=== PATIENT | female | born 1950 | race Caucasian/White ===

== ENCOUNTER 2023-05-31 20:38 | Observation (INO) | payer MEDICARE, SELFPAY ==
[2023-05-31] VITALS (25 sets, daily range): BP systolic 102–136; BP diastolic 74–102; PULSE 119–170; RESP 22–40; TEMP 37.6–37.8; O2SAT 92–100
--- NOTE | ~2023-05-31 | XR_ITS ---
EXAMINATION: XR chest 1V portable Exam Date/Time: 05/31/2023 21:00 CDT HISTORY: SHORTNESS OF BREATH. Comparison: None. RESULT: Lines, tubes, and devices: None. Lungs and pleura: Emphysematous and senescent changes. Scattered calcified granulomas. No focal cons olidation or pneumothorax. Biapical pleural scarring. Cardiomediastinal silhouette: Normal heart size. Atherosclerotic arch calcification. Other: No acute osseous or upper abdominal finding. IMPRESSION: No acute cardiopulmonary process. Reviewed, dictated and finalized at location [facility].
--- NOTE | ~2023-05-31 | CT_ITS ---
EXAMINATION: CTA chest PE protocol DATE: 05/31/2023 22:43 INDICATION: Shortness of breath. Elevated d-dimer. TECHNIQUE: Computed tomography angiography (CTA) of the chest was performed with 100 mL Omnipaque-350 intravenous contrast timed to evaluate the pulmonary arteries. Coronal maximum intensity projection 3D-reconstructions were created by the technologist. Automated exposure control and iterative reconst ruction technique were employed. Exam dose: 147.02 mGy-cm total exam DLP. COMPARISON: 05/31/2023 portable AP chest FINDINGS: There is diagnostic contrast enhancement of the pulmonary arteries and no evidence of pulmo nary embolism. Heart size is within normal range. There is coronary artery calcification. No pericardial effusion. There is thoracic aortic calcification and ectasia. Particularly prominent atherosclerotic plaque is noted in the descending thoracic aorta. Moderately prominent emphysematous changes of lungs. Mild bilateral apical scarring. No pulmonary infiltrate or consolidation or pulmonary mass lesion is evident. Prominent degenerative disc disease in the lower cervical spine. Degenerative change of the thoracic spine including particularly prominent degenerative disc disease at T11-12 with mild retrolisthesis. Mild to moderate burst fracture deformity of L1. IMPRESSION: No evidence of pulmonary embolism Aortic ectasia, atherosclerosis Emphysema Moderate burst fracture deformity of L1 Degenerative changes of the cervical and thoracic spine Reviewed, dictated and finalized at [facility]. Reviewed, dictated and finalized at location A.
--- NOTE | 2023-05-31 20:40 | ECG_ITS ---
Measurements Intervals [place] Rate: 157 P: [place]: 0 QRS: 79 QRSD: 89 T: -49 QT: 271 QTc: 439 Interpretive Statements ATRIAL FIBRILLATION WITH RAPID VENTRICULAR RESPONSE VENTRICULAR PREMATURE COMPLEX CANNOT RULE OUT SEPTAL INFARCT, AGE INDETERMINATE BORDERLINE ST-T WAVE ABNORMALITY- INF/LAT LEADS BASELINE ARTIFACT- I, II, III, AVR, AVL, AVF, V1-V6 ABNORMAL ECG NO PREVIOUS ECG AVAILABLE FOR COMPARISON Electronically Signed On 06-01-2023 8:57:23 CDT by Darien Singleton D.O.
--- NOTE | 2023-05-31 20:57 | ED.SOB ---
HPI - SOB/Dyspnea General Chief Complaint: Shortness of Breath/Dyspnea Stated Complaint: SOB Time Seen by Provider: 05/31/23 20:40 Source: patient and family Mode of arrival: ambulatory Limitations: no limitations History of Present Illness HPI Narrative: patient is a 73-year-old female who was recently living in the longterm and now living back home with family. She started to have shortness of breath and some panic type symptoms today and came to the emergency room. She is generally healthy except for some COPD. She also had a blood clot in her right lower extremity and was on blood thinners however that was stopped at the nursing facility. MD elicited complaint: shortness of breath Pertinent past history: COPD Onset (ago): hour(s) (3) Context: smoke/fume exposure (tobacco use) and anxiety Timing: constant Severity: moderate Exacerbating factors: nothing Relieving factors: nothing Known history of: COPD Associated symptoms: denies other symptoms Treatment prior to arrival: bronchodilator Related Data Home oxygen amount: none Allergies Allergy/AdvReac Type Severity Reaction Status Date / Time ciprofloxacin Allergy Unknown Verified 05/31/23 21:21 mirabegron Allergy Unknown Verified 05/31/23 21:21 oxybutynin Allergy Unknown Verified 05/31/23 21:21 solifenacin Allergy Unknown Verified 05/31/23 21:21 Review of Systems Review of Systems: All systems reviewed & are unremarkable except as noted in HPI and below Constitutional: Constitutional: Reports no additional constitutional complaints Eyes: Eyes: Reports no additional eye complaints ENT: Reports system reviewed and no additional complaints, except as documented Cardiovascular: Cardiovascular: Reports no additional cardiovascular complaints Respiratory: Respiratory: Reports no additional respiratory complaints Gastrointestinal: Gastrointestinal: Reports no additional gastrointestinal complaints Genitourinary: Genitourinary: Reports no additional female genitourinary complaints Musculoskeletal: Musculoskeletal: Reports no additional musculoskeletal complaints Integumentary/Breasts: Skin/Breast: Reports system reviewed and no additional complaints, except as docu Neurologic: Reports system reviewed and no additional complaints, except as documented Psychiatric: Psychiatric: Reports no additional psychiatric complaints Endocrine: Endocrine: Reports no additional endocrine complaints Hematologic/Lymphatic: Hematologic/Lymphatic: Reports no additional hematologic/lymphatic complaints Allergic/Immunologic: Allergic/Immunologic: Reports no additional allergic/immunologic complaints Exam Const: General: ill appearing Nutritional Appearance: well nourished Orientation/consciousness: patient oriented x3 Limitations: no limitations HENMT: Head: normal to inspection Eyes: Conjunctivae: conjunctivae normal Pupils: Equal, round and reactive pupils present EOM: EOMs intact bilaterally Neck: Neck: normal visual inspection Chest: Chest palpation & inspection: normal inspection of the chest Resp: Effort & Inspection: labored, no retractions, tachypneic and uses accessory muscles Auscultation: not clear to auscultation bilaterally, crackles (RLL), no rales, no rhonchi and no wheezes Cardio: Rate: tachycardic Rhythm: abnormal rhythm Heart sounds: no murmurs GI: Inspection: non-distended GI Palp: Yes Soft to palpation, No Tenderness to palpation present (GI) and No Guarding due to palpation present (GI) Auscultation: normal bowel sounds : General: Yes bladder normal to palpation Skin: General skin exam: pallor Neuro: General: patient oriented x3, moves all extremities, no meningeal signs, no focal motor deficits and CN's II-XI intact bilaterally Extrem: General: normal to inspection and no clubbing, cyanosis or edema Psych: Mental Status: mental status grossly normal Course Vital Signs Vital signs: Vital Signs Pulse Rate 170 H 05/31/23
[2023-05-31] MEDS: IPRATROPIUM 0.5 MG/ALBUTEROL SULFATE 2.5 MG AMPUL.NEB 3 ML INHALATION (20:58)
[2023-05-31] MEDS: SODIUM CHLORIDE 0.9% IV 1,000 ML 999 ML IV CONT (21:00)
[2023-05-31] MEDS: methylPREDNISolone SOD SUCC 125 MG VIAL IV PUSH (21:02)
[2023-05-31 21:03] LABS: Eosinophils Absolute Auto 0.02 K/mm3 (0.02-0.50); Eosinophils Percent Auto 0.2 % (1.0-6.0); Hematocrit 32.3 % (35.0-42.0); Immature Granulocyte Absolute 0.07 K/mm3 (0.00-0.00); Immature Granulocyte Percent A 0.7 % (0.0-0.0); Immature Platelet Fraction Pct 1.8 % (1.0-7.0); Lymphocytes Absolute Auto 1.31 K/mm3 (1.10-4.50); Lymphocytes Percent Auto 12.5 % (18.0-42.0); Mean Corpuscular Hemoglobin 23.8 pg (27.0-31.0); Mean Corpuscular Volume 76.9 fL (78.0-102.0); Mean Platelet Volume 9.4 fl (9.2-11.8); Monocytes Absolute Auto 1.42 K/mm3 (0.10-0.90); Monocytes Percent Auto 13.5 % (2.0-11.0); Neutrophils Absolute Auto 7.6 K/mm3 (1.7-7.2); Neutrophils Percent Auto 72.1 % (50.0-70.0); Platelet Count Result 528 K/mm3 (150-420); Red Cell Distribution Width 17.5 % (11.6-14.4); White Blood Count 10.5 K/mm3 (4.8-10.8)
[2023-05-31] MEDS: dilTIAZem HCl INJ 25 MG/5 ML VIAL 5 MG IV PUSH (21:18)
[2023-05-31 21:19] LABS: Lactic Acid Reflex 2.6 mmol/L (0.4-2.0)
[2023-05-31 21:27] LABS: Alanine Aminotransferase 85 U/L (14-59); Albumin Level 2.8 g/dL (3.4-5.0); Alkaline Phosphatase 147 U/L (46-116); Anion Gap 13 mmol/L (8-16); Aspartate Amino Transferase 73 U/L (15-37); Bilirubin,Total 0.2 mg/dL (0.00-1.00); Blood Urea Nitrogen 22 mg/dL (7-18); Carbon Dioxide 24 mmol/L (21-32); Chloride 101 mmol/L (98-108); Estimated Glomerular Filt Rate 46; Glucose 144 mg/dL (70-99); Osmolality Calculated 292 mOsm/kg (285-295); Potassium 2.9 mmol/L (3.5-5.1); Sodium 138 mmol/L (136-145); Total Protein 7.3 g/dL (6.4-8.2); Troponin I 25.9 ng/L (0.00-60.4)
--- NOTE | 2023-05-31 21:29 | ECG_ITS ---
Measurements Intervals [place] Rate: 146 P: [place]: 0 QRS: 81 QRSD: 85 T: 0 QT: 248 QTc: 387 Interpretive Statements ATRIAL FIBRILLATION WITH RAPID VENTRICULAR RESPONSE VENTRICULAR PREMATURE COMPLEXES CANNOT RULE OUT SEPTAL INFARCT, AGE INDETERMINATE BORDERLINE ST-T WAVE ABNORMALITY- INF/LAT LEADS BASELINE ARTIFACT- II, III, AVR, AVL, AVF, V6 ABNORMAL ECG COMPARED TO ECG 05/31/2023 20:57:53 NO SIGNIFICANT CHANGES Electronically Signed On 06-01-2023 8:58:28 CDT by Darien Singleton D.O.
[2023-05-31] MEDS: AZITHROMYCIN 500 MG/NS 250 ML 500 MG/250 ML BAG 250 MG IVPB (21:49)
[2023-05-31 21:52] LABS: NT Pro B Type Natriuretic Pept 7500 pg/mL (0-125)
[2023-05-31 21:59] LABS: INR 0.9; Partial Thromboplastin Time 30.2 SEC (23.90-30.70); Prothrombin Time 10.3 Seconds (9.50-12.10)
[2023-05-31 22:03] LABS: D Dimer 2.28 mg/L (0.19-0.50)
[2023-05-31] MEDS: dilTIAZem HCl INJ 25 MG/5 ML VIAL 10 MG IV PUSH (22:41)
--- NOTE | 2023-05-31 22:45 | PC.NURSE ---
When pt falls asleep SpO2 decreased to upper 80s. ERP aware and EtCO2 applied with 1 L O2. Pt tolerates well. SpO2 remains 92-94% on 1 L per NC.
--- NOTE | 2023-05-31 22:46 | PC.NURSE ---
Pt resting L lateral recumbent position. Pt reports feeling much better. ERP returns to bedside to discuss plan. Diltiazem administered as ordered.
[2023-05-31] MEDS: dilTIAZem 100 MG/100 ML 100 MG/100 ML BAG IV CONT (23:01)
--- NOTE | 2023-05-31 23:41 | PC.NURSE ---
Remain awaiting CT report. Pt tolerating diltiazem infusion well. Pt resting L lateral recumbent position occasional dry hacking cough noted. SpO2 remains 94% on 1 L per NC. Call light in reach. Side rails up x 2.
--- NOTE | 2023-05-31 23:48 | PC.NURSE ---
Pt voided clear yellow urine by bedside commode, unmeasured estimated approx 200 mL. No increase in dyspnea with transfer to and from bedside commode with assist x 1 by BRYCE Henson tech.
[2023-05-31 23:58] LABS: Reflex Lactic Acid Yes or No Add Lactic
[2023-06-01] VITALS (25 sets, daily range): BP systolic 85–111; BP diastolic 52–90; PULSE 88–120; RESP 17–26; TEMP 36.3–36.6; O2SAT 91–98; BMI 18.8
[2023-06-01] MEDS: POTASSIUM CHLORIDE 20 MEQ ER TABLET 40 MEQ PO (01:33)
[2023-06-01 01:40] LABS: Magnesium 1.5 mg/dL (1.8-2.4)
[2023-06-01 01:58] LABS: Lactic Acid 0.9 mmol/L (0.4-2.0)
[2023-06-01] MEDS: MAGNESIUM OXIDE 400 MG TABLET PO (02:28)
[2023-06-01] MEDS: POTASSIUM CHLORIDE 20 MEQ ER TABLET PO (02:29)
--- NOTE | 2023-06-01 02:41 | ADMGEN ---
This patient, Mamie Kelley, was admitted to 2nd Floor Room 208-2. Patient/family oriented to hospital policies and general routines including ID bracelet, bed and alarms, visiting hours, pain management, procedures, bathroom and other care routines, personal items, smoking policy, room service/diet, and visiting hours. Patient has purse on bedside table Information on how to activate the Rapid Response Team has been discussed. Patient/Family are encouraged to report perceived risks to care and to ask questions if they do not understand what they are told or what they should do.
--- NOTE | 2023-06-01 04:28 | PC.NURSE ---
Patient used call light and assisted up to void, heart rate 120's with activity noted
--- NOTE | 2023-06-01 04:58 | PC.NURSE ---
new bag of cardizem gregorio, rate remains 108-120
[2023-06-01] MEDS: ACETAMINOPHEN 325 MG TABLET 650 MG PO (04:59)
[2023-06-01 05:49] LABS: Appearance Urine Clear (Clear); Bilirubin Urine Negative (Negative); Blood Urine Negative (Negative); Color Urine Light Yellow (Yellow); Glucose Urine UA Trace (Negative); Ketones Urine Negative (Negative); Leukocyte Esterase Ur Negative LEU/UL (Negative); Nitrate Urine Negative (Negative); Protein Urine 1+ (Negative); Urobilinogen Urine 0.2 mg/dL (0.2-1.0)
[2023-06-01 05:56] LABS: Add Urine Microscopic? YES; Squamous Epithelial Cell Urine Moderate /hpf (Few)
--- NOTE | 2023-06-01 06:10 | PC.NURSE ---
headache improved, ankles are hurting worse this am
[2023-06-01] MEDS: HYDROcodone/acetaminophen (*CRX) 5-325 MG TABLET 1 TAB PO (06:12)
[2023-06-01] MEDS: IPRATROPIUM 0.5 MG/ALBUTEROL SULFATE 2.5 MG AMPUL.NEB 3 ML INHALATION ×2 (06:13→12:08)
[2023-06-01 07:25] LABS: Hematocrit 28.2 % (35.0-42.0); Hemoglobin 8.7 g/dL (11.7-13.8); Mean Corpuscular HGB Conc 30.9 g/dL (32.0-36.0); Mean Corpuscular Volume 77.7 fL (78.0-102.0); Mean Platelet Volume 9.8 fl (9.2-11.8); Platelet Count Result 439 K/mm3 (150-420); Red Blood Count 3.63 M/mm3 (4.20-5.40); Red Cell Distribution Width 17.5 % (11.6-14.4)
[2023-06-01 07:30] LABS: Anion Gap 11 mmol/L (8-16); Blood Urea Nitrogen 20 mg/dL (7-18); Calcium 8.6 mg/dL (8.5-10.1); Carbon Dioxide 24 mmol/L (21-32); Chloride 105 mmol/L (98-108); Estimated CRCL calculation 22 ml/min; Estimated Glomerular Filt Rate 38; Glucose 239 mg/dL (70-99); Osmolality Calculated 300 mOsm/kg (285-295); Potassium 3.9 mmol/L (3.5-5.1); Sodium 140 mmol/L (136-145)
--- NOTE | 2023-06-01 07:40 | PC.NURSE ---
Pt hypotensive, reported to Yanelis Moss NP. Cardizem decreased to 10 ml/hr. Will continue to monitor hr and bp.
[2023-06-01] MEDS: dilTIAZem 100 MG/100 ML 100 MG/100 ML BAG 10 MG IV CONT ×2 (09:20→11:36)
--- NOTE | 2023-06-01 09:20 | PC.NURSE ---
New order for cardizem drip with titration. Cardizem continued at current rate of 10ml/hr. bp 104/88 hr94.
[2023-06-01 09:33] LABS: Magnesium 1.5 mg/dL (1.8-2.4)
[2023-06-01 10:39] LABS: Thyroid Stimulating Hormone Reflex 0.57 u/IU/mL (0.36-3.74)
[2023-06-01] MEDS: MAGNESIUM SULF 2 GM/WATER 50ML 2 GM/50 ML BAG IVPB (10:41)
[2023-06-01] MEDS: ENOXAPARIN 60 MG/0.6 ML SYRINGE 45 MG SUB-Q (10:42)
--- NOTE | 2023-06-01 11:52 | PM.IMHP ---
H&P: HPI History of Present Illness Date/Time: 06/01/23914 Chief Complaint: Shortness of breath Narrative: Ms. Kelley is a 73-year-old female who presented to the emergency room with increasing shortness of breath. Patient states that she has had shortness breath for the last few months secondary to her COPD, but yesterday her shortness of breath increased significantly and she felt like she could not catch her breath. Patient states that at that time she was very worried and came to the emergency room. Patient states that she has also been having midsternal chest discomfort with radiation to her left shoulder when she has been up moving around in her house. Patient states that she was having palpitations throughout the day yesterday, but did not think anything of them. Patient states that she has not seen a physician in years and the only medication she has at home at this time are rescue albuterol inhalers. Patient states she does not take daily medication for her COPD. Patient states she does have a history of a DVT many years ago and was on Plavix for this. Patient denies any lightheadedness, dizziness, syncopal, or near syncopal episodes. Patient denies any dysuria, hematuria, frequency, or urgency. Upon evaluation emergency room patient was noted to be in atrial fibrillation with rapid ventricular response on was placed on a Cardizem drip. Patient was given a dose of azithromycin and ceftriaxone in the emergency room for a chest x-ray that showed possible right lower lobe infiltrate per the emergency room read. Radiology stated that chest x-ray showed no cardiopulmonary process. Patient was noted to have potassium of 2.9 and was given 60 mEq of oral potassium, and she was noted to have a magnesium of 1.5 and was given 400 of oral magnesium. Review of Systems Review of Systems: A 12 point review of systems was completed with patient all pertinent positive and negative per HPI the remainder are unremarkable. [facility] Past Medical History Medical History (Updated 06/01/23 @ 12:29 by Yanelis Sharma APRN) COPD (chronic obstructive pulmonary disease) DVT (deep venous thrombosis) Herniated cervical disc Surgical History Surgical History (Updated 06/01/23 @ 12:05 by Yanelis Sharma APRN) History of total hysterectomy Social History Social History Smoking status: Current every day smoker Tobacco type: cigarettes Second hand tobacco smoke exposure: Yes Alcohol intake: never Substance use: never Substance use type: does not use Lack of Transportation: No Lack of Food: Never True Current Housing: I Have Housing Concerned About Future Housing: No Difficulty Paying Gas/Electric Bills: No Difficulty Paying for Meds: No Currently Unemployed: No Education: High School Diploma/GED Difficulty w/ Childcare or Family Care: No Spiritual care concerns: No Meds Home Medications and Allergies Home Medications Medication Instructions Recorded Confirmed Type clonidine HCl 0.1 mg tablet 0.1 mg PO Q6H PRN Blood Pressure 06/01/23 06/01/23 History gabapentin 400 mg BYMOUTH TID 06/01/23 06/01/23 History trazodone 100 mg tablet 50 mg PO Q6H PRN Anxiety 06/01/23 06/01/23 History trazodone 100 mg tablet 100 mg PO HS 06/01/23 06/01/23 History Allergies Allergy/AdvReac Type Severity Reaction Status Date / Time ciprofloxacin Allergy Unknown Verified 05/31/23 21:21 mirabegron Allergy Unknown Verified 05/31/23 21:21 oxybutynin Allergy Unknown Verified 05/31/23 21:21 solifenacin Allergy Unknown Verified 05/31/23 21:21 Vital Signs Vital Signs - 24 hr 05/31/23 20:41 05/31/23 21:05 05/31/23 20:50 Temperature 37.6 C Pulse Rate 162 H Respiratory Rate 36 H Blood Pressure 136/91 H Pulse Oximetry 96 95 Oxygen Delivery Room Air Oxygen Flow Rate 05/31/23 20:55 05/31/23 21:29 05/31/23 20:40 Temperature Pul
--- NOTE | 2023-06-01 12:34 | PM.TDS ---
Transfer Discharge Sum: Prov Provider Date of admission: 06/01/23 01:38 Primary care physician: UNKNOWN,DOCTOR Admitting clinician: Endy Martinez MD Receiving physician/facility: Dr. Samuel DS: Admitting Diagnosis Discharge Date 06/01/2023 Admitting Diagnosis Atrial fibrillation with rapid ventricular response DS: Discharge Diagnosis Discharge Diagnosis Plan A/P 1. Atrial fibrillation with rapid ventricular response-patient was placed on a Cardizem drip in the emergency room which has been titrated.? Initially patient's potassium was 2.9 and she received supplementation.? Patient's magnesium remains at 1.5 and 2 g of magnesium IV has been ordered.? Will keep potassium close to 4 and magnesium close to 2.? TSH is 0.57.? Due to the fact the patient was complaining of chest pain and patient's heart rate has been difficult to control with the Cardizem drip patient is going to be transferred to a higher level that has Cardiology available for recommendations. 2. Chest pain-patient is not actively having chest discomfort but states that she has had the chest discomfort with radiation to her left shoulder off and on while at home.? Patient is being transferred to a higher level of care for Cardiology consultation. 3. COPD-patient is on routine DuoNeb treatments every 6 hours.? Patient will eventually need to follow up with pulmonology for recommendations regarding chronic medications. VTE:? Patient will be placed on full-dose Lovenox daily secondary to renal adjustment and creatinine clearance being less than 30. Dispo:? Patient will be transferred to outside facility for Cardiology consultation.? Dr. Samuel is accepting physician at [facility]. Code Status:? Full code. Transfer Discharge Sum: Med Medications Active and Home Medications: Home Medications clonidine HCl 0.1 mg tablet 0.1 mg PO Q6H PRN Blood Pressure 06/01/23 [History Confirmed 06/01/23] gabapentin 400 mg BYMOUTH TID 06/01/23 [History Confirmed 06/01/23] trazodone 100 mg tablet 50 mg PO Q6H PRN Anxiety 06/01/23 [History Confirmed 06/01/23] trazodone 100 mg tablet 100 mg PO HS 06/01/23 [History Confirmed 06/01/23] Active Medications Acetaminophen (Acetaminophen 325 Mg Tablet) 650 mg PO Q4H PRN PRN Reason: Mild Pain (1-3) or Fever Last Admin: 06/01/23 04:59 Dose: 650 mg Hydrocodone Bitart/Acetaminophen (Hydrocodone/Acetaminophen (*Crx) 5-325 Mg Tablet) 1 tab PO Q4H PRN PRN Reason: Moderate Pain (4-6) Last Admin: 06/01/23 06:12 Dose: 1 tab Albuterol (Albuterol Sulfate Neb 2.5 Mg/3 Ml Inh) 2.5 mg INHALATION Q4HRT PRN PRN Reason: Shortness Of Breath Albuterol/Ipratropium (Ipratropium 0.5 Mg/Albuterol Sulfate 2.5 Mg Ampul.Neb 3 Ml) 3 ml INHALATION Q6HRT BRETT Last Admin: 06/01/23 12:08 Dose: 3 ml Bisacodyl (Bisacodyl 5 Mg Tablet Ec) 5 mg PO DAILY PRN PRN Reason: Constipation Enoxaparin Sodium (Enoxaparin 60 Mg/0.6 Ml Syringe) 45 mg SUB-Q DAILY [facility] Last Admin: 06/01/23 10:42 Dose: 45 mg Diltiazem HCl (Cardizem 100 Mg/100 Ml) 100 mg in 100 mls @ 5 mls/hr IV CONT .Q20H BRETT; Protocol Last Admin: 06/01/23 11:36 Dose: 10 mg/hr, 10 mls/hr Morphine Sulfate (Morphine Sulfate (*Crx) 2 Mg/Ml Inj) 2 mg IV PUSH Q4H PRN PRN Reason: Pain Rated 7-10 Naloxone HCl (Naloxone Hcl 0.4 Mg/Ml Vial) 0.1 mg IV PUSH Q2M PRN PRN Reason: Opiate Reversal Ondansetron HCl (Ondansetron Inj 4 Mg/2 Ml Vial) 4 mg IV PUSH Q6H PRN PRN Reason: Nausea And Vomiting Perflutren Lipid Microsphere (Perflutren Lipid Microspheres 1.5 Ml Vial Diluted To 10 Ml Total Volume) 0 ml IV PUSH ONCE PRN; Protocol PRN Reason: adequate visualization Stop: 06/03/23 01:36 Transfer Discharge Sum: Hosp Hospital Course Hospital course: Mamie Kelley is a 73 year old female who presented to the emergency room with increasing shortness of breath.? Patient states that she has had shortness breath for the last few months secondary to her COPD, but yesterday her short
--- NOTE | 2023-06-01 18:07 | PC.NURSE ---
Called [facility] and gave report to Danuta.
== END 2023-06-01 18:50 | disposition short-term general hospital (02) ==
LOC: CHSED 23:19 → CHS2ND 06-02 10:17
PROVIDERS: Nurse Practitioner; Nurse Practitioner Adult Health; Admitting Provider Internal Medicine; Emergency Provider Emergency Medicine; Visit Provider Internal Medicine
DX: I48.91 Unspecified atrial fibrillation (principal); J44.1 Chronic obstructive pulmonary disease with (acute) exacerbation; Z86.718 Personal history of other venous thrombosis and embolism; F17.210 Nicotine dependence, cigarettes, uncomplicated; R07.9 Chest pain, unspecified
CPT/HCPCS: 36415; 71045; 71275; 80048; 80053; 81001; 83605; 83735; 83880; 84443; 84484; 85025; 85027; 85055; 85380; 85610; 85730; 87040; 93005; 94640; 96361; 96365; 96366; 96368; 96372; 96375; 96376; 99285; A9270; G0378; J0456; J0696; J1650; J2930; J3475; J7030; Q9967

== ENCOUNTER 2023-07-23 00:11 | Emergency (ER) | payer MEDICARE, SELFPAY ==
[2023-07-23] VITALS (8 sets, daily range): BP systolic 121–139; BP diastolic 63–88; PULSE 85–97; RESP 22–36; TEMP 36.9–37.6; O2SAT 88–96
--- NOTE | ~2023-07-23 | XR_ITS ---
Portable chest x-ray Comparison: 05/31/2023 Clinical History: Dyspnea Findings: Lungs are clear, without focal consolidation or pleural effusion. Possible COPD. Cardiome diastinal silhouette is stable. Bones and soft tissues are unremarkable. Impression: Possible COPD. Clear lungs. Reviewed, dictated and finalized at location . Impression: Possible COPD. Clear lungs.
--- NOTE | 2023-07-23 00:21 | ED.SOB ---
HPI - SOB/Dyspnea General Chief Complaint: Shortness of Breath/Dyspnea Stated Complaint: sob Time Seen by Provider: 07/23/23 00:20 Source: patient and RN notes reviewed Mode of arrival: ambulatory Limitations: no limitations History of Present Illness MD elicited complaint: shortness of breath Pertinent past history: COPD Onset (ago): hour(s) (1) Timing: constant Severity: moderate Exacerbating factors: exertion and movement Relieving factors: nothing Known history of: COPD Associated symptoms: denies other symptoms Treatment prior to arrival: none Related Data Home oxygen amount: none Home Medications Medication Instructions Recorded Confirmed clonidine HCl 0.1 mg tablet 0.1 mg PO Q6H PRN Blood Pressure 06/01/23 06/01/23 gabapentin 400 mg BYMOUTH TID 06/01/23 06/01/23 trazodone 100 mg tablet 50 mg PO Q6H PRN Anxiety 06/01/23 06/01/23 trazodone 100 mg tablet 100 mg PO HS 06/01/23 06/01/23 Allergies Allergy/AdvReac Type Severity Reaction Status Date / Time ciprofloxacin Allergy Unknown Verified 07/23/23 00:14 mirabegron Allergy Unknown Verified 07/23/23 00:14 oxybutynin Allergy Unknown Verified 07/23/23 00:14 solifenacin Allergy Unknown Verified 07/23/23 00:14 Review of Systems Review of Systems: All systems reviewed & are unremarkable except as noted in HPI and below Constitutional: Constitutional: Denies chills and Denies fever(s) Respiratory: Respiratory: Reports as per HPI and Denies cough PMFSH Past Medical History Medical History (Updated 07/23/23 @ 01:56 by Ovidio Mc MD) Atrial fibrillation COPD (chronic obstructive pulmonary disease) DVT (deep venous thrombosis) Herniated cervical disc Surgical History Surgical History History of total hysterectomy Social History Social History Smoking status: Current every day smoker Tobacco type: cigarettes Second hand tobacco smoke exposure: Yes Alcohol intake: never Substance use: never Substance use type: does not use Lack of Transportation: No Lack of Food: Never True Current Housing: I Have Housing Concerned About Future Housing: No Difficulty Paying Gas/Electric Bills: No Difficulty Paying for Meds: No Currently Unemployed: No Education: High School Diploma/GED Difficulty w/ Childcare or Family Care: No Spiritual care concerns: No Exam Const: General: no acute distress, alert and ill appearing chronically Nutritional Appearance: well nourished and thin Orientation/consciousness: patient oriented x3 Limitations: no limitations HENMT: Head: normal to inspection Ears: external ears normal Face/Nose/Sinus: Normal external nose present Face and sinus: normal facial exam Mouth: Yes moist mucous membranes Eyes: Conjunctivae: conjunctivae normal Pupils: Equal, round and reactive pupils present EOM: EOMs intact bilaterally Neck: Neck: normal visual inspection Resp: Effort & Inspection: normal respiratory effort Auscultation: crackles bilateral at the base Cardio: Rate: regular rate Rhythm: regular rhythm GI: GI Palp: Yes Soft to palpation and No Tenderness to palpation present (GI) Auscultation: normal bowel sounds Back/Spine/Pelvis: Cervical Spine: cervical ROM normal Thoracic/Lumbar Spine: thoraco-lumbar ROM normal Skin: General skin exam: normal color Rashes: no rashes Neuro: General: patient oriented x3, moves all extremities, no focal motor deficits and CN's II-XI intact bilaterally Speech: normal speech Gait exam (Neuro): Normal gait present Extrem: General: normal to inspection and no clubbing, cyanosis or edema Psych: Mental Status: mental status grossly normal Affect: normal affect Attitude: cooperative Course Course Emergency Course: I discussed with the patient family admission in the hospital overnight for COPD exacerbation and she declined. Patient will lease picker her
[2023-07-23] MEDS: methylPREDNISolone SOD SUCC 125 MG VIAL IV PUSH (00:48)
[2023-07-23 00:50] LABS: Base Excess ABG -1.9 mmol/L (0-2); HCO3 ABG 20.8 mmol/L (23-29); Oxygen Content ABG 13.7 %vol (16.0-22.0); Oxygen Saturation ABG 93.7 % (95-97); Oxyhemoglobin 89.9 % (94-100); PCO2 ABG 28.9 mmHg (35-45); PO2 ABG 67.6 mmHg (75-85); Total Hemoglobin 10.8 g/dL (12.0-18.0); pH ABG 7.48 (7.35-7.45)
[2023-07-23 00:53] LABS: Device NASAL CANNULA; Modified Allen's Test Pass; Site Drawn RIGHT RADIAL
[2023-07-23 01:01] LABS: Basophils Absolute Auto 0.07 K/mm3 (0.00-0.10); Basophils Percent Auto 0.7 % (0.0-1.0); Eosinophils Absolute Auto 0.14 K/mm3 (0.02-0.50); Eosinophils Percent Auto 1.4 % (1.0-6.0); Hematocrit 34.4 % (35.0-42.0); Hemoglobin 9.9 g/dL (11.7-13.8); Immature Granulocyte Absolute 0.12 K/mm3 (0.00-0.00); Immature Granulocyte Percent A 1.2 % (0.0-0.0); Lymphocytes Absolute Auto 0.51 K/mm3 (1.10-4.50); Lymphocytes Percent Auto 5.3 % (18.0-42.0); Mean Corpuscular HGB Conc 28.8 g/dL (32.0-36.0); Mean Corpuscular Hemoglobin 24.6 pg (27.0-31.0); Mean Corpuscular Volume 85.6 fL (78.0-102.0); Mean Platelet Volume 9.6 fl (9.2-11.8); Monocytes Absolute Auto 0.56 K/mm3 (0.10-0.90); Monocytes Percent Auto 5.8 % (2.0-11.0); Neutrophils Absolute Auto 8.3 K/mm3 (1.7-7.2); Neutrophils Percent Auto 85.6 % (50.0-70.0); Platelet Count Result 470 K/mm3 (150-420); Red Blood Count 4.02 M/mm3 (4.20-5.40); Red Cell Distribution Width 21.2 % (11.6-14.4); White Blood Count 9.7 K/mm3 (4.8-10.8)
[2023-07-23 01:17] LABS: Alanine Aminotransferase 14 U/L (14-59); Albumin Level 2.9 g/dL (3.4-5.0); Alkaline Phosphatase 92 U/L (46-116); Anion Gap 13 mmol/L (8-16); Aspartate Amino Transferase 20 U/L (15-37); Bilirubin,Total 0.2 mg/dL (0.00-1.00); Blood Urea Nitrogen 19 mg/dL (7-18); Calcium 9.4 mg/dL (8.5-10.1); Carbon Dioxide 24 mmol/L (21-32); Chloride 106 mmol/L (98-108); Estimated CRCL calculation 23 ml/min; Estimated Glomerular Filt Rate 38; Glucose 182 mg/dL (70-99); Magnesium 1.8 mg/dL (1.8-2.4); NT Pro B Type Natriuretic Pept 606 pg/mL (0-125); Osmolality Calculated 303 mOsm/kg (285-295); Potassium 3.3 mmol/L (3.5-5.1); Sodium 143 mmol/L (136-145)
[2023-07-23 01:39] LABS: Influenza A QL RT-PCR Negative (Negative); Influenza B QL RT-PCR Negative (Negative); RSV RNA, RT-PCR Negative (Negative); SARS-CoV-2 RNA PCR Negative (Negative)
[2023-07-23] MEDS: IPRATROPIUM 0.5 MG/ALBUTEROL SULFATE 2.5 MG AMPUL.NEB 3 ML INHALATION (02:01)
== END 2023-07-23 02:14 | disposition home or self-care (01) ==
PROVIDERS: Emergency Provider Emergency Medicine; PCP Physician Assistant
DX: J44.1 Chronic obstructive pulmonary disease with (acute) exacerbation (principal); I48.91 Unspecified atrial fibrillation; F17.210 Nicotine dependence, cigarettes, uncomplicated; Z86.718 Personal history of other venous thrombosis and embolism; Z20.822 Contact with and (suspected) exposure to COVID-19
CPT/HCPCS: 36415; 36600; 71045; 80053; 82805; 83735; 83880; 85025; 87637; 96374; 99284; J2930

== ENCOUNTER 2023-08-14 14:42 | Outpatient (CLI) | payer MEDICARE, SELFPAY ==
[2023-08-14 15:01] LABS: Hematocrit 32.7 % (35.0-42.0); Hemoglobin 9.9 g/dL (11.7-13.8); Mean Corpuscular HGB Conc 30.3 g/dL (32.0-36.0); Mean Corpuscular Hemoglobin 24.5 pg (27.0-31.0); Mean Corpuscular Volume 80.9 fL (78.0-102.0); Mean Platelet Volume 8.6 fl (9.2-11.8); Platelet Count Result 401 K/mm3 (150-420); Red Blood Count 4.04 M/mm3 (4.20-5.40); Red Cell Distribution Width 19.7 % (11.6-14.4); White Blood Count 7.3 K/mm3 (4.8-10.8)
[2023-08-14 15:11] LABS: Hemoglobin A1C 5.8 % (<5.7)
[2023-08-14 15:36] LABS: Band Neutrophils Percent 0 % (0-6); Basophils Percent Manual 0 % (0-1); Eosinophils Percent Manual 0 % (1-6); Lymphocytes Absolute Manual 1.46 K/mm3 (1.1-4.5); Lymphocytes Percent Manual 20 % (18-44); Monocytes Percent Manual 11 % (3-9); Neutrophils Absolute Manual 5.03 K/mm3 (1.7-7.2); Neutrophils Percent Manual 69 % (46-73); Platelet Estimate Adequate (Adequate); Total Cells Counted 100
[2023-08-14 15:43] LABS: Alanine Aminotransferase 41 U/L (14-59); Albumin Level 2.9 g/dL (3.4-5.0); Alkaline Phosphatase 85 U/L (46-116); Anion Gap 7 mmol/L (8-16); Aspartate Amino Transferase 27 U/L (15-37); Bilirubin,Total 0.3 mg/dL (0.00-1.00); Blood Urea Nitrogen 19 mg/dL (7-18); Calcium 9.5 mg/dL (8.5-10.1); Carbon Dioxide 29 mmol/L (21-32); Chloride 102 mmol/L (98-108); Cholesterol 216 mg/dL (0-200); Estimated Glomerular Filt Rate 52; Free T4 Free Thyroxine 1.22 ng/dL (0.76-1.46); Glucose 92 mg/dL (70-99); HDL Direct 118 mg/dL (40-60); LDL Cholesterol Calculated 87 mg/dL (<130); Osmolality Calculated 288 mOsm/kg (285-295); Potassium 4.4 mmol/L (3.5-5.1); Sodium 138 mmol/L (136-145); Thyroid Stimulating Hormone 4.37 uIU/mL (0.36-3.74); Total Protein 6.8 g/dL (6.4-8.2); Triglycerides 53 mg/dL (0-150)
[2023-08-21 12:35] LABS: Vitamin D 25 Hydroxy 26 ng/mL (30-100)
== END 2023-08-14 14:43 | disposition home or self-care (01) ==
LOC: CHSLAB 14:46
PROVIDERS: PCP Physician Assistant; Visit Provider Physician Assistant
DX: E78.5 Hyperlipidemia, unspecified (principal); M81.0 Age-related osteoporosis without current pathological fracture; Z79.899 Other long term (current) drug therapy
CPT/HCPCS: 36415; 80053; 80061; 82306; 83036; 84439; 84443; 85025

== ENCOUNTER 2023-08-27 07:04 | Emergency (ER) | payer MEDICARE, SELFPAY ==
[2023-08-27] VITALS (68 sets, daily range): BP systolic 52–193; BP diastolic 33–89; PULSE 63–87; RESP 13–33; TEMP 35.7–36.4; O2SAT 93–100
--- NOTE | ~2023-08-27 | CT_ITS ---
EXAMINATION: CT brain wo con DATE: 08/27/2023 11:21 INDICATION: Lethargy. Septic shock. Unresponsive. TECHNIQUE: Computed tomography (CT) of the head was performed without intravenous contrast. The mA wa s adjusted according to patient size. Iterative reconstruction technique was employed. Exam dose: 60 5.33 mGy-cm total exam DLP. COMPARISON: None FINDINGS: Examination is limited by motion artifact. Bilateral vertebral artery calcifications and prominent bilateral carotid siphon internal carotid art chad calcifications. There is nonspecific diminished attenuation cerebral white matter, likely due to chronic small vessel ischemic changes. Chronic right basal ganglia lacunar infarct. No intracranial mass lesion or hemorrhage, midline shift or mass effect. No subdural or epidural orly [place] is detected. No skull fracture or bone destruction is detected. The paranasal sinuses and mastoid air cells are normally developed and aerated. IMPRESSION: Cerebral atherosclerosis and chronic small vessel ischemic changes of cerebral white mat ter, chronic right basal ganglia lacunar infarct No acute intracranial finding Reviewed, dictated and finalized at Location A. Reviewed, dictated and finalized at location A. IMPRESSION: Cerebral atherosclerosis and chronic small vessel ischemic changes of cerebral white matter, chronic right basal ganglia lacunar infarct No acute intracranial finding
--- NOTE | ~2023-08-27 | XR_ITS ---
XR chest port-a-cath/central 08/27/2023 13:16 Indication: Status post line placement Procedure: AP portable chest Comparison: 08/27/2023 Findings: Right IJ central line tip in the SVC. Heart size normal. No focal air space disease, pulmon eva edema, pleural effusion or suspected pneumothorax. No acute osseous abnormality. Impression: 1: No acute cardiopulmonary disease. Reviewed, dictated and finalized at location B. Impression: 1: No acute cardiopulmonary disease.
--- NOTE | ~2023-08-27 | XR_ITS ---
EXAMINATION: XR chest 1V portable 08/27/2023 08:50 INDICATION: Cough, weakness and shortness of breath PROCEDURE: AP portable chest COMPARISON: 07/23/2023 FINDINGS: The lungs are clear. The cardiomediastinal silhouette is within normal limits. There are no pleural effusions. There is no pneumothorax suspected. There are multiple calcified granulomas o f the lungs. The lungs are hyperinflated which is consistent with, but not diagnostic of chronic obst ructive pulmonary disease. IMPRESSION: 1: NO ACUTE CARDIOPULMONARY DISEASE. Reviewed, dictated and finalized at location B.
--- NOTE | ~2023-08-27 | CT_ITS ---
Clinical Indication: Septic shock CT Scan of the Chest, Abdomen, and Pelvis without Contrast: Technique: Contiguous sections were acquired throughout the chest, abdomen, and pelvis without IV con trast administration. Dose reduction technique was used on this scan by utilizing automated exposure control and iterative reconstruction technique. The dose-length product (DLP) was 389.87 mGy-cm. COMPARISON: 05/31/2023 Findings: There is no evidence of any significant mediastinal, hilar or axillary lymphadenopathy. There are ath erosclerotic calcifications of the aorta and coronary arteries. There is no evidence of pleural or pericardial effusion. There is mild to moderate emphysema. There are calcified granulomas. The liver, spleen, pancreas, gallbladder, adrenals and kidneys are within normal limits. There are at herosclerotic calcifications of the aorta. No lymphadenopathy. Questionable mild wall thickening of the transverse and descending colon. No bowel obstruction clearl y evident. No abscess or free air identified. Urinary bladder is unremarkable. No adnexal mass seen. No ascites. L1 compression fracture present. Impression: Questionable mild wall thickening of large bowel, as above. Correlate for infectious/inflammatory col itis. Ischemic bowel less likely, but not definitively excluded. Mild to moderate emphysema. L1 compression fracture, age-indeterminate. Reviewed, dictated and finalized at location . Impression: Questionable mild wall thickening of large bowel, as above. Correlate for infec tious/inflammatory colitis. Ischemic bowel less likely, but not definitively ex cluded. Mild to moderate emphysema. L1 compression fracture, age-indeterminate.
--- NOTE | 2023-08-27 07:05 | ED.NAVMDI ---
HPI - Nausea/Vomiting/Diarrhea General Chief complaint: Nausea/Vomiting/Diarrhea Stated complaint: diarrhea, weakness Time Seen by Provider: 08/27/23 07:05 Source: patient Mode of arrival: wheelchair Limitations: no limitations History of Present Illness HPI Narrative: 73-year-old female, smoker with history of COPD on home oxygen, atrial fibrillation, DVT presents to the ER with an 8 hour history of -- weakness -- multiple episodes of diarrhea, nausea, vomiting -- no fever or chills. No abdominal pain. -- Chronic cough Patient has not been on any recent antibiotics. MD elicited complaint: nausea, vomiting and diarrhea Onset (ago): hour(s) ( red 8 hours ago) Description of vomiting: watery Associated nausea: Yes Associated abdominal pain: No Exacerbating factors: none Relieving factors: none Associated symptoms: weakness Related Data Home Medications Medication Instructions Recorded Confirmed clonidine HCl 0.1 mg tablet 0.1 mg PO Q6H PRN Blood Pressure 06/01/23 06/01/23 gabapentin 400 mg BYMOUTH TID 06/01/23 06/01/23 trazodone 100 mg tablet 50 mg PO Q6H PRN Anxiety 06/01/23 06/01/23 trazodone 100 mg tablet 100 mg PO HS 06/01/23 06/01/23 Allergies Allergy/AdvReac Type Severity Reaction Status Date / Time ciprofloxacin Allergy Unknown Verified 08/27/23 07:28 mirabegron Allergy Unknown Verified 08/27/23 07:28 oxybutynin Allergy Unknown Verified 08/27/23 07:28 solifenacin Allergy Unknown Verified 08/27/23 07:28 Review of Systems Review of Systems: All systems reviewed & are unremarkable except as noted in HPI and below Constitutional: Constitutional: Reports as per HPI and Reports no additional constitutional complaints Eyes: Eyes: Reports as per HPI and Reports no additional eye complaints ENT: Reports system reviewed and no additional complaints, except as documented and Reports as per HPI Cardiovascular: Cardiovascular: Reports as per HPI and Reports no additional cardiovascular complaints Respiratory: Respiratory: Reports as per HPI and Reports no additional respiratory complaints Gastrointestinal: Gastrointestinal: Reports as per HPI, Reports diarrhea, Reports nausea and Reports vomiting Genitourinary: Genitourinary: Reports no additional female genitourinary complaints Musculoskeletal: Musculoskeletal: Reports no additional musculoskeletal complaints and Reports as per HPI Integumentary/Breasts: Skin/Breast: Reports system reviewed and no additional complaints, except as docu and Reports as per HPI Neurologic: Reports system reviewed and no additional complaints, except as documented, Reports as per HPI and Reports dizziness Psychiatric: Psychiatric: Reports no additional psychiatric complaints and Reports as per HPI Endocrine: Endocrine: Reports no additional endocrine complaints and Reports as per HPI Hematologic/Lymphatic: Hematologic/Lymphatic: Reports no additional hematologic/lymphatic complaints and Reports as per HPI Allergic/Immunologic: Allergic/Immunologic: Reports no additional allergic/immunologic complaints and Reports as per HPI PMFSH Past Medical History Medical History Atrial fibrillation COPD (chronic obstructive pulmonary disease) DVT (deep venous thrombosis) Herniated cervical disc Surgical History Surgical History History of total hysterectomy Social History Social History Smoking status: Current every day smoker Tobacco type: cigarettes Second hand tobacco smoke exposure: Yes Alcohol intake: never Substance use: never Substance use type: does not use Lack of Transportation: No Lack of Food: Never True Current Housing: I Have Housing Concerned About Future Housing: No Difficulty Paying Gas/Electric Bills: No Difficulty Paying for Meds: No Currently Unemployed: No Education:
[2023-08-27] MEDS: LACTATED RINGERS 1,000 ML 999 ML IV CONT ×2 (07:22→07:49)
[2023-08-27] MEDS: PROCHLORPERAZINE EDISYLATE 10 MG/2 ML VIAL IV PUSH (07:23)
--- NOTE | 2023-08-27 07:24 | ECG_ITS ---
Measurements Intervals [place] Rate: 65 P: 70 MN: 175 QRS: 60 QRSD: 103 T: 94 QT: 443 QTc: 464 Interpretive Statements SINUS RHYTHM MODERATE T-WAVE ABNORMALITY, CONSIDER ANTEROLATERAL ISCHEMIA [-0.1+ mV T-WAVE IN V3- V6] COMPARED TO ECG 05/31/2023 21:46:17 THE SINUS RHYTHM HAS BEEN RESTORED WITH THE ANTEROLATERAL T-WAVE INVERSION IS NEW. Electronically Signed On 08-27-2023 11:24:25 CDT by Sophia Triana M.D.
[2023-08-27 07:40] LABS: Basophils Absolute Auto 0.11 K/mm3 (0.00-0.10); Basophils Percent Auto 1.3 % (0.0-1.0); Eosinophils Absolute Auto 0.18 K/mm3 (0.02-0.50); Hematocrit 36.2 % (35.0-42.0); Hemoglobin 10.5 g/dL (11.7-13.8); Immature Granulocyte Absolute 0.16 K/mm3 (0.00-0.00); Immature Granulocyte Percent A 1.8 % (0.0-0.0); Immature Platelet Fraction Pct 1.6 % (1.0-7.0); Lymphocytes Absolute Auto 2.51 K/mm3 (1.10-4.50); Lymphocytes Percent Auto 28.5 % (18.0-42.0); Mean Corpuscular Hemoglobin 23.7 pg (27.0-31.0); Mean Corpuscular Volume 81.7 fL (78.0-102.0); Mean Platelet Volume 9.3 fl (9.2-11.8); Monocytes Percent Auto 3.4 % (2.0-11.0); Neutrophils Absolute Auto 5.5 K/mm3 (1.7-7.2); Nucleated Red Blood Cells Absolute Auto 0.02 K/mm3 (0.00-0.00); Nucleated Red Blood Cells Perc 0.2 % (0-0.0); Platelet Count Result 614 K/mm3 (150-420); Red Blood Count 4.43 M/mm3 (4.20-5.40); White Blood Count 8.8 K/mm3 (4.8-10.8)
[2023-08-27 07:51] LABS: Appearance Urine Clear (Clear); Bilirubin Urine Negative (Negative); Blood Urine Negative (Negative); Color Urine Light Yellow (Yellow); Glucose Urine UA Negative (Negative); Ketones Urine Negative (Negative); Leukocyte Esterase Ur 1+ LEU/UL (Negative); Nitrate Urine Positive (Negative); Protein Urine Negative (Negative); Urobilinogen Urine 0.2 mg/dL (0.2-1.0); pH Urine 5.5 (5.0-8.0)
[2023-08-27] MEDS: LACTATED RINGERS 1,000 ML 150 ML IV CONT ×2 (07:57→09:19)
[2023-08-27 08:00] LABS: Add Urine Microscopic? YES
[2023-08-27 08:00] LABS: Alanine Aminotransferase 31 U/L (14-59); Albumin Level 2.8 g/dL (3.4-5.0); Alkaline Phosphatase 317 U/L (46-116); Anion Gap 19 mmol/L (8-16); Aspartate Amino Transferase 40 U/L (15-37); Bilirubin,Total 0.7 mg/dL (0.00-1.00); Blood Urea Nitrogen 25 mg/dL (7-18); Calcium 9.6 mg/dL (8.5-10.1); Carbon Dioxide 17 mmol/L (21-32); Chloride 100 mmol/L (98-108); Estimated Glomerular Filt Rate 27; Glucose 187 mg/dL (70-99); Osmolality Calculated 291 mOsm/kg (285-295); Potassium 3.9 mmol/L (3.5-5.1); Sodium 136 mmol/L (136-145); Troponin I 26.4 ng/L (0.00-60.4)
[2023-08-27 08:01] LABS: Bacteria Urine 1+ /hpf; RBC Urine 0-2 /hpf (0-2); Squamous Epithelial Cell Urine Few /hpf (Few)
[2023-08-27 08:02] LABS: Lactic Acid Reflex 6.7 mmol/L (0.4-2.0)
[2023-08-27 08:16] LABS: Influenza A QL RT-PCR Negative (Negative); Influenza B QL RT-PCR Negative (Negative); SARS-CoV-2 RNA PCR Negative (Negative)
[2023-08-27 08:17] LABS: RSV RNA, RT-PCR Negative (Negative)
[2023-08-27] MEDS: IPRATROPIUM 0.5 MG/ALBUTEROL SULFATE 2.5 MG AMPUL.NEB 3 ML INHALATION (10:35)
[2023-08-27 11:03] LABS: Reflex Lactic Acid Yes or No Add Lactic
[2023-08-27 11:21] LABS: Troponin I 23.3 ng/L (0.00-60.4)
[2023-08-27 11:24] LABS: Lactic Acid Reflex 2.5 mmol/L (0.4-2.0)
[2023-08-27] MEDS: SODIUM CHLORIDE 0.9% IV 1,000 ML 999 ML IV CONT (11:30)
[2023-08-27] MEDS: metroNIDAZOLE 500 MG/ISO 100ML 500 MG/100 ML BAG 100 MG IVPB (13:31)
--- NOTE | 2023-08-29 14:56 | PC.NURSE ---
urine culture results faxed to [facility] attn: dr randolph, spoke with
--- NOTE | 2023-09-02 12:37 | PC.NURSE ---
FINAL BLOOD CULTURE RESULTS X2: NO GROWTH AFTER 5 DAYS. NO ACTION NEEDED.
== END 2023-08-27 14:00 | disposition short-term general hospital (02) ==
PROVIDERS: Emergency Provider Internal Medicine Critical Care Medicine; PCP Physician Assistant
DX: K52.9 Noninfective gastroenteritis and colitis, unspecified (principal); R57.1 Hypovolemic shock; J96.01 Acute respiratory failure with hypoxia; N17.9 Acute kidney failure, unspecified; J44.9 Chronic obstructive pulmonary disease, unspecified; I48.91 Unspecified atrial fibrillation; F17.210 Nicotine dependence, cigarettes, uncomplicated; Z99.81 Dependence on supplemental oxygen; Z86.718 Personal history of other venous thrombosis and embolism; Z20.822 Contact with and (suspected) exposure to COVID-19
CPT/HCPCS: 36415; 36556; 70450; 71045; 71250; 74176; 80053; 81001; 83605; 84484; 85025; 85055; 87040; 87077; 87086; 87088; 87186; 87637; 93005; 94640; 96361; 96365; 96366; 96367; 96375; 99291; C1751; J0696; J0780; J1836; J2371; J7030; J7060; J7120

== ENCOUNTER 2023-08-27 14:58 | Inpatient (IN) | payer MEDICARE, SELFPAY ==
[2023-08-27] VITALS (16 sets, daily range): BP systolic 64–159; BP diastolic 37–93; PULSE 73–92; RESP 22–25; TEMP 37.5–38.8; O2SAT 98–100
--- NOTE | ~2023-08-27 | XR_ITS ---
XR chest 1V portable DATE: 09/02/2023 08:14 INDICATION: Hypoxia. Pulmonary edema. TECHNIQUE: Portable AP chest views on 09/02/2023 at 0748 0749 hours COMPARISON: 09/01/2023 portable AP chest at 0815 hours FINDINGS: There is persistent pulmonary vascular congestion and pulmonary interstitial and subpleural edema, mild pleural effusions, consistent with congestive heart failure. There are developing patchy infiltrates in the mid and lower lung zones likely due to pulmonary edema. Aortic calcification. NG tube in stomach. Right internal jugular central venous catheter tip situated near superior cavoatrial junction. No william dence of pneumothorax. IMPRESSION: Congestive heart failure; increased pulmonary edema since 09/01/2023 Reviewed, dictated and finalized at location L. IMPRESSION: Congestive heart failure; increased pulmonary edema since 3
--- NOTE | ~2023-08-27 | CT_ITS ---
CT head without contrast Indication: Unequal pupils COMPARISON: 09/08/2023 Technique: Serial scans were obtained through the brain without the administration of contrast. Dose reduction technique was used on this scan by utilizing automated exposure control and iterative recon struction technique. The dose-length product (DLP) was 605.33 mGy-cm. Findings: There is no evidence of intracranial hemorrhage, mass lesion, or acute infarct. The ventri cles and subarachnoid spaces are dilated, consistent with mild atrophy. Small chronic lacunar infarct noted in the right basal ganglia. Low attenuation regions are seen within the periventricular white matter bilaterally, likely representing changes from chronic microvascular ischemic disease. There is no evidence of edema, mass effect or midline shift. The visualized paranasal sinuses and mastoid a ir cells are clear. Impression: No intracranial hemorrhage, mass, or acute infarct. Chronic right basal ganglia lacunar infarct. Atrophy and chronic white matter changes, as above. Reviewed, dictated and finalized at location . ER AIDE Impression: No intracranial hemorrhage, mass, or acute infarct. Chronic right basal ganglia lacunar infarct. Atrophy and chronic white matter changes, as above.
--- NOTE | ~2023-08-27 | US_ITS ---
EXAMINATION: US arterial ankle brachial ind DATE: 09/10/2023 10:19 INDICATION: Nonpalpable right pedal pulses with cold right lower limb TECHNIQUE: Segmental pressures and plethysmographic and Doppler waveforms of the brachial and lower e xtremity arteries were obtained. COMPARISON: None. FINDINGS: Right and left brachial artery pressures of 89 mm Hg and 105 mm Hg, respectively, are concordant (nor mal difference <= 30 mmHg). The right ankle-brachial index (JIMMIE) is 0.41 (normal >= 0.9-1.0 based solely upon pressures in the ri ght posterior tibial artery with no dopplerable pulse in the right dorsalis pedis artery.). The right great toe-brachial index (TBI) is unable be obtained due to no evident dopplerable pulse (normal >= 0.65). Arterial Doppler waveforms demonstrate brisk systolic upstrokes at the right posterior tibial artery. The left JIMMIE is 0.85. The left TBI is 0.46. Arterial Doppler waveforms are biphasic with brisk systol ic upstrokes at both left posterior tibial and dorsalis pedis arteries. IMPRESSION: 1. Arterial occlusive disease to bilateral lower limbs with severely decreased right JIMMIE with no dopp lerable pulse in the right dorsalis pedis artery or at the right great toe. 2. Mild decreased left JIMMIE and TBI. Reviewed, dictated and finalized at location A. [employer] IMPRESSION: 1. Arterial occlusive disease to bilateral lower limbs with severely decreased right JIMMIE with no dopplerable pulse in the right dorsalis pedis artery or at th e right great toe. 2. Mild decreased left JIMMIE and TBI.
--- NOTE | ~2023-08-27 | CT_ITS ---
EXAMINATION: CT brain wo con DATE: 09/02/2023 09:38 INDICATION: Unequal pupils TECHNIQUE: Computed tomography (CT) of the head was performed without intravenous contrast. Sagittal and coronal reconstructions were performed. The mA was adjusted according to patient size. Iterative reconstruction technique was employed. The dose-length product was 1210.67 mGy-cm. COMPARISON: head CT dated 08/27/2023 FINDINGS: Again seen is a small amount of motion and streak artifact which mildly limits evaluation primarily a t the skull base. 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 The re is additional mild scattered white matter hypoattenuation consistent with chronic small vessel isc hemic disease. No acute intracranial hemorrhage, acute infarction or abnormal extra axial fluid colle ction. Symmetric prominence of the sulci consistent with mild age-appropriate diffuse cerebral volume loss. Ventricles are normal and symmetric. No mass/mass effect. Changes of bilateral intraocular rina s replacement. The orbits, paranasal sinuses and mastoid air cells are normal. Intracranial calcified cerebral atherosclerosis is noted. IMPRESSION: 1. 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 No acute intracran ial process. 2. Age-related changes including mild diffuse volume loss and mild scattered white matter hypoattenua tion consistent with chronic small vessel ischemic disease. Reviewed, dictated and finalized at location A. IMPRESSION: 1. Small old lacunar infarcts at the bilateral caudate and right lentiform nucl ei. No acute intracranial process. 2. Age-related changes including mild diffuse volume loss and mild scattered wh ite matter hypoattenuation consistent with chronic small vessel ischemic diseas e.
--- NOTE | ~2023-08-27 | XR_ITS ---
XR abdomen gastric tube insert DATE: 08/30/2023 09:03 INDICATION: Nasogastric tube insertion TECHNIQUE: Portable supine AP view on 08/30/2023 at 0853 hours COMPARISON: None FINDINGS: There is a nasogastric tube, the distal tip overlying the body of the stomach. IMPRESSION: NG tube in stomach Reviewed, dictated and finalized at Location A. Reviewed, dictated and finalized at location A. IMPRESSION: NG tube in stomach
--- NOTE | ~2023-08-27 | XR_ITS ---
XR abdomen gastric tube insert DATE: 08/31/2023 09:06 INDICATION: NG tube insertion TECHNIQUE: Portable AP view on 08/31/2023 at 0854 hours COMPARISON: 08/30/2023 portable supine KUB FINDINGS: Tip of the NG tube overlies the expected position of the lower body of the stomach, the pro ximal side-port approximately 5 cm distal to the diaphragmatic hiatus. Pulmonary vascular congestion, prominence of the minor fissure suggesting subpleural edema, left lowe r lobe infiltrate or atelectasis and small pleural effusions. IMPRESSION: NG tube tip in lower body of stomach in satisfactory position Reviewed, dictated and finalized at Location A. Reviewed, dictated and finalized at location A.
--- NOTE | ~2023-08-27 | CT_ITS ---
EXAMINATION: CT abdomen pelvis w con DATE: 08/27/2023 18:29 INDICATION: abdominal pain, evaluate ischemic bowel TECHNIQUE: Computed tomography (CT) of the abdomen and pelvis was performed with 100 mL Omnipaque-350 intravenous contrast. Automated exposure control and iterative reconstruction technique were employe d. The dose-length product was 307.76 mGy-cm. COMPARISON: Noncontrast CT CAP, same date. FINDINGS: Lower thorax: Senescent lung changes. Dependent atelectasis. Coronary artery calcification. Small hia javier hernia. Liver: Normal. Biliary/Gallbladder: Mild gallbladder distention. Common bile duct measures 11 mm at the barbara hepati s Pancreas: Calcifications of chronic pancreatitis. Pancreatic atrophy. Mild dilation of the pancreatic duct. Spleen: Normal. Adrenals:No mass. Kidneys: Simple midpole cyst on the left. Patchy enhancement in the right kidney. Mild right pelviect asis. GI tract: Moderate distal esophageal and gastric wall edema. No small or large bowel dilation. Coloni c wall edema from the distal transverse colon to the sigmoid, with slightly decreased somewhat hetero geneous mucosal enhancement and mild inflammatory change. Appendix not visualized Mesentery/Peritoneum: No mass or free air. Small volume ascites. Retroperitoneum: No mass. Atherosclerotic abdominal aortic and/or arterial calcifications. Pelvis: The urinary bladder is decompressed by a Bond catheter. Absent uterus. Soft Tissues: Soft tissues and body wall unremarkable. Bones: L1 burst fracture. Uncomplicated fixation pins in the left hip. IMPRESSION: Moderate esophagitis/gastritis. Gallbladder hydrops. Extrahepatic bile duct dilation and pancreatic duct dilation. No obstructing sto ne or mass detected. Correlate with biliary labs. Patchy enhancement in the right kidney as can be seen with pyelonephritis. Infectious, inflammatory, or ischemic colitis involving the distal transverse colon through the sigmo id. Slightly decreased, somewhat heterogeneous associated mucosal enhancement may increase the likeli randle of an ischemic process. L1 burst fracture of uncertain age. Reviewed, dictated and finalized at location K. IMPRESSION: Moderate esophagitis/gastritis. Gallbladder hydrops. Extrahepatic bile duct dilation and pancreatic duct dilati on. No obstructing stone or mass detected. Correlate with biliary labs. Patchy enhancement in the right kidney as can be seen with pyelonephritis. Infectious, inflammatory, or ischemic colitis involving the distal transverse c olon through the sigmoid. Slightly decreased, somewhat heterogeneous associated mucosal enhancement may increase the likelihood of an ischemic process. L1 burst fracture of uncertain age.
--- NOTE | ~2023-08-27 | XR_ITS ---
EXAMINATION: XR chest 1V portable DATE: 09/04/2023 05:20 INDICATION: Pulmonary edema. TECHNIQUE: A single frontal view of the chest was obtained. COMPARISON: Chest single view 09/03/2023 FINDINGS: There is a diffuse interstitial pattern in the lungs. There are lucencies in the upper lung s, consistent with emphysema. There are airspace opacities in the mid and lower lung zones. There are small pleural effusions. No pneumothorax. Cardiomegaly is noted. The nasogastric tube tip is beyond the inferior margin of the radiograph, but at least to the stomach. A right internal jugular central venous catheter is seen with tip at the superior cavoatrial junction. There are old healed left rib f ractures. IMPRESSION: 1. Stable diffuse lung disease, likely moderate pulmonary edema superimposed on emphysema. 2. Stable small pleural effusions. 3. Cardiomegaly. Reviewed, dictated and finalized at location E.
--- NOTE | ~2023-08-27 | CT_ITS ---
EXAMINATION: CT chest abdomen pelvis wo con DATE: 09/08/2023 16:20 INDICATION: Confusion and abdominal distention TECHNIQUE: Computed tomography (CT) of the chest, abdomen, and pelvis was performed without intraveno us contrast. Automated exposure control and iterative reconstruction technique were employed. The dos e-length product was 569.17 mGy-cm. COMPARISON: 09/02/2023 FINDINGS: CHEST CT: Mild emphysema. There are small bilateral posterior layering pleural effusions with adjacent compress kary atelectasis in the dependent bilateral lower lobes. Small bilateral calcified pulmonary nodules a long with calcified mediastinal and hilar lymph nodes consistent with old granulomatous disease. Bord kwadwo heart size with biatrial enlargement. Atherosclerotic coronary artery calcifications. No peric ardial effusion. Thoracic aorta is normal in caliber. ABDOMEN/PELVIS CT: Nasogastric tube with distal tip within the distal gastric body. A few tiny hepatic calcifications co nsistent with old granulomatous disease. Decompressed gallbladder, pancreas, bilateral adrenal glands and right kidney are normal. 1.7 cm low-attenuation left renal cyst. Bond catheter and some gas wit hin the otherwise normal bladder. Large amount of stool in the proximal colon with small to moderate amount of stool scattered throughout the mid to distal colon. There are few sigmoid diverticula witho ut adjacent inflammatory stranding to suggest diverticulitis. No bowel obstruction. The appendix is n ot visualized. No pericecal inflammatory change to suggest acute appendicitis. Very small amount of a scites scattered in the abdomen and pelvis. No free intraperitoneal gas. No pathologically enlarged a bdominal or pelvic lymphadenopathy. Stenting along the right external iliac artery. Severe spondylosi s in the lower cervical, lower thoracic and mid to lower lumbar spine. Unchanged subacute to chronic L1 burst fracture. 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 IMPRESSION: 1. Small bilateral pleural effusions with dependent compressive atelectasis in the bilateral lower lo bes. 2. Mild emphysema. 3. Borderline heart size with biatrial enlargement. 4. Small amount of ascites in the abdomen and pelvis. Reviewed, dictated and finalized at location A. DEVELOPER IMPRESSION: 1. Small bilateral pleural effusions with dependent compressive atelectasis in the bilateral lower lobes. 2. Mild emphysema. 3. Borderline heart size with biatrial enlargement. 4. Small amount of ascites in the abdomen and pelvis.
--- NOTE | ~2023-08-27 | XR_ITS ---
EXAMINATION: XR chest 1V portable DATE: 09/01/2023 08:20 INDICATION: Respiratory distress. TECHNIQUE: A single frontal view of the chest was obtained. COMPARISON: Chest single view 08/31/2023, chest CT 08/27/2023 FINDINGS: There are small pleural effusions. A calcified left lung nodule is consistent with old gran ulomatous disease. There is a diffuse interstitial pattern in the lungs, consistent with mild pulmona ry edema. No pneumothorax. The heart size is normal. The nasogastric tube tip is beyond the inferior margin of the radiograph, but at least to the stomach. A right internal jugular central venous cathet er is seen with tip at the superior cavoatrial junction. IMPRESSION: 1. Mild pulmonary edema. 2. Small pleural effusions. Reviewed, dictated and finalized at location E.
--- NOTE | ~2023-08-27 | XR_ITS ---
XR chest 1V portable 08/27/2023 16:14 Indication: Hypovolemic shock Procedure: AP portable chest Comparison: Comparison to multiple prior studies sequentially, with oldest reviewed study dated 05/31. Findings: Heart size normal. Right IJ central line tip in the SVC. There is mild interstitial edema. No pleural effusion or pneumothorax. No acute osseous abnormality. Impression: 1: Mild interstitial edema. Reviewed, dictated and finalized at location B. Impression: 1: Mild interstitial edema.
--- NOTE | ~2023-08-27 | XR_ITS ---
EXAMINATION: XR chest 1V portable DATE: 09/03/2023 05:39 INDICATION: Pulmonary edema. TECHNIQUE: A single frontal view of the chest was obtained. COMPARISON: Chest single view 09/02/2023, chest CT 09/02/2023 FINDINGS: There is a diffuse interstitial pattern in the lungs. There are airspace opacities in right mid and lower lung zones and all left lung zones. There are small pleural effusions. No pneumothorax . Cardiomegaly is noted. The nasogastric tube tip is in the stomach. A right internal jugular central venous catheter is seen with tip at the superior cavoatrial junction. IMPRESSION: 1. Stable diffuse lung disease, consistent with pulmonary edema superimposed on emphysema. 2. Stable small pleural effusions. 3. Cardiomegaly. Reviewed, dictated and finalized at location E.
--- NOTE | ~2023-08-27 | XR_ITS ---
Portable chest x-ray Comparison: 09/10/2023 Clinical History: Respiratory failure Findings: Endotracheal tube, NG tube, and right IJ line are in place. There are small bilateral pleu ral effusions with probable mild bibasilar pulmonary edema/atelectasis. Cardiomediastinal silhouette is stable. Bones and soft tissues are unremarkable. Impression: Small bilateral pleural effusions with mild bibasilar pulmonary edema/atelectasis. Support tubes, as above. Reviewed, dictated and finalized at location M. N COMMODITY MANAGER Impression: Small bilateral pleural effusions with mild bibasilar pulmonary edema/atelectas is. Support tubes, as above.
--- NOTE | ~2023-08-27 | XR_ITS ---
EXAMINATION: XR chest ET placement INDICATION: Endotracheal tube and central venous catheter placement TECHNIQUE: Portable AP chest at 1307 hours COMPARISON: 09/07/2023; CT from yesterday FINDINGS: The endotracheal tube ends approximately 3.9 cm above the brittney. The nasogastric tube is f ollowed as far as the stomach. Its tip is beyond the inferior margin of the radiograph. A right inter nal jugular central venous catheter is been inserted which ends with its tip in the distal superior v yanet cava. Cardiomegaly is noted. There are small pleural effusions. There is mild atelectasis of the lung bases. No pneumothorax is identified. IMPRESSION: 1. Endotracheal tube and right internal jugular central venous catheter insertion in adequate positio n. Otherwise, no significant change. Reviewed, dictated and finalized at location L. ICULTURIST IMPRESSION: 1. Endotracheal tube and right internal jugular central venous catheter inserti on in adequate position. Otherwise, no significant change.
--- NOTE | ~2023-08-27 | XR_ITS ---
Portable chest x-ray Comparison: 09/11/2023 Clinical History: Respiratory failure Findings: Endotracheal tube, NG tube, and right IJ line are in satisfactory positions. There are sma ll pleural effusions with probable mild interstitial edema. Cardiomediastinal silhouette is stable. Bones and soft tissues are unremarkable. Impression: Small pleural effusions with probable mild interstitial edema. Support tubes, as above. Reviewed, dictated and finalized at location . ER OPERATOR Impression: Small pleural effusions with probable mild interstitial edema. Support tubes, as above.
--- NOTE | ~2023-08-27 | XR_ITS ---
EXAMINATION: XR chest 1V portable DATE: 09/05/2023 05:47 INDICATION: Pulmonary edema. TECHNIQUE: A single frontal view of the chest was obtained. COMPARISON: Chest single view 09/04/2023 FINDINGS: There are lucencies in the lungs, consistent with emphysema. There is a diffuse interstitia l pattern in the lungs. There are airspace opacities in the mid and lower lung zones with a basilar p redominance. There are small pleural effusions. No pneumothorax. Cardiomegaly is noted. The nasogastr ic tube tip is beyond the inferior margin of the radiograph, but at least to the stomach. A right int ernal jugular central venous catheter is seen with tip in the superior vena cava. IMPRESSION: 1. Stable diffuse lung disease, likely moderate pulmonary edema superimposed on emphysema. 2. Stable small pleural effusions. 3. Cardiomegaly. Reviewed, dictated and finalized at location E.
--- NOTE | ~2023-08-27 | CT_ITS ---
EXAMINATION: CT brain wo con DATE: 09/08/2023 16:19 INDICATION: Confusion . TECHNIQUE: Computed tomography (CT) of the head was performed without intravenous contrast. The mA wa s adjusted according to patient size. Iterative reconstruction technique was employed. The dose-lengt h product was 605.33 mGy-cm. COMPARISON: 09/02/2023. FINDINGS: No acute intracranial hemorrhage or extra-axial fluid collection. No hydrocephalus, mass, or herniation. No acute ischemic infarct. Unremarkable dural venous sinus attenuation. No acute osseous abnormality. Partially visualized nasogastric tube with adjacent aerated secretions, the remaining aerated spaces are clear. Moderate atrophy and chronic white matter change. Atherosclerotic intracranial calcification. Bilater al lens replacements. Bilateral basal ganglia lacunar infarcts. The IMPRESSION: No acute intracranial process. Reviewed, dictated and finalized at location K. ARY PAGE
--- NOTE | ~2023-08-27 | XR_ITS ---
Portable chest x-ray Comparison: 09/09/2023 Clinical History: Respiratory failure Findings: Endotracheal tube, NG tube, and right-sided central venous line are in satisfactory positi ons. There are small bilateral pleural effusions with probable minimal pulmonary edema. Cardiomedias tinal silhouette is stable. Bones and soft tissues are unremarkable. Impression: Support tubes, as above. Small bilateral pleural effusions with minimal pulmonary edema. Reviewed, dictated and finalized at location . 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 Small bilateral pleural effusions with minimal pulmonary edema.
--- NOTE | ~2023-08-27 | XR_ITS ---
EXAMINATION: XR chest 1V portable INDICATION: Pulmonary edema TECHNIQUE: Portable AP chest at 0541 hours COMPARISON: 09/05/2023 FINDINGS: A right internal jugular catheter ends with its tip in the distal superior vena cava. The n asogastric tube is followed as far as the stomach. Its tip is beyond the inferior margin of the radio graph. There are stable diffuse interstitial opacities of the lungs. No pleural effusion or pneumotho rax. The cardiomediastinal silhouette is stable. Cardiomegaly is noted. IMPRESSION: 1. Stable diffuse lung disease, consistent with pulmonary edema. Reviewed, dictated and finalized at location F.
--- NOTE | ~2023-08-27 | XR_ITS ---
EXAMINATION: XR chest 1V portable INDICATION: Pulmonary edema TECHNIQUE: Portable AP chest at 0525 hours COMPARISON: 09/06/2023 FINDINGS: The nasogastric tube is followed as far as the stomach. Its tip is beyond the inferior mahad in of the radiograph. The right internal jugular central venous catheter has been removed. A mild dif fuse interstitial pattern persists but is decreased. The cardiomediastinal silhouette is able. Cardio megaly is noted. No pleural effusion or pneumothorax. There are minimal airspace opacities of the kalen g bases. IMPRESSION: 1. Cardiomegaly with improving pulmonary edema. 2. Bibasilar airspace opacities, consistent with atelectasis versus pneumonia. Reviewed, dictated and finalized at location F. R CANE PLANTER MACHINE OPERATOR
--- NOTE | ~2023-08-27 | XR_ITS ---
XR chest 1V portable DATE: 08/31/2023 09:05 INDICATION: Hypoxia TECHNIQUE: Portable AP chest on 08/31/2023 at 0854 hours COMPARISON: 08/27/2023 portable AP chest at 1610 hours FINDINGS: NG tube in stomach. Right internal jugular central venous catheter tip overlies the superio r vena cava. There is pulmonary vascular congestion. There is pulmonary interstitial prominence including bilatera l Epifanio B-lines suggesting pulmonary interstitial edema. There is mild prominence of the minor fissu re suggesting subpleural edema. Small pleural effusions. Mild infiltrates and/or atelectasis, primarily in the lower lung zones. Heart size appears within normal range. Aortic arch calcification. Diffuse osteopenia. IMPRESSION: Congestive changes and bilateral lower lung infiltrate and/or atelectasis, small pleural effusions Reviewed, dictated and finalized at location A. IMPRESSION: Congestive changes and bilateral lower lung infiltrate and/or atele ctasis, small pleural effusions
--- NOTE | ~2023-08-27 | CT_ITS ---
EXAMINATION: CT chest abdomen pelvis wo con DATE: 09/02/2023 09:38 INDICATION: Shortness of breath. TECHNIQUE: Computed tomography (CT) of the chest, abdomen, and pelvis was performed without intraveno us contrast. Automated exposure control and iterative reconstruction technique were employed. The dos e-length product was 653.59 mGy-cm. COMPARISON: CT abdomen and pelvis 08/27/2023 FINDINGS: CHEST CT: There is mild emphysema. There are moderate-sized pleural effusions. Calcified pulmonary nodules and calcified hilar and mediastinal lymph nodes are consistent with old granulomatous disease. There are dependent airspace and interstitial opacities in the upper lobes and lower lobes. There is biatrial e nlargement the heart. There are coronary artery calcifications. No pericardial effusion. A right inte rnal jugular central venous catheter is seen with tip at the superior cavoatrial junction. The nasoga stric tube tip is in the stomach. There is severe lower thoracic spondylosis. ABDOMEN/PELVIS CT: Calcifications in the liver and spleen are consistent with old granulomatous disease. There is peripo rtal edema in the liver. There is contrast in the gallbladder, which is normal in size. Gallbladder w all thickening is noted, likely secondary to interstitial edema. The pancreas, adrenal glands, and ki dneys are normal. There is calcified atherosclerosis of the aorta and many of the other arteries. The re is a stent in right common femoral artery. There is diverticulosis of the colon without evidence o f diverticulitis. There are no dilated loops of bowel. The appendix is not visualized. There is a sma ll volume of ascites. Body wall edema is noted. There is a Bond catheter in expected position. There is screw fixation of left femoral head and neck. There is osteonecrosis of left femoral head. There is severe lumbar spondylosis. There is a stable subacute versus chronic burst fracture of L1. IMPRESSION: 1. Moderate-sized pleural effusions. 2. Dependent airspace and interstitial opacities in the upper and lower lobes, likely a combination o f atelectasis and pulmonary edema. 3. Small volume of ascites. Reviewed, dictated and finalized at location E. IMPRESSION: 1. Moderate-sized pleural effusions. 2. Dependent airspace and interstitial opacities in the upper and lower lobes, likely a combination of atelectasis and pulmonary edema. 3. Small volume of ascites.
[2023-08-27] MEDS: NOREPINEPHRINE 8 MG/D5W 250 ML 8 MG/250 ML BAG 18.75 MG IV CONT (15:45)
--- NOTE | 2023-08-27 15:54 | PM.IMHP ---
H&P: HPI History of Present Illness Date/Time: 08/27/23 15:54 Chief Complaint: Abdominal Pain Narrative: 73-year-old female presents here with multiple episodes of diarrhea, nausea, vomiting and weakness with past medical history of COPD with home O2, AFib, and DVT. Patient presented to [facility] emergency department shortly after midnight when she began having weakness, nausea, vomiting, and profuse diarrhea. Patient reports that shortly after dinner she developed symptoms as well as lower abdominal pain. Sister reports that she recently also experienced GI symptoms for 2-3 days. No other sick contacts identified. No recent antibiotics. Per ED provider, patient was somnolent without focal deficits. Arrived with abdomen soft without focal tenderness. Pressure initially soft, 73/51. Given 5L of IVF without improvement - 4L of LR and 1L of NS. Remained hypotensive from 7:00 a.m. until 11:30. Central line to right IJ was placed and phenylephrine started around 10 at 40 mcg/min without initial improvement. Titrated to 180 mcg/min with stabilization of BP, weaned as tolerated. Started on ceftriaxone and Flagyl. Emergency room workup revealed a normal white count, elevated platelet count, ADRIEL (1.8, previously 1-1.3), lactic acid of 6.7, hypoalbuminemia, and UA indicative of UTI (+nitrates, +1 leuks, 4-6 WBC, 1+ bacteria). Viral PCR negative for COVID, flu, and RSV. patient was then transferred to [facility] for general surgery consultation. CT findings indicated possible colitis versus ischemic bowel process. At arrival patient remains somnolent but awakens to voice, lower abdomen remains tender, and patient is hypotensive. Patient having difficulty answering questions due to somnolence and appears confused. History was obtained through chart review, ED provider, and patient's sister. Review of Systems Review of Systems: Limited due to patient condition All systems reviewed & are unremarkable except as noted in HPI and below PMFSH Past Medical History Medical History Atrial fibrillation COPD (chronic obstructive pulmonary disease) DVT (deep venous thrombosis) Herniated cervical disc Surgical History Surgical History History of total hysterectomy Social History Social History Smoking status: Unknown if ever smoked Tobacco type: cigarettes Second hand tobacco smoke exposure: Yes Alcohol intake: unknown Substance use: never Substance use type: does not use Lack of Transportation: No Lack of Food: Never True Current Housing: I Have Housing Concerned About Future Housing: No Difficulty Paying Gas/Electric Bills: No Difficulty Paying for Meds: No Currently Unemployed: No Education: High School Diploma/GED Difficulty w/ Childcare or Family Care: No Spiritual care concerns: No Meds Home Medications and Allergies Home Medications Medication Instructions Recorded Confirmed Type gabapentin 400 mg BYMOUTH TID 06/01/23 08/27/23 History Allergies Allergy/AdvReac Type Severity Reaction Status Date / Time ciprofloxacin Allergy Unknown Verified 08/27/23 07:28 mirabegron Allergy Unknown Verified 08/27/23 07:28 oxybutynin Allergy Unknown Verified 08/27/23 07:28 solifenacin Allergy Unknown Verified 08/27/23 07:28 Exam Narrative: Resting in ICU, no visitors at bedside Const: Other: Somnolent, non-restless. Ill-appearing. HENMT: Mouth: Yes moist mucous membranes Eyes: General: appearance normal, both eyes and all related structures Sclera: sclerae normal Pupils: Equal, round and reactive pupils present Neck: Other: R IJ central line in place. Resp: Effort & Inspection: normal respiratory effort Auscultation: clear to auscultation bilaterally Cardio: Rate: regular rate Rhyt
[2023-08-27 16:28] LABS: Hematocrit 27.8 % (37.0-47.0); Hemoglobin 8.1 g/dL (12.0-15.0); Mean Corpuscular HGB Conc 29.1 g/dl (32-36); Mean Corpuscular Hemoglobin 23.4 pg (26-34); Mean Corpuscular Volume 80.3 fl (80-100); Mean Platelet Volume 9.4 fl (7.4-10.4); Platelet Count Result 445 k/mm3 (150-375); Red Blood Count 3.46 M/mm3 (4.2-5.4); Red Cell Distribution Width 18.9 % (11.5-14.5); White Blood Count 11.2 K/mm3 (4.5-10.0)
--- NOTE | 2023-08-27 16:35 | PC.NURSE ---
This patient, Mamie Kelley, was admitted to Intensive Care Unit-3. Patient/family oriented to hospital policies and general routines including ID bracelet, bed and alarms, visiting hours, pain management, procedures, bathroom and other care routines, personal items, smoking policy, room service/diet, and visiting hours. Information on how to activate the Rapid Response Team has been discussed. Patient/Family are encouraged to report perceived risks to care and to ask questions if they do not understand what they are told or what they should do.
[2023-08-27 16:38] LABS: Creatine Kinase 128 U/L (30-135)
[2023-08-27 16:41] LABS: Lactic Acid Reflex 1.9 mmol/L (0.7-2.0)
--- NOTE | 2023-08-27 16:46 | PM.CNGS ---
Assessment and Plan Assessment and plan (1) Colitis: Code(s): K52.9 - Noninfective gastroenteritis and colitis, unspecified Status: Acute Assessment and Plan: CT scan of the abdomen and pelvis done without contrast shows questionable infectious versus ischemic colitis. The patient is having diarrhea and abdominal pain. Her abdomen is distended and tender throughout with some guarding, but exam is limited. We would recommend to continue broad-spectrum IV antibiotics and ICU medical management for now. C.Diff pending. May consider proceeding with a CT scan of the abdomen pelvis with IV contrast to further evaluate for ischemia. Discussed the case with Dr. Paiz and further plan depending on labs and possible repeat CT. (2) Hypovolemic shock: Code(s): R57.1 - Hypovolemic shock Status: Acute Assessment and Plan: Continue medical ICU management, vasopressors, IV fluid resuscitation, and broad-spectrum IV antibiotics. Lactic acid normalized. Blood cultures pending. (3) UTI (urinary tract infection): Code(s): N39.0 - Urinary tract infection, site not specified Status: Acute Assessment and Plan: Continue IV antibiotics per primary service. (4) Acute renal failure: Qualifiers: Acute renal failure type: unspecified Qualified Code(s): N17.9 - Acute kidney failure, unspecified Code(s): N17.9 - Acute kidney failure, unspecified Status: Acute (5) COPD (chronic obstructive pulmonary disease): Code(s): J44.9 - Chronic obstructive pulmonary disease, unspecified Status: Acute (6) Chronic respiratory failure with hypoxia, on home oxygen therapy: Code(s): J96.11 - Chronic respiratory failure with hypoxia; Z99.81 - Dependence on supplemental oxygen Status: Acute (7) Atrial fibrillation: Qualifiers: Atrial fibrillation type: unspecified Qualified Code(s): I48.91 - Unspecified atrial fibrillation Code(s): I48.91 - Unspecified atrial fibrillation Status: Acute Assessment and Plan: Hx of atrial fibrillation. Currently regular rate and rhythm in the 70's. Possibly on anticoagulation per patient? but not on her home med list. Will add coags. Plan I have discussed the patient's case and plan of care with Dr. Paiz. Thank you for allowing us to see the patient in consultation and we will continue to follow along with you. History of Present Illness Consult details Consult date: 08/27/23 Reason for consult: other (Colitis, shock) Requesting physician: Bhumi Hernandez APRN Narrative: This is a 72-year-old woman who presented to [place] ER with complaints of nausea, vomiting, diarrhea, and weakness. She developed diarrhea and lower abdominal pain at home yesterday evening after eating Brazilian food. Later in the night, she developed nausea and vomiting. Labs in the ER showed a normal white blood cell count of 8800, BUN 25, creatinine 1.8, lactic acid 6.7, and alk-phos 317. Urinalysis showed positive nitrates, 1+ leukocyte, 4-6 wbc's, 1+ bacteria. Influenza a/B, RSV, and COVID negative. C Diff ordered. CT scan of the chest, abdomen and pelvis without contrast showed questionable mild wall thickening of large bowel, correlate for infectious/inflammatory colitis, ischemic bowel less likely but not definitively excluded. Mild to moderate emphysema. CT head showed no acute intracranial findings. Chest x-ray showed mild interstitial edema. She was found to be hypotensive in the ER, and continued to have hypotension despite IV fluid resuscitation. She was subsequently started on vasopressors. The patient was transferred to [facility] for further care. She has been admitted to the ICU. She continues to be hypotensive with increasing needs for vasopressor support. She is now on a Levophed and vasopressin infusion. Lactic acid trending down with the most recent lactic acid here is 1.9. She is lethargic in the ICU, but is ar
[2023-08-27 16:48] LABS: NT Pro B Type Natriuretic Pept 582 pg/mL (19.9-100)
[2023-08-27 16:54] LABS: Appearance Urine Clear (Clear); Bacteria Urine None Seen /hpf; Bilirubin Urine Negative (Negative); Blood Urine Negative (Negative); Color Urine Dark Yellow (Yellow); Glucose Urine UA Trace mg/dL (Negative); Ketones Urine Negative (Negative); Leukocyte Esterase Ur Trace LEU/UL (Negative); Need Manual Microscopic Reviewed; Nitrate Urine Negative (Negative); Protein Urine 1+ mg/dL (Negative); RBC Urine 0-2 /hpf (0-2); Specific Grav Ur 1.011 (1.001-1.035); Squamous Epithelial Cell Urine None seen /hpf (Few); Urobilinogen Urine 0.2 mg/dL (<2.0); WBC Urine 0-5 /hpf; pH Urine 5.5 (5.0-9.0)
[2023-08-27 16:55] LABS: Add Urine Microscopic? YES
[2023-08-27] MEDS: VASOPRESSIN INJ 100 UNITS in DEXTROSE 5% 95 ML IV CONT (17:06)
[2023-08-27 17:18] LABS: Procalcitonin 35.5 ng/mL
[2023-08-27 17:23] LABS: INR 1.1; Prothrombin Time 14.4 Seconds (11.1-14.7)
[2023-08-27 17:24] LABS: Partial Thromboplastin Time 31.2 SECONDS (22.3-36.8)
[2023-08-27 17:43] LABS: Alanine Aminotransferase 33 U/L (6-35); Albumin Level 2.8 g/dL (3.5-5.1); Alkaline Phosphatase 306 U/L (38-126); Anion Gap 6 mmol/L (8-16); Aspartate Amino Transferase 66 U/L (14-36); Bilirubin,Total 0.6 mg/dL (0.2-1.3); Blood Urea Nitrogen 28 mg/dL (7-17); Calcium 8.2 mg/dL (8.4-10.2); Carbon Dioxide 19 mmol/L (22-30); Chloride 107 mmol/L (98-107); Estimated Glomerular Filt Rate 32; Glucose 111 mg/dL (65-110); Potassium 3.6 mmol/L (3.4-5.0); Sodium 132 mmol/L (137-145)
[2023-08-27] MEDS: SODIUM BICARBONATE 8.4% 50 MEQ/50 ML SYRINGE 100 MEQ IV PUSH (17:44)
[2023-08-27] MEDS: ALBUMIN HUMAN 5% 25 GM/500 ML BTL IV CONT (18:40)
[2023-08-27] MEDS: NOREPINEPHRINE 8 MG/D5W 250 ML 8 MG/250 ML BAG 56.25 MG IV CONT (20:30)
[2023-08-27 20:47] LABS: Toxigenic C. Diff NEGATIVE (NEGATIVE)
[2023-08-27] MEDS: LACTATED RINGERS 1,000 ML 75 ML IV CONT (21:49)
[2023-08-27] MEDS: HYDROCORTISONE SODIUM SUCCINATE 100 MG/2 ML VIAL IV PUSH (21:52)
[2023-08-27] MEDS: CEFEPIME 1 GM/NS 50 ML 1 GM/50 ML BAG IVPB (21:52)
[2023-08-27] MEDS: ALBUTEROL SULFATE NEB 2.5 MG/3 ML INH INHALATION (22:03)
[2023-08-27] MEDS: IPRATROPIUM BR 0.02% INH SOLN 0.5 MG/2.5 ML VIAL INHALATION (22:03)
[2023-08-27] MEDS: ACETAMINOPHEN 650 MG SUPPOSITORY RECTAL (23:00)
[2023-08-27] MEDS: metroNIDAZOLE 500 MG/ISO 100ML 500 MG/100 ML BAG 100 MG IVPB (23:19)
[2023-08-27 23:28] LABS: Glucose Point of Care 141 mg/dl (65-105)
[2023-08-28] VITALS (32 sets, daily range): BP systolic 89–135; BP diastolic 42–88; PULSE 58–99; RESP 14–30; TEMP 36.6–38.6; O2SAT 87–100
--- NOTE | 2023-08-28 | ECHO_ITS ---
Patient Info Name: Mmaie Kelley Age: 73 years : 1950 Gender: Female Ht: 60 in Wt: 104 lbs BSA: 1.41 m2 HR: 81 bpm BP: 119 / 70 mmHg Heart Rhythm: Sinus Rhythm Technical Quality: Fair Exam Date: 08/28/2023 8:36 AM Exam Location: [facility] Patient Status: Inpatient Admit Date: 08/27/2023 Staff Ordering Physician: Ramon Salazar MD Pelletising Extruder Operator: Shandra Olivia RDCS Attending Provider: Denise Solitario MD Exam Type: CA echo dop color flow w con Study Info Indications - chf, afib Complete two-dimensional, color flow and Doppler transthoracic echocardiogram is performed with contrast to opacify the left ventricle and to improve the deliniation of the left ventricle endocardial borders. Contrast/Agitated Saline Contrast/Ag. Saline: Definity Amount: 2.00 ml Administered By: Shandra Olivia RDCS Existing IV Access: Yes IV Access Condition: patent with no signs of infiltration Summary 1. Mild Left Ventricular Enlargement with normal thickness in good contractility of all segments. No segmental wall motion abnormalities. Ejection fraction 64%. Diastolic dysfunction grade 2 is present. 2. Left atrial chamber dimension is moderately enlarged. 3. There is mild mitral valve regurgitation. 4. There is mild tricuspid valve regurgitation. 5. Moderate pulmonary hypertension, estimated pulmonary arterial systolic pressure is 50 mmHg. 6. Dilated inferior vena cava with <50% collapse upon inspiration consistent with significantly elevated right atrial pressure, 20 mmHg. 7. Normal sinus rhythm. 8. Technically difficult study, definity echo contrast used. Left Ventricle Left ventricular chamber dimension is mildly enlarged. Left ventricular systolic function is normal, estimated at 60-65%. There is no increased left ventricular wall thickness. Left ventricular septal wall motion is normal. The left ventricular diastolic function is grade II diastolic dysfunction. Right Ventricle Right ventricular chamber dimension is normal. Right ventricular systolic function is normal. Left Atria Left atrial chamber dimension is moderately enlarged. Right Atria Right atrial chamber dimension is normal. Aortic Valve The aortic valve is trileaflet. There is no aortic valve sclerosis. There is no aortic valve stenosis. There is no aortic valve regurgitation. Pulmonic Valve The pulmonic valve is normal. There is no pulmonic valve stenosis. There is no pulmonic regurgitation. Mitral Valve The mitral valve has normal leaflets. There is no mitral valve stenosis. There is mild mitral valve regurgitation. The mitral valve annulus is mildly calcified. Tricuspid Valve The tricuspid valve leaflets are normal. There is no significant tricuspid valve stenosis. There is mild tricuspid valve regurgitation. Moderate pulmonary hypertension, estimated pulmonary arterial systolic pressure is 50 mmHg. Pericardium/Pleural The pericardium appears normal. There is no pericardial effusion. Inferior Vena Cava Dilated inferior vena cava with <50% collapse upon inspiration consistent with significantly elevated right atrial pressure, 20 mmHg. Aorta The aortic root size at the sinus of Valsalva is normal. The prox ascending aorta size is normal. Left Ventricular Outflow Tract Name Value Normal LVOT 2D
[2023-08-28] MEDS: IPRATROPIUM BR 0.02% INH SOLN 0.5 MG/2.5 ML VIAL INHALATION ×3 (02:46→20:59)
[2023-08-28] MEDS: ALBUTEROL SULFATE NEB 2.5 MG/3 ML INH INHALATION ×3 (02:47→20:59)
[2023-08-28] MEDS: HYDROCORTISONE SODIUM SUCCINATE 100 MG/2 ML VIAL IV PUSH ×3 (05:34→21:45)
[2023-08-28 05:42] LABS: Glucose Point of Care 133 mg/dl (65-105)
[2023-08-28 06:13] LABS: Hematocrit 25.7 % (37.0-47.0); Hemoglobin 7.6 g/dL (12.0-15.0); Mean Corpuscular HGB Conc 29.6 g/dl (32-36); Mean Corpuscular Hemoglobin 23.7 pg (26-34); Mean Corpuscular Volume 80.1 fl (80-100); Mean Platelet Volume 9.2 fl (7.4-10.4); Platelet Count Result 416 k/mm3 (150-375); Red Blood Count 3.21 M/mm3 (4.2-5.4); Red Cell Distribution Width 18.9 % (11.5-14.5); White Blood Count 16.7 K/mm3 (4.5-10.0)
[2023-08-28 06:30] LABS: Alanine Aminotransferase 47 U/L (6-35); Albumin Level 3.2 g/dL (3.5-5.1); Alkaline Phosphatase 193 U/L (38-126); Anion Gap 5 mmol/L (8-16); Aspartate Amino Transferase 95 U/L (14-36); Bilirubin,Total 0.5 mg/dL (0.2-1.3); Blood Urea Nitrogen 27 mg/dL (7-17); Calcium 8.1 mg/dL (8.4-10.2); Carbon Dioxide 25 mmol/L (22-30); Chloride 105 mmol/L (98-107); Estimated Glomerular Filt Rate 37; Glucose 131 mg/dL (65-110); Magnesium 1.7 mg/dL (1.6-2.3); Phosphorus 4.5 mg/dL (2.5-4.5); Potassium 3.9 mmol/L (3.4-5.0); Sodium 135 mmol/L (137-145)
[2023-08-28] MEDS: ACETAMINOPHEN 325 MG TABLET 650 MG PO (07:37)
[2023-08-28] MEDS: metroNIDAZOLE 500 MG/ISO 100ML 500 MG/100 ML BAG 100 MG IVPB ×2 (08:14→16:53)
[2023-08-28] MEDS: CEFEPIME 1 GM/NS 50 ML 1 GM/50 ML BAG IVPB ×2 (08:15→20:38)
--- NOTE | 2023-08-28 08:38 | WPDCNINT ---
Assessment and Plan Assessment and plan (1) Septic shock: Code(s): A41.9 - Sepsis, unspecified organism; R65.21 - Severe sepsis with septic shock Status: Acute Assessment and Plan: Secondary to colitis and UTI Patient received more than 3 L of fluid bolus in the ER and was found to be not responsive to further IV fluid bolus on NICOM assessment She was started on Levophed and vasopressin. Levophed has been weaned off although she continues to be on vasopressin Continue to titrate vasopressors Continue hydrocortisone stress dose Urine and blood cultures have been sent and are pending Stool C diff was negative Continue cefepime and Flagyl Continue maintenance IV fluids as patient is NPO and to cover for lot losses from diarrhea Check echocardiogram (2) Colitis: Code(s): K52.9 - Noninfective gastroenteritis and colitis, unspecified Status: Acute Assessment and Plan: 08/27 CT scan yesterday in the ER showed Questionable mild wall thickening of large bowel, as above. Correlate for infectious/inflammatory colitis. Ischemic bowel less likely, but not definitively excluded Patient was admitted with diagnosis of colitis likely is infectious versus ischemic 08/[address] scan with contrast showed Infectious, inflammatory, or ischemic colitis involving the distal transverse colon through the sigmoid. Slightly decreased, somewhat heterogeneous associated mucosal enhancement may increase the likelihood of an ischemic process. General surgery was consulted and due to concern of ischemia patient is going for exploratory laparotomy Stool C diff was negative Stools WBC and culture are pending P.o. vancomycin has been discontinued Continue cefepime and Flagyl (3) Atrial fibrillation: Qualifiers: Atrial fibrillation type: unspecified Qualified Code(s): I48.91 - Unspecified atrial fibrillation Code(s): I48.91 - Unspecified atrial fibrillation Status: Acute Assessment and Plan: Currently in sinus rhythm. Patient claims to be compliant with Eliquis Currently NPO is going for laparotomy Will hold p.o. amiodarone and Eliquis at this time Will start IV amiodarone if patient goes into RVR (4) COPD (chronic obstructive pulmonary disease): Code(s): J44.9 - Chronic obstructive pulmonary disease, unspecified Status: Acute Assessment and Plan: Patient has chronic COPD but not in exacerbation On 2 L nasal cannula ABG reviewed Continue bronchodilators (5) UTI (urinary tract infection): Qualifiers: Urinary tract infection type: acute cystitis Hematuria presence: without hematuria Qualified Code(s): N30.00 - Acute cystitis without hematuria Code(s): N39.0 - Urinary tract infection, site not specified Status: Acute Assessment and Plan: See above (6) ADRIEL (acute kidney injury): Code(s): N17.9 - Acute kidney failure, unspecified Status: Acute Assessment and Plan: Likely secondary to sepsis and shock CK level normal No obstruction hydronephrosis or dilation on the CT scan Monitor urine output electrolytes and creatinine Management of shock as above (7) Esophagitis: Code(s): K20.90 - Esophagitis, unspecified without bleeding Status: Acute Assessment and Plan: Added pPI (8) Coronary disease: Code(s): I25.10 - Atherosclerotic heart disease of [place] coronary artery without angina pectoris Status: Acute Assessment and Plan: Abnormal EKG but patient denies any chest pain. She was on anticoagulation which obviously is on hold for exploratory laparotomy. Statin aspirin also on hold as patient is NPO and going for surgery. Echo is ordered Obtain records from [facility] Plan DVT prophylaxis -SCDs Stress ulcer prophylaxis -PPI Nutrition - NPO Code Status - Full Code I spoke to and updated patient and her daughter at bedside answered all their questions. They are aware the truman
[2023-08-28 09:09] LABS: Reflex Lactic Acid Yes or No Add Lactic
[2023-08-28] MEDS: PERFLUTREN LIPID MICROSPHERES 1.5 ML VIAL DILUTED TO 10 ML TOTAL VOLUME IV PUSH (09:15)
[2023-08-28] MEDS: PANTOPRAZOLE SODIUM IV 40 MG VIAL IV PUSH ×2 (09:59→20:38)
--- NOTE | 2023-08-28 11:00 | PM.PNGS ---
Progress Note: A&P Assessment and Plan (1) Colitis: Code(s): K52.9 - Noninfective gastroenteritis and colitis, unspecified Status: Acute Assessment and Plan: Patient appears to have colitis of the watershed area of the splenic flexure of the colon and descending colon. No perforation or abscess is seen at the present time. However her white blood cell count is rising and her lactic acid level is also rising as well. Blood pressure is stabilized on pressor requirements are decreasing. I am concerned that she may have a secondary ischemic process of the colon due to her recent history of hypotension shock. I have recommended to the patient and her daughter who is her power of tax attorney that exploratory laparotomy is indicated and she is more stable for possible surgery. If ischemic bowel is found and is deemed to be nonviable then resection and colostomy placement is the most likely outcome. If the bowel appears to be normal viable then exploration is all that will be needed closure of midline incision. Continue IV antibiotics and supportive management. We will plan on going to the operating room later this afternoon. I did explain in detail to the patient and her daughter that postoperative care intensive care unit possible continued intubation and ventilator support may be needed. Additional risks such as cardiac complications or acute renal failure also possibilities. They understand and wish to proceed with surgery. (2) Septic shock: Code(s): A41.9 - Sepsis, unspecified organism; R65.21 - Severe sepsis with septic shock Status: Acute Subjective Subjective Date/Time Seen: 08/28/23 11:00 Interval history: Patient remains in intensive care unit. Her vital signs have actually some stabilized overnight and her pressor requirements have steadily decreased. Her blood pressure is been maintained over 110 systolic. She is not tachycardic. However her white blood cell count has increased to 16,700 and a lactic acid level which was normal has increased to 3.0. Overall she is in better shape to possibly have a surgery today. Exam Const: Other: She is much more alert and awake today. She is able to answer my questions lucidly. She can not respond appropriately enough to give me a good abdominal exam. Eyes: General: appearance normal, both eyes and all related structures Sclera: sclerae normal Pupils: Equal, round and reactive pupils present Neck: Neck: supple Resp: Effort & Inspection: normal respiratory effort Auscultation: clear to auscultation bilaterally Cardio: Rate: regular rate Rhythm: abnormal rhythm GI: Other: Abdomen is soft and moderately distended. Has moderate tenderness diffusely across the upper abdomen. No definite peritoneal signs are noted but she is still moderately to severely tender. Objective Data Vital Signs Vital Signs: Vital Signs - 24 hr 08/27/23 15:45 08/27/23 17:06 08/27/23 16:00 Temperature Pulse Rate 77 78 76 Respiratory Rate Blood Pressure 64/37 L 65/39 L 82/49 L Pulse Oximetry Oxygen Delivery Oxygen Flow Rate 08/27/23 16:30 08/27/23 17:00 08/27/23 18:00 Temperature Pulse Rate 75 76 82 Respiratory Rate Blood Pressure 74/52 L 87/67 L 88/49 L Pulse Oximetry Oxygen Delivery Oxygen Flow Rate 08/27/23 16:00 08/27/23 16:00 08/27/23 16:00 Temperature 37.5 C Pulse Rate 76 76 Respiratory Rate 24 H Blood Pressure 82/49 L Pulse Oximetry 100 100 Oxygen Delivery Nasal Cannula Oxygen Flow Rate 3 08/27/23 18:00 08/27/23 18:00 08/27/23 20:00 Temperature 38.7 C H Pulse Rate 81 81 84 Respiratory Rate 22 H 23 H Blood Pressure 91/58 L 72/58 L Pulse Oximetry 100 98 Oxygen Delivery Oxygen Flow Rate 08/27/23 20:30 08/27/23 22:16 08/27/23 22:17 Temperature Pulse Rate 90 78 Respiratory Rate 23 H Blood Pressure 88/70 L Pulse Oximetry 100 Oxygen Delivery Dom
[2023-08-28 11:51] LABS: Glucose Point of Care 157 mg/dl (65-105)
[2023-08-28 12:07] LABS: Lactic Acid 3.7 mmol/L (0.7-2.0)
--- NOTE | 2023-08-28 12:18 | WPDHPUPDATE1 ---
History and Physical Update Update Date/Time: 08/28/23 12:18 History and Physical has been reviewed, including an updated exam of the patient. There are NO changes in the patient's condition. Risks, benefits, and alternatives have been discussed and questions answered. Patient agrees to proceed with procedure.
--- NOTE | 2023-08-28 12:50 | IVDEFINITY ---
Prior to administration of IV Definity the patient was educated on the risks and benefits of the imaging enhancing agent including potential adverse side effects. The patient verbalized understanding. Allergies were verified. No exclusion criteria were identified and at least one of the following inclusion criteria were met: 1) physician request, 2) patient technically difficult to image (per the [place] [employer]chocardi[employer] guidelines of two or more segments not discernable within the apical view), or 3) questionable left ventricular function. ?
--- NOTE | 2023-08-28 13:40 | PC.NURSE ---
at 1315, pt transported via bed to Operating room with 2 OR techs and nurse, family was at bedside when pt left, report given to the Operating room staff
--- NOTE | 2023-08-28 14:08 | WPDANESEPPF ---
Anes - Initial Pre Proc Eval Procedure: Operation Date: 08/28/23 13:00 Proposed Procedures p Exploratory Laparotomy, Possible Bowel Resection, Possible Ostomy - Femi Paiz MD Date/Time: 08/28/23 14:08 Surgeon: Denise Solitario MD Pre Op Diagnosis: hypovolemic shock Patient Data Age: 73 Gender: F Height: Weight: 47.5 kg Last Vital Signs Temp 99.3 F 08/28/23 12:00 Pulse 69 08/28/23 12:00 Resp 21 H 08/28/23 12:00 BP 102/64 08/28/23 12:00 Pulse Ox 96 08/28/23 12:00 O2 Del Method Nasal Cannula 08/28/23 12:00 O2 Flow Rate 2 08/28/23 12:00 Allergies Allergy/AdvReac Type Severity Reaction Status Date / Time ciprofloxacin Allergy Unknown Verified 08/27/23 07:28 mirabegron Allergy Unknown Verified 08/27/23 07:28 oxybutynin Allergy Unknown Verified 08/27/23 07:28 solifenacin Allergy Unknown Verified 08/27/23 07:28 Home Medications Medication Instructions Recorded Confirmed Type gabapentin 400 mg BYMOUTH TID 06/01/23 08/27/23 History albuterol sulfate 90 mcg/actuation 2 puff inhalation Q6H PRN sob 08/28/23 08/28/23 History aerosol inhaler amiodarone 200 mg tablet 200 mg PO BID 08/28/23 08/28/23 History apixaban 2.5 mg tablet (Eliquis) 2.5 mg PO BID 08/28/23 08/28/23 History dapagliflozin propanediol 10 mg 10 mg PO DAILY 08/28/23 08/28/23 History tablet (Farxiga) duloxetine 30 mg capsule,delayed 30 mg PO HS 08/28/23 08/28/23 History release furosemide 40 mg tablet 40 mg PO DAILY 08/28/23 08/28/23 History hydroxyzine HCl 50 mg tablet 50 mg PO TID PRN Anxiety 08/28/23 08/28/23 History lisinopril 20 mg tablet 20 mg PO DAILY 08/28/23 08/28/23 History pantoprazole 20 mg tablet,delayed 20 mg PO DAILY 08/28/23 08/28/23 History release pravastatin 40 mg tablet 40 mg PO HS 08/28/23 08/28/23 History Laboratory Tests 08/27/23 08/27/23 08/27/23 16:09 16:13 16:15 WBC 11.2 H K/mm3 (4.5-10.0) RBC 3.46 L M/mm3 (4.2-5.4) Hgb 8.1 L g/dL (12.0-15.0) Hct 27.8 L % (37.0-47.0) MCV 80.3 fl (80-100) MCH 23.4 L pg (26-34) MCHC 29.1 L g/dl (32-36) RDW 18.9 H % (11.5-14.5) Plt Count 445 H k/mm3 (150-375) MPV 9.4 fl (7.4-10.4) PT 14.4 Seconds (11.1-14.7) INR 1.1 APTT 31.2 SECONDS (22.3-36.8) Sodium 132 L mmol/L (137-145) Potassium 3.6 mmol/L (3.4-5.0) Chloride 107 mmol/L (98-107) Carbon Dioxide 19 L mmol/L (22-30) Anion Gap 6 L mmol/L (8-16) BUN 28 H mg/dL (7-17) Creatinine 1.60 H mg/dL (0.7-1.0) Estim Creat Clear Calc Not Reportable Estimated GFR 32 L (59 - ) Glucose 111 H mg/dL (65-110) POC Capillary Glucose Lactic Acid 1.9 mmol/L (0.7-2.0) Calcium 8.2 L mg/dL (8.4-10.2) Phosphorus Magnesium Total Bilirubin 0.6 mg/dL (0.2-1.3) AST 66 H U/L (14-36) ALT 33 U/L (6-35) Alkaline Phosphatase 306 H U/L (38-126) Total Creatine Kinase 128 U/L (30-135) NT-Pro-B Natriuret Pep 582 H pg/mL (19.9-100) Total Protein 6.0 L g/dL (6.3-8.2) Albumin 2.8 L g/dL (3.5-5.1) Procalcitonin 35.5 ng/mL Urine Color Urine Appearance Urine pH Ur Specific [place] Urine Protein Urine Glucose (UA) Urine Ketones Ur Blood (Man) Urine Nitrate Urine Bilirubin Urine Urobilinogen Add Ur Microanalysis Leukocyte Esterase Rfl Urine RBC Urine WBC Ur Squamous Epith Cells Urine Bacteria Urine Casts C. difficile (PCR) Blood Type Antibody Screen
--- NOTE | 2023-08-28 14:19 | P.PCNANE_ITS ---
Arterial Cath Proc Note Consent: I have discussed with the patient/family/POA, the non-emergent placement of an arterial catheter, including its clinical necessity/indication and associated potential risks and complications. The patient/family/POA and/or understand(s) and acknowledge(s) the need to proceed with the arterial catheter insertion as an important element of the patient's clinical management. Given emergent patient conditions, temporal constraints may have precluded informed consent. Time-Out: A pre-procedural Time-Out was completed immediately before starting the procedure and confirmed: Patient Identification, Site, Procedure, Patient Position and the Availability of Requisite Equipment. Procedure Note Patient position: supine Insertion site: right radial Method of insertion: ultrasound-guided Wide Area Network Systems Administrator prep: sterile gloves, mask and hat Site prep: chlorahexadine Skin anesthesia: general anesthesia Gauge: 20 gauge Length (cm): 4.4 cm Closure/Dressing: antimicrobial disc and tegaderm Complications: Failed attempt on left side by MARKETING OPERATIONS SPECIALIST student, ultrasound guided successful attempt on right side by Dr. Wan
[2023-08-28] MEDS: LIDO 1%/EPINEPHRINE 1:100,000 50 ML VIAL 25 ML INFILTRATE (14:36)
--- NOTE | 2023-08-28 14:48 | P.OPB_ITS ---
Procedure Note - Brief Procedure Note - Brief Date of procedure: 08/28/23 hypovolemic shock, ischemic colitis Post-op diagnosis: Same Procedure performed: Exploratory laparotomy Surgeon: Femi Paiz MD Baggage Handling Supervisor: CATRACHITA Shankar Implants: Done Estimated blood loss (mL): 25 Drains: No Packing: No Pathology: None sent Complications: No immediate complications Condition: Stable Disposition: PACU
--- NOTE | 2023-08-28 15:15 | W.PM.PROC2 ---
Procedure Note - Detailed Date of Procedure 08/28/23 Pre-op Diagnosis hypovolemic shock, ischemic colitis Post-op Diagnosis Same Procedure Performed Exploratory laparotomy. Surgeon Femi Paiz MD Cytotechnologist/Histotechnologist CATRACHITA Shankar Anesthesia General Indications Patient is a 73-year-old female who was transferred from outside facility to the ER intensive care unit [facility]. She was in septic shock. Sources of sepsis included colitis possible urosepsis. At the outside facility CT scan abdomen pelvis was performed showing thickening of the distal transverse colon and splenic flexure of the colon the proximal portion of the descending colon. No perforation or abscess was seen but ischemic colitis was noted on CT scan. She had elevated lactate level and transfer of about 7. After fluid resuscitation at decreased to about 1.9. White blood cell count was normal at transfer but this morning had elevated 16,000. lactic acid level started to rise up to 3.0 again however her pressor requirements did decrease overnight. She was more stable now and given that repeat CT scan with IV contrast continued to show changes of possible ischemic colon of the watershed area in the distal transverse, splenic, and descending colon I recommended that the patient be taken for exploratory laparotomy possible bowel resection. Findings Laparotomy incision was made and there was some mildly cloudy fluid upon entering the abdomen but none of it was feculent or bilious in nature. There was no foul smell. The fluid was in both pericolic gutters and some in the pelvis. I then proceeded to eviscerate the whole small bowel all the small bowel appeared to be normal without any adhesions and without any ischemic changes. It was all decompressed. The colon was all decompressed as well and I closely examined the cecum which was normal. The hepatic flexure and transverse colon was normal. The distal transverse colon, splenic flexure, and proximal descending colon was thickened and edematous and mildly hyperemic but totally viable without evidence of any necrosis or severe ischemia. The sigmoid colon appeared to be normal. Palpation and visualization of both lobes of liver revealed no masses. The stomach appeared to be normal as well. The gallbladder was distended but thin walled and no evidence of cholecystitis. No gallstones were palpated in the gallbladder. At this point I felt that the patient did probably have colitis of a mild nature either from transient hypoperfusion when she was in in septic shock or from infectious colitis. Indicates there is no need for bowel resection. Description of Procedure After informed consent was obtained patient brought to the operating room she was placed supine position and general endotracheal anesthesia was administered. An arterial line was placed. The abdomen was then prepped and draped in the usual sterile fashion. A time-out was then performed correctly identifying the patient as well as procedure to be performed. I then proceeded to make a midline incision centered on the umbilicus. Dissection carried down through subcutaneous tissue electrocautery and the midline fascia was then opened entered at the umbilicus. There were no adhesions of the omentum or bowel to the anterior abdominal wall. There is no foul smell 1 open the abdomen. There was small amount of mildly cloudy fluid but without any feculence or any bile staining. This fluid was suctioned from the both pericolic gutters and the pelvis. I then proceeded to eviscerate all the small bowel in all the small bowel appeared to be normal without any evidence ischemia and no adhesions. The small bowel was run from ligament Treitz all the way to the ileocecal valve. The cecum appeared to be normal as was the ascending and most of the transverse colon. These distal transverse colon and splenic flexure and proximal descending colon did appear mildly hyperemic with edema and
[2023-08-28] MEDS: fentaNYL CITRATE INJ (*CRX) 100 MCG/2 ML VIAL 25 MCG IV PUSH ×4 (15:20→15:32)
[2023-08-28] MEDS: LACTATED RINGERS 1,000 ML 30 ML IV CONT (16:03)
[2023-08-28] MEDS: LACTATED RINGERS 1,000 ML 75 ML IV CONT (16:52)
[2023-08-28] MEDS: NOREPINEPHRINE 8 MG/D5W 250 ML 8 MG/250 ML BAG 9.38 MG IV CONT ×2 (16:52→19:00)
[2023-08-28] MEDS: IBUPROFEN IV 400 MG in SODIUM CHLORIDE 0.9% IV 100 ML 200 MG IVPB ×2 (17:41→23:32)
[2023-08-28] MEDS: LACTATED RINGERS 500 ML IV CONT (17:43)
[2023-08-28 17:49] LABS: Glucose Point of Care 189 mg/dl (65-105)
[2023-08-28] MEDS: MORPHINE SULFATE (*CRX) 4 MG/ML INJ IV PUSH (19:02)
[2023-08-28] MEDS: FAMOTIDINE 20 MG/2 ML VIAL IV PUSH (20:38)
[2023-08-28] MEDS: HYDROcodone/acetaminophen (*CRX) 5-325 MG TABLET 1 TAB PO (21:30)
--- NOTE | 2023-08-28 21:45 | PC.NURSE ---
Patient's daughter at bedside raising concern for patient being woken up for breathing treatment by RT. States that now she is going to be up all night. It took me and 4 nurses at [facility] [place] to hold her down and keep her in bed. I'm just telling you now she will be up all night. Explained to daughter that while we would like for this patient to rest, it will be necessary to wake her up periodically throughout the night so that we may give her proper care while in the ICU. Patient has repeatedly pulled oxygen from her nose, has arterial line & central line in place as well as other monitoring devices. Patient placed in mitts for her safety at this time.
[2023-08-28] MEDS: MORPHINE SULFATE (*CRX) 2 MG/ML INJ IV PUSH (23:33)
[2023-08-28 23:40] LABS: Glucose Point of Care 137 mg/dl (65-105)
[2023-08-29] VITALS (33 sets, daily range): BP systolic 85–155; BP diastolic 50–95; PULSE 55–134; RESP 13–32; TEMP 36.6–37.4; O2SAT 83–98
[2023-08-29] MEDS: metroNIDAZOLE 500 MG/ISO 100ML 500 MG/100 ML BAG 100 MG IVPB ×2 (00:30→07:51)
[2023-08-29] MEDS: HYDROcodone/acetaminophen (*CRX) 5-325 MG TABLET 1 TAB PO (01:23)
[2023-08-29] MEDS: IPRATROPIUM BR 0.02% INH SOLN 0.5 MG/2.5 ML VIAL INHALATION ×4 (01:33→14:19)
[2023-08-29] MEDS: ALBUTEROL SULFATE NEB 2.5 MG/3 ML INH INHALATION ×4 (01:33→14:19)
[2023-08-29] MEDS: MORPHINE SULFATE (*CRX) 2 MG/ML INJ IV PUSH ×5 (02:11→18:44)
[2023-08-29] MEDS: IBUPROFEN IV 400 MG in SODIUM CHLORIDE 0.9% IV 100 ML 200 MG IVPB ×4 (05:15→22:47)
[2023-08-29] MEDS: dexmedeTOMIDine 400 MCG/100 ML 400 MCG/100 ML BAG IV CONT (06:23)
[2023-08-29] MEDS: HYDROCORTISONE SODIUM SUCCINATE 100 MG/2 ML VIAL IV PUSH (06:46)
[2023-08-29 06:48] LABS: Basophils Percent Auto 0.1 % (0.2-1.2); Hematocrit 24.4 % (37.0-47.0); Hemoglobin 7.3 g/dL (12.0-15.0); Immature Granulocyte Absolute 0.05 K/mm3 (0.00-0.031); Immature Granulocyte Percent A 0.4 % (0-0.5); Lymphocytes Absolute Auto 0.51 K/mm3 (0.9-3.2); Lymphocytes Percent Auto 3.7 % (18.3-44.2); Mean Corpuscular HGB Conc 29.9 g/dl (32-36); Mean Corpuscular Hemoglobin 23.5 pg (26-34); Mean Corpuscular Volume 78.5 fl (80-100); Mean Platelet Volume 9.6 fl (7.4-10.4); Monocytes Percent Auto 7.1 % (2.6-8.5); Neutrophils Absolute Auto 12.2 K/mm3 (1.3-6.7); Neutrophils Percent Auto 88.7 % (45.5-73.1); Platelet Count Result 413 k/mm3 (150-375); Red Blood Count 3.11 M/mm3 (4.2-5.4); Red Cell Distribution Width 18.9 % (11.5-14.5); White Blood Count 13.8 K/mm3 (4.5-10.0)
[2023-08-29 06:59] LABS: Alanine Aminotransferase 68 U/L (6-35); Albumin Level 3.2 g/dL (3.5-5.1); Alkaline Phosphatase 158 U/L (38-126); Anion Gap 6 mmol/L (8-16); Aspartate Amino Transferase 119 U/L (14-36); Bilirubin,Total 0.5 mg/dL (0.2-1.3); Blood Urea Nitrogen 33 mg/dL (7-17); Calcium 8.6 mg/dL (8.4-10.2); Carbon Dioxide 24 mmol/L (22-30); Chloride 107 mmol/L (98-107); Estimated Glomerular Filt Rate 37; Glucose 120 mg/dL (65-110); Potassium 4.2 mmol/L (3.4-5.0); Sodium 137 mmol/L (137-145)
[2023-08-29 07:03] LABS: Lactic Acid Reflex 1.5 mmol/L (0.7-2.0)
[2023-08-29] MEDS: NOREPINEPHRINE 8 MG/D5W 250 ML 8 MG/250 ML BAG 5.63 MG IV CONT (08:04)
[2023-08-29 08:25] LABS: Anisocytosis 1+ (NORMAL); Hypochromasia 1+ (NORMAL); Microcytosis 1+ (NORMAL); Platelet Estimate Increased (Adequate); Schistocytes None Seen (NORMAL)
[2023-08-29 08:26] LABS: Poikilocytosis 1+ (NORMAL)
[2023-08-29] MEDS: CEFEPIME 1 GM/NS 50 ML 1 GM/50 ML BAG IVPB ×2 (08:53→21:12)
[2023-08-29] MEDS: ENOXAPARIN 30 MG/0.3 ML SYRINGE SUB-Q (08:54)
[2023-08-29] MEDS: PANTOPRAZOLE SODIUM IV 40 MG VIAL IV PUSH ×2 (08:54→21:13)
[2023-08-29] MEDS: LACTATED RINGERS 1,000 ML 75 ML IV CONT ×2 (09:51→21:13)
--- NOTE | 2023-08-29 10:52 | WPDINTPN ---
Progress Note: A&P Assessment and Plan (1) Septic shock: Code(s): A41.9 - Sepsis, unspecified organism; R65.21 - Severe sepsis with septic shock Status: Acute Assessment and Plan: Secondary to colitis and UTI Patient received more than 3 L of fluid bolus in the ER and was found to be not responsive to further IV fluid bolus on NICOM assessment She was started on Levophed and vasopressin. She is on low-dose Levophed day at 2 mcg. Continue to titrate vasopressors Will discontinue hydrocortisone Urine cultures growing E coli Blood cultures negative till now Stool C diff was negative Continue cefepime and Flagyl Continue maintenance IV fluids until p.o. intake improves no diarrhea significantly improved Echocardiogram Summary ? 1. Mild Left Ventricular Enlargement with normal thickness in good contractility of all segments.? No segmental wall motion abnormalities. Ejection fraction 64%.? Diastolic dysfunction grade 2 is present. ? 2. Left atrial chamber dimension is moderately enlarged. ? 3. There is mild mitral valve regurgitation. ? 4. There is mild tricuspid valve regurgitation. ? 5. Moderate pulmonary hypertension, estimated pulmonary arterial systolic pressure is 50 mmHg. ? 6. Dilated inferior vena cava with <50% collapse upon inspiration consistent with significantly elevated right atrial pressure, 20 mmHg. ? 7. Normal sinus rhythm. ? 8. Technically difficult study, definity echo contrast used. (2) Colitis: Code(s): K52.9 - Noninfective gastroenteritis and colitis, unspecified Status: Acute Assessment and Plan: 08/27 CT scan yesterday in the ER showed Questionable mild wall thickening of large bowel, as above. Correlate for infectious/inflammatory colitis. Ischemic bowel less likely, but not definitively excluded Patient was admitted with diagnosis of colitis likely is infectious versus ischemic 08/[address] scan with contrast showed Infectious, inflammatory, or ischemic colitis involving the distal transverse colon through the sigmoid. Slightly decreased, somewhat heterogeneous associated mucosal enhancement may increase the likelihood of an ischemic process. General surgery was consulted and due to concern of ischemia patient underwent exploratory laparotomy which did not show any signs of ischemia or necrosis Stool C diff was negative Stools WBC and culture are pending P.o. vancomycin has been discontinued Continue cefepime and Flagyl (3) Atrial fibrillation: Qualifiers: Atrial fibrillation type: unspecified Qualified Code(s): I48.91 - Unspecified atrial fibrillation Code(s): I48.91 - Unspecified atrial fibrillation Status: Acute Assessment and Plan: Currently in sinus rhythm. Patient claims to be compliant with Eliquis Start clear liquid diet and advance as tolerated Resume p.o. amiodarone. Will resume Eliquis when okay with surgery Will start IV amiodarone if patient goes into RVR (4) COPD (chronic obstructive pulmonary disease): Code(s): J44.9 - Chronic obstructive pulmonary disease, unspecified Status: Acute Assessment and Plan: Patient has chronic COPD but not in exacerbation. She does exhibit lip pursing on exam but does not appear in any respiratory distress or use of accessory muscles. Exam patient has diffuse decreased air entry throughout but no wheezing On 2 L nasal cannula ABG reviewed Continue bronchodilators (5) UTI (urinary tract infection): Qualifiers: Urinary tract infection type: acute cystitis Hematuria presence: without hematuria Qualified Code(s): N30.00 - Acute cystitis without hematuria Code(s): N39.0 - Urinary tract infection, site not specified Status: Acute Assessment and Plan: See above (6) ADRIEL (acute kidney injury): Code(s): N17.9 - Acute kidney failure, unspecified Status: Acute Assessment and Plan: Likely secondary to sepsis and shock CK level normal N
--- NOTE | 2023-08-29 11:39 | PM.PNGS ---
Progress Note: A&P Assessment and Plan (1) Septic shock: Code(s): A41.9 - Sepsis, unspecified organism; R65.21 - Severe sepsis with septic shock Status: Acute Assessment and Plan: Septic shock likely due to urosepsis. E coli is growing out of her urine. She is being treated with IV antibiotics. Sepsis has improved and she is only on very minimal doses of pressors now. (2) Colitis: Code(s): K52.9 - Noninfective gastroenteritis and colitis, unspecified Status: Acute Assessment and Plan: Mild colitis likely due to an ischemic episode with hypotension from sepsis. Evaluation of the colon at the time of exploratory laparotomy showed viable colon without significant ischemia but there was some evidence of very mild inflammation. No bowel resection was performed. Continue IV antibiotics and supportive management. May be transferred out of the intensive care unit at the discretion of the ICU service from a surgery standpoint. Patient have clear liquids as tolerated for now. Subjective Subjective Date/Time Seen: 08/29/23 11:39 Interval history: Patient is postoperative day 1 after exploratory laparotomy to evaluate for ischemic colon. Findings at time of surgery revealed some inflammation of distal transverse, splenic flexure, and proximal descending colon but no evidence of significant ischemia. All the remaining bowel was also viable. She remains intensive care unit. She has been sedated for agitation. She is only on 1 vanessa of Levophed. Today she is resting comfortably after being sedated. Exam GI: Other: Abdomen is soft and minimally distended. Midline incision is dressed and dry. Objective Data Vital Signs Vital Signs: Vital Signs - 24 hr 08/28/23 12:00 08/28/23 12:00 08/28/23 12:00 Temperature 37.4 C Pulse Rate 69 69 69 Respiratory Rate 21 H 21 H Blood Pressure 102/64 Pulse Oximetry 96 96 Oxygen Delivery Nasal Cannula Oxygen Flow Rate 2 08/28/23 11:50 08/28/23 15:03 08/28/23 15:15 Temperature 36.6 C Pulse Rate 69 99 58 L Respiratory Rate 25 H 18 Blood Pressure 102/64 118/49 L 108/58 L Pulse Oximetry 97 92 Oxygen Delivery Simple Face Mask Simple Face Mask Oxygen Flow Rate 6 6 08/28/23 15:30 08/28/23 15:45 08/28/23 16:00 Temperature Pulse Rate 99 77 75 Respiratory Rate 18 15 15 Blood Pressure 135/69 96/52 L 90/50 L Pulse Oximetry 99 99 99 Oxygen Delivery Nasal Cannula Nasal Cannula Oxygen Flow Rate 3 3 3 08/28/23 16:48 08/28/23 16:52 08/28/23 18:00 Temperature Pulse Rate 67 67 78 Respiratory Rate Blood Pressure 90/50 L Pulse Oximetry Oxygen Delivery Oxygen Flow Rate 08/28/23 19:14 08/28/23 20:00 08/28/23 21:00 Temperature Pulse Rate 73 76 Respiratory Rate 20 Blood Pressure 89/42 L Pulse Oximetry 87 L Oxygen Delivery Nasal Cannula Oxygen Flow Rate 2 08/28/23 21:07 08/28/23 21:13 08/28/23 20:00 Temperature 37.2 C Pulse Rate 84 76 84 Respiratory Rate 20 20 Blood Pressure 99/57 L Pulse Oximetry 100 87 L Oxygen Delivery Nasal Cannula Oxygen Flow Rate 2 08/28/23 20:31 08/28/23 22:01 08/28/23 20:00 Temperature 37.1 C 37.2 C Pulse Rate 84 71 72 Respiratory Rate 14 14 Blood Pressure 124/71 99/52 L Pulse Oximetry 96 91 Oxygen Delivery Oxygen Flow Rate 08/28/23 22:00 08/28/23 23:59 08/29/23 00:00 Temperature 37.4 C Pulse Rate 70 70 Respiratory Rate 13 Blood Pressure 120/67 Pulse Oximetry 96 96 Oxygen Delivery Nasal Cannula Oxygen Flow Rate 3 08/28/23 23:30 08/29/23 00:00 08/29/23 00:00 Temperature Pulse Rate 86 70 69 Respiratory Rate Blood Pressure 129/88 127/74 Pulse Oximetry Oxygen Delivery Oxygen Flow Rate 08/29/23 01:17 08/29/23 01:33 08/29/23 01:44 Temperature Pulse Rate 76 113 H 116 H Respiratory Rate 26 H 26 H Blood Pressure 140/95 H Pulse Oximetry Oxygen Delivery Oxygen Flow Rate
[2023-08-29 11:58] LABS: Glucose Point of Care 117 mg/dl (65-105)
--- NOTE | 2023-08-29 13:04 | PC.NURSE ---
Patient awake sitting up in bed. Precedex at 0.[address] Salazar order. Patient pursed lip breathing 35 times per minute. Stating I can't breathe, please help me. 2L/NC already on patient with 02 sat 95%. Explained to patient that her breathing was fine, O2 sat was sufficient and she was just sleeping without any breathing difficulties. She continues to state that she can't breathe. After several minutes of trying to get patient to relax and slow breathing down I requested Dr. Salazar to come to bedside. Dr. Salazar tried to explain why she needed to relax and slow breathing without any success. Patient given Morphine 2 mg as ordered and increased precedex gtt. Will continue to monitor.
--- NOTE | 2023-08-29 13:11 | PC.NURSE ---
Patient resting quietly. No apparent distress noted. HR 62, Respirations 14, O2 sat on 2L/NC 98%. Will continue to monitor.
[2023-08-29] MEDS: CENTRAL LINE FLUSH 10 ML IV PUSH ×3 (14:51→21:13)
[2023-08-29] MEDS: LORazepam INJ (*CRX) 2 MG/ML VIAL 1 MG IV PUSH ×2 (14:58→22:47)
--- NOTE | 2023-08-29 15:05 | PC.NURSE ---
Patient awake and continues to sit up in bed yelling Help me Kaycee . HR 120s, Unable to get 02 sat due to her taking her pulse ox off. Gave Ativan 1 mg IVP as ordered by Dr. Salazar. Will continue to monitor.
--- NOTE | 2023-08-29 15:49 | PM.IMPN ---
Progress Note: A&P Assessment and Plan (1) Esophagitis: Code(s): K20.90 - Esophagitis, unspecified without bleeding Status: Acute (2) Diarrhea: Qualifiers: Diarrhea type: unspecified type Qualified Code(s): R19.7 - Diarrhea, unspecified Code(s): R19.7 - Diarrhea, unspecified Status: Acute (3) Septic shock: Code(s): A41.9 - Sepsis, unspecified organism; R65.21 - Severe sepsis with septic shock Status: Acute (4) ADRIEL (acute kidney injury): Code(s): N17.9 - Acute kidney failure, unspecified Status: Acute (5) Coronary disease: Code(s): I25.10 - Atherosclerotic heart disease of [place] coronary artery without angina pectoris Status: Acute Plan her lab parameters, blood pressure, all improving. agree with plan by intensivists. at this point it would be marr to give her time to come out of stun from anesthesia. cont abx as well. Subjective Date/time seen: 08/29/23 15:49 Interval history: pt is POD #1, daughter is in room and reports her confusion and pursed lip breathing is the exact same way she behaved after the last time she received anesthesia. and it took about 2-3 days to resolved. Review of Systems Review of Systems: All systems reviewed & are unremarkable except as noted in HPI and below Exam Narrative: unable to obtain, staff and family asking pt to not be woken up Objective Data Vital Signs Vital Signs: Vital Signs - 24 hr 08/28/23 16:00 08/28/23 16:48 08/28/23 16:52 Temperature Pulse Rate 75 67 67 Respiratory Rate 15 Blood Pressure 90/50 L 90/50 L Pulse Oximetry 99 Oxygen Delivery Oxygen Flow Rate 3 08/28/23 18:00 08/28/23 19:14 08/28/23 20:00 Temperature Pulse Rate 78 73 Respiratory Rate Blood Pressure 89/42 L Pulse Oximetry 87 L Oxygen Delivery Nasal Cannula Oxygen Flow Rate 2 08/28/23 21:00 08/28/23 21:07 08/28/23 21:13 Temperature Pulse Rate 76 84 76 Respiratory Rate 20 20 Blood Pressure Pulse Oximetry 100 Oxygen Delivery Nasal Cannula Oxygen Flow Rate 2 08/28/23 20:00 08/28/23 20:31 08/28/23 22:01 Temperature 98.9 F 98.8 F 99.0 F Pulse Rate 84 84 71 Respiratory Rate 20 14 14 Blood Pressure 99/57 L 124/71 99/52 L Pulse Oximetry 87 L 96 91 Oxygen Delivery Oxygen Flow Rate 08/28/23 20:00 08/28/23 22:00 08/28/23 23:59 Temperature Pulse Rate 72 70 Respiratory Rate Blood Pressure Pulse Oximetry 96 Oxygen Delivery Nasal Cannula Oxygen Flow Rate 3 08/29/23 00:00 08/28/23 23:30 08/29/23 00:00 Temperature 99.3 F Pulse Rate 70 86 70 Respiratory Rate 13 Blood Pressure 120/67 129/88 127/74 Pulse Oximetry 96 Oxygen Delivery Oxygen Flow Rate 08/29/23 00:00 08/29/23 01:17 08/29/23 01:33 Temperature Pulse Rate 69 76 113 H Respiratory Rate 26 H Blood Pressure 140/95 H Pulse Oximetry Oxygen Delivery Oxygen Flow Rate 08/29/23 01:44 08/29/23 02:00 08/29/23 02:00 Temperature 99.0 F Pulse Rate 116 H 91 90 Respiratory Rate 26 H 20 Blood Pressure 155/87 H Pulse Oximetry 94 Oxygen Delivery Oxygen Flow Rate 08/29/23 03:21 08/29/23 04:00 08/29/23 06:23 Temperature 98.3 F Pulse Rate 59 L 81 Respiratory Rate 13 23 H Blood Pressure 101/50 L Pulse Oximetry 96 97 Oxygen Delivery Nasal Cannula Oxygen Flow Rate 3 08/29/23 04:00 08/29/23 06:00 08/29/23 06:00 Temperature Pulse Rate 60 90 90 Respiratory Rate 21 H Blood Pressure 151/84 H Pulse Oximetry 96 Oxygen Delivery Oxygen Flow Rate 08/29/23 07:32 08/29/23 07:32 08/29/23 07:42 Temperature Pulse Rate 66 116 H Respiratory Rate 20 24 H Blood Pressure Pulse Oximetry 97 Oxygen Delivery Nasal Cannula Oxygen Flow Rate 3 08/29/23 07:33 08/29/23 08:04 08/29/23 08:04 Temperature 98.4 F Pulse Rate 66 83 83 Respiratory Rate 24 H Blood Pressure 103/55 L 133/73 133/7
[2023-08-29] MEDS: metroNIDAZOLE 500 MG/ISO 100ML 500 MG/100 ML BAG 1000 MG IVPB (16:00)
[2023-08-29] MEDS: dexmedeTOMIDine 400 MCG/100 ML 400 MCG/100 ML BAG 7.13 MCG IV CONT (17:04)
[2023-08-30] VITALS (31 sets, daily range): BP systolic 60–138; BP diastolic 48–111; PULSE 73–160; RESP 15–31; TEMP 35.9–37.1; O2SAT 92–100
[2023-08-30] MEDS: metroNIDAZOLE 500 MG/ISO 100ML 500 MG/100 ML BAG 100 MG IVPB ×3 (00:29→15:21)
[2023-08-30] MEDS: MORPHINE SULFATE (*CRX) 2 MG/ML INJ IV PUSH ×7 (00:55→18:05)
[2023-08-30 01:26] LABS: Glucose Point of Care 115 mg/dl (65-105)
--- NOTE | 2023-08-30 01:56 | PC.NURSE ---
Patient's daughter Kaycee at bedside. Stating that her son was coming up to stay with her so that she can sleep for a few hours. Notified daughter of policy of one overnight visitor per patient. Kaycee states that she will tell her son not to come. Also, states that she is going to leave then as she works 40 hour weekends starting at 2 pm. She began gathering her belongings and seemed upset stating good luck when she wakes up and sees that I am not here. Verified Kaycee's phone number and secondary account contact associate. Kaycee then stated that she doesn't get cell service at work and will not be able to be reached once she is at work. Requested work phone number in case of an emergency to which Kaycee replied [facility]. This RN offered to contact supervisor bottle machines for permission for more than one overnight visitor to which she declined. Offered main ICU phone number to Kaycee to which she replied no that's ok. She'll be fine before exiting ICU.
[2023-08-30] MEDS: LORazepam INJ (*CRX) 2 MG/ML VIAL 1 MG IV PUSH ×2 (02:24→06:05)
[2023-08-30] MEDS: dexmedeTOMIDine 400 MCG/100 ML 400 MCG/100 ML BAG 17.81 MCG IV CONT ×3 (02:26→19:00)
[2023-08-30] MEDS: IBUPROFEN IV 400 MG in SODIUM CHLORIDE 0.9% IV 100 ML 200 MG IVPB (05:48)
[2023-08-30] MEDS: CENTRAL LINE FLUSH 10 ML IV PUSH ×4 (05:49→21:22)
[2023-08-30 06:32] LABS: Hematocrit 25.7 % (37.0-47.0); Hemoglobin 7.5 g/dL (12.0-15.0); Mean Corpuscular HGB Conc 29.2 g/dl (32-36); Mean Corpuscular Hemoglobin 23.4 pg (26-34); Mean Corpuscular Volume 80.3 fl (80-100); Mean Platelet Volume 9.6 fl (7.4-10.4); Platelet Count Result 350 k/mm3 (150-375); Red Cell Distribution Width 18.9 % (11.5-14.5); White Blood Count 13.1 K/mm3 (4.5-10.0)
[2023-08-30 06:52] LABS: Alanine Aminotransferase 60 U/L (6-35); Albumin Level 2.9 g/dL (3.5-5.1); Alkaline Phosphatase 120 U/L (38-126); Anion Gap 8 mmol/L (8-16); Aspartate Amino Transferase 99 U/L (14-36); Bilirubin,Total 0.5 mg/dL (0.2-1.3); Blood Urea Nitrogen 45 mg/dL (7-17); Carbon Dioxide 18 mmol/L (22-30); Chloride 109 mmol/L (98-107); Estimated Glomerular Filt Rate 26; Glucose 111 mg/dL (65-110); Magnesium 2.3 mg/dL (1.6-2.3); Potassium 3.5 mmol/L (3.4-5.0); Sodium 135 mmol/L (137-145)
[2023-08-30] MEDS: ENOXAPARIN 30 MG/0.3 ML SYRINGE SUB-Q (08:02)
[2023-08-30] MEDS: FAMOTIDINE 20 MG/2 ML VIAL IV PUSH ×2 (08:07→21:17)
[2023-08-30] MEDS: CEFEPIME 1 GM/NS 50 ML 1 GM/50 ML BAG IVPB ×2 (08:10→21:18)
[2023-08-30] MEDS: PANTOPRAZOLE SODIUM IV 40 MG VIAL IV PUSH (08:11)
--- NOTE | 2023-08-30 08:54 | WPDINTPN ---
Progress Note: A&P Assessment and Plan (1) Septic shock: Code(s): A41.9 - Sepsis, unspecified organism; R65.21 - Severe sepsis with septic shock Status: Acute Assessment and Plan: Secondary to colitis and UTI Patient received more than 3 L of fluid bolus in the ER and was found to be not responsive to further IV fluid bolus on NICOM assessment She was started on Levophed and vasopressin. She has been off and on low-dose levophed. Continue to titrate vasopressors Off hydrocortisone Urine cultures growing E coli Blood cultures negative till now Stool C diff was negative Continue cefepime and Flagyl Continue maintenance IV fluids until p.o. intake improves no diarrhea significantly improved Echocardiogram Summary ? 1. Mild Left Ventricular Enlargement with normal thickness in good contractility of all segments.? No segmental wall motion abnormalities. Ejection fraction 64%.? Diastolic dysfunction grade 2 is present. ? 2. Left atrial chamber dimension is moderately enlarged. ? 3. There is mild mitral valve regurgitation. ? 4. There is mild tricuspid valve regurgitation. ? 5. Moderate pulmonary hypertension, estimated pulmonary arterial systolic pressure is 50 mmHg. ? 6. Dilated inferior vena cava with <50% collapse upon inspiration consistent with significantly elevated right atrial pressure, 20 mmHg. ? 7. Normal sinus rhythm. ? 8. Technically difficult study, definity echo contrast used. (2) Colitis: Code(s): K52.9 - Noninfective gastroenteritis and colitis, unspecified Status: Acute Assessment and Plan: 08/27 CT scan yesterday in the ER showed Questionable mild wall thickening of large bowel, as above. Correlate for infectious/inflammatory colitis. Ischemic bowel less likely, but not definitively excluded Patient was admitted with diagnosis of colitis likely is infectious versus ischemic 08/[address] scan with contrast showed Infectious, inflammatory, or ischemic colitis involving the distal transverse colon through the sigmoid. Slightly decreased, somewhat heterogeneous associated mucosal enhancement may increase the likelihood of an ischemic process. General surgery was consulted and due to concern of ischemia patient underwent exploratory laparotomy which did not show any signs of ischemia or necrosis Stool C diff was negative Stools WBC and culture are pending P.o. vancomycin has been discontinued Continue cefepime and Flagyl (3) Atrial fibrillation: Qualifiers: Atrial fibrillation type: unspecified Qualified Code(s): I48.91 - Unspecified atrial fibrillation Code(s): I48.91 - Unspecified atrial fibrillation Status: Acute Assessment and Plan: Patient went back into AFib overnight. Ventricular rate is controlled at this time Patient claims to be compliant with Eliquis Continue Eliquis Continue p.o. amiodarone. May need IV amiodarone if patient goes into RVR (4) COPD (chronic obstructive pulmonary disease): Code(s): J44.9 - Chronic obstructive pulmonary disease, unspecified Status: Acute Assessment and Plan: Patient has chronic COPD but not in exacerbation. She does exhibit lip pursing on exam but does not appear in any respiratory distress or use of accessory muscles. Exam patient has diffuse decreased air entry throughout but no wheezing On 1-2 L nasal cannula ABG reviewed Continue bronchodilators (5) UTI (urinary tract infection): Qualifiers: Hematuria presence: without hematuria Urinary tract infection type: acute cystitis Qualified Code(s): N30.00 - Acute cystitis without hematuria Code(s): N39.0 - Urinary tract infection, site not specified Status: Acute Assessment and Plan: See above (6) ADRIEL (acute kidney injury): Code(s): N17.9 - Acute kidney failure, unspecified Status: Acute Assessment and Plan: Likely secondary to sepsis and shock CK level normal No obstruction hydronephrosis
[2023-08-30] MEDS: APIXABAN 2.5 MG TABLET PO ×2 (08:58→21:18)
[2023-08-30] MEDS: AMIODARONE HCL 200 MG TABLET PO (08:58)
[2023-08-30] MEDS: POTASSIUM CHLORIDE INJ 40 MEQ in SODIUM CHLORIDE 0.9% IV 500 ML 130 MEQ IVPB (09:21)
[2023-08-30] MEDS: DEXTROSE 50% 25 GM/50 ML SYRINGE IV PUSH (11:52)
[2023-08-30] MEDS: ALBUMIN HUMAN 25% 25 GM/100 ML 100 ML IVPB ×2 (11:55→17:31)
[2023-08-30 11:57] LABS: Glucose Point of Care 74 mg/dl (65-105)
[2023-08-30] MEDS: dexmedeTOMIDine 400 MCG/100 ML 400 MCG/100 ML BAG 16.63 MCG IV CONT (13:16)
--- NOTE | 2023-08-30 13:19 | PC.NURSE ---
Updated daughter, Kaycee, via telephone on patient condition and plan of care.
[2023-08-30] MEDS: DEXTROSE 5%/0.45% SOD CHL 1,000 ML 50 ML IV CONT (14:13)
--- NOTE | 2023-08-30 15:16 | PC.NURSE ---
Dr. Salazar updated on patient agitation and vital signs, new orders received.
[2023-08-30] MEDS: AMIODARONE 150 MG/D5W 100 ML 150 MG/100 ML BAG 600 MG IV CONT (15:20)
[2023-08-30] MEDS: AMIODARONE 360 MG/D5W 200 ML 360 MG/200 ML BAG 33.33 MG IV CONT (15:30)
--- NOTE | 2023-08-30 15:41 | PM.PNGS ---
Progress Note: A&P Assessment and Plan (1) Septic shock: Code(s): A41.9 - Sepsis, unspecified organism; R65.21 - Severe sepsis with septic shock Status: Acute Assessment and Plan: Mild colitis suspected due to hypotension associated with septic shock. Improving (2) Colitis: Code(s): K52.9 - Noninfective gastroenteritis and colitis, unspecified Status: Acute Assessment and Plan: Mild colitis as above. Source of sepsis likely UTI (3) UTI (urinary tract infection): Qualifiers: Urinary tract infection type: acute cystitis Hematuria presence: without hematuria Qualified Code(s): N30.00 - Acute cystitis without hematuria Code(s): N39.0 - Urinary tract infection, site not specified Status: Acute Assessment and Plan: Continue IV antibiotics. Subjective Subjective Date/Time Seen: 08/30/23 15:41 Post Op day: 2 Interval history: Patient currently sedated and obtunded. Apparently she thrashes about significantly when sedation decreased. Seems to be in significant pain then. Right now patient is sedated and nonverbal, nonresponsive. Review of Systems Review of Systems: ROS unobtainable: Yes unobtainable due to mental status Exam Const: General: patient obtunded GI: Inspection: incision (Looks good. Dry and intact.) GI Palp: Yes Soft to palpation Auscultation: Hypoactive bowel sounds present Objective Data Vital Signs Vital Signs: Vital Signs - 24 hr 08/29/23 16:00 08/29/23 16:00 08/29/23 16:00 Temperature 37.1 C Pulse Rate 65 65 65 Respiratory Rate 21 H 21 H Blood Pressure 85/56 L Pulse Oximetry 93 93 Oxygen Delivery Nasal Cannula Oxygen Flow Rate 2 08/29/23 17:04 08/29/23 17:04 08/29/23 18:00 Temperature 37.0 C Pulse Rate 63 63 63 Respiratory Rate 21 H 21 H 22 H Blood Pressure 103/64 Pulse Oximetry 94 Oxygen Delivery Oxygen Flow Rate 08/29/23 18:00 08/29/23 18:17 08/29/23 18:45 Temperature Pulse Rate 62 61 87 Respiratory Rate 21 H 22 H Blood Pressure Pulse Oximetry Oxygen Delivery Oxygen Flow Rate 08/29/23 20:00 08/29/23 20:01 08/29/23 22:01 Temperature 37.1 C 36.7 C Pulse Rate 62 59 L Respiratory Rate 16 18 Blood Pressure 109/64 99/68 L Pulse Oximetry 95 94 94 Oxygen Delivery Nasal Cannula Oxygen Flow Rate 2 08/30/23 01:05 08/29/23 20:00 08/29/23 22:00 Temperature Pulse Rate 151 H 62 77 Respiratory Rate 22 H Blood Pressure Pulse Oximetry Oxygen Delivery Oxygen Flow Rate 08/30/23 00:00 08/30/23 02:00 08/30/23 00:00 Temperature Pulse Rate 100 93 Respiratory Rate Blood Pressure Pulse Oximetry 98 Oxygen Delivery Nasal Cannula Oxygen Flow Rate 2 08/30/23 00:00 08/30/23 00:31 08/30/23 01:33 Temperature 36.9 C 36.9 C 37.1 C Pulse Rate 99 102 H 96 Respiratory Rate 19 18 22 H Blood Pressure 92/58 L 82/55 L 118/83 Pulse Oximetry 97 92 94 Oxygen Delivery Oxygen Flow Rate 08/30/23 02:00 08/30/23 02:31 08/30/23 03:00 Temperature 37.1 C 37.0 C 37.1 C Pulse Rate 98 132 H 93 Respiratory Rate 22 H 31 H 22 H Blood Pressure 113/81 89/58 L 115/80 Pulse Oximetry 94 96 97 Oxygen Delivery Oxygen Flow Rate 08/30/23 03:30 08/30/23 04:00 08/30/23 04:00 Temperature 37.1 C Pulse Rate 103 H 107 H Respiratory Rate 24 H Blood Pressure 111/81 Pulse Oximetry 98 99 Oxygen Delivery Nasal Cannula Oxygen Flow Rate 1 08/30/23 06:00 08/30/23 04:00 08/30/23 05:00 Temperature 36.9 C 37.0 C Pulse Rate 88 108 H 98 Respiratory Rate 23 H 22 H Blood Pressure 121/83 122/92 H Pulse Oximetry 99 98 Oxygen Delivery Oxygen Flow Rate 08/30/23 06:00 08/30/23 08:00 08/30/23 08:58 Temperature 37.1 C 36.9 C Pulse Rate 96 89 150 H Respiratory Rate 23 H 25 H Blood Pressure 111/93 H 87/62 L Pulse Oximetry 95 94 Oxygen Delivery Oxygen Flow Rate 08/30/23 07:30 08/30/23 08:00
[2023-08-30] MEDS: QUEtiapine FUMARATE 25 MG TABLET PO ×2 (15:48→21:18)
--- NOTE | 2023-08-30 15:50 | PM.IMPN ---
Progress Note: A&P Assessment and Plan (1) Esophagitis: Code(s): K20.90 - Esophagitis, unspecified without bleeding Status: Acute (2) Septic shock: Code(s): A41.9 - Sepsis, unspecified organism; R65.21 - Severe sepsis with septic shock Status: Acute (3) ADRIEL (acute kidney injury): Code(s): N17.9 - Acute kidney failure, unspecified Status: Acute (4) Delirium: Code(s): R41.0 - Disorientation, unspecified Status: Acute (5) UTI (urinary tract infection): Qualifiers: Urinary tract infection type: acute cystitis Hematuria presence: without hematuria Qualified Code(s): N30.00 - Acute cystitis without hematuria Code(s): N39.0 - Urinary tract infection, site not specified Status: Acute Plan 73F w/ PMH COPD, chronic hypoxic respiratory failure, a fib on eliquis, hx of DVT presented with diarrhea, nausea and vomiting and weakness. Admitted on 08/27. She was in septic shock, underwent ex-lap on 08/28, found to have mild colitis and otherwise no other explanation for diarrhea and shock. Also w/ a UTI. Post-op, patient remains delirious, daughter notes this exact kind of thing happened for 2-3 days after her last surgery. NG tube placed for nutrition on 08/30 1) delirium - familiy reports same thing happened after the last time she received anesthesia. rotary lithographic press operator managing. However, on 08/30 during her panic she appears have labored breathing, with diffuse wheezing and decreased air intake. given her COPD history, will obtain ABG/VBG to asses CO2 - cont precedex 2) chronic hypoxic respiratory failure w/ chronic COPD - cont o2. check BNP tomorrow AM, rotary lithographic press operator reports non collapsing IVC. she is largely fluid positive since admission - continue bronchodilators 3) ADRIEL - improved after large volume fluid resuscitation on admission. - on 08/30, sCR 1.40 --> 1.9. now on gentle IV fluids and given albumin which is 2.9 on 08/30. Agree with this as she is likely third spaced - ctm, check BNP as well. 4) septic shock unresponsive to fluids - 2/2 colitis/UTI/esophagitis. continue cefepime and flagyl and follow cultures - levophed off on 08/30. MAP sits at 65, receiving albumin q6hr now. 5) a fib - cont tele. cont amiodarone and eliquis FEN: D5NS, tube feeds started 08/30 GI prophylaxis: protonix DVT prophylaxis: eliquis Lines: TLC and pIV Code Status: Full Code Dispo: guarded, critical More than 35 minutes spent on chart review, patient interaction and assessment and plan. Subjective Date/time seen: 08/30/23 15:50 Interval history: pt remains confused, when precedex is weaned down she thrashes and does not respond to commands. she seems to have labored breathing and asks for help but won't respond specifically why. Review of Systems Review of Systems: ROS unobtainable: Yes unobtainable due to mental status Exam Const: General: in distress Eyes: Pupils: Equal, round and reactive pupils present Resp: Auscultation: wheezes and diminished lung sounds Other: labored breathing Cardio: Rate: regular rate Rhythm: regular rhythm GI: GI Palp: Yes Soft to palpation Auscultation: normal bowel sounds Urinary Catheter: Urinary Catheter: patent and draining and urine clear Extrem: General: no edema Objective Data Vital Signs Vital Signs: Vital Signs - 24 hr 08/29/23 16:00 08/29/23 16:00 08/29/23 16:00 Temperature 98.8 F Pulse Rate 65 65 65 Respiratory Rate 21 H 21 H Blood Pressure 85/56 L Pulse Oximetry 93 93 Oxygen Delivery Nasal Cannula Oxygen Flow Rate 2 08/29/23 17:04 08/29/23 17:04 08/29/23 18:00 Temperature 98.6 F Pulse Rate 63 63 63 Respiratory Rate 21 H 21 H 22 H Blood Pressure 103/64 Pulse Oximetry 94 Oxygen Delivery Oxygen Flow Rate 08/29/23 18:00 08/29/23 18:17 08/29/23 18:45 Temperature Pulse Rate 62 61 87 Respiratory Rate 21 H 22 H Blood Pressure Pulse Oximetry Oxygen Deliver
[2023-08-30 16:10] LABS: Alveolar/Arterial O2 Gradient 83.1 mmHg; Base Excess ABG -9.7 mEq/l (+/-2.0); Fractional Inspired Oxygen 28 %; HCO3 ABG 14.7 mEq/l (22.0-26.0); Oxygen Content ABG 10.4 %vol (16.0-22.0); Oxygen Saturation ABG 96.2 % (95.0-100.0); Oxyhemoglobin 93.6 % THb (90.0-100.0); PCO2 ABG 26.9 mmHg (35.0-45.0); PO2 ABG 84.8 mmHg (80.0-100.0); PO2 FiO2 Ratio Arterial Blood 3.03 %; pH ABG 7.356 (7.350-7.450)
[2023-08-30 16:13] LABS: Device NASAL CANNULA; Site Drawn RIGHT BRACHIAL; Total Hemoglobin 7.8 g/dL (12.0-18.0)
[2023-08-30 17:35] LABS: Glucose Point of Care 135 mg/dl (65-105)
--- NOTE | 2023-08-30 18:20 | PC.NURSE ---
Updated daughter, Kaycee, on patient's condition and plan of care and reason patient need to remain on Precedex. Daughter stated the sedative is causing her to be that way and I want it off. Updated daughter that due to patient and staff safety Dr. Salazar would not discontinue the Precedex. Daughter requesting patient be transferred. Dr. Solitario, Dr. Salazar and Brandy, ICU/IMU district claims manager notified of daughter's request for a transfer.
[2023-08-30] MEDS: HYDROcodone/acetaminophen (*CRX) 5-325 MG TABLET 1 TAB PO (19:31)
[2023-08-30] MEDS: AMIODARONE 360 MG/D5W 200 ML 360 MG/200 ML BAG 16.67 MG IV CONT (21:21)
--- NOTE | 2023-08-30 22:00 | PC.NURSE ---
Message to call daughter Kaycee to give update. I contacted Kaycee at her work number [phone]. Kaycee's only question was is the sedation off? She states she wants the sedation turned off because that is what is causing her mother to be anxious, and restless. I explained that the only sedation is Precedex and it does not compromise the patients respiratory statues. The patient has been restless and trying to pull at tubes and lines since I came on shift. Currently, the patient is now resting, HR has come down to the 80s from 120s, RR 16 rather than 32. I explained to Kaycee that I will do what I can to decrease the Precedex as tolerated, but I can not guarantee it will be turned off for the patient's safety. Kaycee states, that is what the restraints are for. I explained that despite restraints, the patient can potentially harm herself when she is agitated. Kaycee states she wants her mother transferred to another hospital if we don't turn off the sedation. She also states that the doctors at [facility] do not know what they are doing.
[2023-08-31] VITALS (27 sets, daily range): BP systolic 78–143; BP diastolic 56–110; PULSE 67–137; RESP 14–33; TEMP 36–36.7; O2SAT 86–96
[2023-08-31] MEDS: ALBUMIN HUMAN 25% 25 GM/100 ML 100 ML IVPB ×2 (00:12→06:20)
[2023-08-31] MEDS: metroNIDAZOLE 500 MG/ISO 100ML 500 MG/100 ML BAG 100 MG IVPB ×4 (00:13→23:19)
[2023-08-31] MEDS: MORPHINE SULFATE (*CRX) 2 MG/ML INJ IV PUSH ×5 (00:45→17:01)
[2023-08-31] MEDS: dexmedeTOMIDine 400 MCG/100 ML 400 MCG/100 ML BAG 17.81 MCG IV CONT ×4 (01:06→19:03)
[2023-08-31 01:37] LABS: Glucose Point of Care 131 mg/dl (65-105)
[2023-08-31] MEDS: LORazepam INJ (*CRX) 2 MG/ML VIAL 1 MG IV PUSH ×4 (02:02→23:20)
[2023-08-31 05:19] LABS: Basophils Percent Auto 0.3 % (0.2-1.2); Eosinophils Percent Auto 0.1 % (0-4.4); Hematocrit 24.2 % (37.0-47.0); Hemoglobin 7.1 g/dL (12.0-15.0); Immature Granulocyte Absolute 0.15 K/mm3 (0.00-0.031); Immature Granulocyte Percent A 1.5 % (0-0.5); Lymphocytes Absolute Auto 1.31 K/mm3 (0.9-3.2); Mean Corpuscular HGB Conc 29.3 g/dl (32-36); Mean Corpuscular Hemoglobin 23.1 pg (26-34); Mean Corpuscular Volume 78.6 fl (80-100); Mean Platelet Volume 9.2 fl (7.4-10.4); Monocytes Absolute Auto 1.2 K/mm3 (0.1-0.6); Monocytes Percent Auto 11.7 % (2.6-8.5); Neutrophils Absolute Auto 7.4 K/mm3 (1.3-6.7); Neutrophils Percent Auto 73.4 % (45.5-73.1); Nucleated Red Blood Cells Absolute Auto 0.2 K/mm3 (0.0-0.012); Nucleated Red Blood Cells Perc 1.8 % (0.0-0.2); Platelet Count Result 357 k/mm3 (150-375); Red Blood Count 3.08 M/mm3 (4.2-5.4); Red Cell Distribution Width 18.8 % (11.5-14.5); White Blood Count 10.1 K/mm3 (4.5-10.0)
[2023-08-31 05:36] LABS: Alanine Aminotransferase 50 U/L (6-35); Albumin Level 3.7 g/dL (3.5-5.1); Alkaline Phosphatase 87 U/L (38-126); Anion Gap 12 mmol/L (8-16); Aspartate Amino Transferase 75 U/L (14-36); Bilirubin,Total 0.4 mg/dL (0.2-1.3); Blood Urea Nitrogen 50 mg/dL (7-17); Calcium 8.8 mg/dL (8.4-10.2); Carbon Dioxide 16 mmol/L (22-30); Chloride 109 mmol/L (98-107); Estimated Glomerular Filt Rate 24; Glucose 149 mg/dL (65-110); Magnesium 2.1 mg/dL (1.6-2.3); Phosphorus 3.8 mg/dL (2.5-4.5); Potassium 3.7 mmol/L (3.4-5.0); Sodium 137 mmol/L (137-145)
[2023-08-31 05:49] LABS: Hypochromasia 1+ (NORMAL); Platelet Estimate Adequate (Adequate); Procalcitonin 11.3 ng/mL; Schistocytes Rare (NORMAL)
[2023-08-31 05:50] LABS: Anisocytosis 1+ (NORMAL)
[2023-08-31] MEDS: CENTRAL LINE FLUSH 10 ML IV PUSH ×4 (06:28→20:28)
[2023-08-31 08:40] LABS: NT Pro B Type Natriuretic Pept 24300 pg/mL (19.9-100)
[2023-08-31] MEDS: AMIODARONE 360 MG/D5W 200 ML 360 MG/200 ML BAG 16.67 MG IV CONT (08:54)
[2023-08-31] MEDS: HYDROcodone/acetaminophen (*CRX) 5-325 MG TABLET 1 TAB PO ×3 (09:55→20:25)
[2023-08-31] MEDS: QUEtiapine FUMARATE 25 MG TABLET PO ×2 (09:55→20:26)
[2023-08-31] MEDS: FUROSEMIDE INJ 40 MG/4 ML VIAL IV PUSH (10:32)
[2023-08-31] MEDS: APIXABAN 2.5 MG TABLET PO ×2 (10:34→20:25)
[2023-08-31] MEDS: SODIUM BICARBONATE TAB 650 MG TABLET FEED TUBE ×2 (10:34→16:44)
[2023-08-31] MEDS: PANTOPRAZOLE SODIUM IV 40 MG VIAL IV PUSH ×2 (10:35→20:26)
[2023-08-31] MEDS: methylPREDNISolone SOD SUCC 125 MG VIAL 60 MG IV PUSH (10:35)
[2023-08-31] MEDS: CEFEPIME 1 GM/NS 50 ML 1 GM/50 ML BAG IVPB ×2 (10:37→20:25)
--- NOTE | 2023-08-31 10:40 | PM.CNNEP ---
Assessment and Plan Assessment and plan (1) ADRIEL (acute kidney injury): Code(s): N17.9 - Acute kidney failure, unspecified Status: Acute Assessment and Plan: as noted by trend of creatinine since admission likely secondary to sepsis and shock/hemodynamic instability however, contrast exposure with CT scan on 08/27 could be playing a role as well evaluation to date: no obstruction/anatomical issues with kidneys by CT imaging CPK okay urine studies pending unfortunately, urine output declining and with evidence of volume overload (from aggressive IVF resuscitation) assess response with IV diuretics follow repeat labs and UOP (2) Chronic kidney disease, stage 3: Code(s): N18.30 - Chronic kidney disease, stage 3 unspecified Status: Chronic Assessment and Plan: baseline creatinine seems to run 1,0 - 1.4mg/dl this causes her to fluctuate between CKD stage 3A and stage 3B presumably secondary to hypertension, vascular disease, and age-related change (3) Septic shock: Code(s): A41.9 - Sepsis, unspecified organism; R65.21 - Severe sepsis with septic shock Status: Acute Assessment and Plan: thought to be secondary to colitis and UTI s/p aggressive IVF resuscitation (and now with issues related to volume overload) culture data noted on antibiotic therapy vasopressor therapy to maintain MAP (4) Colitis: Code(s): K52.9 - Noninfective gastroenteritis and colitis, unspecified Status: Acute Assessment and Plan: CT scan on 08/27 with Infectious, inflammatory, or ischemic colitis involving the distal transverse colon through the sigmoid. Slightly decreased, somewhat heterogeneous associated mucosal enhancement may increase the likelihood of an ischemic process Surgery following s/p exploratory laparotomy -- no evidence of ischemic or necrosis diarrhea appears to have resolved continue supportive therapy (5) UTI (urinary tract infection): Qualifiers: Hematuria presence: without hematuria Urinary tract infection type: acute cystitis Qualified Code(s): N30.00 - Acute cystitis without hematuria Code(s): N39.0 - Urinary tract infection, site not specified Status: Acute Assessment and Plan: as suggested by admission UA urine culture with E.coli on antibiotics (6) COPD (chronic obstructive pulmonary disease): Code(s): J44.9 - Chronic obstructive pulmonary disease, unspecified Status: Acute Assessment and Plan: known history wheezing noted today -- stgarted on steroids and continue bronchodilators IV diuretics for CHF changes (and perhaps help with wheezing) follow respiratory status (7) Delirium: Code(s): R41.0 - Disorientation, unspecified Status: Acute Assessment and Plan: quite severe/significan since surgery management has been difficult for review of records [email or web address] added today per family, she has a history of this with surgery/general anesthesia I will continue to follow the patient with you while she remains hospitalized make further recommendations as needed. Thank you for allowing me participate in care this patient. History of Present Illness Reason for Consult Consult date: 08/31/23 Reason for consult: acute renal failure (on chronic kidney disease) Chief Complaint Chief complaint: hypovolemic shock History of Present Illness Narrative: Most of the information that I have obtained is from review of the electronic medical record as well as discussion with the physician / nurses involved in the patient's care as is difficult to get a full and complete history from the patient due to her fluctuating mentation. The patient is a 73-year-old female with a past medical history as outlined below who initially presented to [facility] ER with complaints of nausea and vomiting In association with abdominal pain. Subsequent w
--- NOTE | 2023-08-31 10:40 | P.CONNP_ITS ---
Assessment and Plan Assessment and plan (1) ADRIEL (acute kidney injury): Code(s): N17.9 - Acute kidney failure, unspecified Status: Acute Assessment and Plan: * as noted by trend of creatinine since admission * likely secondary to sepsis and shock/hemodynamic instability * however, contrast exposure with CT scan on 08/27 could be playing a role as well * evaluation to date: * no obstruction/anatomical issues with kidneys by CT imaging * CPK okay * urine studies pending * unfortunately, urine output declining and with evidence of volume overload (from aggressive IVF resuscitation) * assess response with IV diuretics * follow repeat labs and UOP (2) Chronic kidney disease, stage 3: Code(s): N18.30 - Chronic kidney disease, stage 3 unspecified Status: Chronic Assessment and Plan: * baseline creatinine seems to run 1,0 - 1.4mg/dl * this causes her to fluctuate between CKD stage 3A and stage 3B * presumably secondary to hypertension, vascular disease, and age-related change (3) Septic shock: Code(s): A41.9 - Sepsis, unspecified organism; R65.21 - Severe sepsis with septic shock Status: Acute Assessment and Plan: * thought to be secondary to colitis and UTI * s/p aggressive IVF resuscitation (and now with issues related to volume overload) * culture data noted * on antibiotic therapy * vasopressor therapy to maintain MAP (4) Colitis: Code(s): K52.9 - Noninfective gastroenteritis and colitis, unspecified Status: Acute Assessment and Plan: * CT scan on 08/27 with Infectious, inflammatory, or ischemic colitis involving the distal transverse colon through the sigmoid. Slightly decreased, somewhat heterogeneous associated mucosal enhancement may increase the likelihood of an ischemic process * Surgery following * s/p exploratory laparotomy -- no evidence of ischemic or necrosis * diarrhea appears to have resolved * continue supportive therapy (5) UTI (urinary tract infection): Qualifiers: Hematuria presence: without hematuria Urinary tract infection type: acute cystitis Qualified Code(s): N30.00 - Acute cystitis without hematuria Code(s): N39.0 - Urinary tract infection, site not specified Status: Acute Assessment and Plan: * as suggested by admission UA * urine culture with E.coli * on antibiotics (6) COPD (chronic obstructive pulmonary disease): Code(s): J44.9 - Chronic obstructive pulmonary disease, unspecified Status: Acute Assessment and Plan: * known history * wheezing noted today -- stgarted on steroids and continue bronchodilators * IV diuretics for CHF changes (and perhaps help with wheezing) * follow respiratory status (7) Delirium: Code(s): R41.0 - Disorientation, unspecified Status: Acute Assessment and Plan: * quite severe/significan since surgery * management has been difficult for review of records * macie added today * per family, she has a history of this with surgery/general anesthesia I will continue to follow the patient with you while she remains hospitalized make further recommendations as needed. Thank you for allowing me participate in care this patient. History of Present Illness Reason for Consult Consult date: 08/31/23 Reason for consult: acute renal failure (on chronic kidney disease) Chief Complaint Chief complaint: hypovolemic shock History of Present Illness Narrative: Most of the information that I have obtained is fr
--- NOTE | 2023-08-31 11:18 | WPDINTPN ---
Progress Note: A&P Assessment and Plan (1) Septic shock: Code(s): A41.9 - Sepsis, unspecified organism; R65.21 - Severe sepsis with septic shock Status: Acute Assessment and Plan: Secondary to colitis and UTI Patient has now received significant IV fluids and appears to be now developing volume overload. Will hold further IV fluids She was started on Levophed and vasopressin. She has been off and on low-dose levophed. Continue to titrate vasopressors Off hydrocortisone Urine cultures growing E coli Blood cultures negative till now Stool C diff was negative Continue cefepime and Flagyl Diarrhea has resolved echocardiogram Summary ? 1. Mild Left Ventricular Enlargement with normal thickness in good contractility of all segments.? No segmental wall motion abnormalities. Ejection fraction 64%.? Diastolic dysfunction grade 2 is present. ? 2. Left atrial chamber dimension is moderately enlarged. ? 3. There is mild mitral valve regurgitation. ? 4. There is mild tricuspid valve regurgitation. ? 5. Moderate pulmonary hypertension, estimated pulmonary arterial systolic pressure is 50 mmHg. ? 6. Dilated inferior vena cava with <50% collapse upon inspiration consistent with significantly elevated right atrial pressure, 20 mmHg. ? 7. Normal sinus rhythm. ? 8. Technically difficult study, definity echo contrast used. (2) Colitis: Code(s): K52.9 - Noninfective gastroenteritis and colitis, unspecified Status: Acute Assessment and Plan: 08/27 CT scan yesterday in the ER showed Questionable mild wall thickening of large bowel, as above. Correlate for infectious/inflammatory colitis. Ischemic bowel less likely, but not definitively excluded Patient was admitted with diagnosis of colitis likely is infectious versus ischemic 08/[address] scan with contrast showed Infectious, inflammatory, or ischemic colitis involving the distal transverse colon through the sigmoid. Slightly decreased, somewhat heterogeneous associated mucosal enhancement may increase the likelihood of an ischemic process. General surgery was consulted and due to concern of ischemia patient underwent exploratory laparotomy which did not show any signs of ischemia or necrosis Stool C diff was negative P.o. vancomycin has been discontinued Continue cefepime and Flagyl (3) Atrial fibrillation: Qualifiers: Atrial fibrillation type: unspecified Qualified Code(s): I48.91 - Unspecified atrial fibrillation Code(s): I48.91 - Unspecified atrial fibrillation Status: Acute Assessment and Plan: Patient went into AFib with RVR. Started on IV amiodarone infusion we continue Continue Eliquis (4) COPD (chronic obstructive pulmonary disease): Code(s): J44.9 - Chronic obstructive pulmonary disease, unspecified Status: Acute Assessment and Plan: Patient has chronic COPD but not in exacerbation. She has wheezing on today's exam which could be secondary to pulmonary edema Chest x-ray confirmed congestive changes continue bronchodilators Will start solu-Medrol DC IV fluids and give IV Lasix On 1-2 L nasal cannula (5) UTI (urinary tract infection): Qualifiers: Hematuria presence: without hematuria Urinary tract infection type: acute cystitis Qualified Code(s): N30.00 - Acute cystitis without hematuria Code(s): N39.0 - Urinary tract infection, site not specified Status: Acute Assessment and Plan: See above (6) ADRIEL (acute kidney injury): Code(s): N17.9 - Acute kidney failure, unspecified Status: Acute Assessment and Plan: Patient presented with elevated creatinine likely secondary to sepsis and shock which improved with IV fluids CK level normal No obstruction hydronephrosis or dilation on the CT scan Monitor urine output electrolytes and creatinine Management of shock as above Creatinine has now further increased which could be secondary to contrast induced neph
[2023-08-31 12:17] LABS: Glucose Point of Care 102 mg/dl (65-105)
--- NOTE | 2023-08-31 15:32 | PM.PNGS ---
Progress Note: A&P Assessment and Plan (1) History of exploratory laparotomy: Code(s): Z98.890 - Other specified postprocedural states Status: Acute Assessment and Plan: Postop day 3. Status post exploratory laparotomy for possible bowel as the source of her septic shock and hypotension. Some colitis in the area of the splenic flexure was noted but it was mild and did not require resection. Wound is healing well. Continue to follow. (2) Septic shock: Code(s): A41.9 - Sepsis, unspecified organism; R65.21 - Severe sepsis with septic shock Status: Acute (3) UTI (urinary tract infection): Qualifiers: Urinary tract infection type: acute cystitis Hematuria presence: without hematuria Qualified Code(s): N30.00 - Acute cystitis without hematuria Code(s): N39.0 - Urinary tract infection, site not specified Status: Acute (4) Colitis: Code(s): K52.9 - Noninfective gastroenteritis and colitis, unspecified Status: Acute Assessment and Plan: On antibiotics, mild (5) Atrial fibrillation: Qualifiers: Atrial fibrillation type: unspecified Qualified Code(s): I48.91 - Unspecified atrial fibrillation Code(s): I48.91 - Unspecified atrial fibrillation Status: Acute (6) Delirium: Code(s): R41.0 - Disorientation, unspecified Status: Acute Assessment and Plan: Requiring sedation. Subjective Subjective Date/Time Seen: 08/31/23 15:32 Post Op day: 3 Patient reports: no bowel movement, afebrile and other (Patient is sedated and nonverbal again today.) Review of Systems Review of Systems: ROS unobtainable: Yes unobtainable due to medical condition Exam Const: General: lethargic and patient obtunded Nutritional Appearance: underweight Orientation/consciousness: patient obtunded and lethargic GI: Inspection: incision (Dry and healing well) GI Palp: Yes Soft to palpation and Yes Tenderness to palpation present (GI) Auscultation: Hypoactive bowel sounds present Objective Data Vital Signs Vital Signs: Vital Signs - 24 hr 08/30/23 16:00 08/30/23 16:09 08/30/23 16:15 Temperature 36.7 C Pulse Rate 82 97 128 H Respiratory Rate 15 Blood Pressure 60/48 L 60/48 L 114/74 Pulse Oximetry 94 Oxygen Delivery Oxygen Flow Rate 08/30/23 16:16 08/30/23 16:00 08/30/23 18:00 Temperature Pulse Rate 111 H 88 97 Respiratory Rate 28 H 20 Blood Pressure Pulse Oximetry Oxygen Delivery Oxygen Flow Rate 08/30/23 19:00 08/30/23 19:00 08/30/23 18:00 Temperature Pulse Rate 99 99 97 Respiratory Rate 20 20 Blood Pressure Pulse Oximetry Oxygen Delivery Oxygen Flow Rate 08/30/23 18:00 08/30/23 16:00 08/30/23 21:21 Temperature 36.8 C Pulse Rate 97 99 88 Respiratory Rate 20 20 Blood Pressure 75/62 L 91/79 L Pulse Oximetry 93 93 Oxygen Delivery Nasal Cannula Oxygen Flow Rate 2 08/30/23 20:00 08/30/23 20:00 08/30/23 20:00 Temperature 35.9 C L Pulse Rate 115 H 106 H Respiratory Rate 26 H Blood Pressure 91/77 L Pulse Oximetry 92 Oxygen Delivery Nasal Cannula Oxygen Flow Rate 2 08/30/23 22:00 08/30/23 22:00 08/31/23 01:06 Temperature 35.9 C L Pulse Rate 91 91 95 Respiratory Rate 20 16 Blood Pressure 91/79 L Pulse Oximetry 92 Oxygen Delivery Oxygen Flow Rate 08/30/23 20:15 08/31/23 00:00 08/31/23 02:00 Temperature Pulse Rate Respiratory Rate Blood Pressure 74/54 L 101/76 117/58 L Pulse Oximetry Oxygen Delivery Oxygen Flow Rate 08/31/23 03:00 08/31/23 00:00 08/31/23 00:00 Temperature 36.2 C L Pulse Rate 75 137 H 111 H Respiratory Rate 18 22 H Blood Pressure 101/76 Pulse Oximetry 92 Oxygen Delivery Oxygen Flow Rate 08/31/23 00:00 08/31/23 02:00 08/31/23 02:00 Temperature Pulse Rate 106 H 106 H Respiratory Rate 24 H Blood Pressure 117/58 L Pulse Oximetry 92
--- NOTE | 2023-08-31 15:57 | PM.IMPN ---
Progress Note: A&P Assessment and Plan (1) History of exploratory laparotomy: Code(s): Z98.890 - Other specified postprocedural states Status: Acute (2) Chronic kidney disease, stage 3: Code(s): N18.30 - Chronic kidney disease, stage 3 unspecified Status: Chronic (3) Esophagitis: Code(s): K20.90 - Esophagitis, unspecified without bleeding Status: Acute (4) Septic shock: Code(s): A41.9 - Sepsis, unspecified organism; R65.21 - Severe sepsis with septic shock Status: Acute (5) ADRIEL (acute kidney injury): Code(s): N17.9 - Acute kidney failure, unspecified Status: Acute (6) Delirium: Code(s): R41.0 - Disorientation, unspecified Status: Acute (7) UTI (urinary tract infection): Qualifiers: Urinary tract infection type: acute cystitis Hematuria presence: without hematuria Qualified Code(s): N30.00 - Acute cystitis without hematuria Code(s): N39.0 - Urinary tract infection, site not specified Status: Acute Plan 73F w/ PMH COPD, chronic hypoxic respiratory failure, a fib on eliquis, hx of DVT presented with diarrhea, nausea and vomiting and weakness. Admitted on 08/27. She was in septic shock, underwent ex-lap on 08/28, found to have mild colitis and otherwise no other explanation for diarrhea and shock. Also w/ a UTI. Post-op, patient remains delirious, daughter notes this exact kind of deterioriation happened for 2-3 days after her last surgery. NG tube placed for nutrition on 08/30 1) delirium - familiy reports same thing happened after the last time she received anesthesia. 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 no hypercapnia - cont precedex 2) chronic hypoxic respiratory failure w/ chronic COPD - cont o2. - continue bronchodilators and prednisone (started 08/31) for wheezing 3) ADRIEL on CKD stage III - improved after large volume fluid resuscitation on admission. did receive CT w/ contrast on admission. infection. sCR worsened on 08/30, fluids stopped. 08/31 one time lasix given, the BNP was highly elevated. re-assess with BMP and fluids status in AM - appreciate nephrology recs 4) septic shock unresponsive to fluids - 2/2 colitis/UTI/esophagitis. continue cefepime and flagyl and follow cultures - levophed off on 08/30. back on 08/31. 5) a fib w/ RVR - cont tele. cont amiodarone and eliquis - amiodarone IV started 08/31 FEN: tube feeds started 08/30 GI prophylaxis: protonix DVT prophylaxis: eliquis Lines: TLC and pIV Code Status: Full Code Dispo: guarded, critical Subjective Date/time seen: 08/31/23 15:57 Interval history: pt continues to be confused, slight wheeze heard. she does not follow commands. Review of Systems Review of Systems: ROS unobtainable: Yes unobtainable due to endotracheal tube, unobtainable due to medical condition and unobtainable due to mental status Exam Const: General: uncomfortable Resp: Auscultation: wheezes Cardio: Rate: regular rate Rhythm: regular rhythm Heart sounds: no murmurs GI: Inspection: non-distended Auscultation: normal bowel sounds Extrem: General: no edema Objective Data Vital Signs Vital Signs: Vital Signs - 24 hr 08/30/23 16:00 08/30/23 16:09 08/30/23 16:15 Temperature 98.1 F Pulse Rate 82 97 128 H Respiratory Rate 15 Blood Pressure 60/48 L 60/48 L 114/74 Pulse Oximetry 94 Oxygen Delivery Oxygen Flow Rate 08/30/23 16:16 08/30/23 16:00 08/30/23 18:00 Temperature Pulse Rate 111 H 88 97 Respiratory Rate 28 H 20 Blood Pressure Pulse Oximetry Oxygen Delivery Oxygen Flow Rate 08/30/23 19:00 08/30/23 19:00 08/30/23 18:00 Temperature Pulse Rate 99 99 97 Respiratory Rate 20 20 Blood Pressure Pulse Oximetry Oxygen Delivery Oxygen Flow Rate 08/30/23 18:00 08/30/23 16:00 08/30/23 21:21 Temperature 98.3 F Pulse Rate 97 99 88 Respiratory Rate 20 20 Blood Pressure 75/62 L 91/79 L Pulse Oximetry 93 9
[2023-08-31 16:54] LABS: Glucose Point of Care 101 mg/dl (65-105)
[2023-08-31 17:36] LABS: Total Protein Urine Random 22 mg/dL; Ur Ttl Prot Creatinine Ratio 2.75 mg/mg (0-0.20); Urea Random Urine 141 MG/DL
[2023-08-31 17:37] LABS: Sodium Urine Random 125 meq/L
[2023-08-31 18:02] LABS: Eosinophil Urine None Seen % (None Seen); Urine Eos QC 2nd Tech Confirmed
[2023-08-31] MEDS: FAMOTIDINE 20 MG/2 ML VIAL IV PUSH (20:27)
[2023-08-31 23:40] LABS: Glucose Point of Care 35 mg/dl (65-105)
[2023-08-31 23:40] LABS: Glucose Point of Care 100 mg/dl (65-105)
[2023-09-01] VITALS (35 sets, daily range): BP systolic 71–156; BP diastolic 53–118; PULSE 67–147; RESP 14–30; TEMP 36.8–37.4; O2SAT 90–100; BMI 22.5
[2023-09-01] MEDS: dexmedeTOMIDine 400 MCG/100 ML 400 MCG/100 ML BAG 17.81 MCG IV CONT ×5 (00:41→22:54)
[2023-09-01] MEDS: CENTRAL LINE FLUSH 10 ML IV PUSH ×4 (04:59→21:05)
[2023-09-01] MEDS: MORPHINE SULFATE (*CRX) 2 MG/ML INJ IV PUSH ×5 (05:10→20:00)
[2023-09-01 05:55] LABS: Creatine Kinase 330 U/L (30-135)
[2023-09-01 06:13] LABS: Hepatitis B Surface Antigen Negative (Negative)
[2023-09-01] MEDS: LORazepam INJ (*CRX) 2 MG/ML VIAL 1 MG IV PUSH ×2 (06:21→20:55)
[2023-09-01 06:30] LABS: Hepatitis B Surface Anti Res Negative
[2023-09-01 08:17] LABS: Basophils Percent Auto 0.2 % (0.2-1.2); Hematocrit 23.9 % (37.0-47.0); Hemoglobin 7.3 g/dL (12.0-15.0); Immature Granulocyte Absolute 0.37 K/mm3 (0.00-0.031); Immature Granulocyte Percent A 2.1 % (0-0.5); Lymphocytes Absolute Auto 0.57 K/mm3 (0.9-3.2); Lymphocytes Percent Auto 3.2 % (18.3-44.2); Mean Corpuscular HGB Conc 30.5 g/dl (32-36); Mean Corpuscular Hemoglobin 23.2 pg (26-34); Mean Corpuscular Volume 76.1 fl (80-100); Mean Platelet Volume 10.1 fl (7.4-10.4); Monocytes Percent Auto 11.2 % (2.6-8.5); Neutrophils Percent Auto 83.3 % (45.5-73.1); Nucleated Red Blood Cells Absolute Auto 0.3 K/mm3 (0.0-0.012); Nucleated Red Blood Cells Perc 1.9 % (0.0-0.2); Platelet Count Result 385 k/mm3 (150-375); Red Blood Count 3.14 M/mm3 (4.2-5.4); Red Cell Distribution Width 18.8 % (11.5-14.5)
--- NOTE | 2023-09-01 08:19 | PC.NURSE ---
Family at bedside.
[2023-09-01] MEDS: LEVALBUTEROL NEB 1.25 MG/3 ML INHALATION ×2 (08:23→18:26)
[2023-09-01] MEDS: IPRATROPIUM BR 0.02% INH SOLN 0.5 MG/2.5 ML VIAL INHALATION ×2 (08:23→18:26)
[2023-09-01 08:31] LABS: Anisocytosis 1+ (NORMAL); Hypochromasia 1+ (NORMAL); Platelet Estimate Adequate (Adequate)
[2023-09-01 08:32] LABS: Alanine Aminotransferase 47 U/L (6-35); Albumin Level 3.6 g/dL (3.5-5.1); Alkaline Phosphatase 78 U/L (38-126); Anion Gap 11 mmol/L (8-16); Aspartate Amino Transferase 55 U/L (14-36); Bilirubin,Total 0.5 mg/dL (0.2-1.3); Blood Urea Nitrogen 52 mg/dL (7-17); Calcium 9.3 mg/dL (8.4-10.2); Carbon Dioxide 20 mmol/L (22-30); Chloride 107 mmol/L (98-107); Estimated Glomerular Filt Rate 26; Glucose 137 mg/dL (65-110); Magnesium 1.9 mg/dL (1.6-2.3); Phosphorus 3.8 mg/dL (2.5-4.5); Potassium 3.8 mmol/L (3.4-5.0); Schistocytes None Seen (NORMAL); Sodium 138 mmol/L (137-145)
[2023-09-01 08:34] LABS: Microcytosis 1+ (NORMAL)
[2023-09-01] MEDS: metroNIDAZOLE 500 MG/ISO 100ML 500 MG/100 ML BAG 100 MG IVPB ×2 (08:55→16:09)
[2023-09-01] MEDS: methylPREDNISolone SOD SUCC 125 MG VIAL 60 MG IV PUSH (09:03)
[2023-09-01] MEDS: FAMOTIDINE 20 MG/2 ML VIAL IV PUSH ×2 (09:04→20:06)
[2023-09-01] MEDS: PANTOPRAZOLE SODIUM IV 40 MG VIAL IV PUSH ×2 (09:04→20:06)
[2023-09-01] MEDS: QUEtiapine FUMARATE 25 MG TABLET PO ×2 (09:05→20:05)
[2023-09-01] MEDS: SODIUM BICARBONATE TAB 650 MG TABLET FEED TUBE ×2 (09:05→16:09)
[2023-09-01] MEDS: AMIODARONE 360 MG/D5W 200 ML 360 MG/200 ML BAG 16.67 MG IV CONT ×2 (09:14→21:04)
[2023-09-01] MEDS: FUROSEMIDE INJ 40 MG/4 ML VIAL IV PUSH (09:16)
[2023-09-01] MEDS: CEFEPIME 1 GM/NS 50 ML 1 GM/50 ML BAG IVPB ×2 (09:16→20:06)
[2023-09-01] MEDS: APIXABAN 2.5 MG TABLET PO ×2 (09:25→20:05)
--- NOTE | 2023-09-01 09:27 | P.PNNP_ITS ---
Progress Note: A&P Assessment and Plan (1) ADRIEL (acute kidney injury): Code(s): N17.9 - Acute kidney failure, unspecified Status: Acute Assessment and Plan: * as noted by trend of creatinine since admission * relatively stable at this time * likely secondary to sepsis and shock/hemodynamic instability * however, contrast exposure with CT scan on 08/27 could be playing a role as well * evaluation to date: * no obstruction/anatomical issues with kidneys by CT imaging * CPK okay * urine electrolytes non-prerenal * urine eosinophils negative * proteinuria noted * reasonable response with IV diuretics - continue PRN * follow repeat labs and UOP (2) Chronic kidney disease, stage 3: Code(s): N18.30 - Chronic kidney disease, stage 3 unspecified Status: Chronic Assessment and Plan: * baseline creatinine seems to run 1.0 - 1.4mg/dl * this causes her to fluctuate between CKD stage 3A and stage 3B * presumably secondary to hypertension, vascular disease, and age-related change (3) Septic shock: Code(s): A41.9 - Sepsis, unspecified organism; R65.21 - Severe sepsis with septic shock Status: Acute Assessment and Plan: * thought to be secondary to colitis and UTI * s/p aggressive IVF resuscitation (and now with issues related to volume overload) * culture data noted * on antibiotic therapy * vasopressor therapy to maintain MAP (off currently) (4) Colitis: Code(s): K52.9 - Noninfective gastroenteritis and colitis, unspecified Status: Acute Assessment and Plan: * CT scan on 08/27 with Infectious, inflammatory, or ischemic colitis involving the distal transverse colon through the sigmoid. Slightly decreased, somewhat heterogeneous associated mucosal enhancement may increase the likelihood of an ischemic process * Surgery following * s/p exploratory laparotomy -- no evidence of ischemic or necrosis * diarrhea appears to have resolved * continue supportive therapy (5) UTI (urinary tract infection): Qualifiers: Urinary tract infection type: acute cystitis Hematuria presence: without hematuria Qualified Code(s): N30.00 - Acute cystitis without hematuria Code(s): N39.0 - Urinary tract infection, site not specified Status: Acute Assessment and Plan: * as suggested by admission UA * urine culture with E.coli * on antibiotics (6) COPD (chronic obstructive pulmonary disease): Code(s): J44.9 - Chronic obstructive pulmonary disease, unspecified Status: Acute Assessment and Plan: * known history * wheezing apparent -- on steroids and continue bronchodilators * IV diuretics for CHF changes (and perhaps to help with wheezing) * follow respiratory status (7) Delirium: Code(s): R41.0 - Disorientation, unspecified Status: Acute Assessment and Plan: * quite severe/significan since surgery * management has been difficult for review of records * macie added today * per family, she has a history of this with surgery/general anesthesia Will continue to follow. Subjective Date/time seen: 09/01/23 09:27 Interval history: Follow-up for acute kidney injury/acute renal failure on chronic kidney disease. Ongoing issues with agitation, confusion, and delirium overnight and this morning; remains in restraints due to behavior issues; good urine output noted in response to IV lasix yesterday; remains on 2L of oxygen with some improvement in respiratory status. Exam
--- NOTE | 2023-09-01 09:27 | PM.PNNEP ---
Progress Note: A&P Assessment and Plan (1) ADRIEL (acute kidney injury): Code(s): N17.9 - Acute kidney failure, unspecified Status: Acute Assessment and Plan: as noted by trend of creatinine since admission relatively stable at this time likely secondary to sepsis and shock/hemodynamic instability however, contrast exposure with CT scan on 08/27 could be playing a role as well evaluation to date: no obstruction/anatomical issues with kidneys by CT imaging CPK okay urine electrolytes non-prerenal urine eosinophils negative proteinuria noted reasonable response with IV diuretics - continue PRN follow repeat labs and UOP (2) Chronic kidney disease, stage 3: Code(s): N18.30 - Chronic kidney disease, stage 3 unspecified Status: Chronic Assessment and Plan: baseline creatinine seems to run 1.0 - 1.4mg/dl this causes her to fluctuate between CKD stage 3A and stage 3B presumably secondary to hypertension, vascular disease, and age-related change (3) Septic shock: Code(s): A41.9 - Sepsis, unspecified organism; R65.21 - Severe sepsis with septic shock Status: Acute Assessment and Plan: thought to be secondary to colitis and UTI s/p aggressive IVF resuscitation (and now with issues related to volume overload) culture data noted on antibiotic therapy vasopressor therapy to maintain MAP (off currently) (4) Colitis: Code(s): K52.9 - Noninfective gastroenteritis and colitis, unspecified Status: Acute Assessment and Plan: CT scan on 08/27 with Infectious, inflammatory, or ischemic colitis involving the distal transverse colon through the sigmoid. Slightly decreased, somewhat heterogeneous associated mucosal enhancement may increase the likelihood of an ischemic process Surgery following s/p exploratory laparotomy -- no evidence of ischemic or necrosis diarrhea appears to have resolved continue supportive therapy (5) UTI (urinary tract infection): Qualifiers: Urinary tract infection type: acute cystitis Hematuria presence: without hematuria Qualified Code(s): N30.00 - Acute cystitis without hematuria Code(s): N39.0 - Urinary tract infection, site not specified Status: Acute Assessment and Plan: as suggested by admission UA urine culture with E.coli on antibiotics (6) COPD (chronic obstructive pulmonary disease): Code(s): J44.9 - Chronic obstructive pulmonary disease, unspecified Status: Acute Assessment and Plan: known history wheezing apparent -- on steroids and continue bronchodilators IV diuretics for CHF changes (and perhaps to help with wheezing) follow respiratory status (7) Delirium: Code(s): R41.0 - Disorientation, unspecified Status: Acute Assessment and Plan: quite severe/significan since surgery management has been difficult for review of records sugeyoshaun added today per family, she has a history of this with surgery/general anesthesia Will continue to follow. Subjective Date/time seen: 09/01/23 09:27 Interval history: Follow-up for acute kidney injury/acute renal failure on chronic kidney disease. Ongoing issues with agitation, confusion, and delirium overnight and this morning; remains in restraints due to behavior issues; good urine output noted in response to IV lasix yesterday; remains on 2L of oxygen with some improvement in respiratory status. Exam Narrative: General: somewhat ill appearing elderly/frail female - confused Heart: normal S1 and S2; no rub Lungs: coarse with a few wheezes noted Abdomen: soft, nontender, nondistended, positive bowel sounds Extremities: no cyanosis or clubbing; trace edema Skin: warm and dry Objective Data Vital Signs Vital Signs: Vital Signs Temp Pulse Resp BP Pulse Ox O2 Del Method O2 Flow Rate 09/01/23 09:14 94 105/74 09/01/23 08:55
--- NOTE | 2023-09-01 10:48 | WPDINTPN ---
Progress Note: A&P Assessment and Plan (1) Septic shock: Code(s): A41.9 - Sepsis, unspecified organism; R65.21 - Severe sepsis with septic shock Status: Acute Assessment and Plan: Secondary to colitis and UTI Patient has now received significant IV fluids and appears to be now developing volume overload. Will hold further IV fluids She was started on Levophed and vasopressin. She has been off and on low-dose levophed. Currently off of all vasopressors and Off hydrocortisone Urine cultures growing E coli Blood cultures negative till now Stool C diff was negative Continue cefepime and Flagyl Diarrhea has resolved echocardiogram Summary ? 1. Mild Left Ventricular Enlargement with normal thickness in good contractility of all segments.? No segmental wall motion abnormalities. Ejection fraction 64%.? Diastolic dysfunction grade 2 is present. ? 2. Left atrial chamber dimension is moderately enlarged. ? 3. There is mild mitral valve regurgitation. ? 4. There is mild tricuspid valve regurgitation. ? 5. Moderate pulmonary hypertension, estimated pulmonary arterial systolic pressure is 50 mmHg. ? 6. Dilated inferior vena cava with <50% collapse upon inspiration consistent with significantly elevated right atrial pressure, 20 mmHg. ? 7. Normal sinus rhythm. ? 8. Technically difficult study, definity echo contrast used. (2) Colitis: Code(s): K52.9 - Noninfective gastroenteritis and colitis, unspecified Status: Acute Assessment and Plan: 08/27 CT scan yesterday in the ER showed Questionable mild wall thickening of large bowel, as above. Correlate for infectious/inflammatory colitis. Ischemic bowel less likely, but not definitively excluded Patient was admitted with diagnosis of colitis likely is infectious versus ischemic 08/[address] scan with contrast showed Infectious, inflammatory, or ischemic colitis involving the distal transverse colon through the sigmoid. Slightly decreased, somewhat heterogeneous associated mucosal enhancement may increase the likelihood of an ischemic process. General surgery was consulted and due to concern of ischemia patient underwent exploratory laparotomy which did not show any signs of ischemia or necrosis Stool C diff was negative P.o. vancomycin has been discontinued Continue cefepime and Flagyl (3) Delirium: Code(s): R41.0 - Disorientation, unspecified Status: Acute Assessment and Plan: Since surgery patient has had significant delirium agitation encephalopathy which has been very difficult to manage. She is on Precedex infusion. She is also on morphine for abdominal pain. She has been requiring frequent dosing of Ativan for her own safety. She has a bedside sitter and is physically restrained despite that patient managed to pull her NG tube and Bond out 08/30 night. NG and Bond placed . Seroquel was started Continue Precedex Seroquel and morphine for pain control. Will try to minimize benzodiazepines. I had long discussion with patient's daughter and explained her the situation reasoning behind using physical restraints and medications like Precedex morphine and Ativan in the situation. She did admitted that patient had similar delirium for many days when she was admitted at [facility] and receive sedatives for cardioversion. (4) Atrial fibrillation: Qualifiers: Atrial fibrillation type: unspecified Qualified Code(s): I48.91 - Unspecified atrial fibrillation Code(s): I48.91 - Unspecified atrial fibrillation Status: Acute Assessment and Plan: Patient went into AFib with RVR. Started on IV amiodarone infusion we continue Continue Eliquis (5) COPD (chronic obstructive pulmonary disease): Code(s): J44.9 - Chronic obstructive pulmonary disease, unspecified Status: Acute Assessment and Plan: Patient has chronic COPD but not in exacerbation on admission. She was noticed to have wheezing on10
[2023-09-01] MEDS: NOREPINEPHRINE 8 MG/D5W 250 ML 8 MG/250 ML BAG 9.38 MG IV CONT (11:04)
[2023-09-01 12:04] LABS: Glucose Point of Care 141 mg/dl (65-105)
--- NOTE | 2023-09-01 15:18 | PM.PNGS ---
Progress Note: A&P Assessment and Plan (1) History of exploratory laparotomy: Code(s): Z98.890 - Other specified postprocedural states Status: Acute Assessment and Plan: Postop day 4 status post exploratory laparotomy for possible ischemic bowel as the source of her septic shock and hypotension. Found to have colitis of the splenic flexure, but this was mild and did not require resection. Wound continues to heal well. Okay to start tube feedings as tolerated. Will continue to follow. (2) Septic shock: Code(s): A41.9 - Sepsis, unspecified organism; R65.21 - Severe sepsis with septic shock Status: Acute Assessment and Plan: [place] to be secondary to colitis vs urinary source vs combination. Blood cx NGTD. Continue IV antibiotics and ICU management. Still on low rate of norepinephrine infusion, weaning as tolerated. (3) Colitis: Code(s): K52.9 - Noninfective gastroenteritis and colitis, unspecified Status: Acute Assessment and Plan: Continue antibiotics (4) UTI (urinary tract infection): Qualifiers: Urinary tract infection type: acute cystitis Hematuria presence: without hematuria Qualified Code(s): N30.00 - Acute cystitis without hematuria Code(s): N39.0 - Urinary tract infection, site not specified Status: Acute (5) Atrial fibrillation: Qualifiers: Atrial fibrillation type: unspecified Qualified Code(s): I48.91 - Unspecified atrial fibrillation Code(s): I48.91 - Unspecified atrial fibrillation Status: Acute (6) Delirium: Code(s): R41.0 - Disorientation, unspecified Status: Acute Assessment and Plan: Currently on a Precedex infusion in the ICU Plan I have discussed the patient's case and plan of care with Dr. Paiz. Subjective Subjective Date/Time Seen: 09/01/23 15:18 Post Op day: 4 (Exploratory laparotomy) Interval history: Chart reviewed since last seen. She is now seen in the ICU with her daughter at the bedside. She is on a Precedex, amiodarone, and norepinephrine infusions. She is encephalopathic and is unable to answer any questions for me today. She is agitated and restless in bed. She still has an NG tube in place. Review of Systems Review of Systems: ROS unobtainable: Yes unobtainable due to mental status Exam Const: General: ill appearing and thin Orientation/consciousness: Other orientation findings (restless and unable to answer questions. AMS) GI: Inspection: non-distended GI Palp: Yes Soft to palpation, No Guarding due to palpation present (GI) and Yes Other GI palpation findings present (exam limited due to AMS) Auscultation: normal bowel sounds Other: Midline incision dry and glue intact, no erythema, no drainage, some ecchymosis localized around the incision Objective Data Vital Signs Vital Signs: Vital Signs - 24 hr 08/31/23 15:30 08/31/23 16:00 08/31/23 16:00 Temperature 97.1 F L Pulse Rate 73 117 H 78 Respiratory Rate 22 H 14 Blood Pressure 131/85 112/75 Pulse Oximetry 86 L Oxygen Delivery Oxygen Flow Rate 08/31/23 16:46 08/31/23 16:00 08/31/23 16:00 Temperature Pulse Rate 97 110 H Respiratory Rate Blood Pressure 120/77 Pulse Oximetry 94 Oxygen Delivery Nasal Cannula Oxygen Flow Rate 2 08/31/23 18:00 08/31/23 18:00 08/31/23 18:00 Temperature 96.9 F L Pulse Rate 117 H 112 H 117 H Respiratory Rate 22 H 22 H Blood Pressure 123/110 H Pulse Oximetry 93 Oxygen Delivery Oxygen Flow Rate 08/31/23 19:03 08/31/23 20:27 08/31/23 20:00 Temperature Pulse Rate 88 82 101 H Respiratory Rate 14 Blood Pressure 101/70 Pulse Oximetry Oxygen Delivery Oxygen Flow Rate 08/31/23 20:00 08/31/23 20:00 08/31/23 22:00 Temperature 97 F L Pulse Rate 101 H 101 H 76 Respiratory Rate 14 16 Blood Pressure 143/76 H Pulse Oximetry Oxygen Delivery Nasal Cannula Oxygen Flow Rate 2 1
[2023-09-01 16:33] LABS: Glucose Point of Care 204 mg/dl (65-105)
[2023-09-01] MEDS: INSULIN ASPART (*BKC) 100 UNITS/ML SUB-Q (17:17)
[2023-09-02] VITALS (57 sets, daily range): BP systolic 70–156; BP diastolic 42–114; PULSE 87–200; RESP 15–32; TEMP 36.7–37.2; O2SAT 92–100
[2023-09-02] MEDS: metroNIDAZOLE 500 MG/ISO 100ML 500 MG/100 ML BAG 100 MG IVPB ×4 (00:11→23:21)
[2023-09-02] MEDS: IPRATROPIUM BR 0.02% INH SOLN 0.5 MG/2.5 ML VIAL INHALATION ×7 (00:22→23:01)
[2023-09-02] MEDS: LEVALBUTEROL NEB 1.25 MG/3 ML INHALATION ×7 (00:23→23:01)
[2023-09-02 00:24] LABS: Glucose Point of Care 179 mg/dl (65-105)
[2023-09-02] MEDS: MORPHINE SULFATE (*CRX) 2 MG/ML INJ IV PUSH ×6 (00:26→20:38)
[2023-09-02 04:52] LABS: Hematocrit 22.8 % (37.0-47.0); Mean Corpuscular HGB Conc 30.7 g/dl (32-36); Mean Corpuscular Hemoglobin 23.4 pg (26-34); Mean Corpuscular Volume 76.3 fl (80-100); Platelet Count Result 326 k/mm3 (150-375); Red Blood Count 2.99 M/mm3 (4.2-5.4); Red Cell Distribution Width 18.7 % (11.5-14.5); White Blood Count 20.7 K/mm3 (4.5-10.0)
[2023-09-02 05:02] LABS: Alanine Aminotransferase 46 U/L (6-35); Albumin Level 3.3 g/dL (3.5-5.1); Alkaline Phosphatase 70 U/L (38-126); Anion Gap 8 mmol/L (8-16); Aspartate Amino Transferase 46 U/L (14-36); Bilirubin,Total 0.5 mg/dL (0.2-1.3); Blood Urea Nitrogen 50 mg/dL (7-17); Calcium 9.4 mg/dL (8.4-10.2); Carbon Dioxide 24 mmol/L (22-30); Chloride 107 mmol/L (98-107); Estimated CRCL calculation 19 ml/min; Estimated Glomerular Filt Rate 29; Glucose 144 mg/dL (65-110); Magnesium 1.9 mg/dL (1.6-2.3); Potassium 3.1 mmol/L (3.4-5.0); Sodium 139 mmol/L (137-145)
[2023-09-02] MEDS: dexmedeTOMIDine 400 MCG/100 ML 400 MCG/100 ML BAG 17.81 MCG IV CONT ×2 (05:16→23:20)
[2023-09-02] MEDS: CENTRAL LINE FLUSH 10 ML IV PUSH ×4 (05:17→21:15)
[2023-09-02] MEDS: QUEtiapine FUMARATE 25 MG TABLET 50 MG PO ×2 (08:00→20:14)
[2023-09-02] MEDS: SODIUM BICARBONATE TAB 650 MG TABLET FEED TUBE ×2 (08:00→17:56)
[2023-09-02] MEDS: CEFEPIME 1 GM/NS 50 ML 1 GM/50 ML BAG IVPB ×2 (08:00→20:15)
[2023-09-02] MEDS: APIXABAN 2.5 MG TABLET PO ×2 (08:00→20:14)
[2023-09-02] MEDS: PANTOPRAZOLE SODIUM IV 40 MG VIAL IV PUSH ×2 (08:01→20:14)
[2023-09-02] MEDS: methylPREDNISolone SOD SUCC 125 MG VIAL 60 MG IV PUSH (08:01)
[2023-09-02] MEDS: FAMOTIDINE 20 MG/2 ML VIAL IV PUSH ×2 (08:01→20:14)
[2023-09-02] MEDS: AMIODARONE 360 MG/D5W 200 ML 360 MG/200 ML BAG 16.67 MG IV CONT (08:04)
[2023-09-02] MEDS: KCL 40 MEQ/WATER 100 ML 100 ML 25 ML IVPB (08:10)
[2023-09-02] MEDS: METOPROLOL TARTRATE INJ 5 MG/5 ML VIAL IV PUSH (08:35)
[2023-09-02] MEDS: LORazepam INJ (*CRX) 2 MG/ML VIAL IV PUSH (08:47)
--- NOTE | 2023-09-02 08:47 | PCRCNOTE ---
PRN neb gave due to WOB and wheezing, Dr. Sanchez at bedside nebulizer treatments have been switched to scheduled every 4 hours.
--- NOTE | 2023-09-02 08:52 | PM.PNNEP ---
Progress Note: A&P Assessment and Plan (1) ADRIEL (acute kidney injury): Code(s): N17.9 - Acute kidney failure, unspecified Status: Acute Assessment and Plan: as noted by trend of creatinine since admission relatively stable if not better at this time likely secondary to sepsis and shock/hemodynamic instability however, contrast exposure with CT scan on 08/27 could be playing a role as well evaluation to date: no obstruction/anatomical issues with kidneys by CT imaging CPK okay urine electrolytes non-prerenal urine eosinophils negative proteinuria noted reasonable response with IV diuretics - continue PRN follow repeat labs and UOP (2) Chronic kidney disease, stage 3: Code(s): N18.30 - Chronic kidney disease, stage 3 unspecified Status: Chronic Assessment and Plan: baseline creatinine seems to run 1.0 - 1.4mg/dl this causes her to fluctuate between CKD stage 3A and stage 3B presumably secondary to hypertension, vascular disease, and age-related change (3) Septic shock: Code(s): A41.9 - Sepsis, unspecified organism; R65.21 - Severe sepsis with septic shock Status: Acute Assessment and Plan: thought to be secondary to colitis and UTI s/p aggressive IVF resuscitation (and now with issues related to volume overload) culture data noted on antibiotic therapy vasopressor therapy to maintain MAP (has been on and off intermittently) (4) Colitis: Code(s): K52.9 - Noninfective gastroenteritis and colitis, unspecified Status: Acute Assessment and Plan: CT scan on 08/27 with Infectious, inflammatory, or ischemic colitis involving the distal transverse colon through the sigmoid. Slightly decreased, somewhat heterogeneous associated mucosal enhancement may increase the likelihood of an ischemic process Surgery following s/p exploratory laparotomy -- no evidence of ischemic or necrosis diarrhea appears to have resolved continue supportive therapy (5) UTI (urinary tract infection): Qualifiers: Hematuria presence: without hematuria Urinary tract infection type: acute cystitis Qualified Code(s): N30.00 - Acute cystitis without hematuria Code(s): N39.0 - Urinary tract infection, site not specified Status: Acute Assessment and Plan: as suggested by admission UA urine culture with E.coli on antibiotics (6) COPD (chronic obstructive pulmonary disease): Code(s): J44.9 - Chronic obstructive pulmonary disease, unspecified Status: Acute Assessment and Plan: known history on steroids and continue bronchodilators IV diuretics for CHF changes (and perhaps to help with wheezing) follow respiratory status (7) Delirium: Code(s): R41.0 - Disorientation, unspecified Status: Acute Assessment and Plan: quite severe/significan since surgery management has been difficult for review of records sugeyoshaun added today per family, she has a history of this with surgery/general anesthesia Will continue to follow. Subjective Date/time seen: 09/02/23 08:52 Interval history: Follow-up for acute kidney injury/acute renal failure on chronic kidney disease. Remains quite confused, delirious, and agitated this AM; continues to make good urine output with use of IV diuretics with relative stability if not improvement in her renal function, leaving for stat head CT due to findings of unequal pupils. Exam Narrative: General: somewhat ill appearing elderly/frail female - confused/delirious Heart: normal S1 and S2; no rub Lungs: coarse with a few wheezes noted Abdomen: soft, nontender, nondistended, positive bowel sounds Extremities: no cyanosis or clubbing; trace edema Skin: warm and intact Objective Data Vital Signs Vital Signs: Vital Signs Temp Pulse Resp BP Pulse Ox O2 Del Method O2 Flow Rate 09/02/23 08:35 156 H 09/02/23
--- NOTE | 2023-09-02 08:52 | P.PNNP_ITS ---
Progress Note: A&P Assessment and Plan (1) ADRIEL (acute kidney injury): Code(s): N17.9 - Acute kidney failure, unspecified Status: Acute Assessment and Plan: * as noted by trend of creatinine since admission * relatively stable if not better at this time * likely secondary to sepsis and shock/hemodynamic instability * however, contrast exposure with CT scan on 08/27 could be playing a role as well * evaluation to date: * no obstruction/anatomical issues with kidneys by CT imaging * CPK okay * urine electrolytes non-prerenal * urine eosinophils negative * proteinuria noted * reasonable response with IV diuretics - continue PRN * follow repeat labs and UOP (2) Chronic kidney disease, stage 3: Code(s): N18.30 - Chronic kidney disease, stage 3 unspecified Status: Chronic Assessment and Plan: * baseline creatinine seems to run 1.0 - 1.4mg/dl * this causes her to fluctuate between CKD stage 3A and stage 3B * presumably secondary to hypertension, vascular disease, and age-related change (3) Septic shock: Code(s): A41.9 - Sepsis, unspecified organism; R65.21 - Severe sepsis with septic shock Status: Acute Assessment and Plan: * thought to be secondary to colitis and UTI * s/p aggressive IVF resuscitation (and now with issues related to volume overload) * culture data noted * on antibiotic therapy * vasopressor therapy to maintain MAP (has been on and off intermittently) (4) Colitis: Code(s): K52.9 - Noninfective gastroenteritis and colitis, unspecified Status: Acute Assessment and Plan: * CT scan on 08/27 with Infectious, inflammatory, or ischemic colitis involving the distal transverse colon through the sigmoid. Slightly decreased, somewhat heterogeneous associated mucosal enhancement may increase the likelihood of an ischemic process * Surgery following * s/p exploratory laparotomy -- no evidence of ischemic or necrosis * diarrhea appears to have resolved * continue supportive therapy (5) UTI (urinary tract infection): Qualifiers: Hematuria presence: without hematuria Urinary tract infection type: acute cystitis Qualified Code(s): N30.00 - Acute cystitis without hematuria Code(s): N39.0 - Urinary tract infection, site not specified Status: Acute Assessment and Plan: * as suggested by admission UA * urine culture with E.coli * on antibiotics (6) COPD (chronic obstructive pulmonary disease): Code(s): J44.9 - Chronic obstructive pulmonary disease, unspecified Status: Acute Assessment and Plan: * known history * on steroids and continue bronchodilators * IV diuretics for CHF changes (and perhaps to help with wheezing) * follow respiratory status (7) Delirium: Code(s): R41.0 - Disorientation, unspecified Status: Acute Assessment and Plan: * quite severe/significan since surgery * management has been difficult for review of records * macie added today * per family, she has a history of this with surgery/general anesthesia Will continue to follow. Subjective Date/time seen: 09/02/23 08:52 Interval history: Follow-up for acute kidney injury/acute renal failure on chronic kidney disease. Remains quite confused, delirious, and agitated this AM; continues to make good urine output with use of IV diuretics with relative stability if not improvement in her renal function, leaving for stat head CT due to findings of unequal pupils. Exam
--- NOTE | 2023-09-02 09:34 | WPDINTPN ---
Progress Note: A&P Assessment and Plan (1) Septic shock: Code(s): A41.9 - Sepsis, unspecified organism; R65.21 - Severe sepsis with septic shock Status: Acute Assessment and Plan: Secondary to colitis and UTI -status post IV fluids and volume overload, currently IV fluids on hold -OFF vasopressin. She has been off and on low-dose levophed. -off stress dose steroids -09/02: Patient had to be restarted on low-dose Levophed after receiving metoprolol and Ativan. -08/27: Urine cultures growing E coli -08/27: Blood cultures negative till now -08/27; Stool C diff was negative -Continue cefepime and Flagyl -Diarrhea has resolved 09/02: WBC count has increased significantly, afebrile, will check blood and urine culture. This could be related to the Solu-Medrol. Will continue to monitor 08/28: Echocardiogram Summary ? 1. Mild Left Ventricular Enlargement with normal thickness in good contractility of all segments.? No segmental wall motion abnormalities. Ejection fraction 64%.? Diastolic dysfunction grade 2 is present. ? 2. Left atrial chamber dimension is moderately enlarged. ? 3. There is mild mitral valve regurgitation. ? 4. There is mild tricuspid valve regurgitation. ? 5. Moderate pulmonary hypertension, estimated pulmonary arterial systolic pressure is 50 mmHg. ? 6. Dilated inferior vena cava with <50% collapse upon inspiration consistent with significantly elevated right atrial pressure, 20 mmHg. ? 7. Normal sinus rhythm. ? 8. Technically difficult study, definity echo contrast used. (2) Colitis: Code(s): K52.9 - Noninfective gastroenteritis and colitis, unspecified Status: Acute Assessment and Plan: 08/27 CT scan in the ER showed Questionable mild wall thickening of large bowel, as above. Correlate for infectious/inflammatory colitis. Ischemic bowel less likely, but not definitively excluded -Patient was admitted with diagnosis of colitis likely is infectious versus ischemic -08/[address] scan with contrast showed Infectious, inflammatory, or ischemic colitis involving the distal transverse colon through the sigmoid. Slightly decreased, somewhat heterogeneous associated mucosal enhancement may increase the likelihood of an ischemic process. General surgery was consulted and due to concern of ischemia, 08/04: patient underwent exploratory laparotomy which did not show any signs of ischemia or necrosis -Stool C diff was negative -P.o. vancomycin has been discontinued -Continue cefepime and Flagyl -continue tube feeds, will discuss with surgery regarding increasing tube feed rate 09/02/2023 CT chest, abdomen, pelvis IMPRESSION: 1. Moderate-sized pleural effusions. 2. Dependent airspace and interstitial opacities in the upper and lower lobes, likely a combination of atelectasis and pulmonary edema. 3. Small volume of ascites. (3) Delirium: Code(s): R41.0 - Disorientation, unspecified Status: Acute Assessment and Plan: Since surgery patient has had significant delirium, agitation, encephalopathy which has been very difficult to manage. -on Precedex infusion. -continue morphine for abdominal pain. She has been requiring frequent dosing of Ativan for her own safety. -continue bedside sitter and is physically restrained with mittens despite that patient managed to pull her NG tube and Bond out 08/30 night. -replace NG and Bond placed . -09/02: increase Seroquel to 50 mg per tube q.12 hours -Will try to minimize benzodiazepines. -09/02: discussed with patient's daughter, she stated that patient has had delirium when she is admitted to the hospital for up to a week. -Dr. Salazar had long discussion with patient's daughter and explained her the situation reasoning behind using physical restraints and medications like Precedex morphine and Ativan in the situation. She did admitted that patient had similar delirium for many days when she was admitted at [facility] a
[2023-09-02] MEDS: dexmedeTOMIDine 400 MCG/100 ML 400 MCG/100 ML BAG 16.63 MCG IV CONT (10:01)
[2023-09-02 10:13] LABS: Iron 13 ug/dL (37-170)
[2023-09-02 10:24] LABS: Percent Iron Saturation 6 % (20-50)
[2023-09-02] MEDS: FUROSEMIDE INJ 40 MG/4 ML VIAL IV PUSH (10:32)
[2023-09-02] MEDS: POTASSIUM CHLORIDE 20 MEQ PACKET (FOR LIQUID) 40 MEQ FEED TUBE (10:32)
[2023-09-02 10:51] LABS: Folic Acid > 20.0 ng/mL (2.76->20)
--- NOTE | 2023-09-02 11:05 | PCNFU ---
Nutrition Follow-Up Complete: Inadequate energy intake from enteral nutrition related to altered GI function as evidenced by tube feeding orders not meeting estimated nutrition needs goal: Tolerate tube feeding at goal rate Meet estimated nutrition needs patient is progressing towards goal. We will continue current goal. Pt current nutrition is Clear liquids and tube feedings of Jevity 1.2 at 20 ml/hr. Nutrition recommendation: goal rate of tube feedings at 55 ml/hr. Last recorded weight is 52.8 kg, stable. Bowel Motility: last reported BM 08/28 Labs Reviewed:Glu 144, BUN 50, GFR 29, K 3.1, Alb 3.3,Hct 22.8, Hgb 7.0 Meds Noted:Levophed, Flagyl, Precedex, Lasix, Morphine. Skin: surgical incision. Additional Notes: Patient remains tube feedings of Jevity 1.2 at 20 ml/hr and tolerating per nursing. Patient has not been alert enough for po clear liquids. Recommendations for tube feedings to increase as tolerated of Jevity 1.2 at 55 ml/hr. Tube feedings at goal rate providing 1450 kcals/67 gms protein/976 ml water. Flush 30 ml q [address] today. Blood cultures negative. Agree with diet orders. Monitor tolerance, plan of care, weights, labs, PO intake Follow daily in ICU rounds, reassess Friday and Friday per policy
--- NOTE | 2023-09-02 11:10 | PC.NURSE ---
0834: Dr. Sanchez to bedside to assess pt. Pt grunting, moaning, and squirming around in the bed. Help me, help me. My guts. Hold my guts. I'm going to . Pt has received AM medications that included increase in Seroquel to 50mg PO q12hr. RN also administered 2 mg IVP Morphine at 0828. Heart rate in the 150's and BP 153/135. New order for 5mg IVP Lopressor x 1. Stat head, chest, abd, and pelvis CT. New order for 1mg IVP Ativan now and 1mg IVP Ativan in CT, if needed. RN over-rode Ativan from [facility] and administered 1mg IVP Ativan at 0847. 0850: Transporter at bedside to help with transportation to CT. RN unable to get an accurate pulse ox reading on pt. Pulse ox reading 80-86%. RT to bedside to assist with pulse ox reading and oxygen administration. While adjusting oxygen and pulse ox, BP retakes and is now 70/42. MD notified. RN received new order to restart Levophed at 2mcg/min. Placed pt on [employer]-mask for transportation. 09: Levophed restarted at 2mcg/min and pt transported to CT, with RN and RT at bedside.
[2023-09-02 12:04] LABS: Glucose Point of Care 80 mg/dl (65-105)
[2023-09-02] MEDS: methylPREDNISolone SOD SUCC 125 MG VIAL 40 MG IV PUSH ×3 (12:05→23:20)
--- NOTE | 2023-09-02 12:36 | PM.CNCAR ---
Assessment and Plan Assessment and plan (1) Atrial fibrillation: Qualifiers: Atrial fibrillation type: unspecified Qualified Code(s): I48.91 - Unspecified atrial fibrillation Code(s): I48.91 - Unspecified atrial fibrillation Status: Acute Assessment and Plan: RVR currently. Likely worse with Levophed. On Eliquis for anticoagulation. On Amiodarone drip to hopefully restore sinus rhythm. Start Digoxin 125 mcg IV q every 12 hours to improve HR control while on Levophed. (2) Septic shock: Code(s): A41.9 - Sepsis, unspecified organism; R65.21 - Severe sepsis with septic shock Status: Acute Assessment and Plan: On antibiotics and Levophed drip. Managed by grain processor. (3) Diastolic heart failure: Code(s): I50.30 - Unspecified diastolic (congestive) heart failure Status: Acute Assessment and Plan: Acute on chronic diastolic heart failure likely from IVF to treat septic shock. 08/28/23 Echo: EF 64%, mild LVE, grade II diastolic dysfunction, mod LAE, mild MR/TR, RVSP 50 mmHg. Diurese with Lasix as tolerated. History of Present Illness History of Present Illness Consult date/time: 09/02/23 12:36 Reason For Visit: hypovolemic shock Narrative: 73 yr old woman admitted on 08/27/23 for abdominal pain. She has a history of diastolic dysfunction, PAF diagnosed in May 2023 was transferred to [facility] and started on Amiodarone and was in sinus rhythm until 3 days ago, history of DVT, COPD. Reports she had UTI and colitis, on antibiotics. Concern for ischemic bowel and she had exploratory laparotomy on . Consult for rapid atrial fibrillation requiring Levophed for pressure support. Currently she is eyes closed but does open them on command, she is somewhat uncomfortable in bed. Has some sob with pulm edema. Denies chest pain. Review of Systems Review of Systems: ROS unobtainable: Yes unobtainable due to medical condition and unobtainable due to mental status PMFSH Past Medical History Medical History Atrial fibrillation COPD (chronic obstructive pulmonary disease) DVT (deep venous thrombosis) Herniated cervical disc Surgical History Surgical History History of total hysterectomy Social History Social History Smoking status: Unknown if ever smoked Tobacco type: cigarettes Second hand tobacco smoke exposure: Yes Alcohol intake: unknown Substance use: never Substance use type: does not use Lack of Transportation: No Lack of Food: Never True Current Housing: I Have Housing Concerned About Future Housing: No Difficulty Paying Gas/Electric Bills: No Difficulty Paying for Meds: No Currently Unemployed: No Education: High School Diploma/GED Difficulty w/ Childcare or Family Care: No Spiritual care concerns: No Meds Home Medications and Allergies Home Medications Medication Instructions Recorded Confirmed Type gabapentin 400 mg BYMOUTH TID 06/01/23 08/27/23 History albuterol sulfate 90 mcg/actuation 2 puff inhalation Q6H PRN sob 08/28/23 08/28/23 History aerosol inhaler amiodarone 200 mg tablet 200 mg PO BID 08/28/23 08/28/23 History apixaban 2.5 mg tablet (Eliquis) 2.5 mg PO BID 08/28/23 08/28/23 History dapagliflozin propanediol 10 mg 10 mg PO DAILY 08/28/23 08/28/23 History tablet (Farxiga) duloxetine 30 mg capsule,delayed 30 mg PO HS 08/28/23 08/28/23 History release furosemide 40 mg tablet 40 mg PO DAILY 08/28/23 08/28/23 History hydroxyzine HCl 50 mg tablet 50 mg PO TID PRN Anxiety 08/28/23 08/28/23 History lisinopril 20 mg tablet 20 mg PO DAILY 08/28/23 08/28/23 History pantoprazole 20 mg tablet,delayed 20 mg PO DAILY 08/28/23 08/28/23 History release pravastatin 40 mg tablet 40 mg PO HS 08/28/23 08/28/23 History Allergies
[2023-09-02] MEDS: DIGOXIN INJ 250 MCG/ML 2 ML AMP (*BKC) 125 MCG IV PUSH ×2 (13:05→20:15)
[2023-09-02] MEDS: HYDROcodone/acetaminophen (*CRX) 5-325 MG TABLET 1 TAB PO (14:02)
[2023-09-02] MEDS: AMIODARONE 360 MG/D5W 200 ML 360 MG/200 ML BAG 33.33 MG IV CONT ×2 (14:04→20:13)
--- NOTE | 2023-09-02 15:36 | PM.PNGS ---
Progress Note: A&P Assessment and Plan (1) History of exploratory laparotomy: Code(s): Z98.890 - Other specified postprocedural states Status: Acute Assessment and Plan: Postop day 5 status post exploratory laparotomy for possible ischemic bowel as the source of her septic shock and hypotension. Found to have colitis of the splenic flexure, but this was mild and did not require resection. Wound continues to heal well. WBC up to 20.7 today, CT chest, abdomen, and pelvis ordered and showed moderate-sized pleural effusions, a combination of atelectasis and pulmonary edema, and small volume ascites. She is being diuresed. Will start advancing her tube feedings as tolerated per the dietitian's recommendations. Will continue to follow. (2) Septic shock: Code(s): A41.9 - Sepsis, unspecified organism; R65.21 - Severe sepsis with septic shock Status: Acute Assessment and Plan: [place] to be secondary to colitis vs urinary source vs combination. Continue IV antibiotics and ICU management. Vasopressors weaned off. (3) Colitis: Code(s): K52.9 - Noninfective gastroenteritis and colitis, unspecified Status: Acute Assessment and Plan: Continue antibiotics (4) UTI (urinary tract infection): Qualifiers: Urinary tract infection type: acute cystitis Hematuria presence: without hematuria Qualified Code(s): N30.00 - Acute cystitis without hematuria Code(s): N39.0 - Urinary tract infection, site not specified Status: Acute (5) Atrial fibrillation: Qualifiers: Atrial fibrillation type: unspecified Qualified Code(s): I48.91 - Unspecified atrial fibrillation Code(s): I48.91 - Unspecified atrial fibrillation Status: Acute (6) Delirium: Code(s): R41.0 - Disorientation, unspecified Status: Acute Plan I have discussed the patient's case and plan of care with Dr. Paiz. Subjective Subjective Date/Time Seen: 09/02/23 15:36 Interval history: Patient in ICU with daughter at the bedside. Still restless and unable to follow commands or answer questions appropriately. Per nursing, patient tolerating tube feedings. Her WBC count up again today to 20k. She was tachycardic this morning and given a dose of Lopressor IV and Ativan. Following this, her blood pressure became low and she had to be restarted on a Levophed infusion, which has since been weaned back off. She was taken down for CT head/chest/abdomen/pelvis. CT head with no acute findings. CT C/A/P showed moderate pleural effusions, dependent airspace and interstitial opacities likely a combination of atelectasis and pulmonary edema, small volume of ascites. She is being diuresed. She is still on an amiodarone infusion and Cardiology was consulted. Review of Systems Review of Systems: ROS unobtainable: Yes unobtainable due to mental status Exam Const: General: ill appearing and lethargic Orientation/consciousness: Other orientation findings (restless and unable to answer questions. AMS) GI: Inspection: non-distended GI Palp: Yes Soft to palpation and Yes Other GI palpation findings present (exam limited given her encephalopathy, she grimaces with all palpation) Auscultation: Hypoactive bowel sounds present Other: Midline incision dry and glue intact, no erythema, no drainage, some ecchymosis localized around the incision Objective Data Vital Signs Vital Signs: Vital Signs - 24 hr 09/01/23 16:00 09/01/23 16:00 09/01/23 16:00 Temperature 98.3 F Pulse Rate 84 84 84 Respiratory Rate 27 H 27 H Blood Pressure 99/53 L Pulse Oximetry 93 93 Oxygen Delivery Nasal Cannula Oxygen Flow Rate 3 Fraction of Inspired Oxygen 09/01/23 17:19 09/01/23 18:26 09/01/23 18:45 Temperature Pulse Rate 97 109 H 110 H Respiratory Rate 21 H 22 H 24 H Blood Pressure Pulse Oximetry Oxygen Delivery Oxygen Flow Rate Fraction of Inspired Oxygen 09/01/23 18:00
[2023-09-02 16:39] LABS: Glucose Point of Care 160 mg/dl (65-105)
[2023-09-02] MEDS: dexmedeTOMIDine 400 MCG/100 ML 400 MCG/100 ML BAG 11.88 MCG IV CONT (17:40)
[2023-09-02] MEDS: ACETAMINOPHEN 500 MG TABLET 1000 MG PO (17:56)
[2023-09-02] MEDS: FUROSEMIDE INJ 40 MG/4 ML VIAL 20 MG IV PUSH (23:20)
[2023-09-02] MEDS: METOPROLOL TARTRATE 25 MG TABLET PO (23:20)
[2023-09-03] VITALS (42 sets, daily range): BP systolic 101–164; BP diastolic 69–112; PULSE 103–135; RESP 17–36; TEMP 37.1–37.8; O2SAT 87–99
[2023-09-03 00:22] LABS: Glucose Point of Care 196 mg/dl (65-105)
[2023-09-03] MEDS: AMIODARONE 360 MG/D5W 200 ML 360 MG/200 ML BAG 33.33 MG IV CONT ×2 (02:12→08:18)
[2023-09-03] MEDS: LEVALBUTEROL NEB 1.25 MG/3 ML INHALATION ×5 (03:35→20:10)
[2023-09-03] MEDS: IPRATROPIUM BR 0.02% INH SOLN 0.5 MG/2.5 ML VIAL INHALATION ×5 (03:35→20:10)
[2023-09-03] MEDS: dexmedeTOMIDine 400 MCG/100 ML 400 MCG/100 ML BAG 17.81 MCG IV CONT (04:57)
[2023-09-03] MEDS: methylPREDNISolone SOD SUCC 125 MG VIAL 40 MG IV PUSH ×3 (05:00→17:46)
[2023-09-03] MEDS: CENTRAL LINE FLUSH 10 ML IV PUSH ×4 (05:00→21:59)
[2023-09-03 06:06] LABS: Glucose Point of Care 184 mg/dl (65-105)
[2023-09-03 06:12] LABS: Hematocrit 23.6 % (37.0-47.0); Hemoglobin 7.4 g/dL (12.0-15.0); Mean Corpuscular HGB Conc 31.4 g/dl (32-36); Mean Corpuscular Hemoglobin 23.3 pg (26-34); Mean Corpuscular Volume 74.2 fl (80-100); Mean Platelet Volume 10.7 fl (7.4-10.4); Platelet Count Result 376 k/mm3 (150-375); Red Blood Count 3.18 M/mm3 (4.2-5.4); Red Cell Distribution Width 18.8 % (11.5-14.5); White Blood Count 25.9 K/mm3 (4.5-10.0)
[2023-09-03 06:24] LABS: Alanine Aminotransferase 47 U/L (6-35); Albumin Level 3.7 g/dL (3.5-5.1); Alkaline Phosphatase 80 U/L (38-126); Anion Gap 11 mmol/L (8-16); Aspartate Amino Transferase 51 U/L (14-36); Bilirubin,Total 0.5 mg/dL (0.2-1.3); Blood Urea Nitrogen 52 mg/dL (7-17); Calcium 9.6 mg/dL (8.4-10.2); Carbon Dioxide 25 mmol/L (22-30); Chloride 101 mmol/L (98-107); Estimated CRCL calculation 20 ml/min; Estimated Glomerular Filt Rate 32; Glucose 172 mg/dL (65-110); Magnesium 1.9 mg/dL (1.6-2.3); Phosphorus 3.7 mg/dL (2.5-4.5); Potassium 4.3 mmol/L (3.4-5.0); Sodium 137 mmol/L (137-145)
--- NOTE | 2023-09-03 07:39 | PM.PNCARD ---
Progress Note: A&P Assessment and Plan (1) Atrial fibrillation: Qualifiers: Atrial fibrillation type: unspecified Qualified Code(s): I48.91 - Unspecified atrial fibrillation Code(s): I48.91 - Unspecified atrial fibrillation Status: Acute Assessment and Plan: RVR currently. Likely worse with Levophed. On Eliquis for anticoagulation. On Amiodarone drip to hopefully restore sinus rhythm. Started Digoxin 125 mcg IV q every 12 hours to improve HR control. Add Metoprolol 25 mg PO BID. Off Levophed drip now. (2) Septic shock: Code(s): A41.9 - Sepsis, unspecified organism; R65.21 - Severe sepsis with septic shock Status: Acute Assessment and Plan: On antibiotics and Levophed drip. Managed by fire patrol. (3) Diastolic heart failure: Code(s): I50.30 - Unspecified diastolic (congestive) heart failure Status: Acute Assessment and Plan: Acute on chronic diastolic heart failure likely from IVF to treat septic shock. 08/28/23 Echo: EF 64%, mild LVE, grade II diastolic dysfunction, mod LAE, mild MR/TR, RVSP 50 mmHg. Diurese with Lasix as tolerated. Subjective Date/time seen: 09/03/23 07:39 Interval history: She is more alert and responding appropriately this morning. Denies chest pain. Exam Const: General: cooperative, healthy appearing and comfortable Resp: Auscultation: crackles, no rhonchi, no wheezes and diminished lung sounds Cardio: Rate: tachycardic Rhythm: abnormal rhythm Heart sounds: no murmurs Peripheral pulses: dorsalis pedis present Extrem: Right lower extremity: no edema Left lower extremity: no edema Objective Data Vital Signs Vital Signs: Vital Signs - 24 hr 09/02/23 08:04 09/02/23 08:00 09/02/23 08:39 Temperature 98.4 F Pulse Rate 116 H 128 H 142 H Respiratory Rate 29 H 31 H Blood Pressure 109/92 H 109/92 H Pulse Oximetry 96 Oxygen Delivery Oxygen Flow Rate Fraction of Inspired Oxygen 09/02/23 08:40 09/02/23 08:46 09/02/23 08:37 Temperature Pulse Rate 107 H 154 H Respiratory Rate 24 H Blood Pressure 156/114 H Pulse Oximetry 92 Oxygen Delivery Nasal Cannula Oxygen Flow Rate 4 Fraction of Inspired Oxygen 09/02/23 08:35 09/02/23 09:05 09/02/23 09:58 Temperature Pulse Rate 156 H Respiratory Rate Blood Pressure 70/42 L 80/65 L Pulse Oximetry Oxygen Delivery Oxygen Flow Rate Fraction of Inspired Oxygen 09/02/23 10:01 09/02/23 08:55 09/02/23 11:09 Temperature Pulse Rate 106 H Respiratory Rate 30 H Blood Pressure Pulse Oximetry 94 95 Oxygen Delivery Venturi Mask Simple Face Mask Oxygen Flow Rate 15 10 Fraction of Inspired Oxygen 50 50 09/02/23 12:08 09/02/23 12:09 09/02/23 11:09 Temperature Pulse Rate 116 H 200 H Respiratory Rate 19 17 Blood Pressure 121/67 Pulse Oximetry Oxygen Delivery Oxygen Flow Rate Fraction of Inspired Oxygen 09/02/23 08:00 09/02/23 12:00 09/02/23 12:29 Temperature Pulse Rate 130 H Respiratory Rate Blood Pressure 126/86 Pulse Oximetry 92 92 Oxygen Delivery Nasal Cannula Simple Face Mask Oxygen Flow Rate 4 10 Fraction of Inspired Oxygen 09/02/23 13:01 09/02/23 13:01 09/02/23 13:05 Temperature Pulse Rate 87 87 109 H Respiratory Rate 15 Blood Pressure 101/78 Pulse Oximetry Oxygen Delivery Oxygen Flow Rate Fraction of Inspired Oxygen 09/02/23 13:46 09/02/23 14:04 09/02/23 10:00 Temperature 98.2 F Pulse Rate 105 H 122 H 101 H Respiratory Rate 28 H 19 Blood Pressure 100/86 96/75 L Pulse Oximetry 99 Oxygen Delivery Oxygen Flow Rate Fraction of Inspired Oxygen 09/02/23 12:00 09/02/23 14:00 09/02/23 13:30 Temperature 98.1 F 98.1 F Pulse Rate 125 H 127 H Respiratory Rate 22 H 23 H Blood Pressure 121/67 115/86 100/86 Pulse Oximetry 96 100 Oxygen Delivery Oxygen Flow Rate Fraction of Inspired Oxygen
[2023-09-03] MEDS: PANTOPRAZOLE SODIUM IV 40 MG VIAL IV PUSH ×2 (08:14→20:01)
[2023-09-03] MEDS: SODIUM BICARBONATE TAB 650 MG TABLET FEED TUBE ×2 (08:14→16:29)
[2023-09-03] MEDS: METOPROLOL TARTRATE 25 MG TABLET FEED TUBE ×2 (08:14→20:01)
[2023-09-03] MEDS: FAMOTIDINE 20 MG/2 ML VIAL IV PUSH (08:14)
[2023-09-03] MEDS: metroNIDAZOLE 500 MG/ISO 100ML 500 MG/100 ML BAG 100 MG IVPB ×2 (08:14→16:29)
[2023-09-03] MEDS: QUEtiapine FUMARATE 25 MG TABLET 50 MG PO ×2 (08:14→20:01)
[2023-09-03] MEDS: APIXABAN 2.5 MG TABLET PO ×2 (08:14→20:01)
[2023-09-03] MEDS: AMIODARONE HCL 200 MG TABLET PO ×2 (08:14→16:29)
[2023-09-03] MEDS: FUROSEMIDE INJ 40 MG/4 ML VIAL 20 MG IV PUSH ×2 (08:15→08:48)
[2023-09-03] MEDS: CEFEPIME 1 GM/NS 50 ML 1 GM/50 ML BAG IVPB ×2 (08:15→20:01)
[2023-09-03] MEDS: DIGOXIN INJ 250 MCG/ML 2 ML AMP (*BKC) 125 MCG IV PUSH ×2 (08:15→20:00)
--- NOTE | 2023-09-03 08:52 | PC.NURSE ---
Spoke with Dr. Singleton for clarification on Amiodarone gtt and PO dosage. New order to stop Amiodarone gtt and to resume PO Amiodarone. New order to increase Amiodarone to 200mg PO BID.
--- NOTE | 2023-09-03 09:11 | WPDINTPN ---
Progress Note: A&P Assessment and Plan (1) Septic shock: Code(s): A41.9 - Sepsis, unspecified organism; R65.21 - Severe sepsis with septic shock Status: Acute Assessment and Plan: Secondary to colitis and UTI -status post IV fluids and volume overload, currently IV fluids on hold -OFF vasopressin. She has been off and on low-dose levophed. -off stress dose steroids -09/02: Patient had to be restarted on low-dose Levophed after receiving metoprolol and Ativan. -08/27: Urine cultures growing E coli -08/27: Blood cultures negative till now -08/27; Stool C diff was negative -Continue cefepime and Flagyl -Diarrhea has resolved 09/02: WBC count has increased significantly, afebrile, will check blood and urine culture. This could be related to the Solu-Medrol. Will continue to monitor 09/02: Blood culture pending 09/02: Urine culture pending 08/28: Echocardiogram Summary ? 1. Mild Left Ventricular Enlargement with normal thickness in good contractility of all segments.? No segmental wall motion abnormalities. Ejection fraction 64%.? Diastolic dysfunction grade 2 is present. ? 2. Left atrial chamber dimension is moderately enlarged. ? 3. There is mild mitral valve regurgitation. ? 4. There is mild tricuspid valve regurgitation. ? 5. Moderate pulmonary hypertension, estimated pulmonary arterial systolic pressure is 50 mmHg. ? 6. Dilated inferior vena cava with <50% collapse upon inspiration consistent with significantly elevated right atrial pressure, 20 mmHg. ? 7. Normal sinus rhythm. ? 8. Technically difficult study, definity echo contrast used. (2) Colitis: Code(s): K52.9 - Noninfective gastroenteritis and colitis, unspecified Status: Acute Assessment and Plan: 08/27 CT scan in the ER showed Questionable mild wall thickening of large bowel, as above. Correlate for infectious/inflammatory colitis. Ischemic bowel less likely, but not definitively excluded -Patient was admitted with diagnosis of colitis likely is infectious versus ischemic -08/[address] scan with contrast showed Infectious, inflammatory, or ischemic colitis involving the distal transverse colon through the sigmoid. Slightly decreased, somewhat heterogeneous associated mucosal enhancement may increase the likelihood of an ischemic process. General surgery was consulted and due to concern of ischemia, 08/04: patient underwent exploratory laparotomy which did not show any signs of ischemia or necrosis -Stool C diff was negative -P.o. vancomycin has been discontinued -Continue cefepime and Flagyl -tube feed rate has been increased to 55 mL/hour which is her goal 09/02/2023 CT chest, abdomen, pelvis IMPRESSION: 1. Moderate-sized pleural effusions. 2. Dependent airspace and interstitial opacities in the upper and lower lobes, likely a combination of atelectasis and pulmonary edema. 3. Small volume of ascites. (3) Delirium: Code(s): R41.0 - Disorientation, unspecified Status: Acute Assessment and Plan: Since surgery patient has had significant delirium, agitation, encephalopathy which has been very difficult to manage. -on Precedex infusion. -continue morphine for abdominal pain. She has been requiring frequent dosing of Ativan for her own safety. -continue bedside sitter and is physically restrained with mittens despite that patient managed to pull her NG tube and Bond out 08/30 night. -replace NG and Bond placed . -Continue Seroquel 50 mg per tube q.12 hours -Start weaning Precedex to off -Will try to minimize benzodiazepines. -09/02: discussed with patient's daughter, she stated that patient has had delirium when she is admitted to the hospital for up to a week. -Dr. Salazar had long discussion with patient's daughter and explained her the situation reasoning behind using physical restraints and medications like Precedex morphine and Ativan in the situation. She did admitted that patient had similar deli
--- NOTE | 2023-09-03 11:18 | PM.PNGS ---
Progress Note: A&P Assessment and Plan (1) History of exploratory laparotomy: Code(s): Z98.890 - Other specified postprocedural states Status: Acute Assessment and Plan: Laparotomy incision appears to be healing well. Patient is tolerating tube feeds at goal rate. Agitation and confusion postoperatively with also some degree of acute renal failure is being managed by the dental chair assembler and Nephrology. Increasing white blood cell count could certainly be due to IV Solu-Medrol administration. Continue supportive management. Subjective Subjective Date/Time Seen: 09/03/23 11:18 Interval history: Patient remains in intensive care unit. Still agitated and is on Precedex. She is getting tube feeds at goal rate of 55 cc per hour. Seems to be tolerating [place] tube [place]. [place] [id number] has been steadily rising over the past 3 to 4 days. However the patient has been on IV Solu-Medrol which may be contributing to this rising leukocytosis. Exam GI: Other: Abdomen is soft and mildly distended. Midline incision is healing well without any redness or drainage. Abdomen is appropriately tender around the incision. Objective Data Vital Signs Vital Signs: Vital Signs - 24 hr 09/02/23 12:08 09/02/23 12:09 09/02/23 12:00 Temperature Pulse Rate 116 H Respiratory Rate 19 Blood Pressure 121/67 Pulse Oximetry 92 Oxygen Delivery Simple Face Mask Oxygen Flow Rate 10 Fraction of Inspired Oxygen 09/02/23 12:29 09/02/23 13:01 09/02/23 13:01 Temperature Pulse Rate 130 H 87 87 Respiratory Rate 15 Blood Pressure 126/86 101/78 Pulse Oximetry Oxygen Delivery Oxygen Flow Rate Fraction of Inspired Oxygen 09/02/23 13:05 09/02/23 13:46 09/02/23 14:04 Temperature Pulse Rate 109 H 105 H 122 H Respiratory Rate 28 H Blood Pressure 100/86 Pulse Oximetry Oxygen Delivery Oxygen Flow Rate Fraction of Inspired Oxygen 09/02/23 12:00 09/02/23 14:00 09/02/23 13:30 Temperature 36.7 C 36.7 C Pulse Rate 125 H 127 H Respiratory Rate 22 H 23 H Blood Pressure 121/67 115/86 100/86 Pulse Oximetry 96 100 Oxygen Delivery Oxygen Flow Rate Fraction of Inspired Oxygen 09/02/23 14:09 09/02/23 14:05 09/02/23 14:05 Temperature Pulse Rate 129 H 118 H 118 H Respiratory Rate 23 H 23 H 23 H Blood Pressure Pulse Oximetry 95 Oxygen Delivery Simple Face Mask Oxygen Flow Rate 10 Fraction of Inspired Oxygen 50 09/02/23 12:00 09/02/23 14:00 09/02/23 15:00 Temperature Pulse Rate 121 H 121 H 127 H Respiratory Rate 23 H Blood Pressure Pulse Oximetry Oxygen Delivery Oxygen Flow Rate Fraction of Inspired Oxygen 09/02/23 15:44 09/02/23 16:00 09/02/23 16:00 Temperature 37.0 C Pulse Rate 150 H 124 H Respiratory Rate 29 H 24 H Blood Pressure 103/75 Pulse Oximetry 95 95 Oxygen Delivery Simple Face Mask Oxygen Flow Rate 10 Fraction of Inspired Oxygen 09/02/23 16:00 09/02/23 17:06 09/02/23 18:00 Temperature Pulse Rate 106 H 98 138 H Respiratory Rate 15 Blood Pressure Pulse Oximetry Oxygen Delivery Oxygen Flow Rate Fraction of Inspired Oxygen 09/02/23 18:00 09/02/23 19:41 09/02/23 19:00 Temperature 37.1 C Pulse Rate 138 H 128 H 149 H Respiratory Rate 28 H 24 H 28 H Blood Pressure 156/84 H Pulse Oximetry 94 Oxygen Delivery Oxygen Flow Rate Fraction of Inspired Oxygen 09/02/23 19:43 09/02/23 19:44 09/02/23 19:55 Temperature Pulse Rate 136 H 129 H 124 H Respiratory Rate 32 H 24 H 25 H Blood Pressure Pulse Oximetry 94 Oxygen Delivery Simple Face Mask Oxygen Flow Rate 10 Fraction of Inspired Oxygen 09/02/23 20:00 09/02/23 20:13 09/02/23 20:15 Temperature 37.2 C Pulse Rate 145 H 140 H 132 H Respiratory Rate 32 H Blood Pressure 112/77 112/77 Pulse Oximetry 94 Oxygen Delivery Oxygen Flow Rate
--- NOTE | 2023-09-03 11:40 | PCFNICU ---
ICU Rounding Note: Pt current nutrition is Jevity 1.2 at 55 ml/hr. Last recorded weight is 52.3 kg, stable. Bowel Motility:No Bm reported. Labs Reviewed:Glu 172, BUN 52, Cr 1.6,GFR 32, Hct 23.6,Hgb 7.4 Meds Noted:Flagyl, Lasix, Cefepime, Seroquel. Skin: Surgical Incision Additional Notes: Patient remains on tube feedings of Jevity 1.2 at 55 ml/hr and tolerating. Tube feedings are at goal rate, providing 1450 kcals/67 gms protein/976 ml water. Flush 30 ml q 4 hours. Agree with diet orders. Following daily in ICU rounds. Monitor tolerance, plan of care, weights, labs, skin, tube feeding tolerance every Friday and Friday.
--- NOTE | 2023-09-03 12:20 | PM.PNNEP ---
Progress Note: A&P Assessment and Plan (1) ADRIEL (acute kidney injury): Code(s): N17.9 - Acute kidney failure, unspecified Status: Acute Assessment and Plan: as noted by trend of creatinine since admission relatively stable if not better at this time likely secondary to sepsis and shock/hemodynamic instability however, contrast exposure with CT scan on 08/27 could be playing a role as well evaluation to date: no obstruction/anatomical issues with kidneys by CT imaging CPK okay urine electrolytes non-prerenal urine eosinophils negative proteinuria noted reasonable response with IV diuretics - continue PRN follow repeat labs and UOP (2) Chronic kidney disease, stage 3: Code(s): N18.30 - Chronic kidney disease, stage 3 unspecified Status: Chronic Assessment and Plan: baseline creatinine seems to run 1.0 - 1.4mg/dl this causes her to fluctuate between CKD stage 3A and stage 3B presumably secondary to hypertension, vascular disease, and age-related change (3) Septic shock: Code(s): A41.9 - Sepsis, unspecified organism; R65.21 - Severe sepsis with septic shock Status: Acute Assessment and Plan: thought to be secondary to colitis and UTI s/p aggressive IVF resuscitation (and now with issues related to volume overload) culture data noted on antibiotic therapy vasopressor therapy to maintain MAP (has been on and off intermittently) (4) Colitis: Code(s): K52.9 - Noninfective gastroenteritis and colitis, unspecified Status: Acute Assessment and Plan: CT scan on 08/27 with Infectious, inflammatory, or ischemic colitis involving the distal transverse colon through the sigmoid. Slightly decreased, somewhat heterogeneous associated mucosal enhancement may increase the likelihood of an ischemic process Surgery following s/p exploratory laparotomy -- no evidence of ischemic or necrosis diarrhea appears to have resolved continue supportive therapy (5) UTI (urinary tract infection): Qualifiers: Urinary tract infection type: acute cystitis Hematuria presence: without hematuria Qualified Code(s): N30.00 - Acute cystitis without hematuria Code(s): N39.0 - Urinary tract infection, site not specified Status: Acute Assessment and Plan: as suggested by admission UA urine culture with E.coli on antibiotics (6) COPD (chronic obstructive pulmonary disease): Code(s): J44.9 - Chronic obstructive pulmonary disease, unspecified Status: Acute Assessment and Plan: known history on steroids and continue bronchodilators IV diuretics for CHF changes (and perhaps to help with wheezing) follow respiratory status (7) Delirium: Code(s): R41.0 - Disorientation, unspecified Status: Acute Assessment and Plan: quite severe/significan since surgery management has been difficult for review of records macie added today per family, she has a history of this with surgery/general anesthesia Will continue to follow. Subjective Date/time seen: 09/03/23 12:20 Interval history: Follow-up for acute kidney injury/acute renal failure on chronic kidney disease. Mentatio seems a bit better today in comparison to yesterday -- less agitated and confused; somewhat conversive (able to answer some questions); stable hemodynamics noted; good urine output with IV diuretics; no acute complaints noted. Exam Narrative: General: somewhat ill appearing elderly/frail female in NAD Heart: normal S1 and S2; no rub Lungs: coarse with some wheezes noted Abdomen: soft, nontender, nondistended, positive bowel sounds Extremities: no cyanosis or clubbing; trace edema Skin: warm and intact Objective Data Vital Signs Vital Signs: Vital Signs Temp Pulse Resp BP Pulse Ox O2 Del Method O2 Flow Rate 09/03/23 12:00 99.7 F H 125 H 30 H 145/102 H 91 11/0
--- NOTE | 2023-09-03 12:20 | P.PNNP_ITS ---
Progress Note: A&P Assessment and Plan (1) ADRIEL (acute kidney injury): Code(s): N17.9 - Acute kidney failure, unspecified Status: Acute Assessment and Plan: * as noted by trend of creatinine since admission * relatively stable if not better at this time * likely secondary to sepsis and shock/hemodynamic instability * however, contrast exposure with CT scan on 08/27 could be playing a role as well * evaluation to date: * no obstruction/anatomical issues with kidneys by CT imaging * CPK okay * urine electrolytes non-prerenal * urine eosinophils negative * proteinuria noted * reasonable response with IV diuretics - continue PRN * follow repeat labs and UOP (2) Chronic kidney disease, stage 3: Code(s): N18.30 - Chronic kidney disease, stage 3 unspecified Status: Chronic Assessment and Plan: * baseline creatinine seems to run 1.0 - 1.4mg/dl * this causes her to fluctuate between CKD stage 3A and stage 3B * presumably secondary to hypertension, vascular disease, and age-related change (3) Septic shock: Code(s): A41.9 - Sepsis, unspecified organism; R65.21 - Severe sepsis with septic shock Status: Acute Assessment and Plan: * thought to be secondary to colitis and UTI * s/p aggressive IVF resuscitation (and now with issues related to volume overload) * culture data noted * on antibiotic therapy * vasopressor therapy to maintain MAP (has been on and off intermittently) (4) Colitis: Code(s): K52.9 - Noninfective gastroenteritis and colitis, unspecified Status: Acute Assessment and Plan: * CT scan on 08/27 with Infectious, inflammatory, or ischemic colitis involving the distal transverse colon through the sigmoid. Slightly decreased, somewhat heterogeneous associated mucosal enhancement may increase the likelihood of an ischemic process * Surgery following * s/p exploratory laparotomy -- no evidence of ischemic or necrosis * diarrhea appears to have resolved * continue supportive therapy (5) UTI (urinary tract infection): Qualifiers: Urinary tract infection type: acute cystitis Hematuria presence: without hematuria Qualified Code(s): N30.00 - Acute cystitis without hematuria Code(s): N39.0 - Urinary tract infection, site not specified Status: Acute Assessment and Plan: * as suggested by admission UA * urine culture with E.coli * on antibiotics (6) COPD (chronic obstructive pulmonary disease): Code(s): J44.9 - Chronic obstructive pulmonary disease, unspecified Status: Acute Assessment and Plan: * known history * on steroids and continue bronchodilators * IV diuretics for CHF changes (and perhaps to help with wheezing) * follow respiratory status (7) Delirium: Code(s): R41.0 - Disorientation, unspecified Status: Acute Assessment and Plan: * quite severe/significan since surgery * management has been difficult for review of records * macie added today * per family, she has a history of this with surgery/general anesthesia Will continue to follow. Subjective Date/time seen: 09/03/23 12:20 Interval history: Follow-up for acute kidney injury/acute renal failure on chronic kidney disease. Mentatio seems a bit better today in comparison to yesterday -- less agitated and confused; somewhat conversive (able to answer some questions); stable hemodynamics noted; good urine output with IV diuretics; no acute complaints noted. Exam
[2023-09-03 12:26] LABS: Glucose Point of Care 140 mg/dl (65-105)
[2023-09-03] MEDS: HYDROcodone/acetaminophen (*CRX) 5-325 MG TABLET 1 TAB PO (12:53)
[2023-09-03] MEDS: ALPRAZolam (*CRX) 0.25 MG TABLET PO ×2 (14:04→16:29)
[2023-09-03] MEDS: DULoxetine HCL 30 MG CAPSULE.DR PO (14:04)
[2023-09-03] MEDS: FUROSEMIDE INJ 40 MG/4 ML VIAL IV PUSH (16:29)
[2023-09-03 17:52] LABS: Glucose Point of Care 152 mg/dl (65-105)
--- NOTE | 2023-09-03 18:51 | PC.NURSE ---
Spoke with Dr. Sanchez regarding pt's elevated BP. DBP has been >100 last several hours. Pt has received all medications and is resting calmly in bed. New order for 10mg IVP Hydralazine q4h PRN for DBP >100
[2023-09-03] MEDS: hydrALAZINE HCL 20 MG/ML VIAL 10 MG IV PUSH (19:00)
[2023-09-03] MEDS: ALPRAZolam (*CRX) 0.5 MG TABLET PO (21:59)
[2023-09-04] VITALS (38 sets, daily range): BP systolic 106–153; BP diastolic 72–106; PULSE 93–191; RESP 16–84; TEMP 36.2–37.6; O2SAT 87–97
[2023-09-04] MEDS: metroNIDAZOLE 500 MG/ISO 100ML 500 MG/100 ML BAG 100 MG IVPB ×3 (00:12→17:04)
[2023-09-04] MEDS: methylPREDNISolone SOD SUCC 125 MG VIAL 40 MG IV PUSH ×4 (00:12→17:04)
[2023-09-04] MEDS: IPRATROPIUM BR 0.02% INH SOLN 0.5 MG/2.5 ML VIAL INHALATION ×6 (00:21→21:32)
[2023-09-04] MEDS: LEVALBUTEROL NEB 1.25 MG/3 ML INHALATION ×6 (00:21→21:31)
[2023-09-04 00:24] LABS: Glucose Point of Care 165 mg/dl (65-105)
[2023-09-04 05:03] LABS: Hepatitis B Core Ab Total Nonreactive (Nonreactive)
[2023-09-04] MEDS: CENTRAL LINE FLUSH 10 ML IV PUSH ×3 (05:07→21:35)
[2023-09-04] MEDS: ALPRAZolam (*CRX) 0.5 MG TABLET PO ×3 (05:07→21:35)
[2023-09-04 05:20] LABS: Hematocrit 22.1 % (37.0-47.0); Mean Corpuscular HGB Conc 30.8 g/dl (32-36); Mean Corpuscular Hemoglobin 23.2 pg (26-34); Mean Corpuscular Volume 75.4 fl (80-100); Mean Platelet Volume 10.9 fl (7.4-10.4); Platelet Count Result 343 k/mm3 (150-375); Red Blood Count 2.93 M/mm3 (4.2-5.4); White Blood Count 20.5 K/mm3 (4.5-10.0)
[2023-09-04 05:25] LABS: Hemoglobin 6.8 g/dL (12.0-15.0)
[2023-09-04 05:33] LABS: Alanine Aminotransferase 48 U/L (6-35); Albumin Level 3.7 g/dL (3.5-5.1); Alkaline Phosphatase 89 U/L (38-126); Anion Gap 10 mmol/L (8-16); Aspartate Amino Transferase 50 U/L (14-36); Bilirubin,Total 0.7 mg/dL (0.2-1.3); Blood Urea Nitrogen 65 mg/dL (7-17); Calcium 9.4 mg/dL (8.4-10.2); Carbon Dioxide 29 mmol/L (22-30); Chloride 99 mmol/L (98-107); Estimated CRCL calculation 19 ml/min; Estimated Glomerular Filt Rate 29; Glucose 203 mg/dL (65-110); Magnesium 1.9 mg/dL (1.6-2.3); Phosphorus 4.4 mg/dL (2.5-4.5); Potassium 3.9 mmol/L (3.4-5.0); Sodium 138 mmol/L (137-145)
[2023-09-04 06:43] LABS: Glucose Point of Care 152 mg/dl (65-105)
--- NOTE | 2023-09-04 08:02 | PM.PNCARD ---
Progress Note: A&P Assessment and Plan (1) Atrial fibrillation: Qualifiers: Atrial fibrillation type: unspecified Qualified Code(s): I48.91 - Unspecified atrial fibrillation Code(s): I48.91 - Unspecified atrial fibrillation Status: Acute Assessment and Plan: RVR currently. Likely worse with Levophed. On Eliquis for anticoagulation. Off Levophed drip now. On Amiodarone 200 mg PO BID and Metoprolol Tartate 25 mg PO BID. Started 09/02/23 Digoxin 125 mcg IV q every 12 hours to improve HR control. Stop Digoxin as her BP is improved and can rate control with Metoprolol. Increase Metoprolol Tartate 25 mg PO Q6HR with parameters. (2) Septic shock: Code(s): A41.9 - Sepsis, unspecified organism; R65.21 - Severe sepsis with septic shock Status: Acute Assessment and Plan: Resolved. On antibiotics. Very anemic, may need blood transfusions with Hb 6.8 today. Managed by contact lens cutter. (3) Diastolic heart failure: Code(s): I50.30 - Unspecified diastolic (congestive) heart failure Status: Acute Assessment and Plan: Acute on chronic diastolic heart failure likely from IVF to treat septic shock. 08/28/23 Echo: EF 64%, mild LVE, grade II diastolic dysfunction, mod LAE, mild MR/TR, RVSP 50 mmHg. Diurese with Lasix as tolerated. Subjective Date/time seen: 09/04/23 08:02 Interval history: She is more lethargic this morning, not answering appropriately and sob with oxygen mask on. Denies chest pain. Exam Const: General: lethargic Resp: Auscultation: crackles, no rhonchi, no wheezes and diminished lung sounds Cardio: Rate: tachycardic Rhythm: abnormal rhythm Heart sounds: no murmurs Peripheral pulses: dorsalis pedis present Extrem: Right lower extremity: no edema Left lower extremity: no edema Objective Data Vital Signs Vital Signs: Vital Signs - 24 hr 09/03/23 08:14 09/03/23 08:14 09/03/23 08:15 Temperature Pulse Rate 109 H 109 H 109 H Respiratory Rate Blood Pressure Pulse Oximetry Oxygen Delivery Oxygen Flow Rate 09/03/23 08:13 09/03/23 08:18 09/03/23 08:46 Temperature Pulse Rate 127 H 127 H 121 H Respiratory Rate 28 H Blood Pressure 145/97 H 145/97 H Pulse Oximetry Oxygen Delivery Oxygen Flow Rate 09/03/23 08:30 09/03/23 08:30 09/03/23 09:00 Temperature Pulse Rate 126 H 106 H Respiratory Rate 28 H 30 H Blood Pressure Pulse Oximetry 96 Oxygen Delivery Simple Face Mask Oxygen Flow Rate 10 09/03/23 09:49 09/03/23 10:00 09/03/23 10:28 Temperature 99.3 F Pulse Rate 115 H 109 H 119 H Respiratory Rate 34 H 31 H 25 H Blood Pressure 117/84 Pulse Oximetry 92 Oxygen Delivery Oxygen Flow Rate 09/03/23 10:00 09/03/23 11:16 09/03/23 11:19 Temperature Pulse Rate 105 H 106 H 106 H Respiratory Rate 25 H 23 H Blood Pressure Pulse Oximetry 92 Oxygen Delivery Simple Face Mask Oxygen Flow Rate 10 09/03/23 11:26 09/03/23 11:29 09/03/23 12:00 Temperature 99.7 F H Pulse Rate 103 H 118 H 125 H Respiratory Rate 17 28 H 30 H Blood Pressure 145/102 H Pulse Oximetry 91 Oxygen Delivery Oxygen Flow Rate 09/03/23 12:00 09/03/23 12:00 09/03/23 14:00 Temperature 100.1 F H Pulse Rate 134 H 122 H Respiratory Rate 19 Blood Pressure 120/79 Pulse Oximetry 91 90 Oxygen Delivery Simple Face Mask Oxygen Flow Rate 10 09/03/23 14:00 09/03/23 16:29 09/03/23 16:00 Temperature 99.8 F H Pulse Rate 122 H 125 H 127 H Respiratory Rate 27 H Blood Pressure 153/112 H Pulse Oximetry 92 Oxygen Delivery Oxygen Flow Rate 09/03/23 16:00 09/03/23 16:00 09/03/23 16:57 Temperature Pulse Rate 135 H 129 H Respiratory Rate 25 H Blood Pressure Pulse Oximetry 92 Oxygen Delivery Simple Face Mask Oxygen Flow Rate 10 09/03/23 17:10 09/03/23 18:00 09/03/23 18:00 Temperature 99.4 F Pulse Rate 133 H 118 H 118 H Respira
[2023-09-04] MEDS: FUROSEMIDE INJ 40 MG/4 ML VIAL IV PUSH ×2 (08:58→17:05)
[2023-09-04] MEDS: SODIUM BICARBONATE TAB 650 MG TABLET FEED TUBE ×2 (08:58→17:05)
[2023-09-04] MEDS: PANTOPRAZOLE SODIUM IV 40 MG VIAL IV PUSH ×2 (08:58→21:35)
[2023-09-04] MEDS: QUEtiapine FUMARATE 25 MG TABLET 50 MG PO ×2 (08:58→21:35)
[2023-09-04] MEDS: DULoxetine HCL 30 MG CAPSULE.DR PO (08:58)
[2023-09-04] MEDS: CEFEPIME 1 GM/NS 50 ML 1 GM/50 ML BAG IVPB ×2 (08:58→21:34)
[2023-09-04] MEDS: AMIODARONE HCL 200 MG TABLET PO ×2 (08:59→17:05)
--- NOTE | 2023-09-04 10:40 | P.PNNP_ITS ---
Progress Note: A&P Assessment and Plan (1) ADRIEL (acute kidney injury): Code(s): N17.9 - Acute kidney failure, unspecified Status: Acute Assessment and Plan: * as noted by trend of creatinine since admission * relatively stable if not better at this time * likely secondary to sepsis and shock/hemodynamic instability * however, contrast exposure with CT scan on 08/27 could have playing a role as well * evaluation to date: * no obstruction/anatomical issues with kidneys by CT imaging * CPK okay * urine electrolytes non-prerenal * urine eosinophils negative * proteinuria noted * reasonable response with IV diuretics - continue PRN * follow repeat labs and UOP (2) Chronic kidney disease, stage 3: Code(s): N18.30 - Chronic kidney disease, stage 3 unspecified Status: Chronic Assessment and Plan: * baseline creatinine seems to run 1.0 - 1.4mg/dl * this causes her to fluctuate between CKD stage 3A and stage 3B * presumably secondary to hypertension, vascular disease, and age-related change (3) Septic shock: Code(s): A41.9 - Sepsis, unspecified organism; R65.21 - Severe sepsis with septic shock Status: Acute Assessment and Plan: * thought to be secondary to colitis and UTI * s/p aggressive IVF resuscitation (and now with issues related to volume overload) * culture data noted * on antibiotic therapy * vasopressor therapy to maintain MAP (has been on and off intermittently) (4) Colitis: Code(s): K52.9 - Noninfective gastroenteritis and colitis, unspecified Status: Acute Assessment and Plan: * CT scan on 08/27 with Infectious, inflammatory, or ischemic colitis involving the distal transverse colon through the sigmoid. Slightly decreased, somewhat heterogeneous associated mucosal enhancement may increase the likelihood of an ischemic process * Surgery following * s/p exploratory laparotomy -- no evidence of ischemic or necrosis * diarrhea appears to have resolved * continue supportive therapy (5) UTI (urinary tract infection): Qualifiers: Urinary tract infection type: acute cystitis Hematuria presence: without hematuria Qualified Code(s): N30.00 - Acute cystitis without hematuria Code(s): N39.0 - Urinary tract infection, site not specified Status: Acute Assessment and Plan: * as suggested by admission UA * urine culture with E.coli * on antibiotics (6) COPD (chronic obstructive pulmonary disease): Code(s): J44.9 - Chronic obstructive pulmonary disease, unspecified Status: Acute Assessment and Plan: * known history * on steroids and continue bronchodilators * IV diuretics for CHF changes * follow respiratory status (7) Delirium: Code(s): R41.0 - Disorientation, unspecified Status: Acute Assessment and Plan: * quite severe/significant since surgery * management has been difficult for review of records * some improvement noted with interventions to date * per family, she has a history of this with surgery/general anesthesia Will continue to follow. Subjective Date/time seen: 09/04/23 10:40 Interval history: Follow-up for acute kidney injury/acute renal failure on chronic kidney disease. Renal function relatively stable and continues to make good urine output in response to IV diuretic therapy; still in atrial fibrillation but rate seems better controlled; mentation seems a bit better at the time of my visit as well; otherwise, remains hemodynamically
--- NOTE | 2023-09-04 10:40 | PM.PNNEP ---
Progress Note: A&P Assessment and Plan (1) ADRIEL (acute kidney injury): Code(s): N17.9 - Acute kidney failure, unspecified Status: Acute Assessment and Plan: as noted by trend of creatinine since admission relatively stable if not better at this time likely secondary to sepsis and shock/hemodynamic instability however, contrast exposure with CT scan on 08/27 could have playing a role as well evaluation to date: no obstruction/anatomical issues with kidneys by CT imaging CPK okay urine electrolytes non-prerenal urine eosinophils negative proteinuria noted reasonable response with IV diuretics - continue PRN follow repeat labs and UOP (2) Chronic kidney disease, stage 3: Code(s): N18.30 - Chronic kidney disease, stage 3 unspecified Status: Chronic Assessment and Plan: baseline creatinine seems to run 1.0 - 1.4mg/dl this causes her to fluctuate between CKD stage 3A and stage 3B presumably secondary to hypertension, vascular disease, and age-related change (3) Septic shock: Code(s): A41.9 - Sepsis, unspecified organism; R65.21 - Severe sepsis with septic shock Status: Acute Assessment and Plan: thought to be secondary to colitis and UTI s/p aggressive IVF resuscitation (and now with issues related to volume overload) culture data noted on antibiotic therapy vasopressor therapy to maintain MAP (has been on and off intermittently) (4) Colitis: Code(s): K52.9 - Noninfective gastroenteritis and colitis, unspecified Status: Acute Assessment and Plan: CT scan on 08/27 with Infectious, inflammatory, or ischemic colitis involving the distal transverse colon through the sigmoid. Slightly decreased, somewhat heterogeneous associated mucosal enhancement may increase the likelihood of an ischemic process Surgery following s/p exploratory laparotomy -- no evidence of ischemic or necrosis diarrhea appears to have resolved continue supportive therapy (5) UTI (urinary tract infection): Qualifiers: Urinary tract infection type: acute cystitis Hematuria presence: without hematuria Qualified Code(s): N30.00 - Acute cystitis without hematuria Code(s): N39.0 - Urinary tract infection, site not specified Status: Acute Assessment and Plan: as suggested by admission UA urine culture with E.coli on antibiotics (6) COPD (chronic obstructive pulmonary disease): Code(s): J44.9 - Chronic obstructive pulmonary disease, unspecified Status: Acute Assessment and Plan: known history on steroids and continue bronchodilators IV diuretics for CHF changes follow respiratory status (7) Delirium: Code(s): R41.0 - Disorientation, unspecified Status: Acute Assessment and Plan: quite severe/significant since surgery management has been difficult for review of records some improvement noted with interventions to date per family, she has a history of this with surgery/general anesthesia Will continue to follow. Subjective Date/time seen: 09/04/23 10:40 Interval history: Follow-up for acute kidney injury/acute renal failure on chronic kidney disease. Renal function relatively stable and continues to make good urine output in response to IV diuretic therapy; still in atrial fibrillation but rate seems better controlled; mentation seems a bit better at the time of my visit as well; otherwise, remains hemodynamically stable. Exam Narrative: General: somewhat ill appearing elderly/frail female in NAD Heart: normal S1 and S2; no rub Lungs: coarse breath sounds; no wheezing noted Abdomen: soft, nontender, nondistended, positive bowel sounds Extremities: no cyanosis or clubbing; trace edema Skin: no rash Objective Data Vital Signs Vital Signs: Vital Signs Temp Pulse Resp BP Pulse Ox O2 Del Method O2 Flow Rate 09/04/23 10:38 99.2
[2023-09-04] MEDS: BUDESONIDE RESPULE NEB 0.5 MG/2 ML AMP INHALATION ×2 (10:43→21:31)
[2023-09-04] MEDS: APIXABAN 2.5 MG TABLET PO ×2 (11:31→21:35)
--- NOTE | 2023-09-04 11:51 | WPDINTPN ---
Progress Note: A&P Assessment and Plan (1) Septic shock: Code(s): A41.9 - Sepsis, unspecified organism; R65.21 - Severe sepsis with septic shock Status: Acute Assessment and Plan: Secondary to colitis and UTI -status post IV fluids and volume overload, currently IV fluids on hold -OFF vasopressin. She has been off and on low-dose levophed. -off stress dose steroids -09/02: Patient had to be restarted on low-dose Levophed after receiving metoprolol and Ativan. -08/27: Urine cultures growing E coli -08/27: Blood cultures negative till now -08/27; Stool C diff was negative -Continue cefepime and Flagyl for a total of 10 days -Diarrhea has resolved 09/02: WBC count has increased significantly, afebrile, will check blood and urine culture. This could be related to the Solu-Medrol. Will continue to monitor 09/02: Blood culture negative x2 09/02: Urine culture negative (2) Colitis: Code(s): K52.9 - Noninfective gastroenteritis and colitis, unspecified Status: Acute Assessment and Plan: 08/27 CT scan in the ER showed Questionable mild wall thickening of large bowel, as above. Correlate for infectious/inflammatory colitis. Ischemic bowel less likely, but not definitively excluded -Patient was admitted with diagnosis of colitis likely is infectious versus ischemic -08/[address] scan with contrast showed Infectious, inflammatory, or ischemic colitis involving the distal transverse colon through the sigmoid. Slightly decreased, somewhat heterogeneous associated mucosal enhancement may increase the likelihood of an ischemic process. General surgery was consulted and due to concern of ischemia, 08/04: patient underwent exploratory laparotomy which did not show any signs of ischemia or necrosis -Stool C diff was negative -P.o. vancomycin has been discontinued -Continue cefepime and Flagyl - tolerating tube feeds at goal 09/02/2023 CT chest, abdomen, pelvis IMPRESSION: 1. Moderate-sized pleural effusions. 2. Dependent airspace and interstitial opacities in the upper and lower lobes, likely a combination of atelectasis and pulmonary edema. 3. Small volume of ascites. (3) Delirium: Code(s): R41.0 - Disorientation, unspecified Status: Acute Assessment and Plan: Since surgery patient has had significant delirium, agitation, encephalopathy which has been very difficult to manage. -on Precedex infusion. -continue morphine for abdominal pain. She has been requiring frequent dosing of Ativan for her own safety. -continue bedside sitter and is physically restrained with mittens despite that patient managed to pull her NG tube and Bond out 08/30 night. -replace NG and Bond placed . -Continue Seroquel 50 mg per tube q.12 hours -off Precedex infusion -started patient on scheduled Xanax -09/02: discussed with patient's daughter, she stated that patient has had delirium when she is admitted to the hospital for up to a week. -Dr. Salazar had long discussion with patient's daughter and explained her the situation reasoning behind using physical restraints and medications like Precedex morphine and Ativan in the situation. She did admitted that patient had similar delirium for many days when she was admitted at [facility] and receive sedatives for cardioversion. 09/02: CT scan of the brain: For unequal pupils IMPRESSION: 1. 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 No acute intracranial process. 2. Age-related changes including mild diffuse volume loss and mild scattered white matter hypoattenuation consistent with chronic small vessel ischemic disease (4) Atrial fibrillation: Qualifiers: Atrial fibrillation type: unspecified Qualified Code(s): I48.91 - Unspecified atrial fibrillation Code(s): I48.91 - Unspecified atrial fibrillation Status: Acute Assessment and Plan: Patient went into AFib with RVR.
--- NOTE | 2023-09-04 11:54 | PM.PNGS ---
Progress Note: A&P Assessment and Plan (1) History of exploratory laparotomy: Code(s): Z98.890 - Other specified postprocedural states Status: Acute Assessment and Plan: Incision is healing well. GI function is working and she is tolerating tube feeds. Hopefully her delirium resolved and she can be moved out of the ICU. Subjective Subjective Date/Time Seen: 09/04/23 11:54 Interval history: Patient now off of Precedex. Still having some agitation. Tolerating tube feeds at goal rate. Exam GI: Other: Abdomen is soft and nondistended. Incision is healing well without any redness or drainage. No sherman in place. Objective Data Vital Signs Vital Signs: Vital Signs - 24 hr 09/03/23 12:00 09/03/23 12:00 09/03/23 12:00 Temperature 37.6 C H Pulse Rate 125 H 134 H Respiratory Rate 30 H Blood Pressure 145/102 H Pulse Oximetry 91 91 Oxygen Delivery Simple Face Mask Oxygen Flow Rate 10 Fraction of Inspired Oxygen 09/03/23 14:00 09/03/23 14:00 09/03/23 16:29 Temperature 37.8 C H Pulse Rate 122 H 122 H 125 H Respiratory Rate 19 Blood Pressure 120/79 Pulse Oximetry 90 Oxygen Delivery Oxygen Flow Rate Fraction of Inspired Oxygen 09/03/23 16:00 09/03/23 16:00 09/03/23 16:00 Temperature 37.7 C H Pulse Rate 127 H 135 H Respiratory Rate 27 H Blood Pressure 153/112 H Pulse Oximetry 92 92 Oxygen Delivery Simple Face Mask Oxygen Flow Rate 10 Fraction of Inspired Oxygen 09/03/23 16:57 09/03/23 17:10 09/03/23 18:00 Temperature Pulse Rate 129 H 133 H 118 H Respiratory Rate 25 H 26 H Blood Pressure Pulse Oximetry Oxygen Delivery Oxygen Flow Rate Fraction of Inspired Oxygen 09/03/23 18:00 09/03/23 19:00 09/03/23 20:00 Temperature 37.4 C Pulse Rate 118 H 128 H Respiratory Rate 24 H Blood Pressure 133/104 H 164/106 H Pulse Oximetry 93 Oxygen Delivery Oxygen Flow Rate Fraction of Inspired Oxygen 09/03/23 20:01 09/03/23 19:35 09/03/23 20:11 Temperature Pulse Rate 132 H 119 H Respiratory Rate 31 H Blood Pressure 135/84 Pulse Oximetry Oxygen Delivery Oxygen Flow Rate Fraction of Inspired Oxygen 09/03/23 20:12 09/03/23 20:21 09/04/23 00:22 Temperature Pulse Rate 128 H 130 H 105 H Respiratory Rate 30 H 33 H 31 H Blood Pressure Pulse Oximetry 90 Oxygen Delivery Simple Face Mask Oxygen Flow Rate 12 Fraction of Inspired Oxygen 09/04/23 00:34 09/03/23 20:00 09/04/23 00:00 Temperature Pulse Rate 117 H Respiratory Rate 30 H Blood Pressure Pulse Oximetry 87 L 91 Oxygen Delivery Simple Face Mask Simple Face Mask Oxygen Flow Rate 10 12 Fraction of Inspired Oxygen 09/03/23 20:00 09/03/23 20:00 09/03/23 22:00 Temperature 37.4 C Pulse Rate 124 H 124 H 109 H Respiratory Rate 36 H Blood Pressure 130/69 Pulse Oximetry 87 L Oxygen Delivery Oxygen Flow Rate Fraction of Inspired Oxygen 09/03/23 22:00 09/04/23 00:00 09/04/23 00:00 Temperature 37.3 C 37.3 C Pulse Rate 109 H 107 H 107 H Respiratory Rate 30 H 16 Blood Pressure 103/87 109/77 Pulse Oximetry 91 91 Oxygen Delivery Oxygen Flow Rate Fraction of Inspired Oxygen 09/04/23 02:00 09/04/23 02:00 09/04/23 04:16 Temperature 37.3 C Pulse Rate 110 H 110 H 112 H Respiratory Rate 24 H 27 H Blood Pressure 106/72 Pulse Oximetry 92 Oxygen Delivery Oxygen Flow Rate Fraction of Inspired Oxygen 09/04/23 04:31 09/04/23 04:00 09/04/23 04:00 Temperature 37.3 C Pulse Rate 112 H 113 H Respiratory Rate 26 H 84 H Blood Pressure 130/90 Pulse Oximetry 92 87 L Oxygen Delivery Simple Face Mask Oxygen Flow Rate 12 Fraction of Inspired Oxygen 09/04/23 04:00 09/04/23 06:00 09/04/23 06:00 Temperature 37.3 C Pulse Rate 113 H 108 H 108 H Respiratory Rate 24 H Blood Pressure 137/81 Pulse Oximetry
--- NOTE | 2023-09-04 11:55 | PCFNICU ---
ICU Rounding Note: Pt current nutrition is Jevity 1.2 at 55 ml/hr. Bowel Motility:No BM reported-nursing to speak with surgeon. Labs Reviewed:Glu 203, Cr 1.7, BUN 65, GFR 29, Hct 22.1,Hgb 6.8 Meds Noted: Lasix, Precedex, Morphine, Flagyl, Eliquis, Cymbalta Skin:surgical incision Additional Notes: Patient remains on tube feedings of Jevity 1.2 at 55 ml/hr and tolerating. Flush 30 ml q 4 hours. Blood given today, Hgb 6.8. Plans to downgrade from ICU status today. Following daily in ICU rounds. Monitor tolerance, plan of care, weights, labs, tube feedings every Friday and Friday.
[2023-09-04] MEDS: METOPROLOL TARTRATE 25 MG TABLET FEED TUBE ×2 (12:24→17:05)
[2023-09-04 12:41] LABS: Hematocrit 27.1 % (37.0-47.0); Hemoglobin 8.6 g/dL (12.0-15.0)
[2023-09-04] MEDS: IRON SUCROSE COMPLEX 200 MG in SODIUM CHLORIDE 0.9% IV 50 ML 120 MG IVPB (13:36)
[2023-09-04 13:43] LABS: Glucose Point of Care 183 mg/dl (65-105)
--- NOTE | 2023-09-04 17:38 | PM.IMPN ---
Progress Note: A&P Assessment and Plan (1) History of exploratory laparotomy: Code(s): Z98.890 - Other specified postprocedural states Status: Acute (2) Chronic kidney disease, stage 3: Code(s): N18.30 - Chronic kidney disease, stage 3 unspecified Status: Chronic (3) Esophagitis: Code(s): K20.90 - Esophagitis, unspecified without bleeding Status: Acute (4) Septic shock: Code(s): A41.9 - Sepsis, unspecified organism; R65.21 - Severe sepsis with septic shock Status: Acute (5) ADRIEL (acute kidney injury): Code(s): N17.9 - Acute kidney failure, unspecified Status: Acute (6) Delirium: Code(s): R41.0 - Disorientation, unspecified Status: Acute (7) UTI (urinary tract infection): Qualifiers: Urinary tract infection type: acute cystitis Hematuria presence: without hematuria Qualified Code(s): N30.00 - Acute cystitis without hematuria Code(s): N39.0 - Urinary tract infection, site not specified Status: Acute Plan 73F w/ PMH COPD, chronic hypoxic respiratory failure, a fib on eliquis, hx of DVT presented with diarrhea, nausea and vomiting and weakness. Admitted on 08/27. She was in septic shock, underwent ex-lap on 08/28, found to have mild colitis and otherwise no other explanation for diarrhea and shock. Also w/ a UTI. Post-op, patient remains delirious, daughter notes this exact kind of deterioriation happened for 2-3 days after her last surgery. NG tube placed for nutrition on 08/30 1) delirium - familiy reports same thing happened after the last time she received anesthesia. 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 no hypercapnia - off precedex - seroquel at night - xanax scheduled or agitation 2) chronic hypoxic respiratory failure w/ chronic COPD - cont o2. - continue bronchodilators and prednisone (started 08/31) for wheezing 3) ADRIEL on CKD stage III - improved after large volume fluid resuscitation on admission. did receive CT w/ contrast on admission. infection. - appreciate nephrology recs 4) septic shock unresponsive to fluids - 2/2 colitis/UTI/esophagitis. continue cefepime and flagyl and follow cultures - levophed off on 10/28. back on 08/31. 5) a fib w/ RVR - cont tele. cont eliquis and metoprolol via tube - amiodarone IV started 08/31 completed now 6) ascites Pt to have IV lasix watch bmp Subjective Date/time seen: 09/04/23 17:38 Interval history: pt continues to be confused, and restless in bed admitted with septic shock, ecoli uti and colitis Review of Systems Review of Systems: Limited due to patient condition All systems reviewed & are unremarkable except as noted in HPI and below ROS unobtainable: Yes unobtainable due to endotracheal tube, unobtainable due to medical condition and unobtainable due to mental status Exam Narrative: unable to obtain Cardio: Rate: regular rate Rhythm: regular rhythm Heart sounds: no murmurs Other: S1-S2 present without murmur, rub, ectopy GI: Inspection: non-distended Auscultation: normal bowel sounds Other: hypoactive BS in all 4 quadrants. Profuse tenderness to lower abdomen, bilateral and suprapubic. Urinary Catheter: Urinary Catheter: patent and draining and urine clear Skin: General skin exam: normal color and no rashes or lesions noted Wounds: no wounds Neuro: Cranial nerves: Yes Equal, round and reactive pupils present Other: A/Ox self, minimally interactive, somnolent. PERRLA. General weakness, nonfocal. Extrem: General: normal to inspection and no edema Psych: Other: Poor insight and judgment due to condition. Objective Data Vital Signs Vital Signs: Vital Signs - 24 hr 09/03/23 18:00 09/03/23 18:00 09/03/23 19:00 Temperature 37.4 C Pulse Rate 118 H 118 H Respiratory Rate 24 H Blood Pressure 133/104 H 164/106 H Pulse Oximetry 93 Oxygen Delivery Oxygen Flow Rate Fraction of Inspired Oxy
[2023-09-04] MEDS: INSULIN ASPART (*BKC) 100 UNITS/ML SUB-Q (17:44)
[2023-09-04 17:51] LABS: Glucose Point of Care 213 mg/dl (65-105)
[2023-09-05] VITALS (35 sets, daily range): BP systolic 137–160; BP diastolic 10–99; PULSE 85–109; RESP 16–24; TEMP 36.3–36.8; O2SAT 92–99
[2023-09-05 00:30] LABS: Glucose Point of Care 174 mg/dl (65-105)
[2023-09-05] MEDS: LEVALBUTEROL NEB 1.25 MG/3 ML INHALATION ×5 (01:02→23:35)
[2023-09-05] MEDS: IPRATROPIUM BR 0.02% INH SOLN 0.5 MG/2.5 ML VIAL INHALATION ×5 (01:02→23:35)
[2023-09-05] MEDS: METOPROLOL TARTRATE 25 MG TABLET FEED TUBE ×4 (01:57→18:22)
[2023-09-05] MEDS: methylPREDNISolone SOD SUCC 125 MG VIAL 40 MG IV PUSH ×3 (01:58→12:22)
[2023-09-05] MEDS: metroNIDAZOLE 500 MG/ISO 100ML 500 MG/100 ML BAG 100 MG IVPB ×3 (01:59→15:21)
[2023-09-05] MEDS: CENTRAL LINE FLUSH 10 ML IV PUSH ×4 (06:14→21:33)
[2023-09-05] MEDS: ALPRAZolam (*CRX) 0.5 MG TABLET PO ×3 (06:14→21:33)
[2023-09-05 06:33] LABS: Hematocrit 27.7 % (37.0-47.0); Hemoglobin 8.5 g/dL (12.0-15.0); Mean Corpuscular HGB Conc 30.7 g/dl (32-36); Mean Corpuscular Hemoglobin 23.7 pg (26-34); Mean Corpuscular Volume 77.4 fl (80-100); Mean Platelet Volume 11.4 fl (7.4-10.4); Platelet Count Result 347 k/mm3 (150-375); Red Blood Count 3.58 M/mm3 (4.2-5.4); White Blood Count 17.9 K/mm3 (4.5-10.0)
[2023-09-05 06:38] LABS: Alanine Aminotransferase 56 U/L (6-35); Albumin Level 3.7 g/dL (3.5-5.1); Alkaline Phosphatase 132 U/L (38-126); Anion Gap 7 mmol/L (8-16); Aspartate Amino Transferase 56 U/L (14-36); Bilirubin,Total 0.7 mg/dL (0.2-1.3); Blood Urea Nitrogen 74 mg/dL (7-17); Calcium 9.1 mg/dL (8.4-10.2); Carbon Dioxide 35 mmol/L (22-30); Chloride 98 mmol/L (98-107); Estimated CRCL calculation 20 ml/min; Estimated Glomerular Filt Rate 32; Glucose 237 mg/dL (65-110); Magnesium 2.1 mg/dL (1.6-2.3); Phosphorus 4.1 mg/dL (2.5-4.5); Potassium 3.7 mmol/L (3.4-5.0); Sodium 140 mmol/L (137-145)
--- NOTE | 2023-09-05 06:41 | ECG_ITS ---
Measurements Intervals [place] Rate: 95 P: ME: 0 QRS: 93 QRSD: 106 T: -60 QT: 342 QTc: 432 Interpretive Statements ATRIAL FIBRILLATION RIGHT AXIS DEVIATION LOW QRS VOLTAGE IN LIMB LEADS CANNOT RULE OUT SEPTAL INFARCT, AGE INDETERMINATE BORDERLINE ST-T WAVE ABNORMALITY- DIFFUSE LEADS BASELINE ARTIFACT- V2, V4-V6 ABNORMAL ECG COMPARED TO ECG 08/27/2023 07:38:41 ATRIAL FIBRILLATION NOW PRESENT Electronically Signed On 09-05-2023 9:46:22 CDT by Darien Singleton D.O.
[2023-09-05] MEDS: INSULIN ASPART (*BKC) 100 UNITS/ML SUB-Q ×3 (06:47→18:28)
--- NOTE | 2023-09-05 06:52 | PCRCNOTE ---
Procedure explained to patient, verbalized understanding. X-Ray procedure completed, patient tolerated well. Returned to room per [ ]
[2023-09-05 07:28] LABS: Band Neutrophils Percent 11 % (0-6); Lymphocytes Absolute Manual 0.35 K/mm3 (1.1-4.5); Monocytes Absolute Manual 0.53 K/mm3 (0.1-0.90); Monocytes Percent Manual 3 % (3-9); Neutrophils Percent Manual 84 % (46-73); Nucleated Red Blood Cells 7 %; Platelet Estimate Adequate (Adequate); Total Cells Counted 100
[2023-09-05 07:29] LABS: Anisocytosis 1+ (NORMAL); Hypochromasia 2+ (NORMAL); Ovalocytes 1+ (NORMAL); Schistocytes None Seen (NORMAL); Target Cells 1+ (NORMAL)
--- NOTE | 2023-09-05 07:45 | PM.PNCARD ---
Progress Note: A&P Assessment and Plan (1) Atrial fibrillation: Qualifiers: Atrial fibrillation type: unspecified Qualified Code(s): I48.91 - Unspecified atrial fibrillation Code(s): I48.91 - Unspecified atrial fibrillation Status: Acute Assessment and Plan: HR fairly well controlled. Likely worse when on Levophed. On Eliquis for anticoagulation. Off Levophed drip now. On Amiodarone 200 mg PO BID and Metoprolol Tartate 25 mg PO every 6 hours with parameters for HR control. (2) Septic shock: Code(s): A41.9 - Sepsis, unspecified organism; R65.21 - Severe sepsis with septic shock Status: Acute Assessment and Plan: Resolved. On antibiotics. (3) Diastolic heart failure: Qualifiers: Heart failure chronicity: acute on chronic Qualified Code(s): I50.33 - Acute on chronic diastolic (congestive) heart failure Code(s): I50.30 - Unspecified diastolic (congestive) heart failure Status: Acute Assessment and Plan: Acute on chronic diastolic heart failure likely from IVF to treat septic shock. 08/28/23 Echo: EF 64%, mild LVE, grade II diastolic dysfunction, mod LAE, mild MR/TR, RVSP 50 mmHg. Diurese with Lasix 40 mg IV BID. Subjective Date/time seen: 09/05/23 07:45 Interval history: She is more lethargic this morning, not answering appropriately and sob with oxygen mask on. Denies chest pain. Exam Const: General: lethargic Orientation/consciousness: lethargic Resp: Auscultation: crackles, no rhonchi, wheezes and diminished lung sounds Cardio: Rate: tachycardic Rhythm: abnormal rhythm Heart sounds: no murmurs Peripheral pulses: dorsalis pedis present Extrem: Right lower extremity: no edema Left lower extremity: no edema Objective Data Vital Signs Vital Signs: Vital Signs - 24 hr 09/04/23 08:22 09/04/23 08:38 09/04/23 08:59 Temperature 99.5 F 99.6 F Pulse Rate 121 H 110 H 121 H Respiratory Rate 27 H 27 H Blood Pressure 150/95 H 150/95 H Pulse Oximetry 96 95 Oxygen Delivery Oxygen Flow Rate Fraction of Inspired Oxygen 09/04/23 08:00 09/04/23 08:00 09/04/23 09:18 Temperature 99.5 F Pulse Rate 110 H Respiratory Rate 23 H 23 H 28 H Blood Pressure 129/94 H Pulse Oximetry 97 97 93 Oxygen Delivery Simple Face Mask High Flow Therapy with Na Oxygen Flow Rate 11 45 Fraction of Inspired Oxygen 50 09/04/23 08:55 09/04/23 09:12 09/04/23 09:12 Temperature Pulse Rate 107 H 117 H 115 H Respiratory Rate 18 20 22 H Blood Pressure Pulse Oximetry 92 Oxygen Delivery High Flow Therapy with Na Oxygen Flow Rate 45 Fraction of Inspired Oxygen 50 09/04/23 09:38 09/04/23 10:38 09/04/23 10:00 Temperature 99.4 F 99.2 F 99.3 F Pulse Rate 117 H 114 H 110 H Respiratory Rate 25 H 28 H 22 H Blood Pressure 139/102 H 142/105 H 119/92 H Pulse Oximetry 93 91 92 Oxygen Delivery Oxygen Flow Rate Fraction of Inspired Oxygen 09/04/23 08:00 09/04/23 10:00 09/04/23 10:43 Temperature Pulse Rate 122 H 110 H 117 H Respiratory Rate 27 H Blood Pressure Pulse Oximetry Oxygen Delivery Oxygen Flow Rate Fraction of Inspired Oxygen 09/04/23 10:45 09/04/23 10:50 09/04/23 11:06 Temperature 99.3 F Pulse Rate 117 H 110 H 112 H Respiratory Rate 27 H 26 H 23 H Blood Pressure 139/94 H Pulse Oximetry 92 90 Oxygen Delivery High Flow Therapy with Na Oxygen Flow Rate 45 Fraction of Inspired Oxygen 50 09/04/23 12:24 09/04/23 12:00 09/04/23 12:36 Temperature 99.6 F Pulse Rate 115 H 104 H 191 H Respiratory Rate 22 H 24 H Blood Pressure 142/81 H Pulse Oximetry 92 92 Oxygen Delivery High Flow Therapy with Na Oxygen Flow Rate 45 Fraction of Inspired Oxygen 50 09/04/23 12:37 09/04/23 12:57 09/04/23 14:00 Temperature 99.2 F Pulse Rate 115 H 116 H 107 H Respiratory Rate 27 H 26 H 25 H Blood Pressure 153/94 H Pulse Oximetry 91 Oxygen Delivery
[2023-09-05] MEDS: CEFEPIME 1 GM/NS 50 ML 1 GM/50 ML BAG IVPB ×2 (08:36→21:33)
[2023-09-05] MEDS: AMIODARONE HCL 200 MG TABLET PO ×2 (08:37→18:22)
[2023-09-05] MEDS: APIXABAN 2.5 MG TABLET PO ×2 (08:37→21:33)
[2023-09-05] MEDS: QUEtiapine FUMARATE 25 MG TABLET 50 MG PO ×2 (08:37→21:33)
[2023-09-05] MEDS: FUROSEMIDE INJ 40 MG/4 ML VIAL IV PUSH (08:37)
[2023-09-05] MEDS: PANTOPRAZOLE SODIUM IV 40 MG VIAL IV PUSH ×2 (08:37→21:34)
[2023-09-05] MEDS: DULoxetine HCL 30 MG CAPSULE.DR PO (08:38)
[2023-09-05] MEDS: SODIUM BICARBONATE TAB 650 MG TABLET FEED TUBE ×2 (08:38→18:22)
--- NOTE | 2023-09-05 09:16 | PCNFU ---
Nutrition Follow-Up Complete: Inadequate energy intake from enteral nutrition related to altered GI function as evidenced by tube feeding orders not meeting estimated nutrition needs Goal: Tolerate tube feeding at goal rate - Goal being met, continue with same goal Meet estimated nutrition needs - Goal being met with tube feedings Pt current nutrition is Jevity 1,2 @ 55 ml/h providing 1450 kcal, 67 g protein, 976 ml free water. Flushes 30 ml q 4 hours. Total water 1156 ml/day . Nutrition recommendation: Continue with same tube feeding regimen. Agree with orders Last recorded weight is 47.1 kg. Weight loss: -11 lbs since 09/01/23: 10%/<1 week Bowel Motility: No bowel movement since 08/28/23, pre laprotomy. Discussed with RN. RD previously discussed with ICU team before transfer to IMU. Labs Reviewed: Hgb 8.5, Hct 27.7, GFR 32, BUN 74, Cre 1.6, Glu 174 Meds Noted: Solumedrol, Eliquis, Ativan, Flagyl, morphine, lasix, cefepime Skin: Incision Additional Notes: Communication with RN re: no bowel movement. This was previously discussed with ICU team too. Continue with same TF orders, no changes Monitor tolerance, plan of care, weights, labs, PO intake Follow daily in ICU rounds, reassess Friday and Friday per policy
--- NOTE | 2023-09-05 09:25 | P.PNNP_ITS ---
Progress Note: A&P Assessment and Plan (1) ADRIEL (acute kidney injury): Code(s): N17.9 - Acute kidney failure, unspecified Status: Acute Assessment and Plan: * as noted by trend of creatinine since admission * relatively stable if not better at this time * likely secondary to sepsis and shock/hemodynamic instability * however, contrast exposure with CT scan on 08/27 could have playing a role as well * evaluation to date: * no obstruction/anatomical issues with kidneys by CT imaging * CPK okay * urine electrolytes non-prerenal * urine eosinophils negative * proteinuria noted * reasonable response with IV diuretics - continue as needed * follow repeat labs and UOP (2) Chronic kidney disease, stage 3: Code(s): N18.30 - Chronic kidney disease, stage 3 unspecified Status: Chronic Assessment and Plan: * baseline creatinine seems to run 1.0 - 1.4mg/dl * this causes her to fluctuate between CKD stage 3A and stage 3B * presumably secondary to hypertension, vascular disease, and age-related change (3) Septic shock: Code(s): A41.9 - Sepsis, unspecified organism; R65.21 - Severe sepsis with septic shock Status: Acute Assessment and Plan: * slow improvement * thought to be secondary to colitis and UTI * s/p aggressive IVF resuscitation (and now with issues related to volume overload) * culture data noted * on antibiotic therapy * off vasopressor therapy (4) Colitis: Code(s): K52.9 - Noninfective gastroenteritis and colitis, unspecified Status: Acute Assessment and Plan: * CT scan on 08/27 with Infectious, inflammatory, or ischemic colitis involving the distal transverse colon through the sigmoid. Slightly decreased, somewhat heterogeneous associated mucosal enhancement may increase the likelihood of an ischemic process * Surgery following * s/p exploratory laparotomy -- no evidence of ischemic or necrosis * diarrhea appears to have resolved * continue supportive therapy (5) UTI (urinary tract infection): Qualifiers: Urinary tract infection type: acute cystitis Hematuria presence: without hematuria Qualified Code(s): N30.00 - Acute cystitis without hematuria Code(s): N39.0 - Urinary tract infection, site not specified Status: Acute Assessment and Plan: * as suggested by admission UA * urine culture with E.coli * on antibiotics (6) Diastolic heart failure: Qualifiers: Heart failure chronicity: acute on chronic Qualified Code(s): I50.33 - Acute on chronic diastolic (congestive) heart failure Code(s): I50.30 - Unspecified diastolic (congestive) heart failure Status: Chronic Assessment and Plan: * imaging with pulmonary edema * Echo results noted * on IV diuretics -- titrate dosage (?) * follow respiratory status, I/Os, and daily weights * check CXR in AM (7) COPD (chronic obstructive pulmonary disease): Code(s): J44.9 - Chronic obstructive pulmonary disease, unspecified Status: Acute Assessment and Plan: * known history * on steroids and continue bronchodilators * IV diuretics for CHF changes (see #6) * follow respiratory status (8) Delirium: Code(s): R41.0 - Disorientation, unspecified Status: Acute Assessment and Plan: * clinically better * was quite severe/significant since surgery * management has been difficult for review of records * some improvement noted with interventions to date * per family, she has a hist
--- NOTE | 2023-09-05 09:25 | PM.PNNEP ---
Progress Note: A&P Assessment and Plan (1) ADRIEL (acute kidney injury): Code(s): N17.9 - Acute kidney failure, unspecified Status: Acute Assessment and Plan: as noted by trend of creatinine since admission relatively stable if not better at this time likely secondary to sepsis and shock/hemodynamic instability however, contrast exposure with CT scan on 08/27 could have playing a role as well evaluation to date: no obstruction/anatomical issues with kidneys by CT imaging CPK okay urine electrolytes non-prerenal urine eosinophils negative proteinuria noted reasonable response with IV diuretics - continue as needed follow repeat labs and UOP (2) Chronic kidney disease, stage 3: Code(s): N18.30 - Chronic kidney disease, stage 3 unspecified Status: Chronic Assessment and Plan: baseline creatinine seems to run 1.0 - 1.4mg/dl this causes her to fluctuate between CKD stage 3A and stage 3B presumably secondary to hypertension, vascular disease, and age-related change (3) Septic shock: Code(s): A41.9 - Sepsis, unspecified organism; R65.21 - Severe sepsis with septic shock Status: Acute Assessment and Plan: slow improvement thought to be secondary to colitis and UTI s/p aggressive IVF resuscitation (and now with issues related to volume overload) culture data noted on antibiotic therapy off vasopressor therapy (4) Colitis: Code(s): K52.9 - Noninfective gastroenteritis and colitis, unspecified Status: Acute Assessment and Plan: CT scan on 08/27 with Infectious, inflammatory, or ischemic colitis involving the distal transverse colon through the sigmoid. Slightly decreased, somewhat heterogeneous associated mucosal enhancement may increase the likelihood of an ischemic process Surgery following s/p exploratory laparotomy -- no evidence of ischemic or necrosis diarrhea appears to have resolved continue supportive therapy (5) UTI (urinary tract infection): Qualifiers: Urinary tract infection type: acute cystitis Hematuria presence: without hematuria Qualified Code(s): N30.00 - Acute cystitis without hematuria Code(s): N39.0 - Urinary tract infection, site not specified Status: Acute Assessment and Plan: as suggested by admission UA urine culture with E.coli on antibiotics (6) Diastolic heart failure: Qualifiers: Heart failure chronicity: acute on chronic Qualified Code(s): I50.33 - Acute on chronic diastolic (congestive) heart failure Code(s): I50.30 - Unspecified diastolic (congestive) heart failure Status: Chronic Assessment and Plan: imaging with pulmonary edema Echo results noted on IV diuretics -- titrate dosage (?) follow respiratory status, I/Os, and daily weights check CXR in AM (7) COPD (chronic obstructive pulmonary disease): Code(s): J44.9 - Chronic obstructive pulmonary disease, unspecified Status: Acute Assessment and Plan: known history on steroids and continue bronchodilators IV diuretics for CHF changes (see #6) follow respiratory status (8) Delirium: Code(s): R41.0 - Disorientation, unspecified Status: Acute Assessment and Plan: clinically better was quite severe/significant since surgery management has been difficult for review of records some improvement noted with interventions to date per family, she has a history of this with surgery/general anesthesia Will continue to follow. Subjective Date/time seen: 09/05/23 09:25 Interval history: Follow-up for acute kidney injury/acute renal failure on chronic kidney disease. Transferred out of ICU yesterday; renal function relatively stable despite IV diuretics but with good urine output as noted; mentation seems better with less confusion and agitation; no issues/events overnight or earlier this morning. Exam Na
[2023-09-05 12:15] LABS: Glucose Point of Care 296 mg/dl (65-105)
--- NOTE | 2023-09-05 12:17 | PM.IMPN ---
Progress Note: A&P Assessment and Plan (1) History of exploratory laparotomy: Code(s): Z98.890 - Other specified postprocedural states Status: Acute (2) Chronic kidney disease, stage 3: Code(s): N18.30 - Chronic kidney disease, stage 3 unspecified Status: Chronic (3) Esophagitis: Code(s): K20.90 - Esophagitis, unspecified without bleeding Status: Acute (4) Septic shock: Code(s): A41.9 - Sepsis, unspecified organism; R65.21 - Severe sepsis with septic shock Status: Acute (5) ADRIEL (acute kidney injury): Code(s): N17.9 - Acute kidney failure, unspecified Status: Acute (6) Delirium: Code(s): R41.0 - Disorientation, unspecified Status: Acute (7) UTI (urinary tract infection): Qualifiers: Urinary tract infection type: acute cystitis Hematuria presence: without hematuria Qualified Code(s): N30.00 - Acute cystitis without hematuria Code(s): N39.0 - Urinary tract infection, site not specified Status: Acute Plan 73F w/ PMH COPD, chronic hypoxic respiratory failure, a fib on eliquis, hx of DVT presented with diarrhea, nausea and vomiting and weakness. Admitted on 08/27. She was in septic shock, underwent ex-lap on 08/28, found to have mild colitis and otherwise no other explanation for diarrhea and shock. Also w/ a UTI. Post-op, patient remains delirious, daughter notes this exact kind of deterioriation happened for 2-3 days after her last surgery. NG tube placed for nutrition on 08/30 1) delirium - familiy reports same thing happened after the last time she received anesthesia. 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 no hypercapnia - off precedex - seroquel at night - xanax scheduled or agitation - pt is on oral quetiapine 2) chronic hypoxic respiratory failure w/ chronic COPD - cont o2. - continue bronchodilators and IV steroids (started 08/31) for wheezing 3) ADRIEL on CKD stage III - improved after large volume fluid resuscitation on admission. did receive CT w/ contrast on admission. infection. - appreciate nephrology recs 4) septic shock - 2/2 colitis/UTI/esophagitis. continue cefepime and flagyl and follow cultures - levophed off on 08/30. back on 08/31. - continue tube feeds - continue to monitor in hospital await clinical improvement 5) a fib w/ RVR - cont tele. cont eliquis and metoprolol via tube - amiodarone IV started 08/31 completed now 6) ascites Pt to have IV lasix watch bmp 7) anemia pt having venofer Subjective Date/time seen: 09/05/23 12:17 Interval history: Pt transferred to IMU with septic shock, ecoli uti and colitis Pt appears more restful today Review of Systems Review of Systems: Unobtainable due to mental state Exam Narrative: unable to obtain Const: General: in distress and uncomfortable Other: Somnolent, non-restless. Ill-appearing. HENMT: Mouth: Yes moist mucous membranes Eyes: General: appearance normal, both eyes and all related structures Sclera: sclerae normal Pupils: Equal, round and reactive pupils present Neck: Other: R IJ central line in place. Resp: Effort & Inspection: normal respiratory effort Auscultation: clear to auscultation bilaterally, wheezes and diminished lung sounds Other: labored breathing Cardio: Rate: regular rate Rhythm: regular rhythm Heart sounds: no murmurs Other: S1-S2 present without murmur, rub, ectopy GI: Inspection: non-distended Auscultation: normal bowel sounds Other: hypoactive BS in all 4 quadrants. soft non tender abdomen Urinary Catheter: Urinary Catheter: patent and draining and urine clear Skin: General skin exam: normal color and no rashes or lesions noted Wounds: no wounds Other: +pallor Neuro: Cranial nerves: Yes Equal, round and reactive pupils present Other: A/Ox self, minimally interactive, somnolent. PERRLA. General weakness, nonfocal. Extrem: Gene
[2023-09-05] MEDS: methylPREDNISolone SOD SUCC 40 MG VIAL 20 MG IV PUSH (18:22)
[2023-09-05 18:32] LABS: Glucose Point of Care 211 mg/dl (65-105)
[2023-09-05] MEDS: BUDESONIDE RESPULE NEB 0.5 MG/2 ML AMP INHALATION (20:00)
[2023-09-06] VITALS (32 sets, daily range): BP systolic 118–150; BP diastolic 84–103; PULSE 94–135; RESP 18–24; TEMP 36.1–37.2; O2SAT 87–99
[2023-09-06 00:10] LABS: Glucose Point of Care 242 mg/dl (65-105)
[2023-09-06] MEDS: METOPROLOL TARTRATE 25 MG TABLET FEED TUBE ×5 (00:39→23:32)
[2023-09-06] MEDS: INSULIN ASPART (*BKC) 100 UNITS/ML SUB-Q ×4 (00:39→23:31)
[2023-09-06] MEDS: methylPREDNISolone SOD SUCC 40 MG VIAL 20 MG IV PUSH ×5 (00:40→23:32)
[2023-09-06] MEDS: metroNIDAZOLE 500 MG/ISO 100ML 500 MG/100 ML BAG 100 MG IVPB ×4 (00:41→23:39)
[2023-09-06] MEDS: IPRATROPIUM BR 0.02% INH SOLN 0.5 MG/2.5 ML VIAL INHALATION ×5 (04:49→21:08)
[2023-09-06] MEDS: LEVALBUTEROL NEB 1.25 MG/3 ML INHALATION ×5 (04:49→21:09)
[2023-09-06] MEDS: ALPRAZolam (*CRX) 0.5 MG TABLET PO (05:04)
[2023-09-06] MEDS: CENTRAL LINE FLUSH 10 ML IV PUSH ×3 (05:04→17:20)
[2023-09-06] MEDS: ALTEPLASE 2 MG VIAL (CATHFLO) IV PUSH ×3 (05:18→05:20)
[2023-09-06 05:23] LABS: Glucose Point of Care 231 mg/dl (65-105)
[2023-09-06] MEDS: BUDESONIDE RESPULE NEB 0.5 MG/2 ML AMP INHALATION ×2 (07:50→21:09)
[2023-09-06 08:24] LABS: Glucose Point of Care 225 mg/dl (65-105)
[2023-09-06] MEDS: APIXABAN 2.5 MG TABLET PO ×2 (08:54→20:58)
[2023-09-06] MEDS: FUROSEMIDE INJ 40 MG/4 ML VIAL 20 MG IV PUSH ×2 (08:54→11:07)
[2023-09-06] MEDS: CEFEPIME 1 GM/NS 50 ML 1 GM/50 ML BAG IVPB (08:54)
[2023-09-06] MEDS: SODIUM BICARBONATE TAB 650 MG TABLET FEED TUBE (08:55)
[2023-09-06] MEDS: DULoxetine HCL 30 MG CAPSULE.DR PO (08:55)
[2023-09-06] MEDS: PANTOPRAZOLE SODIUM IV 40 MG VIAL IV PUSH ×2 (08:55→20:58)
[2023-09-06] MEDS: AMIODARONE HCL 200 MG TABLET PO ×2 (08:55→17:14)
--- NOTE | 2023-09-06 09:01 | PM.PNCARD ---
Progress Note: A&P Assessment and Plan (1) Atrial fibrillation: Qualifiers: Atrial fibrillation type: unspecified Qualified Code(s): I48.91 - Unspecified atrial fibrillation Code(s): I48.91 - Unspecified atrial fibrillation Status: Acute Assessment and Plan: HR fairly well controlled. Likely worse when on Levophed. On Eliquis for anticoagulation. Off Levophed drip now. On Amiodarone 200 mg PO BID and Metoprolol Tartate 25 mg PO every 6 hours with parameters for HR control. (2) Septic shock: Code(s): A41.9 - Sepsis, unspecified organism; R65.21 - Severe sepsis with septic shock Status: Acute Assessment and Plan: Resolved. On antibiotics. (3) Diastolic heart failure: Qualifiers: Heart failure chronicity: acute on chronic Qualified Code(s): I50.33 - Acute on chronic diastolic (congestive) heart failure Code(s): I50.30 - Unspecified diastolic (congestive) heart failure Status: Chronic Assessment and Plan: Acute on chronic diastolic heart failure likely from IVF to treat septic shock. 08/28/23 Echo: EF 64%, mild LVE, grade II diastolic dysfunction, mod LAE, mild MR/TR, RVSP 50 mmHg. Diurese with increase Lasix 40 mg IV BID. Subjective Date/time seen: 09/06/23 09:01 Interval history: She is more lethargic this morning, not answering appropriately and sob. Denies chest pain. Exam Const: General: lethargic Orientation/consciousness: lethargic Resp: Auscultation: crackles, no rhonchi, wheezes and diminished lung sounds Cardio: Rate: tachycardic Rhythm: abnormal rhythm Heart sounds: no murmurs Peripheral pulses: dorsalis pedis present Extrem: Right lower extremity: no edema Left lower extremity: no edema Objective Data Vital Signs Vital Signs: Vital Signs - 24 hr 09/05/23 11:30 09/05/23 11:47 09/05/23 11:59 Temperature 98 F Pulse Rate 93 99 85 Respiratory Rate 22 H 20 16 Blood Pressure 138/85 Pulse Oximetry 94 Oxygen Delivery Oxygen Flow Rate Fraction of Inspired Oxygen 09/05/23 12:22 09/05/23 12:35 09/05/23 15:54 Temperature 97.5 F L Pulse Rate 96 96 Respiratory Rate 20 Blood Pressure 137/96 H Pulse Oximetry 96 94 Oxygen Delivery High Flow Therapy with Na Oxygen Flow Rate 40 Fraction of Inspired Oxygen 50 09/05/23 16:05 09/05/23 15:50 09/05/23 16:06 Temperature Pulse Rate 89 95 Respiratory Rate 18 18 Blood Pressure Pulse Oximetry 94 Oxygen Delivery High Flow Therapy with Na Oxygen Flow Rate 35 Fraction of Inspired Oxygen 45 09/05/23 16:00 09/05/23 18:22 09/05/23 18:22 Temperature 97.5 F L Pulse Rate 96 101 H 101 H Respiratory Rate 20 Blood Pressure 137/96 H Pulse Oximetry 94 Oxygen Delivery Oxygen Flow Rate Fraction of Inspired Oxygen 09/05/23 19:38 09/05/23 10:00 09/05/23 12:00 Temperature 98.3 F Pulse Rate 96 98 94 Respiratory Rate 20 Blood Pressure 153/75 H Pulse Oximetry 94 Oxygen Delivery Oxygen Flow Rate Fraction of Inspired Oxygen 09/05/23 14:00 09/05/23 16:00 09/05/23 18:00 Temperature Pulse Rate 102 H 98 100 Respiratory Rate Blood Pressure Pulse Oximetry Oxygen Delivery Oxygen Flow Rate Fraction of Inspired Oxygen 09/05/23 12:00 09/05/23 16:00 09/05/23 20:03 Temperature Pulse Rate 98 Respiratory Rate 18 Blood Pressure Pulse Oximetry 94 93 Oxygen Delivery High Flow Therapy with Na High Flow Therapy with Na Oxygen Flow Rate 45 45 Fraction of Inspired Oxygen 50 45 09/05/23 20:04 09/05/23 20:10 09/05/23 23:35 Temperature Pulse Rate 98 94 105 H Respiratory Rate 18 18 Blood Pressure Pulse Oximetry 93 Oxygen Delivery High Flow Therapy with Na Oxygen Flow Rate 35 Fraction of Inspired Oxygen 45 09/05/23 23:42 09/06/23 00:00 09/06/23 00:39 Temperature 97.7 F Pulse Rate 99 104 H 96 Respiratory Rate 18 20 Blood Press
--- NOTE | 2023-09-06 09:29 | PM.IMPN ---
Progress Note: A&P Assessment and Plan (1) History of exploratory laparotomy: Code(s): Z98.890 - Other specified postprocedural states Status: Acute Assessment and Plan: Post-op delirium D/c all psychoactive meds 09/06/2023 09/06/2023 Hgb stable at 8.5 Continue cefepime and metronidazole for colitis (2) Chronic kidney disease, stage 3: Code(s): N18.30 - Chronic kidney disease, stage 3 unspecified Status: Chronic Assessment and Plan: Creatinine improved at 1.3 on 09/06 Stop sodium bicarb 09/06 as CO2 is over 40 (3) Esophagitis: Code(s): K20.90 - Esophagitis, unspecified without bleeding Status: Acute Assessment and Plan: No sign of bleeding (4) Septic shock: Code(s): A41.9 - Sepsis, unspecified organism; R65.21 - Severe sepsis with septic shock Status: Acute Assessment and Plan: Resolved (5) ADRIEL (acute kidney injury): Code(s): N17.9 - Acute kidney failure, unspecified Status: Acute Assessment and Plan: Creatinine near baseline (6) Delirium: Code(s): R41.0 - Disorientation, unspecified Status: Acute Assessment and Plan: D/c all psychoactive drugs 09/06/2023 (7) UTI (urinary tract infection): Qualifiers: Urinary tract infection type: acute cystitis Hematuria presence: without hematuria Qualified Code(s): N30.00 - Acute cystitis without hematuria Code(s): N39.0 - Urinary tract infection, site not specified Status: Acute Assessment and Plan: Continue cefepime Subjective Date/time seen: 09/06/23 09:29 Interval history: Remains confused. Intermittent grunting without intelligible speech. Tolerating tube feedings. Daughter Kaycee is at bedside. Review of Systems Review of Systems: ROS unobtainable: Yes unobtainable due to medical condition Exam Narrative: GEN: Elderly chronically ill debilitated elderly female lying in hospital bed with Airvo and tube feeding via nasogastric tube in place HEENT: PERRL, sclerae nonicteric, pharyngeal mucosa pink and intact NECK: No JVD, adenopathy, or thyromegaly CHEST: Coarse breath sounds bilaterally with no audible crackles anteriorly, mildly tachypneic HEART: NL S1/S2, regular, no murmur ABDOMEN: BS+, mildly distended, but soft, nontender, no mass, no bruits, midline incision intact EXTREMITIES: No cyanosis, edema, or clubbing NEUROLOGIC: CN intact and symmetric to inspection. MUSCULOSKELETAL: Tone symmetric a but unable to assess strength due to inability to follow commands PSYCH: Alert. Appears oriented to person but not to place or time. Objective Data Vital Signs Vital Signs: Vital Signs - 24 hr 09/05/23 11:30 09/05/23 11:47 09/05/23 11:59 Temperature 98 F Pulse Rate 93 99 85 Respiratory Rate 22 H 20 16 Blood Pressure 138/85 Pulse Oximetry 94 Oxygen Delivery Oxygen Flow Rate Fraction of Inspired Oxygen 09/05/23 12:22 09/05/23 12:35 09/05/23 15:54 Temperature 97.5 F L Pulse Rate 96 96 Respiratory Rate 20 Blood Pressure 137/96 H Pulse Oximetry 96 94 Oxygen Delivery High Flow Therapy with Na Oxygen Flow Rate 40 Fraction of Inspired Oxygen 50 09/05/23 16:05 09/05/23 15:50 09/05/23 16:06 Temperature Pulse Rate 89 95 Respiratory Rate 18 18 Blood Pressure Pulse Oximetry 94 Oxygen Delivery High Flow Therapy with Na Oxygen Flow Rate 35 Fraction of Inspired Oxygen 45 09/05/23 16:00 09/05/23 18:22 09/05/23 18:22 Temperature 97.5 F L Pulse Rate 96 101 H 101 H Respiratory Rate 20 Blood Pressure 137/96 H Pulse Oximetry 94 Oxygen Delivery Oxygen Flow Rate Fraction of Inspired Oxygen 09/05/23 19:38 09/05/23 10:00 09/05/23 12:00 Temperature 98.3 F Pulse Rate 96 98 94 Respiratory Rate 20 Blood Pressure 153/75 H Pulse Oximetry 94 Oxygen Delivery Oxygen Flow Rate Fraction of Inspired Oxygen
[2023-09-06 09:53] LABS: Alanine Aminotransferase 61 U/L (6-35); Albumin Level 3.9 g/dL (3.5-5.1); Alkaline Phosphatase 127 U/L (38-126); Aspartate Amino Transferase 44 U/L (14-36); Bilirubin,Total 0.8 mg/dL (0.2-1.3); Blood Urea Nitrogen 75 mg/dL (7-17); Calcium 9.4 mg/dL (8.4-10.2); Carbon Dioxide > 40 mmol/L (22-30); Chloride 97 mmol/L (98-107); Estimated CRCL calculation 24 ml/min; Estimated Glomerular Filt Rate 40; Glucose 201 mg/dL (65-110); Magnesium 2.3 mg/dL (1.6-2.3); Phosphorus 3.4 mg/dL (2.5-4.5); Potassium 3.8 mmol/L (3.4-5.0); Sodium 143 mmol/L (137-145)
--- NOTE | 2023-09-06 10:02 | PM.PNGS ---
Progress Note: A&P Assessment and Plan (1) History of exploratory laparotomy: Code(s): Z98.890 - Other specified postprocedural states Status: Acute Assessment and Plan: cont routine postop care, unclear etiology of mental status, cont TF for now, cont abx for colitis, renal fxn improving Subjective Subjective Date/Time Seen: 09/06/23 10:02 Interval history: no acute issues, still confused, TF at goal Review of Systems Review of Systems: ROS unobtainable: Yes unobtainable due to medical condition and unobtainable due to mental status Exam Const: General: no acute distress, confusion and ill appearing Resp: Auscultation: clear to auscultation bilaterally Cardio: Rate: regular rate Rhythm: regular rhythm GI: Inspection: normal to inspection, distended and incision GI Palp: Yes abdominal tenderness, Yes Soft to palpation, Yes Tenderness to palpation present (GI), No Guarding due to palpation present (GI) and No Rigid due to palpation Objective Data Vital Signs Vital Signs: Vital Signs - 24 hr 09/05/23 11:30 09/05/23 11:47 09/05/23 11:59 Temperature 36.6 C Pulse Rate 93 99 85 Respiratory Rate 22 H 20 16 Blood Pressure 138/85 Pulse Oximetry 94 Oxygen Delivery Oxygen Flow Rate Fraction of Inspired Oxygen 09/05/23 12:22 09/05/23 12:35 09/05/23 15:54 Temperature 36.4 C L Pulse Rate 96 96 Respiratory Rate 20 Blood Pressure 137/96 H Pulse Oximetry 96 94 Oxygen Delivery High Flow Therapy with Na Oxygen Flow Rate 40 Fraction of Inspired Oxygen 50 09/05/23 16:05 09/05/23 15:50 09/05/23 16:06 Temperature Pulse Rate 89 95 Respiratory Rate 18 18 Blood Pressure Pulse Oximetry 94 Oxygen Delivery High Flow Therapy with Na Oxygen Flow Rate 35 Fraction of Inspired Oxygen 45 09/05/23 16:00 09/05/23 18:22 09/05/23 18:22 Temperature 36.4 C L Pulse Rate 96 101 H 101 H Respiratory Rate 20 Blood Pressure 137/96 H Pulse Oximetry 94 Oxygen Delivery Oxygen Flow Rate Fraction of Inspired Oxygen 09/05/23 19:38 09/05/23 12:00 09/05/23 14:00 Temperature 36.8 C Pulse Rate 96 94 102 H Respiratory Rate 20 Blood Pressure 153/75 H Pulse Oximetry 94 Oxygen Delivery Oxygen Flow Rate Fraction of Inspired Oxygen 09/05/23 16:00 09/05/23 18:00 09/05/23 12:00 Temperature Pulse Rate 98 100 Respiratory Rate Blood Pressure Pulse Oximetry 94 Oxygen Delivery High Flow Therapy with Na Oxygen Flow Rate 45 Fraction of Inspired Oxygen 50 09/05/23 16:00 09/05/23 20:03 09/05/23 20:04 Temperature Pulse Rate 98 98 Respiratory Rate 18 Blood Pressure Pulse Oximetry 93 93 Oxygen Delivery High Flow Therapy with Na High Flow Therapy with Na Oxygen Flow Rate 45 35 Fraction of Inspired Oxygen 45 45 09/05/23 20:10 09/05/23 23:35 09/05/23 23:42 Temperature Pulse Rate 94 105 H 99 Respiratory Rate 18 18 18 Blood Pressure Pulse Oximetry Oxygen Delivery Oxygen Flow Rate Fraction of Inspired Oxygen 09/06/23 00:00 09/06/23 00:39 09/05/23 20:00 Temperature 36.5 C Pulse Rate 104 H 96 97 Respiratory Rate 20 Blood Pressure 138/89 Pulse Oximetry 93 Oxygen Delivery Oxygen Flow Rate Fraction of Inspired Oxygen 09/05/23 22:00 09/06/23 00:00 09/06/23 02:00 Temperature Pulse Rate 99 99 94 Respiratory Rate Blood Pressure Pulse Oximetry Oxygen Delivery Oxygen Flow Rate Fraction of Inspired Oxygen 09/06/23 04:00 09/06/23 04:00 09/06/23 04:49 Temperature 37.2 C Pulse Rate 100 98 110 H Respiratory Rate 20 18 Blood Pressure 146/84 H Pulse Oximetry 94 Oxygen Delivery Oxygen Flow Rate Fraction of Inspired Oxygen 09/06/23 04:56 09/06/23 05:04 09/06/23 06:00 Temperature Pulse Rate 106 H 106 H 111 H Respiratory Rate 18 Blood Pressure Pulse Oximetry Oxygen Delivery Oxygen Flow R
[2023-09-06 10:10] LABS: Hematocrit 29.9 % (37.0-47.0); Mean Corpuscular HGB Conc 30.1 g/dl (32-36); Mean Corpuscular Hemoglobin 24.1 pg (26-34); Mean Corpuscular Volume 80.2 fl (80-100); Mean Platelet Volume 11.7 fl (7.4-10.4); Platelet Count Result 370 k/mm3 (150-375); Red Blood Count 3.73 M/mm3 (4.2-5.4); Red Cell Distribution Width 19.9 % (11.5-14.5); White Blood Count 19.6 K/mm3 (4.5-10.0)
[2023-09-06 12:03] LABS: Glucose Point of Care 257 mg/dl (65-105)
--- NOTE | 2023-09-06 16:17 | P.PNNP_ITS ---
Progress Note: A&P Assessment and Plan (1) ADRIEL (acute kidney injury): Code(s): N17.9 - Acute kidney failure, unspecified Status: Acute Assessment and Plan: * acute kidney injury * likely secondary to sepsis and shock/hemodynamic instability * however, contrast exposure with CT scan on 08/27 could have playing a role as well * evaluation to date: * no obstruction/anatomical issues with kidneys by CT imaging * CPK okay * urine electrolytes non-prerenal * urine eosinophils negative * proteinuria noted * renal function is gradually better. Creatinine is down to 1.3 * continue 40 mg of Lasix twice a day IV (2) Chronic kidney disease, stage 3: Code(s): N18.30 - Chronic kidney disease, stage 3 unspecified Status: Chronic Assessment and Plan: * baseline creatinine seems to run 1.0 - 1.4mg/dl * this causes her to fluctuate between CKD stage 3A and stage 3B * presumably secondary to hypertension, vascular disease, and age-related change (3) Septic shock: Code(s): A41.9 - Sepsis, unspecified organism; R65.21 - Severe sepsis with septic shock Status: Acute Assessment and Plan: * slow improvement * thought to be secondary to colitis and UTI * s/p aggressive IVF resuscitation (and now with issues related to volume overload) * blood cultures on 09/02 are negative * urine cultures 09/02 are negative * on cefepime * off vasopressor therapy (4) Colitis: Code(s): K52.9 - Noninfective gastroenteritis and colitis, unspecified Status: Acute Assessment and Plan: * CT scan on 08/27 with Infectious, inflammatory, or ischemic colitis involving the distal transverse colon through the sigmoid. Slightly decreased, somewhat heterogeneous associated mucosal enhancement may increase the likelihood of an ischemic process * Surgery following * s/p exploratory laparotomy -- no evidence of ischemic or necrosis * diarrhea appears to have resolved * continue supportive therapy (5) UTI (urinary tract infection): Qualifiers: Urinary tract infection type: acute cystitis Hematuria presence: without hematuria Qualified Code(s): N30.00 - Acute cystitis without hematuria Code(s): N39.0 - Urinary tract infection, site not specified Status: Acute Assessment and Plan: * as suggested by admission UA * urine culture with E.coli on 08/27. * repeat cultures negative * on cefepime (6) Diastolic heart failure: Qualifiers: Heart failure chronicity: acute on chronic Qualified Code(s): I50.33 - Acute on chronic diastolic (congestive) heart failure Code(s): I50.30 - Unspecified diastolic (congestive) heart failure Status: Chronic Assessment and Plan: * imaging with pulmonary edema * Echo results noted * on IV diuretics -- titrate dosage (?) * follow respiratory status, I/Os, and daily weights * chest x-ray still shows fluid. * Continue the Lasix (7) COPD (chronic obstructive pulmonary disease): Code(s): J44.9 - Chronic obstructive pulmonary disease, unspecified Status: Acute Assessment and Plan: * known history * on steroids and continue bronchodilators * IV diuretics for CHF changes (see #6) * follow respiratory status (8) Delirium: Code(s): R41.0 - Disorientation, unspecified Status: Acute Assessment and Plan: * clinically better * was quite severe/significant since surgery * management has been difficult for review of records * some
--- NOTE | 2023-09-06 16:17 | PM.PNNEP ---
Progress Note: A&P Assessment and Plan (1) ADRIEL (acute kidney injury): Code(s): N17.9 - Acute kidney failure, unspecified Status: Acute Assessment and Plan: acute kidney injury likely secondary to sepsis and shock/hemodynamic instability however, contrast exposure with CT scan on 08/27 could have playing a role as well evaluation to date: no obstruction/anatomical issues with kidneys by CT imaging CPK okay urine electrolytes non-prerenal urine eosinophils negative proteinuria noted renal function is gradually better. Creatinine is down to 1.3 continue 40 mg of Lasix twice a day IV (2) Chronic kidney disease, stage 3: Code(s): N18.30 - Chronic kidney disease, stage 3 unspecified Status: Chronic Assessment and Plan: baseline creatinine seems to run 1.0 - 1.4mg/dl this causes her to fluctuate between CKD stage 3A and stage 3B presumably secondary to hypertension, vascular disease, and age-related change (3) Septic shock: Code(s): A41.9 - Sepsis, unspecified organism; R65.21 - Severe sepsis with septic shock Status: Acute Assessment and Plan: slow improvement thought to be secondary to colitis and UTI s/p aggressive IVF resuscitation (and now with issues related to volume overload) blood cultures on 09/02 are negative urine cultures 09/02 are negative on cefepime off vasopressor therapy (4) Colitis: Code(s): K52.9 - Noninfective gastroenteritis and colitis, unspecified Status: Acute Assessment and Plan: CT scan on 08/27 with Infectious, inflammatory, or ischemic colitis involving the distal transverse colon through the sigmoid. Slightly decreased, somewhat heterogeneous associated mucosal enhancement may increase the likelihood of an ischemic process Surgery following s/p exploratory laparotomy -- no evidence of ischemic or necrosis diarrhea appears to have resolved continue supportive therapy (5) UTI (urinary tract infection): Qualifiers: Urinary tract infection type: acute cystitis Hematuria presence: without hematuria Qualified Code(s): N30.00 - Acute cystitis without hematuria Code(s): N39.0 - Urinary tract infection, site not specified Status: Acute Assessment and Plan: as suggested by admission UA urine culture with E.coli on 08/27. repeat cultures negative on cefepime (6) Diastolic heart failure: Qualifiers: Heart failure chronicity: acute on chronic Qualified Code(s): I50.33 - Acute on chronic diastolic (congestive) heart failure Code(s): I50.30 - Unspecified diastolic (congestive) heart failure Status: Chronic Assessment and Plan: imaging with pulmonary edema Echo results noted on IV diuretics -- titrate dosage (?) follow respiratory status, I/Os, and daily weights chest x-ray still shows fluid. Continue the Lasix (7) COPD (chronic obstructive pulmonary disease): Code(s): J44.9 - Chronic obstructive pulmonary disease, unspecified Status: Acute Assessment and Plan: known history on steroids and continue bronchodilators IV diuretics for CHF changes (see #6) follow respiratory status (8) Delirium: Code(s): R41.0 - Disorientation, unspecified Status: Acute Assessment and Plan: clinically better was quite severe/significant since surgery management has been difficult for review of records some improvement noted with interventions to date per family, she has a history of this with surgery/general anesthesia Subjective Date/time seen: 09/06/23 16:17 Interval history: Confused and not verbal. Lying flat in bed without any distress. Exam Narrative: General: somewhat ill appearing elderly/frail female in NAD Heart: normal S1 and S2; no rub or gallop Lungs: coarse breath sounds; no wheezing noted Abdomen: soft, nontender, n
[2023-09-06] MEDS: FUROSEMIDE INJ 40 MG/4 ML VIAL IV PUSH (17:14)
[2023-09-06 19:34] LABS: Glucose Point of Care 259 mg/dl (65-105)
[2023-09-06] MEDS: LORazepam INJ (*CRX) 2 MG/ML VIAL (20:58)
[2023-09-06 23:46] LABS: Glucose Point of Care 240 mg/dl (65-105)
[2023-09-07] VITALS (33 sets, daily range): BP systolic 147–163; BP diastolic 79–107; PULSE 87–130; RESP 18–40; TEMP 36.5–37.8; O2SAT 93–99
--- NOTE | 2023-09-07 00:52 | PC.NURSE ---
Patient increasingly agitated and restless at the beginning of shift. Heart rate Afib in the 130's and patient desatting on vapotherm of 30L and 40%. Patient moaning and yelling Help me. Help me. RN notified Dr. Wu of patient's scheduled Xanax and Seroquel being discontinued and increased agitation and restlessness. Patient remains alert and oriented x 0. Patient unable to tell RN what her name is, where she is at, etc. RN received orders for a one time dose of 1 mg Ativan IVP. Patient resting comfortably. Will continue to monitor.
[2023-09-07] MEDS: IPRATROPIUM BR 0.02% INH SOLN 0.5 MG/2.5 ML VIAL INHALATION ×6 (01:05→21:05)
[2023-09-07] MEDS: LEVALBUTEROL NEB 1.25 MG/3 ML INHALATION ×6 (01:05→21:05)
--- NOTE | 2023-09-07 01:32 | PC.NURSE ---
Daylight Savings Time For Daylight Savings Time Ending in the Fall - Clocks are moved back. For Daylight Savings Time Beginning in the Spring - Clocks are moved ahead. For [facility], the time of change occurs at 0200 hrs. Time is taken from the server security administrator. This entry on the patient's chart recognizes the change in time reflected during documentation. Example: 2 entries for vital signs may be charted for 0200 hrs.
[2023-09-07 04:47] LABS: Hematocrit 32.5 % (37.0-47.0); Hemoglobin 9.7 g/dL (12.0-15.0); Mean Corpuscular HGB Conc 29.8 g/dl (32-36); Mean Corpuscular Hemoglobin 24.2 pg (26-34); Mean Platelet Volume 12.1 fl (7.4-10.4); Platelet Count Result 385 k/mm3 (150-375); Red Blood Count 4.01 M/mm3 (4.2-5.4); Red Cell Distribution Width 20.9 % (11.5-14.5); White Blood Count 19.1 K/mm3 (4.5-10.0)
[2023-09-07 05:03] LABS: Alanine Aminotransferase 61 U/L (6-35); Albumin Level 4.1 g/dL (3.5-5.1); Alkaline Phosphatase 143 U/L (38-126); Anion Gap 9 mmol/L (8-16); Aspartate Amino Transferase 50 U/L (14-36); Blood Urea Nitrogen 89 mg/dL (7-17); Calcium 9.5 mg/dL (8.4-10.2); Carbon Dioxide 39 mmol/L (22-30); Chloride 97 mmol/L (98-107); Estimated CRCL calculation 23 ml/min; Estimated Glomerular Filt Rate 37; Glucose 247 mg/dL (65-110); Magnesium 2.4 mg/dL (1.6-2.3); Phosphorus 3.6 mg/dL (2.5-4.5); Potassium 4.1 mmol/L (3.4-5.0); Sodium 145 mmol/L (137-145)
[2023-09-07] MEDS: INSULIN ASPART (*BKC) 100 UNITS/ML SUB-Q ×4 (05:08→23:37)
[2023-09-07] MEDS: methylPREDNISolone SOD SUCC 40 MG VIAL 20 MG IV PUSH ×4 (05:08→23:37)
[2023-09-07] MEDS: METOPROLOL TARTRATE 25 MG TABLET FEED TUBE (05:09)
--- NOTE | 2023-09-07 07:58 | PM.PNCARD ---
Progress Note: A&P Assessment and Plan (1) Atrial fibrillation: Qualifiers: Atrial fibrillation type: unspecified Qualified Code(s): I48.91 - Unspecified atrial fibrillation Code(s): I48.91 - Unspecified atrial fibrillation Status: Acute Assessment and Plan: HR fairly well controlled. Likely worse when on Levophed. On Eliquis for anticoagulation. Off Levophed drip now. On Amiodarone 200 mg PO BID and increase Metoprolol Tartate 50 mg PO every 6 hours with parameters for HR control. (2) Septic shock: Code(s): A41.9 - Sepsis, unspecified organism; R65.21 - Severe sepsis with septic shock Status: Acute Assessment and Plan: Resolved. On antibiotics. (3) Diastolic heart failure: Qualifiers: Heart failure chronicity: acute on chronic Qualified Code(s): I50.33 - Acute on chronic diastolic (congestive) heart failure Code(s): I50.30 - Unspecified diastolic (congestive) heart failure Status: Chronic Assessment and Plan: Acute on chronic diastolic heart failure likely from IVF to treat septic shock. 08/28/23 Echo: EF 64%, mild LVE, grade II diastolic dysfunction, mod LAE, mild MR/TR, RVSP 50 mmHg. Diurese with Lasix 40 mg IV BID today. CXR shows significant improvement in pulm edema. Subjective Date/time seen: 09/07/23 07:58 Interval history: She is lethargic but more comfortable this morning, not answering appropriately and sob. Denies chest pain. Exam Const: General: comfortable and lethargic Orientation/consciousness: lethargic Resp: Auscultation: no crackles, no rales, no rhonchi, wheezes and diminished lung sounds Cardio: Rate: tachycardic Rhythm: abnormal rhythm Heart sounds: no murmurs Peripheral pulses: dorsalis pedis present Extrem: Right lower extremity: no edema Left lower extremity: no edema Objective Data Vital Signs Vital Signs: Vital Signs - 24 hr 09/06/23 12:00 09/06/23 12:29 09/06/23 12:29 Temperature 98.4 F Pulse Rate 109 H 117 H 117 H Respiratory Rate 24 H 24 H Blood Pressure 118/98 H Pulse Oximetry 98 95 Oxygen Delivery High Flow Therapy with Na Oxygen Flow Rate 35 Fraction of Inspired Oxygen 45 09/06/23 12:43 09/06/23 14:19 09/06/23 16:34 Temperature Pulse Rate 102 H 112 H 115 H Respiratory Rate 24 H Blood Pressure Pulse Oximetry 95 Oxygen Delivery High Flow Therapy with Na Oxygen Flow Rate 30 Fraction of Inspired Oxygen 45 09/06/23 16:35 09/06/23 16:48 09/06/23 17:14 Temperature Pulse Rate 113 H 115 H 113 H Respiratory Rate 20 24 H Blood Pressure Pulse Oximetry Oxygen Delivery Oxygen Flow Rate Fraction of Inspired Oxygen 09/06/23 17:14 09/06/23 16:00 09/06/23 10:00 Temperature 97.5 F L Pulse Rate 113 H 112 H 111 H Respiratory Rate 24 H Blood Pressure 147/90 H Pulse Oximetry 99 Oxygen Delivery Oxygen Flow Rate Fraction of Inspired Oxygen 09/06/23 12:00 09/06/23 14:00 09/06/23 12:00 Temperature Pulse Rate 114 H 111 H Respiratory Rate Blood Pressure Pulse Oximetry 95 Oxygen Delivery High Flow Therapy with Na Oxygen Flow Rate 35 Fraction of Inspired Oxygen 45 09/06/23 16:00 09/06/23 16:00 09/06/23 18:00 Temperature Pulse Rate 115 H 117 H Respiratory Rate Blood Pressure Pulse Oximetry 93 Oxygen Delivery High Flow Therapy with Na Oxygen Flow Rate 30 Fraction of Inspired Oxygen 40 09/06/23 20:33 09/06/23 21:12 09/06/23 21:13 Temperature 97 F L Pulse Rate 135 H 109 H Respiratory Rate 20 24 H Blood Pressure 141/84 H Pulse Oximetry 93 95 Oxygen Delivery High Flow Therapy with Na Oxygen Flow Rate 40 Fraction of Inspired Oxygen 45 09/06/23 20:00 09/06/23 20:00 09/06/23 22:00 Temperature Pulse Rate 109 H 112 H 115 H Respiratory Rate 24 H Blood Pressure Pulse Oximetry 87 L Oxygen Delivery High Flow Therapy with Na Oxygen Fl
[2023-09-07] MEDS: BUDESONIDE RESPULE NEB 0.5 MG/2 ML AMP INHALATION ×2 (08:34→21:05)
--- NOTE | 2023-09-07 08:37 | PM.IMPN ---
Progress Note: A&P Assessment and Plan (1) History of exploratory laparotomy: Code(s): Z98.890 - Other specified postprocedural states Status: Acute Assessment and Plan: Post-op delirium D/c all psychoactive meds 09/06/2023 09/06/2023 Hgb stable at 8.5, 09/07 9.7 Continue cefepime and metronidazole for colitis (2) Chronic kidney disease, stage 3: Code(s): N18.30 - Chronic kidney disease, stage 3 unspecified Status: Chronic Assessment and Plan: Creatinine improved at 1.3 on 09/06, 1.4 09/07 Stop sodium bicarb 09/06 as CO2 is over 40 (3) Esophagitis: Code(s): K20.90 - Esophagitis, unspecified without bleeding Status: Acute Assessment and Plan: No sign of bleeding (4) Septic shock: Code(s): A41.9 - Sepsis, unspecified organism; R65.21 - Severe sepsis with septic shock Status: Acute Assessment and Plan: Resolved (5) ADRIEL (acute kidney injury): Code(s): N17.9 - Acute kidney failure, unspecified Status: Acute Assessment and Plan: Creatinine near baseline (6) Delirium: Code(s): R41.0 - Disorientation, unspecified Status: Acute Assessment and Plan: D/c all psychoactive drugs 09/06/2023 (7) UTI (urinary tract infection): Qualifiers: Urinary tract infection type: acute cystitis Hematuria presence: without hematuria Qualified Code(s): N30.00 - Acute cystitis without hematuria Code(s): N39.0 - Urinary tract infection, site not specified Status: Acute Assessment and Plan: Continue cefepime Subjective Date/time seen: 09/07/23 08:37 Interval history: A little more responsive this morning. Tolerating tube feeding. Review of Systems Review of Systems: ROS unobtainable: Yes unobtainable due to medical condition Exam Narrative: GEN: Elderly chronically ill debilitated elderly female lying in hospital bed with Airvo and tube feeding via nasogastric tube in place HEENT: PERRL, sclerae nonicteric, pharyngeal mucosa pink and intact NECK: No JVD, adenopathy, or thyromegaly CHEST: Coarse breath sounds bilaterally with no audible crackles anteriorly, mildly tachypneic HEART: NL S1/S2, regular, no murmur ABDOMEN: BS+, mildly distended, but soft, nontender, no mass, no bruits, midline incision intact EXTREMITIES: No cyanosis, edema, or clubbing NEUROLOGIC: CN intact and symmetric to inspection. MUSCULOSKELETAL: Tone symmetric a but unable to assess strength due to inability to follow commands PSYCH: Alert. Oriented to person. Follows simple commands intermittently. Objective Data Vital Signs Vital Signs: Vital Signs - 24 hr 09/06/23 12:00 09/06/23 12:29 09/06/23 12:29 Temperature 98.4 F Pulse Rate 109 H 117 H 117 H Respiratory Rate 24 H 24 H Blood Pressure 118/98 H Pulse Oximetry 98 95 Oxygen Delivery High Flow Therapy with Na Oxygen Flow Rate 35 Fraction of Inspired Oxygen 45 09/06/23 12:43 09/06/23 14:19 09/06/23 16:34 Temperature Pulse Rate 102 H 112 H 115 H Respiratory Rate 24 H Blood Pressure Pulse Oximetry 95 Oxygen Delivery High Flow Therapy with Na Oxygen Flow Rate 30 Fraction of Inspired Oxygen 45 09/06/23 16:35 09/06/23 16:48 09/06/23 17:14 Temperature Pulse Rate 113 H 115 H 113 H Respiratory Rate 20 24 H Blood Pressure Pulse Oximetry Oxygen Delivery Oxygen Flow Rate Fraction of Inspired Oxygen 09/06/23 17:14 09/06/23 16:00 09/06/23 10:00 Temperature 97.5 F L Pulse Rate 113 H 112 H 111 H Respiratory Rate 24 H Blood Pressure 147/90 H Pulse Oximetry 99 Oxygen Delivery Oxygen Flow Rate Fraction of Inspired Oxygen 09/06/23 12:00 09/06/23 14:00 09/06/23 12:00 Temperature Pulse Rate 114 H 111 H Respiratory Rate Blood Pressure Pulse Oximetry 95 Oxygen Delivery High Flow Therapy with Na Oxygen Flow Rate 35 Fraction of Inspired Oxygen 45
--- NOTE | 2023-09-07 09:38 | PM.PNGS ---
Progress Note: A&P Assessment and Plan (1) History of exploratory laparotomy: Code(s): Z98.890 - Other specified postprocedural states Status: Acute Assessment and Plan: cont routine postop care, still quite confused, will need swallow study once MS improves, cont TF for now, cont abx Subjective Subjective Date/Time Seen: 09/07/23 09:38 Interval history: a little more alert this morning, still quite lethargic, confused Review of Systems Review of Systems: ROS unobtainable: Yes unobtainable due to medical condition and unobtainable due to mental status Exam Const: General: cooperative and no acute distress Resp: Auscultation: diminished lung sounds Cardio: Rate: regular rate Rhythm: regular rhythm GI: Inspection: normal to inspection and incision GI Palp: Yes abdominal tenderness, Yes Soft to palpation and Yes Tenderness to palpation present (GI) Objective Data Vital Signs Vital Signs: Vital Signs - 24 hr 09/06/23 12:00 09/06/23 12:29 09/06/23 12:29 Temperature 36.9 C Pulse Rate 109 H 117 H 117 H Respiratory Rate 24 H 24 H Blood Pressure 118/98 H Pulse Oximetry 98 95 Oxygen Delivery High Flow Therapy with Na Oxygen Flow Rate 35 Fraction of Inspired Oxygen 45 09/06/23 12:43 09/06/23 14:19 09/06/23 16:34 Temperature Pulse Rate 102 H 112 H 115 H Respiratory Rate 24 H Blood Pressure Pulse Oximetry 95 Oxygen Delivery High Flow Therapy with Na Oxygen Flow Rate 30 Fraction of Inspired Oxygen 45 09/06/23 16:35 09/06/23 16:48 09/06/23 17:14 Temperature Pulse Rate 113 H 115 H 113 H Respiratory Rate 20 24 H Blood Pressure Pulse Oximetry Oxygen Delivery Oxygen Flow Rate Fraction of Inspired Oxygen 09/06/23 17:14 09/06/23 16:00 09/06/23 12:00 Temperature 36.4 C L Pulse Rate 113 H 112 H 114 H Respiratory Rate 24 H Blood Pressure 147/90 H Pulse Oximetry 99 Oxygen Delivery Oxygen Flow Rate Fraction of Inspired Oxygen 09/06/23 14:00 09/06/23 12:00 09/06/23 16:00 Temperature Pulse Rate 111 H Respiratory Rate Blood Pressure Pulse Oximetry 95 93 Oxygen Delivery High Flow Therapy with Na High Flow Therapy with Na Oxygen Flow Rate 35 30 Fraction of Inspired Oxygen 45 40 09/06/23 16:00 09/06/23 18:00 09/06/23 20:33 Temperature 36.1 C L Pulse Rate 115 H 117 H 135 H Respiratory Rate 20 Blood Pressure 141/84 H Pulse Oximetry 93 Oxygen Delivery Oxygen Flow Rate Fraction of Inspired Oxygen 09/06/23 21:12 09/06/23 21:13 09/06/23 20:00 Temperature Pulse Rate 109 H 109 H Respiratory Rate 24 H 24 H Blood Pressure Pulse Oximetry 95 87 L Oxygen Delivery High Flow Therapy with Na High Flow Therapy with Na Oxygen Flow Rate 40 40 Fraction of Inspired Oxygen 45 45 09/06/23 20:00 09/06/23 22:00 09/06/23 23:32 Temperature Pulse Rate 112 H 115 H 116 H Respiratory Rate Blood Pressure Pulse Oximetry Oxygen Delivery Oxygen Flow Rate Fraction of Inspired Oxygen 09/06/23 23:36 09/07/23 00:00 09/07/23 00:00 Temperature 36.3 C L Pulse Rate 125 H 125 H 124 H Respiratory Rate 22 H 22 H Blood Pressure 150/103 H Pulse Oximetry 96 96 Oxygen Delivery High Flow Therapy with Na Oxygen Flow Rate 40 Fraction of Inspired Oxygen 45 09/07/23 01:08 CDT 09/06/23 21:37 09/07/23 02:00 Temperature Pulse Rate 105 H 111 H 116 H Respiratory Rate 24 H 24 H Blood Pressure Pulse Oximetry Oxygen Delivery Oxygen Flow Rate Fraction of Inspired Oxygen 09/07/23 03:39 09/07/23 01:20 HE[facility] CARE COACH 09/07/23 03:59 Temperature Pulse Rate 126 H 104 H 126 H Respiratory Rate 24 H 24 H 24 H Blood Pressure Pulse Oximetry 96 Oxygen Delivery High Flow Therapy with Na Oxygen Flow Rate 40 Fraction of Inspired Oxygen 45 09/07/23 04:00 09/07/23 04:00 09/07/23 05:09 Temperature 36.5 C Pulse Rate 130 H 108 H 1
[2023-09-07] MEDS: AMIODARONE HCL 200 MG TABLET PO ×2 (10:07→16:25)
[2023-09-07] MEDS: metroNIDAZOLE 500 MG/ISO 100ML 500 MG/100 ML BAG 100 MG IVPB ×2 (10:07→16:25)
[2023-09-07] MEDS: APIXABAN 2.5 MG TABLET PO ×2 (10:08→20:56)
[2023-09-07] MEDS: PANTOPRAZOLE SODIUM IV 40 MG VIAL IV PUSH ×2 (10:08→20:56)
[2023-09-07] MEDS: FUROSEMIDE INJ 40 MG/4 ML VIAL IV PUSH ×2 (10:08→16:25)
[2023-09-07] MEDS: CEFEPIME 1 GM/NS 50 ML 1 GM/50 ML BAG IVPB ×2 (10:36→20:56)
[2023-09-07] MEDS: METOPROLOL TARTRATE 50 MG TAB FEED TUBE ×3 (12:59→23:37)
[2023-09-07 13:54] LABS: Glucose Point of Care 236 mg/dl (65-105)
--- NOTE | 2023-09-07 15:07 | P.PNNP_ITS ---
Progress Note: A&P Assessment and Plan (1) ADRIEL (acute kidney injury): Code(s): N17.9 - Acute kidney failure, unspecified Status: Acute Assessment and Plan: * acute kidney injury * likely secondary to sepsis and shock/hemodynamic instability * however, contrast exposure with CT scan on 08/27 could have playing a role as well * evaluation to date: * no obstruction/anatomical issues with kidneys by CT imaging * CPK okay * urine electrolytes non-prerenal * urine eosinophils negative * proteinuria noted * renal function is gradually better. Creatinine is close to baseline. Today it is 1.4. * continue 40 mg of Lasix twice a day IV For another day. Repeat labs tomorrow and reassess dosage. (2) Chronic kidney disease, stage 3: Code(s): N18.30 - Chronic kidney disease, stage 3 unspecified Status: Chronic Assessment and Plan: * baseline creatinine seems to run 1.0 - 1.4mg/dl * this causes her to fluctuate between CKD stage 3A and stage 3B * presumably secondary to hypertension, vascular disease, and age-related change (3) Septic shock: Code(s): A41.9 - Sepsis, unspecified organism; R65.21 - Severe sepsis with septic shock Status: Acute Assessment and Plan: * thought to be secondary to colitis and UTI * blood cultures on 09/02 are negative * urine cultures 09/02 are negative * on cefepime * off vasopressor therapy (4) Colitis: Code(s): K52.9 - Noninfective gastroenteritis and colitis, unspecified Status: Acute Assessment and Plan: * CT scan on 08/27 with Infectious, inflammatory, or ischemic colitis involving the distal transverse colon through the sigmoid. Slightly decreased, somewhat heterogeneous associated mucosal enhancement may increase the likelihood of an ischemic process * Surgery following * s/p exploratory laparotomy -- no evidence of ischemic or necrosis * diarrhea appears to have resolved * continue supportive therapy * Tolerating tube feeding (5) UTI (urinary tract infection): Qualifiers: Urinary tract infection type: acute cystitis Hematuria presence: without hematuria Qualified Code(s): N30.00 - Acute cystitis without hematuria Code(s): N39.0 - Urinary tract infection, site not specified Status: Acute Assessment and Plan: * as suggested by admission UA * urine culture with E.coli on 08/27. * repeat cultures negative * on cefepime (6) Diastolic heart failure: Qualifiers: Heart failure chronicity: acute on chronic Qualified Code(s): I50.33 - Acute on chronic diastolic (congestive) heart failure Code(s): I50.30 - Unspecified diastolic (congestive) heart failure Status: Chronic Assessment and Plan: * imaging with pulmonary edema * Echo Shows 64% ejection fraction and grade 2 diastolic dysfunction with moderate pulmonary hypertension. * on IV diuretics * follow respiratory status, I/Os, and daily weights * chest x-ray from today shows improving pulmonary edema. * Continue the Lasix For today and recheck labs tomorrow. (7) COPD (chronic obstructive pulmonary disease): Code(s): J44.9 - Chronic obstructive pulmonary disease, unspecified Status: Acute Assessment and Plan: * known history * on steroids and continue bronchodilators * IV diuretics for CHF changes (see #6) * follow respiratory status (8) Delirium: Code(s): R41.0 - Disorientation, unspecified Status: Acute Assessment and Plan:
--- NOTE | 2023-09-07 15:07 | PM.PNNEP ---
Progress Note: A&P Assessment and Plan (1) ADRIEL (acute kidney injury): Code(s): N17.9 - Acute kidney failure, unspecified Status: Acute Assessment and Plan: acute kidney injury likely secondary to sepsis and shock/hemodynamic instability however, contrast exposure with CT scan on 08/27 could have playing a role as well evaluation to date: no obstruction/anatomical issues with kidneys by CT imaging CPK okay urine electrolytes non-prerenal urine eosinophils negative proteinuria noted renal function is gradually better. Creatinine is close to baseline. Today it is 1.4. continue 40 mg of Lasix twice a day IV For another day. Repeat labs tomorrow and reassess dosage. (2) Chronic kidney disease, stage 3: Code(s): N18.30 - Chronic kidney disease, stage 3 unspecified Status: Chronic Assessment and Plan: baseline creatinine seems to run 1.0 - 1.4mg/dl this causes her to fluctuate between CKD stage 3A and stage 3B presumably secondary to hypertension, vascular disease, and age-related change (3) Septic shock: Code(s): A41.9 - Sepsis, unspecified organism; R65.21 - Severe sepsis with septic shock Status: Acute Assessment and Plan: thought to be secondary to colitis and UTI blood cultures on 09/02 are negative urine cultures 09/02 are negative on cefepime off vasopressor therapy (4) Colitis: Code(s): K52.9 - Noninfective gastroenteritis and colitis, unspecified Status: Acute Assessment and Plan: CT scan on 08/27 with Infectious, inflammatory, or ischemic colitis involving the distal transverse colon through the sigmoid. Slightly decreased, somewhat heterogeneous associated mucosal enhancement may increase the likelihood of an ischemic process Surgery following s/p exploratory laparotomy -- no evidence of ischemic or necrosis diarrhea appears to have resolved continue supportive therapy Tolerating tube feeding (5) UTI (urinary tract infection): Qualifiers: Urinary tract infection type: acute cystitis Hematuria presence: without hematuria Qualified Code(s): N30.00 - Acute cystitis without hematuria Code(s): N39.0 - Urinary tract infection, site not specified Status: Acute Assessment and Plan: as suggested by admission UA urine culture with E.coli on 08/27. repeat cultures negative on cefepime (6) Diastolic heart failure: Qualifiers: Heart failure chronicity: acute on chronic Qualified Code(s): I50.33 - Acute on chronic diastolic (congestive) heart failure Code(s): I50.30 - Unspecified diastolic (congestive) heart failure Status: Chronic Assessment and Plan: imaging with pulmonary edema Echo Shows 64% ejection fraction and grade 2 diastolic dysfunction with moderate pulmonary hypertension. on IV diuretics follow respiratory status, I/Os, and daily weights chest x-ray from today shows improving pulmonary edema. Continue the Lasix For today and recheck labs tomorrow. (7) COPD (chronic obstructive pulmonary disease): Code(s): J44.9 - Chronic obstructive pulmonary disease, unspecified Status: Acute Assessment and Plan: known history on steroids and continue bronchodilators IV diuretics for CHF changes (see #6) follow respiratory status (8) Delirium: Code(s): R41.0 - Disorientation, unspecified Status: Acute Assessment and Plan: clinically better was quite severe/significant since surgery soporific medications are on hold and she seems to be improving. Subjective Date/time seen: 09/07/23 15:07 Interval history: comfortable in bed. Seems to have better eye contact but still not very communicative. Exam Narrative: General: somewhat ill appearing elderly/frail female in NAD Heart: normal S1 and S2; no rub or gallop Lungs: symmetric and mi
[2023-09-07 16:28] LABS: Glucose Point of Care 247 mg/dl (65-105)
[2023-09-07 18:24] LABS: Glucose Point of Care 290 mg/dl (65-105)
[2023-09-07] MEDS: metroNIDAZOLE 500 MG/ISO 100ML 500 MG/100 ML BAG 200 MG IVPB (23:37)
[2023-09-07] MEDS: METOPROLOL TARTRATE INJ 5 MG/5 ML VIAL 2.5 MG IV PUSH (23:38)
[2023-09-08] VITALS (35 sets, daily range): BP systolic 120–152; BP diastolic 74–123; PULSE 64–147; RESP 20–40; TEMP 36.9–38.8; O2SAT 92–96
[2023-09-08 00:11] LABS: Glucose Point of Care 278 mg/dl (65-105)
[2023-09-08] MEDS: LEVALBUTEROL NEB 1.25 MG/3 ML INHALATION ×6 (00:59→20:46)
[2023-09-08] MEDS: IPRATROPIUM BR 0.02% INH SOLN 0.5 MG/2.5 ML VIAL INHALATION ×6 (00:59→20:46)
[2023-09-08] MEDS: METOPROLOL TARTRATE 50 MG TAB FEED TUBE ×3 (05:20→17:33)
[2023-09-08] MEDS: methylPREDNISolone SOD SUCC 40 MG VIAL 20 MG IV PUSH ×3 (05:20→17:33)
[2023-09-08 05:25] LABS: Hematocrit 33.2 % (37.0-47.0); Hemoglobin 9.8 g/dL (12.0-15.0); Mean Corpuscular HGB Conc 29.5 g/dl (32-36); Mean Corpuscular Hemoglobin 24.4 pg (26-34); Mean Corpuscular Volume 82.6 fl (80-100); Mean Platelet Volume 11.8 fl (7.4-10.4); Platelet Count Result 367 k/mm3 (150-375); Red Blood Count 4.02 M/mm3 (4.2-5.4); Red Cell Distribution Width 22.5 % (11.5-14.5); White Blood Count 22.7 K/mm3 (4.5-10.0)
[2023-09-08 05:47] LABS: Alanine Aminotransferase 56 U/L (6-35); Albumin Level 4.1 g/dL (3.5-5.1); Alkaline Phosphatase 167 U/L (38-126); Aspartate Amino Transferase 57 U/L (14-36); Bilirubin,Total 1.4 mg/dL (0.2-1.3); Blood Urea Nitrogen 105 mg/dL (7-17); Calcium 9.1 mg/dL (8.4-10.2); Carbon Dioxide > 40 mmol/L (22-30); Chloride 96 mmol/L (98-107); Estimated CRCL calculation 22 ml/min; Estimated Glomerular Filt Rate 37; Glucose 179 mg/dL (65-110); Magnesium 2.7 mg/dL (1.6-2.3); Phosphorus 3.7 mg/dL (2.5-4.5); Potassium 4.3 mmol/L (3.4-5.0); Sodium 145 mmol/L (137-145)
--- NOTE | 2023-09-08 08:04 | PM.PNCARD ---
Progress Note: A&P Assessment and Plan (1) Atrial fibrillation: Qualifiers: Atrial fibrillation type: unspecified Qualified Code(s): I48.91 - Unspecified atrial fibrillation Code(s): I48.91 - Unspecified atrial fibrillation Status: Acute Assessment and Plan: Rapid this morning. Likely worse when on Levophed. On Eliquis for anticoagulation. Off Levophed drip now. On Amiodarone 200 mg PO BID and on Metoprolol Tartate 50 mg PO every 6 hours with parameters for HR control. Start Digoxin 125 mcg IV Q12 HR to improve HR control. (2) Septic shock: Code(s): A41.9 - Sepsis, unspecified organism; R65.21 - Severe sepsis with septic shock Status: Acute Assessment and Plan: Resolved. On antibiotics. (3) Diastolic heart failure: Qualifiers: Heart failure chronicity: acute on chronic Qualified Code(s): I50.33 - Acute on chronic diastolic (congestive) heart failure Code(s): I50.30 - Unspecified diastolic (congestive) heart failure Status: Chronic Assessment and Plan: Acute on chronic diastolic heart failure likely from IVF to treat septic shock. 08/28/23 Echo: EF 64%, mild LVE, grade II diastolic dysfunction, mod LAE, mild MR/TR, RVSP 50 mmHg. Diurese with Lasix 40 mg IV BID today. CXR shows significant improvement in pulm edema. Decrease Lasix 40 mg IV daily. Subjective Date/time seen: 09/08/23 08:04 Interval history: She is lethargic not answering appropriately. Exam Const: General: cooperative and lethargic Orientation/consciousness: lethargic Resp: Auscultation: clear to auscultation bilaterally, no crackles, no rales, no rhonchi and wheezes Cardio: Rate: tachycardic Rhythm: abnormal rhythm Heart sounds: no murmurs Peripheral pulses: dorsalis pedis present Extrem: Right lower extremity: no edema Left lower extremity: no edema Objective Data Vital Signs Vital Signs: Vital Signs - 24 hr 09/07/23 08:40 09/07/23 08:40 09/07/23 08:50 Temperature Pulse Rate 120 H 120 H 123 H Respiratory Rate 24 H 24 H 24 H Blood Pressure Pulse Oximetry 96 Oxygen Delivery High Flow Therapy with Na Oxygen Flow Rate 40 Fraction of Inspired Oxygen 45 09/07/23 10:07 09/07/23 11:48 09/07/23 12:01 Temperature Pulse Rate 117 H 109 H 111 H Respiratory Rate 22 H 22 H Blood Pressure Pulse Oximetry Oxygen Delivery Oxygen Flow Rate Fraction of Inspired Oxygen 09/07/23 12:59 09/07/23 12:00 09/07/23 12:00 Temperature 98.0 F Pulse Rate 124 H 115 H Respiratory Rate 28 H Blood Pressure 163/79 H Pulse Oximetry 93 96 Oxygen Delivery High Flow Therapy with Na Oxygen Flow Rate 40 Fraction of Inspired Oxygen 45 09/07/23 10:00 09/07/23 12:00 09/07/23 16:25 Temperature Pulse Rate 130 H 117 H 123 H Respiratory Rate Blood Pressure Pulse Oximetry Oxygen Delivery Oxygen Flow Rate Fraction of Inspired Oxygen 09/07/23 16:39 09/07/23 18:35 09/07/23 14:00 Temperature Pulse Rate 120 H 106 H 108 H Respiratory Rate 22 H Blood Pressure Pulse Oximetry Oxygen Delivery Oxygen Flow Rate Fraction of Inspired Oxygen 09/07/23 16:00 09/07/23 18:00 09/07/23 16:00 Temperature 98.7 F Pulse Rate 115 H 118 H 114 H Respiratory Rate 24 H Blood Pressure 147/102 H Pulse Oximetry 99 Oxygen Delivery Oxygen Flow Rate Fraction of Inspired Oxygen 09/07/23 16:00 09/07/23 20:56 09/07/23 21:05 Temperature 98.6 F Pulse Rate 123 H 121 H Respiratory Rate 24 H 22 H Blood Pressure 160/84 H Pulse Oximetry 97 95 Oxygen Delivery High Flow Therapy with Na Oxygen Flow Rate 40 Fraction of Inspired Oxygen 45 09/07/23 21:21 09/07/23 21:12 09/07/23 20:00 Temperature Pulse Rate 121 H 122 H 112 H Respiratory Rate 24 H 22 H Blood Pressure Pulse Oximetry 96 Oxygen Delivery High Flow Therapy with Tr Oxygen Flow Rate 40 Fracti
[2023-09-08] MEDS: metroNIDAZOLE 500 MG/ISO 100ML 500 MG/100 ML BAG 200 MG IVPB ×2 (08:09→15:50)
[2023-09-08] MEDS: AMIODARONE HCL 200 MG TABLET PO ×2 (08:11→17:33)
[2023-09-08] MEDS: APIXABAN 2.5 MG TABLET PO ×2 (08:12→21:13)
[2023-09-08] MEDS: FUROSEMIDE INJ 40 MG/4 ML VIAL IV PUSH (08:12)
[2023-09-08] MEDS: PANTOPRAZOLE SODIUM IV 40 MG VIAL IV PUSH ×2 (08:13→21:13)
[2023-09-08] MEDS: amLODIPine BESYLATE 5 MG TABLET PO (08:13)
[2023-09-08] MEDS: CEFEPIME 1 GM/NS 50 ML 1 GM/50 ML BAG IVPB ×2 (08:17→21:13)
[2023-09-08] MEDS: BUDESONIDE RESPULE NEB 0.5 MG/2 ML AMP INHALATION ×2 (08:20→20:46)
[2023-09-08] MEDS: DIGOXIN INJ 250 MCG/ML 2 ML AMP (*BKC) 125 MCG IV PUSH ×2 (08:21→21:13)
--- NOTE | 2023-09-08 09:45 | P.PNNP_ITS ---
Progress Note: A&P Assessment and Plan (1) ADRIEL (acute kidney injury): Code(s): N17.9 - Acute kidney failure, unspecified Status: Acute Assessment and Plan: * relatively stability in creatinine * likely secondary to sepsis and shock/hemodynamic instability * however, contrast exposure with CT scan on 08/27 could have playing a role as well * evaluation to date: * no obstruction/anatomical issues with kidneys by CT imaging * CPK okay * urine electrolytes non-prerenal * urine eosinophils negative * proteinuria noted * maybe reaching limit of IV diuretics (rising CO2 + rising BUN) * follow trend of repeat labs and UOP (2) Chronic kidney disease, stage 3: Code(s): N18.30 - Chronic kidney disease, stage 3 unspecified Status: Chronic Assessment and Plan: * baseline creatinine seems to run 1.0 - 1.4mg/dl * this causes her to fluctuate between CKD stage 3A and stage 3B * presumably secondary to hypertension, vascular disease, and age-related change (3) Septic shock: Code(s): A41.9 - Sepsis, unspecified organism; R65.21 - Severe sepsis with septic shock Status: Acute Assessment and Plan: * resolving/reesolved * thought to be secondary to colitis and UTI * blood cultures on 09/02 are negative * urine cultures 09/02 are negative * on antibiotics * off vasopressor therapy (4) Colitis: Code(s): K52.9 - Noninfective gastroenteritis and colitis, unspecified Status: Acute Assessment and Plan: * CT scan on 08/27 with Infectious, inflammatory, or ischemic colitis involving the distal transverse colon through the sigmoid. Slightly decreased, somewhat heterogeneous associated mucosal enhancement may increase the likelihood of an ischemic process * Surgery following * s/p exploratory laparotomy -- no evidence of ischemic or necrosis * diarrhea appears to have resolved * tolerating tube feeds * continue supportive therapy (5) UTI (urinary tract infection): Qualifiers: Hematuria presence: without hematuria Urinary tract infection type: acute cystitis Qualified Code(s): N30.00 - Acute cystitis without hematuria Code(s): N39.0 - Urinary tract infection, site not specified Status: Acute Assessment and Plan: * as suggested by admission UA * urine culture with E.coli on 08/27. * repeat cultures negative (6) Diastolic heart failure: Qualifiers: Heart failure chronicity: acute on chronic Qualified Code(s): I50.33 - Acute on chronic diastolic (congestive) heart failure Code(s): I50.30 - Unspecified diastolic (congestive) heart failure Status: Chronic Assessment and Plan: * imaging with pulmonary edema * Echo shows 64% ejection fraction and grade 2 diastolic dysfunction with moderate pulmonary hypertension. * on IV diuretics * follow respiratory status, I/Os, and daily weights * chest x-ray from today shows improving pulmonary edema * on IV lasix (7) COPD (chronic obstructive pulmonary disease): Code(s): J44.9 - Chronic obstructive pulmonary disease, unspecified Status: Acute Assessment and Plan: * known history * on steroids and continue bronchodilators * IV diuretics for CHF changes (see #6) * follow respiratory status (8) Delirium: Code(s): R41.0 - Disorientation, unspecified Status: Acute Assessment and Plan: * slow improvement noted * was quite severe/significant since surgery * continue supportive therapy Not much els
--- NOTE | 2023-09-08 09:45 | PM.PNNEP ---
Progress Note: A&P Assessment and Plan (1) ADRIEL (acute kidney injury): Code(s): N17.9 - Acute kidney failure, unspecified Status: Acute Assessment and Plan: relatively stability in creatinine likely secondary to sepsis and shock/hemodynamic instability however, contrast exposure with CT scan on 08/27 could have playing a role as well evaluation to date: no obstruction/anatomical issues with kidneys by CT imaging CPK okay urine electrolytes non-prerenal urine eosinophils negative proteinuria noted maybe reaching limit of IV diuretics (rising CO2 + rising BUN) follow trend of repeat labs and UOP (2) Chronic kidney disease, stage 3: Code(s): N18.30 - Chronic kidney disease, stage 3 unspecified Status: Chronic Assessment and Plan: baseline creatinine seems to run 1.0 - 1.4mg/dl this causes her to fluctuate between CKD stage 3A and stage 3B presumably secondary to hypertension, vascular disease, and age-related change (3) Septic shock: Code(s): A41.9 - Sepsis, unspecified organism; R65.21 - Severe sepsis with septic shock Status: Acute Assessment and Plan: resolving/reesolved thought to be secondary to colitis and UTI blood cultures on 09/02 are negative urine cultures 09/02 are negative on antibiotics off vasopressor therapy (4) Colitis: Code(s): K52.9 - Noninfective gastroenteritis and colitis, unspecified Status: Acute Assessment and Plan: CT scan on 08/27 with Infectious, inflammatory, or ischemic colitis involving the distal transverse colon through the sigmoid. Slightly decreased, somewhat heterogeneous associated mucosal enhancement may increase the likelihood of an ischemic process Surgery following s/p exploratory laparotomy -- no evidence of ischemic or necrosis diarrhea appears to have resolved tolerating tube feeds continue supportive therapy (5) UTI (urinary tract infection): Qualifiers: Hematuria presence: without hematuria Urinary tract infection type: acute cystitis Qualified Code(s): N30.00 - Acute cystitis without hematuria Code(s): N39.0 - Urinary tract infection, site not specified Status: Acute Assessment and Plan: as suggested by admission UA urine culture with E.coli on 08/27. repeat cultures negative (6) Diastolic heart failure: Qualifiers: Heart failure chronicity: acute on chronic Qualified Code(s): I50.33 - Acute on chronic diastolic (congestive) heart failure Code(s): I50.30 - Unspecified diastolic (congestive) heart failure Status: Chronic Assessment and Plan: imaging with pulmonary edema Echo shows 64% ejection fraction and grade 2 diastolic dysfunction with moderate pulmonary hypertension. on IV diuretics follow respiratory status, I/Os, and daily weights chest x-ray from today shows improving pulmonary edema on IV lasix (7) COPD (chronic obstructive pulmonary disease): Code(s): J44.9 - Chronic obstructive pulmonary disease, unspecified Status: Acute Assessment and Plan: known history on steroids and continue bronchodilators IV diuretics for CHF changes (see #6) follow respiratory status (8) Delirium: Code(s): R41.0 - Disorientation, unspecified Status: Acute Assessment and Plan: slow improvement noted was quite severe/significant since surgery continue supportive therapy Not much else to add -- will continue to follow itermittently. Subjective Date/time seen: 09/08/23 09:45 Interval history: Follow-up for acute kidney injury/acute renal failure on chronic kidney disease. Mentation continues to fluctuate and limited communication noted; renal function relatively stable with diuretic therapy and IV lasix reduced to qday frequency; no apparent distress noted at the time of my visit. Exam Narrative: General: somewhat ill appearing e
[2023-09-08] MEDS: ACETAMINOPHEN 500 MG TABLET 1000 MG PO (12:33)
--- NOTE | 2023-09-08 13:43 | PM.IMPN ---
Progress Note: A&P Assessment and Plan (1) History of exploratory laparotomy: Code(s): Z98.890 - Other specified postprocedural states Status: Acute Assessment and Plan: Post-op delirium D/c all psychoactive meds 09/06/2023 09/06/2023 Hgb stable at 8.5, 09/07 9.7 Continue cefepime and metronidazole for colitis (2) Chronic kidney disease, stage 3: Code(s): N18.30 - Chronic kidney disease, stage 3 unspecified Status: Chronic Assessment and Plan: Creatinine improved at 1.3 on 09/06, 1.4 09/07 Stop sodium bicarb 09/06 as CO2 is over 40 (3) Esophagitis: Code(s): K20.90 - Esophagitis, unspecified without bleeding Status: Acute Assessment and Plan: No sign of bleeding (4) Septic shock: Code(s): A41.9 - Sepsis, unspecified organism; R65.21 - Severe sepsis with septic shock Status: Acute Assessment and Plan: Blood pressure stable, tachycardia tachypnea, fever 100.8, leukocytosis is scheduled worse Repeat blood culture X-ray shows possible bilateral basal infiltrate, suspecting aspiration pneumonia Patient is on cefepime, Flagyl, and vancomycin Repeat CT chest abdomen pelvis without contrast (5) ADRIEL (acute kidney injury): Code(s): N17.9 - Acute kidney failure, unspecified Status: Acute Assessment and Plan: Creatinine near baseline decrease lasix per airfield defence guard (6) Delirium: Code(s): R41.0 - Disorientation, unspecified Status: Acute Assessment and Plan: D/c all psychoactive drugs 09/06/2023 Patient is unresponsive today Possible acute encephalopathy due to sepsis Follow-up CT head without contrast (7) UTI (urinary tract infection): Qualifiers: Hematuria presence: without hematuria Urinary tract infection type: acute cystitis Qualified Code(s): N30.00 - Acute cystitis without hematuria Code(s): N39.0 - Urinary tract infection, site not specified Status: Acute Assessment and Plan: Continue cefepime (8) Colitis: Code(s): K52.9 - Noninfective gastroenteritis and colitis, unspecified Status: Acute Assessment and Plan: pt is on cefepime c diff negative 08/27 (9) Multifocal pneumonia: Code(s): J18.9 - Pneumonia, unspecified organism Status: Acute Assessment and Plan: Chest x-ray on September 07 shows bibasilar airspace opacities consistent with atelectasis versus pneumonia Leukocytosis getting worse Possible multifocal pneumonia I would vancomycin and Flagyl IV Follow-up procalcitonin Plan Patient condition is guarded, prognosis is poor Subjective Date/time seen: 09/08/23 13:43 Interval history: I saw exam patient and bedside, patient is somnolent, unable to answer questions, unable to follow command patient is on G-tube feeding. Leukocytosis is getting worse Exam Narrative: GEN: Ill-appearing, somnolent, tube feeding via nasogastric tube in place HEENT: PERRL, sclerae nonicteric, pharyngeal mucosa pink and intact NECK: No JVD, adenopathy, or thyromegaly CHEST: Coarse breath sounds bilaterally with no audible crackles anteriorly, tachypneic HEART: NL S1/S2, regular, no murmur, tachycardia ABDOMEN: BS+, mildly abdomen distended, nontender, no mass, no bruits, midline incision intact EXTREMITIES: No cyanosis, edema, or clubbing NEUROLOGIC: CN intact and symmetric to inspection. MUSCULOSKELETAL: Tone symmetric a but unable to assess strength due to inability to follow commands PSYCH: Confused not oriented x3, not arousable. Objective Data Vital Signs Vital Signs: Vital Signs - 24 hr 09/07/23 16:25 09/07/23 16:39 09/07/23 18:35 Temperature Pulse Rate 123 H 120 H 106 H Respiratory Rate 22 H Blood Pressure Pulse Oximetry Oxygen Delivery Oxygen Flow Rate Fraction of Inspired Oxygen 09/07/23 14:00 09/07/23 16:00 09/07/23 18:00 Temperature Pulse Rate 108 H 115 H 118 H Res
[2023-09-08] MEDS: BISACODYL 10 MG SUPPOSITORY RECTAL (14:38)
[2023-09-08 14:40] LABS: Procalcitonin 0.3 ng/mL
[2023-09-08] MEDS: VANCOMYCIN 1,000 MG/NS 250 ML 1,000 MG/250 ML BAG 250 MG IVPB (15:47)
--- NOTE | 2023-09-08 16:45 | PM.PNGS ---
Progress Note: A&P Assessment and Plan (1) History of exploratory laparotomy: Code(s): Z98.890 - Other specified postprocedural states Status: Acute Assessment and Plan: Continue routine postop care. Incision healing well. Tolerating tube feedings, still unable to perform bedside swallow due to mental status. Febrile today and WBC trending up, she had CT head, chest, abdomen, pelvis ordered. Plan I have discussed the patient's case and plan of care with Dr. Paiz. Subjective Subjective Date/Time Seen: 09/08/23 16:45 Patient reports: fever Interval history: Patient in IMU still with delirium and unable to answer any questions for me. No family at the bedside. Febrile today and tachycardic still. Sent for mai scan today. Review of Systems Review of Systems: ROS unobtainable: Yes unobtainable due to mental status Exam Const: General: ill appearing Orientation/consciousness: lethargic GI: Inspection: non-distended and incision (dry and healing well) GI Palp: Yes Soft to palpation and No Tenderness to palpation present (GI) Auscultation: normal bowel sounds Objective Data Vital Signs Vital Signs: Vital Signs - 24 hr 09/07/23 18:35 09/07/23 18:00 09/07/23 20:56 Temperature 98.6 F Pulse Rate 106 H 118 H 123 H Respiratory Rate 24 H Blood Pressure 160/84 H Pulse Oximetry 95 Oxygen Delivery Oxygen Flow Rate Fraction of Inspired Oxygen 09/07/23 21:05 09/07/23 21:21 09/07/23 21:12 Temperature Pulse Rate 121 H 121 H 122 H Respiratory Rate 22 H 24 H 22 H Blood Pressure Pulse Oximetry 96 Oxygen Delivery High Flow Therapy with Tr Oxygen Flow Rate 40 Fraction of Inspired Oxygen 45 09/07/23 20:00 09/07/23 20:00 09/07/23 22:00 Temperature Pulse Rate 112 H 113 H Respiratory Rate Blood Pressure Pulse Oximetry 93 Oxygen Delivery High Flow Therapy with Na Oxygen Flow Rate 40 Fraction of Inspired Oxygen 45 09/07/23 23:36 09/07/23 23:37 09/07/23 23:38 Temperature 98.4 F Pulse Rate 122 H 127 H 127 H Respiratory Rate 28 H Blood Pressure 152/106 H Pulse Oximetry 96 Oxygen Delivery Oxygen Flow Rate Fraction of Inspired Oxygen 09/08/23 00:00 09/08/23 00:00 09/08/23 00:58 Temperature Pulse Rate 117 H 121 H Respiratory Rate 21 H Blood Pressure Pulse Oximetry 94 Oxygen Delivery High Flow Therapy with Na Oxygen Flow Rate 40 Fraction of Inspired Oxygen 45 09/08/23 01:06 09/08/23 00:00 09/08/23 02:00 Temperature Pulse Rate 121 H 122 H 126 H Respiratory Rate 20 Blood Pressure Pulse Oximetry Oxygen Delivery Oxygen Flow Rate Fraction of Inspired Oxygen 09/08/23 04:00 09/08/23 04:00 09/08/23 05:20 Temperature Pulse Rate 129 H 127 H Respiratory Rate Blood Pressure Pulse Oximetry 93 Oxygen Delivery High Flow Therapy with Na Oxygen Flow Rate 40 Fraction of Inspired Oxygen 45 09/08/23 04:56 09/08/23 04:57 09/08/23 05:04 Temperature 98.6 F Pulse Rate 127 H 128 H 140 H Respiratory Rate 24 H 20 20 Blood Pressure 152/104 H Pulse Oximetry 93 Oxygen Delivery Oxygen Flow Rate Fraction of Inspired Oxygen 09/08/23 06:00 09/08/23 07:52 09/08/23 08:11 Temperature 98.4 F Pulse Rate 116 H 64 128 H Respiratory Rate 38 H Blood Pressure 149/105 H Pulse Oximetry 96 Oxygen Delivery Oxygen Flow Rate Fraction of Inspired Oxygen 09/08/23 08:21 09/08/23 08:25 09/08/23 08:25 Temperature Pulse Rate 131 H 147 H 147 H Respiratory Rate 24 H 24 H Blood Pressure Pulse Oximetry 95 Oxygen Delivery High Flow Therapy with Na Oxygen Flow Rate 40 Fraction of Inspired Oxygen 45 09/08/23 08:42 09/08/23 11:55 09/08/23 12:34 Temperature 100.8 F H Pulse Rate 114 H 119 H 123 H Respiratory Rate 24 H 40 H 20 Blood Pressure 152/123 H Pulse Oximetry 95 Oxygen Delivery Oxygen Flow Rate Fraction of Inspi
[2023-09-08 17:40] LABS: Glucose Point of Care 235 mg/dl (65-105)
[2023-09-08] MEDS: INSULIN ASPART (*BKC) 100 UNITS/ML SUB-Q (17:51)
[2023-09-09] VITALS (46 sets, daily range): BP systolic 55–134; BP diastolic 42–82; PULSE 78–124; RESP 18–36; TEMP 37.6–38.8; O2SAT 92–100
[2023-09-09] LABS: Glucose Point of Care 223 mg/dl (65-105)
[2023-09-09] MEDS: IPRATROPIUM BR 0.02% INH SOLN 0.5 MG/2.5 ML VIAL INHALATION ×6 (00:03→20:17)
[2023-09-09] MEDS: LEVALBUTEROL NEB 1.25 MG/3 ML INHALATION ×6 (00:03→20:16)
[2023-09-09] MEDS: INSULIN ASPART (*BKC) 100 UNITS/ML SUB-Q (00:04)
[2023-09-09] MEDS: methylPREDNISolone SOD SUCC 40 MG VIAL 20 MG IV PUSH ×4 (00:04→23:49)
[2023-09-09] MEDS: metroNIDAZOLE 500 MG/ISO 100ML 500 MG/100 ML BAG 200 MG IVPB ×2 (00:04→09:47)
[2023-09-09] MEDS: METOPROLOL TARTRATE 50 MG TAB FEED TUBE ×2 (00:04→06:01)
[2023-09-09 03:31] LABS: MRSA (PCR) NOT DETECTED (NOT DETECTE)
[2023-09-09 05:32] LABS: Hematocrit 36.7 % (37.0-47.0); Hemoglobin 10.4 g/dL (12.0-15.0); Mean Corpuscular HGB Conc 28.3 g/dl (32-36); Mean Corpuscular Hemoglobin 24.9 pg (26-34); Mean Platelet Volume 12.4 fl (7.4-10.4); Platelet Count Result 296 k/mm3 (150-375); Red Blood Count 4.17 M/mm3 (4.2-5.4); Red Cell Distribution Width 24.1 % (11.5-14.5); White Blood Count 23.7 K/mm3 (4.5-10.0)
[2023-09-09 05:37] LABS: Alanine Aminotransferase 52 U/L (6-35); Albumin Level 3.6 g/dL (3.5-5.1); Alkaline Phosphatase 168 U/L (38-126); Aspartate Amino Transferase 52 U/L (14-36); Bilirubin,Total 1.1 mg/dL (0.2-1.3); Blood Urea Nitrogen 97 mg/dL (7-17); Calcium 8.1 mg/dL (8.4-10.2); Carbon Dioxide > 40 mmol/L (22-30); Chloride 103 mmol/L (98-107); Estimated CRCL calculation 17 ml/min; Estimated Glomerular Filt Rate 29; Glucose 147 mg/dL (65-110); Magnesium 2.6 mg/dL (1.6-2.3); Potassium 3.8 mmol/L (3.4-5.0); Sodium 157 mmol/L (137-145)
[2023-09-09] MEDS: ACETAMINOPHEN 500 MG TABLET 1000 MG PO ×3 (06:06→14:48)
--- NOTE | 2023-09-09 07:33 | PM.PNCARD ---
Progress Note: A&P Assessment and Plan (1) Atrial fibrillation: Qualifiers: Atrial fibrillation type: unspecified Qualified Code(s): I48.91 - Unspecified atrial fibrillation Code(s): I48.91 - Unspecified atrial fibrillation Status: Acute Assessment and Plan: Rapid this morning. Likely worse when on Levophed. On Eliquis for anticoagulation. Off Levophed drip now. On Amiodarone 200 mg PO BID and on Metoprolol Tartate 50 mg PO every 6 hours with parameters for HR control. Decrease Digoxin 125 mcg IV daily as HR is improved. (2) Septic shock: Code(s): A41.9 - Sepsis, unspecified organism; R65.21 - Severe sepsis with septic shock Status: Acute Assessment and Plan: Resolved. On antibiotics. She has fever and elevated WBC. Poor prognosis. (3) Diastolic heart failure: Qualifiers: Heart failure chronicity: acute on chronic Qualified Code(s): I50.33 - Acute on chronic diastolic (congestive) heart failure Code(s): I50.30 - Unspecified diastolic (congestive) heart failure Status: Chronic Assessment and Plan: Acute on chronic diastolic heart failure likely from IVF to treat septic shock. 08/28/23 Echo: EF 64%, mild LVE, grade II diastolic dysfunction, mod LAE, mild MR/TR, RVSP 50 mmHg. CXR shows significant improvement in pulm edema. Was on Lasix 40 mg IV daily. Hold Lasix as she appears euvolemic and sodium increased 157, BUN 97/Cr 1.7. Subjective Date/time seen: 09/09/23 07:33 Interval history: She is lethargic not answering appropriately. Exam Const: General: lethargic Orientation/consciousness: lethargic Resp: Auscultation: clear to auscultation bilaterally, no crackles, no rales, no rhonchi, wheezes and diminished lung sounds Cardio: Rate: tachycardic Rhythm: abnormal rhythm Heart sounds: no murmurs Peripheral pulses: dorsalis pedis present Extrem: Right lower extremity: no edema Left lower extremity: no edema Objective Data Vital Signs Vital Signs: Vital Signs - 24 hr 09/08/23 07:52 09/08/23 08:11 09/08/23 08:21 Temperature 98.4 F Pulse Rate 64 128 H 131 H Respiratory Rate 38 H Blood Pressure 149/105 H Pulse Oximetry 96 Oxygen Delivery Oxygen Flow Rate Fraction of Inspired Oxygen 09/08/23 08:25 09/08/23 08:25 09/08/23 08:42 Temperature Pulse Rate 147 H 147 H 114 H Respiratory Rate 24 H 24 H 24 H Blood Pressure Pulse Oximetry 95 Oxygen Delivery High Flow Therapy with Na Oxygen Flow Rate 40 Fraction of Inspired Oxygen 45 09/08/23 11:55 09/08/23 12:34 09/08/23 12:36 Temperature 100.8 F H Pulse Rate 119 H 123 H 116 H Respiratory Rate 40 H 20 Blood Pressure 152/123 H Pulse Oximetry 95 Oxygen Delivery Oxygen Flow Rate Fraction of Inspired Oxygen 09/08/23 12:00 09/08/23 16:53 09/08/23 17:33 Temperature 100.8 F H Pulse Rate 118 H 128 H 116 H Respiratory Rate 40 H 28 H Blood Pressure 152/123 H Pulse Oximetry 95 Oxygen Delivery Oxygen Flow Rate Fraction of Inspired Oxygen 09/08/23 17:33 09/08/23 16:00 09/08/23 20:11 Temperature 98.8 F 99.5 F Pulse Rate 116 H 115 H 113 H Respiratory Rate 22 H 28 H Blood Pressure 120/96 H 126/74 Pulse Oximetry 94 95 Oxygen Delivery Oxygen Flow Rate Fraction of Inspired Oxygen 09/08/23 08:50 09/08/23 08:50 09/08/23 20:46 Temperature Pulse Rate 138 H 115 H Respiratory Rate 28 H 24 H Blood Pressure Pulse Oximetry 92 Oxygen Delivery High Flow Therapy with Na Oxygen Flow Rate 40 Fraction of Inspired Oxygen 45 09/08/23 20:48 09/08/23 10:00 09/08/23 12:00 Temperature Pulse Rate 115 H 121 H Respiratory Rate 23 H 28 H Blood Pressure Pulse Oximetry 95 94 Oxygen Delivery High Flow Therapy with Na High Flow Therapy with Na Oxygen Flow Rate 40 40 Fraction of Inspired Oxygen 45 45 09/08/23 16:00 09/08/23 08:30 09/08/23 12:00 Temperature P
[2023-09-09] MEDS: PANTOPRAZOLE SODIUM IV 40 MG VIAL IV PUSH ×2 (09:19→20:27)
[2023-09-09] MEDS: CEFEPIME 1 GM/NS 50 ML 1 GM/50 ML BAG IVPB (09:19)
[2023-09-09] MEDS: BUDESONIDE RESPULE NEB 0.5 MG/2 ML AMP INHALATION ×2 (09:24→20:17)
[2023-09-09] MEDS: APIXABAN 2.5 MG TABLET PO ×2 (09:43→20:27)
[2023-09-09] MEDS: amLODIPine BESYLATE 5 MG TABLET PO (09:43)
[2023-09-09] MEDS: AMIODARONE HCL 200 MG TABLET PO ×2 (09:43→16:51)
[2023-09-09] MEDS: DIGOXIN INJ 250 MCG/ML 2 ML AMP (*BKC) 125 MCG IV PUSH (09:43)
--- NOTE | 2023-09-09 10:32 | P.PNIM_ITS ---
Progress Note: A&P Assessment and Plan (1) History of exploratory laparotomy: Code(s): Z98.890 - Other specified postprocedural states Status: Acute Assessment and Plan: * Post-op delirium * D/c all psychoactive meds 09/06/2023 * 09/06/2023 Hgb stable at 8.5, 09/07 9.7 * Continue cefepime and metronidazole for colitis (2) Chronic kidney disease, stage 3: Code(s): N18.30 - Chronic kidney disease, stage 3 unspecified Status: Chronic Assessment and Plan: * Creatinine improved at 1.3 on 09/06, 1.4 09/07 * Stop sodium bicarb 09/06 as CO2 is over 40 (3) Esophagitis: Code(s): K20.90 - Esophagitis, unspecified without bleeding Status: Acute Assessment and Plan: * No sign of bleeding (4) Septic shock: Code(s): A41.9 - Sepsis, unspecified organism; R65.21 - Severe sepsis with septic shock Status: Acute Assessment and Plan: * Blood pressure stable, tachycardia tachypnea, fever 100.8, leukocytosis is scheduled worse * Repeat blood culture * X-ray shows possible bilateral basal infiltrate, suspecting aspiration pneumonia Patient is on cefepime, Flagyl, and vancomycin Repeat CT chest abdomen pelvis without contrast (5) ADRIEL (acute kidney injury): Code(s): N17.9 - Acute kidney failure, unspecified Status: Acute Assessment and Plan: * Creatinine near baseline * decrease lasix per printed circuit boards beveler (6) Delirium: Code(s): R41.0 - Disorientation, unspecified Status: Acute Assessment and Plan: * D/c all psychoactive drugs 09/06/2023 * Patient is unresponsive today Possible acute encephalopathy due to sepsis, hypoxemia, electrolyte disorders Follow-up CT head without contrast without intracranial issues (7) UTI (urinary tract infection): Qualifiers: Hematuria presence: without hematuria Urinary tract infection type: acute cystitis Qualified Code(s): N30.00 - Acute cystitis without hematuria Code(s): N39.0 - Urinary tract infection, site not specified Status: Acute Assessment and Plan: * Continue cefepime and vancomycin Flagyl (8) Colitis: Code(s): K52.9 - Noninfective gastroenteritis and colitis, unspecified Status: Acute Assessment and Plan: pt is on cefepime c diff negative 08/27 (9) Multifocal pneumonia: Code(s): J18.9 - Pneumonia, unspecified organism Status: Acute Assessment and Plan: Chest x-ray on September 07 shows bibasilar airspace opacities consistent with atelectasis versus pneumonia Leukocytosis getting worse Possible multifocal pneumonia added vancomycin and Flagyl IV to cefepime Follow-up procalcitonin (10) Acute respiratory failure with hypoxia and hypercapnia: Code(s): J96.01 - Acute respiratory failure with hypoxia; J96.02 - Acute respiratory failure with hypercapnia Status: Acute (11) Hypernatremia: Code(s): E87.0 - Hyperosmolality and hypernatremia Status: Acute Plan Acute on chronic respiratory failure ABG shows hypoxemia and hypercapnia CT chest shows small bilateral pleural effusion, compressive atelectasis is in bilateral lower lobe Patient is confused Consult poultry husbandman Transferred ICU for close monitoring, and treatment ADRIEL on CKD, hyponatremia Stop furosemide per printed circuit boards beveler, start heart normal saline 100 mL/hour per poultry husbandman Panel Wirer and printed circuit boards beveler on board, management per Nephrology, printed circuit boards beveler, poultry husbandman Subjective Date/time seen: 09/09/23 10:32
--- NOTE | 2023-09-09 10:32 | PM.IMPN ---
Progress Note: A&P Assessment and Plan (1) History of exploratory laparotomy: Code(s): Z98.890 - Other specified postprocedural states Status: Acute Assessment and Plan: Post-op delirium D/c all psychoactive meds 09/06/2023 09/06/2023 Hgb stable at 8.5, 09/07 9.7 Continue cefepime and metronidazole for colitis (2) Chronic kidney disease, stage 3: Code(s): N18.30 - Chronic kidney disease, stage 3 unspecified Status: Chronic Assessment and Plan: Creatinine improved at 1.3 on 09/06, 1.4 09/07 Stop sodium bicarb 09/06 as CO2 is over 40 (3) Esophagitis: Code(s): K20.90 - Esophagitis, unspecified without bleeding Status: Acute Assessment and Plan: No sign of bleeding (4) Septic shock: Code(s): A41.9 - Sepsis, unspecified organism; R65.21 - Severe sepsis with septic shock Status: Acute Assessment and Plan: Blood pressure stable, tachycardia tachypnea, fever 100.8, leukocytosis is scheduled worse Repeat blood culture X-ray shows possible bilateral basal infiltrate, suspecting aspiration pneumonia Patient is on cefepime, Flagyl, and vancomycin Repeat CT chest abdomen pelvis without contrast (5) ADRIEL (acute kidney injury): Code(s): N17.9 - Acute kidney failure, unspecified Status: Acute Assessment and Plan: Creatinine near baseline decrease lasix per automation tender (6) Delirium: Code(s): R41.0 - Disorientation, unspecified Status: Acute Assessment and Plan: D/c all psychoactive drugs 09/06/2023 Patient is unresponsive today Possible acute encephalopathy due to sepsis, hypoxemia, electrolyte disorders Follow-up CT head without contrast without intracranial issues (7) UTI (urinary tract infection): Qualifiers: Hematuria presence: without hematuria Urinary tract infection type: acute cystitis Qualified Code(s): N30.00 - Acute cystitis without hematuria Code(s): N39.0 - Urinary tract infection, site not specified Status: Acute Assessment and Plan: Continue cefepime and vancomycin Flagyl (8) Colitis: Code(s): K52.9 - Noninfective gastroenteritis and colitis, unspecified Status: Acute Assessment and Plan: pt is on cefepime c diff negative 08/27 (9) Multifocal pneumonia: Code(s): J18.9 - Pneumonia, unspecified organism Status: Acute Assessment and Plan: Chest x-ray on September 07 shows bibasilar airspace opacities consistent with atelectasis versus pneumonia Leukocytosis getting worse Possible multifocal pneumonia added vancomycin and Flagyl IV to cefepime Follow-up procalcitonin (10) Acute respiratory failure with hypoxia and hypercapnia: Code(s): J96.01 - Acute respiratory failure with hypoxia; J96.02 - Acute respiratory failure with hypercapnia Status: Acute (11) Hypernatremia: Code(s): E87.0 - Hyperosmolality and hypernatremia Status: Acute Plan Acute on chronic respiratory failure ABG shows hypoxemia and hypercapnia CT chest shows small bilateral pleural effusion, compressive atelectasis is in bilateral lower lobe Patient is confused Consult heart coordinator Transferred ICU for close monitoring, and treatment ADRIEL on CKD, hyponatremia Stop furosemide per automation tender, start heart normal saline 100 mL/hour per heart coordinator [employer] Supervisor and automation tender on board, management per Nephrology, automation tender, heart coordinator Subjective Date/time seen: 09/09/23 10:32 Interval history: I saw exam patient today, patient is confused, unable to follow command, arousable. Patient has fever over the night 101.9-101. Patient has been having on cefepime Flagyl and was started vancomycin yesterday. Urine culture blood culture pending. CT head shows no acute intracranial issue, CT abdomen pelvis shows no abscess. Patient is on levothyroxine on for 2 L oxygen, labs reviewed Exam Narrative: GEN: Ill-appearing
[2023-09-09 11:10] LABS: Alveolar/Arterial O2 Gradient 196.5 mmHg; Base Excess ABG 17.2 mEq/l (+/-2.0); Fractional Inspired Oxygen 45 %; HCO3 ABG 43.2 mEq/l (22.0-26.0); Oxygen Content ABG 13.6 %vol (16.0-22.0); Oxygen Saturation ABG 91.1 % (95.0-100.0); Oxyhemoglobin 89.1 % THb (90.0-100.0); PCO2 ABG 58.6 mmHg (35.0-45.0); PO2 ABG 57.7 mmHg (80.0-100.0); PO2 FiO2 Ratio Arterial Blood 1.28 %; Total Hemoglobin 10.8 g/dL (12.0-18.0); pH ABG 7.485 (7.350-7.450)
[2023-09-09 11:11] LABS: Device HIGH FLOW THERAPY; Modified Allen's Test Pass; Site Drawn LEFT RADIAL
[2023-09-09 11:27] LABS: Basophils Absolute Auto 0.1 K/mm3 (0.0-0.1); Basophils Percent Auto 0.6 % (0.2-1.2); Hematocrit 35.5 % (37.0-47.0); Hemoglobin 9.9 g/dL (12.0-15.0); Immature Granulocyte Absolute 1.01 K/mm3 (0.00-0.031); Immature Granulocyte Percent A 4.3 % (0-0.5); Lymphocytes Absolute Auto 0.32 K/mm3 (0.9-3.2); Lymphocytes Percent Auto 1.4 % (18.3-44.2); Mean Corpuscular HGB Conc 27.9 g/dl (32-36); Mean Corpuscular Hemoglobin 24.9 pg (26-34); Mean Corpuscular Volume 89.2 fl (80-100); Mean Platelet Volume 12.9 fl (7.4-10.4); Monocytes Percent Auto 12.9 % (2.6-8.5); Neutrophils Percent Auto 80.8 % (45.5-73.1); Nucleated Red Blood Cells Absolute Auto 1.8 K/mm3 (0.0-0.012); Nucleated Red Blood Cells Perc 7.8 % (0.0-0.2); Platelet Count Result 301 k/mm3 (150-375); Red Blood Count 3.98 M/mm3 (4.2-5.4); Red Cell Distribution Width 24.4 % (11.5-14.5); White Blood Count 23.5 K/mm3 (4.5-10.0)
[2023-09-09 11:40] LABS: Alanine Aminotransferase 46 U/L (6-35); Albumin Level 3.5 g/dL (3.5-5.1); Alkaline Phosphatase 145 U/L (38-126); Aspartate Amino Transferase 68 U/L (14-36); Bilirubin,Total 1.5 mg/dL (0.2-1.3); Blood Urea Nitrogen 97 mg/dL (7-17); Calcium 7.7 mg/dL (8.4-10.2); Carbon Dioxide > 40 mmol/L (22-30); Chloride 106 mmol/L (98-107); Estimated CRCL calculation 19 ml/min; Estimated Glomerular Filt Rate 34; Glucose 200 mg/dL (65-110); Potassium 4.3 mmol/L (3.4-5.0); Sodium 154 mmol/L (137-145)
[2023-09-09] MEDS: ETOMIDATE 20 MG/10 ML AMPUL 12 MG IV PUSH (12:24)
[2023-09-09] MEDS: ROCURONIUM BROMIDE 50 MG/5 ML VIAL IV PUSH (12:25)
[2023-09-09] MEDS: SODIUM CHLORIDE 0.9% IV 1,000 ML 999 ML IV CONT (12:30)
[2023-09-09] MEDS: NOREPINEPHRINE 8 MG/D5W 250 ML 8 MG/250 ML BAG 9.38 MG IV CONT (12:40)
[2023-09-09 12:50] LABS: Anisocytosis 1+ (NORMAL); Hypochromasia 1+ (NORMAL); Platelet Estimate Adequate (Adequate); Target Cells 1+ (NORMAL)
[2023-09-09 12:51] LABS: Schistocytes None Seen (NORMAL)
[2023-09-09 12:57] LABS: Appearance Urine Clear (Clear); Bacteria Urine None Seen /hpf; Bilirubin Urine Negative (Negative); Blood Urine 2+ (Negative); Color Urine Dark Yellow (Yellow); Glucose Urine UA Negative (Negative); Ketones Urine Negative (Negative); Leukocyte Esterase Ur Negative LEU/UL (Negative); Nitrate Urine Negative (Negative); Protein Urine 3+ mg/dL (Negative); RBC Urine 0-2 /hpf (0-2); Specific Grav Ur 1.019 (1.001-1.035); Squamous Epithelial Cell Urine Occasional /hpf (Few); Urobilinogen Urine 0.2 mg/dL (<2.0); WBC Urine 0-5 /hpf; pH Urine 6.5 (5.0-9.0)
[2023-09-09 12:58] LABS: Add Urine Microscopic? YES
--- NOTE | 2023-09-09 13:05 | PCDIET ---
Pt just transferred from IMU back to ICU.
[2023-09-09 13:20] LABS: Amphetamine Screen Urine Negative (Negative); Benzodiazepines Screen Urine Negative (Negative); Cannabinoid Screen Urine Negative (Negative); Cocaine Screen Urine Negative (Negative); Methadone Screen Urine Negative (Negative); Opiate Screen Urine Negative (Negative); Phencyclidine Screen Urine Negative (Negative)
--- NOTE | 2023-09-09 13:21 | PC.NURSE ---
Addendum entered by Coty Bernstein RN 09/09/23 13:22: Pt received at 1215 Original Note: This patient, Mamie Kelley, was received from [[id number] ] on 09/09/23 at 12. Patient/family oriented to unit policies and routines. Kaycee dtr/POMitch, notified of pt being moved back to ICU. Pt to be intubated to protect her airway.
[2023-09-09 13:25] LABS: Barbiturate Screen Urine Negative (Negative)
[2023-09-09] MEDS: CENTRAL LINE FLUSH 10 ML IV PUSH ×2 (13:40→20:28)
[2023-09-09 13:41] LABS: Base Excess ABG 15.5 mEq/l (+/-2.0); Carboxyhemoglobin 0.3 % THb (0-2.0); Fractional Inspired Oxygen 100 %; HCO3 ABG 42.8 mEq/l (22.0-26.0); Methemoglobin ABG 0.3 %THb (0-1.5); Oxygen Content ABG 14.2 %vol (16.0-22.0); Oxygen Saturation ABG 99.5 % (95.0-100.0); Oxyhemoglobin 97.7 % THb (90.0-100.0); PO2 ABG 248.5 mmHg (80.0-100.0); PO2 FiO2 Ratio Arterial Blood 2.48 %; Reduced Hemoglobin 1.7 %THb (0-5.0); Total Hemoglobin 9.9 g/dL (12.0-18.0); pH ABG 7.401 (7.350-7.450)
[2023-09-09 13:44] LABS: Device VENTILATOR; PCO2 ABG 70.5 mmHg (35.0-45.0); Site Drawn RIGHT BRACHIAL
[2023-09-09 13:45] LABS: Arterial Blood Gas PEEP 5 cmH2O; Arterial Blood Gas Tidal Volume 300 ml; Arterial Blood Gas Vent Mode CMV; Arterial Blood Gas Ventilator rate 22 /MIN
[2023-09-09] MEDS: MIDAZOLAM 100MG/NS 100ML(*CRX) 100 MG/100 ML BAG IV CONT (13:50)
[2023-09-09] MEDS: FENTANYL 2,500MCG/NS250ML(*CRX 2,500 MCG/250 ML BAG IV CONT (13:51)
[2023-09-09 13:55] LABS: Glucose Point of Care 170 mg/dl (65-105)
[2023-09-09] MEDS: MEROPENEM 500 MG in SODIUM CHLORIDE 0.9% IV 100 ML 200 ML IVPB ×2 (13:55→23:50)
--- NOTE | 2023-09-09 14:13 | WPDPROCEDUR ---
Procedures Intubation Intubation Date: 09/09/23 Intubation Time: 12:28 Consent: discussed with patient's daughter Kaycee over the phone and it her with patient's condition and plan of care. She consented to intubation and mechanical ventilation A pre-procedural Time-Out was completed immediately before starting the procedure and confirmed: Patient Identification, Site, Procedure, Patient Position and the Availability of Requisite Equipment: Yes Sedative: etomidate Paralytic: rocuronium Laryngoscope: fiber optic video scope Assist device used: fiber optic device ET tube size: 7.5 Tube secured depth (cm): 22 Tube secured location: lips Tube placement confirmation: visualized tube passing through cords, equal breath sounds bilaterally, no breath sounds over epigastrium and confirmation by capnometry Patient tolerated procedure: well Intubation complications: none Additional comments: patient had thick secretions which were difficult to suction covering the vocal cords. Had to scrape off this thick secretions with the suction Yanker after which I was able to visualize the vocal cords
--- NOTE | 2023-09-09 14:21 | WPDINTPN ---
Progress Note: A&P Assessment and Plan (1) Respiratory failure: Code(s): J96.90 - Respiratory failure, unspecified, unspecified whether with hypoxia or hypercapnia Status: Acute Assessment and Plan: 09/09: acute respiratory failure likely related to hypoxia and hypercapnia. patient was also unresponsive and obtunded. decision was made to intubate the patient and place on mechanical ventilation for airway protection -09/09: uneventful intubation - continue CMV mode of ventilation, peep of 5, 100% FiO2 - low tidal volume strategy - continue bronchodilators - add Pulmozyme - sedated with fentanyl and Versed infusion, maintain RASS of 0 to -2, daily sedation vacation (2) Septic shock: Code(s): A41.9 - Sepsis, unspecified organism; R65.21 - Severe sepsis with septic shock Status: Acute Assessment and Plan: 08/28: initial admission septic shock secondary to colitis and UTI - patient was on vasopressin and Levophed which were turned off, patient was also on stress dose steroids -08/27: Urine cultures growing E coli -08/27: Blood cultures negative till now -08/27; Stool C diff was negative - completed a 10 day course of cefepime and Flagyl for total of 10 days 09/02: WBC count has increased significantly, afebrile, will check blood and urine culture. This could be related to the Solu-Medrol. Will continue to monitor 09/02: Blood culture negative x2 09/02: Urine culture negative 09/09: patient has been spiking fevers with a T-max of 101.9? since 09/08/202309/08: 09/08: CT scan of the chest, abdomen, pelvis: Showed small bilateral pleural effusions with dependent compressive atelectasis in bilateral lower lobes, mild emphysema, borderline heart size with biatrial enlargement, small amount of ascites in the abdomen and pelvis 09/08: CT brain with no acute intracranial abnormality - 09/08: blood cultures have been ordered and pending -09/09: UA is negative -09/09: switched cefepime and Flagyl to meropenem and vancomycin (3) Delirium: Code(s): R41.0 - Disorientation, unspecified Status: Acute Assessment and Plan: Since surgery patient has had significant delirium, agitation, encephalopathy which has been very difficult to manage. -on Precedex infusion. -continue morphine for abdominal pain. She has been requiring frequent dosing of Ativan for her own safety. -continue bedside sitter and is physically restrained with mittens despite that patient managed to pull her NG tube and Bond out 08/30 night. -replace NG and Bond placed . -Continue Seroquel 50 mg per tube q.12 hours -off Precedex infusion -started patient on scheduled Xanax -09/02: discussed with patient's daughter, she stated that patient has had delirium when she is admitted to the hospital for up to a week. -Dr. Salazar had long discussion with patient's daughter and explained her the situation reasoning behind using physical restraints and medications like Precedex morphine and Ativan in the situation. She did admitted that patient had similar delirium for many days when she was admitted at [facility] and receive sedatives for cardioversion. 09/02: CT scan of the brain: For unequal pupils IMPRESSION: 1. 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 No acute intracranial process. 2. Age-related changes including mild diffuse volume loss and mild scattered white matter hypoattenuation consistent with chronic small vessel ischemic disease (4) Colitis: Code(s): K52.9 - Noninfective gastroenteritis and colitis, unspecified Status: Acute Assessment and Plan: 08/27 CT scan in the ER showed Questionable mild wall thickening of large bowel, as above. Correlate for infectious/inflammatory colitis. Ischemic bowel less likely, but not definitively excluded -Patient was admitted with diagnosis of colitis likely is infectious versus ischemic -08/27 [place]
[2023-09-09] MEDS: DORNASE ALFA INH SOLN 1 MG/ML 2.5 ML AMP 2.5 MG INHALATION ×2 (14:30→20:17)
[2023-09-09] MEDS: LEVALBUTEROL NEB 1.25 MG/3 ML (14:32)
[2023-09-09] MEDS: IPRATROPIUM BR 0.02% INH SOLN 0.5 MG/2.5 ML VIAL (14:32)
[2023-09-09] MEDS: SODIUM CHLORIDE 0.45% 1,000 ML 100 ML IV CONT (15:04)
[2023-09-09] MEDS: BISACODYL 10 MG SUPPOSITORY RECTAL (15:04)
[2023-09-09 15:52] LABS: Influenza A QL RT-PCR Negative (Negative); Influenza B QL RT-PCR Negative (Negative); SARS-CoV-2 RNA PCR Negative (Negative)
--- NOTE | 2023-09-09 15:57 | PM.PNGS ---
Progress Note: A&P Assessment and Plan (1) History of exploratory laparotomy: Code(s): Z98.890 - Other specified postprocedural states Status: Acute Assessment and Plan: Continue routine postop care. Incision healing well. Tube feedings held for intubation. Discussed with Piano Mechanic Apprentice who may restart tomorrow. Will try to stimulate her bowels with dulcolax supp now and start Miralax. Patient still having fevers and now intubated in the ICU for respiratory failure, this is not related to her surgery, management per primary service and Piano Mechanic Apprentice. Plan I have discussed the patient's case and plan of care with Dr. Paiz. Subjective Subjective Date/Time Seen: 09/09/23 14:57 Post Op day: 12 Interval history: Patient transferred to ICU today for respiratory failure and was intubated. Her WBC remains elevated and she has been febrile since yesterday. CT scan of the chest, abdomen, pelvis showed small bilateral pleural effusions with dependent compressive atelectasis in bilateral lower lobes, mild emphysema, small amount of ascites in the abdomen and pelvis. CT head negative. Her tube feedings were held for intubation. In review of her chart, there are no documented BMs since her surgery and nursing reports not recent BMs that they are aware of. Review of Systems Review of Systems: ROS unobtainable: Yes unobtainable due to endotracheal tube Exam Const: General: ill appearing Orientation/consciousness: patient obtunded GI: Inspection: incision (incision dry and intact, no erythema) GI Palp: Yes Soft to palpation and No Guarding due to palpation present (GI) Auscultation: normal bowel sounds Objective Data Vital Signs Vital Signs: Vital Signs - 24 hr 09/08/23 16:53 09/08/23 17:33 09/08/23 17:33 Temperature Pulse Rate 128 H 116 H 116 H Respiratory Rate 28 H Blood Pressure Pulse Oximetry Oxygen Delivery Oxygen Flow Rate Fraction of Inspired Oxygen 09/08/23 16:00 09/08/23 20:11 09/08/23 20:46 Temperature 98.8 F 99.5 F Pulse Rate 115 H 113 H 115 H Respiratory Rate 22 H 28 H 24 H Blood Pressure 120/96 H 126/74 Pulse Oximetry 94 95 Oxygen Delivery Oxygen Flow Rate Fraction of Inspired Oxygen 09/08/23 20:48 09/08/23 16:00 09/08/23 16:00 Temperature Pulse Rate 115 H 136 H Respiratory Rate 23 H Blood Pressure Pulse Oximetry 95 95 Oxygen Delivery High Flow Therapy with Na High Flow Therapy with Na Oxygen Flow Rate 40 40 Fraction of Inspired Oxygen 45 45 09/08/23 18:00 09/08/23 21:13 09/08/23 20:00 Temperature Pulse Rate 118 H 119 H 101 H Respiratory Rate Blood Pressure Pulse Oximetry Oxygen Delivery Oxygen Flow Rate Fraction of Inspired Oxygen 09/08/23 20:00 09/08/23 22:00 09/08/23 23:36 Temperature 101.9 F H Pulse Rate 102 H 103 H Respiratory Rate 22 H Blood Pressure 124/75 Pulse Oximetry 95 95 Oxygen Delivery High Flow Therapy with Na Oxygen Flow Rate 40 Fraction of Inspired Oxygen 45 09/08/23 21:15 09/09/23 00:04 09/09/23 00:07 Temperature Pulse Rate 120 H 102 H 124 H Respiratory Rate 25 H 22 H Blood Pressure Pulse Oximetry Oxygen Delivery Oxygen Flow Rate Fraction of Inspired Oxygen 09/09/23 00:00 09/09/23 00:00 09/09/23 00:19 Temperature Pulse Rate 112 H 122 H Respiratory Rate 24 H Blood Pressure Pulse Oximetry 95 Oxygen Delivery High Flow Therapy with Na Oxygen Flow Rate 40 Fraction of Inspired Oxygen 45 09/09/23 02:00 09/09/23 04:00 09/09/23 04:00 Temperature Pulse Rate 100 99 Respiratory Rate Blood Pressure Pulse Oximetry 94 Oxygen Delivery High Flow Therapy with Na Oxygen Flow Rate 40 Fraction of Inspired Oxygen 45 09/09/23 04:43 09/09/23 04:00 09/09/23 04:47 Temperature 101 F H Pulse Rate 101 H 104 H 108 H Respiratory Rate 24 H 18 24 H Blood Pressure 134/82 Pulse Oximetry 94 96 Oxygen De
--- NOTE | 2023-09-09 16:29 | P.PNNP_ITS ---
Progress Note: A&P Assessment and Plan (1) ADRIEL (acute kidney injury): Code(s): N17.9 - Acute kidney failure, unspecified Status: Acute Assessment and Plan: * creatinine up a bit today * initial insult secondary to sepsis and shock/hemodynamic instability * however, contrast exposure with CT scan on 08/27 could have playing a role as well * however, recent rise in creatinine felt to be due to diuretics/volume d epletion * previous evaluation to date on this admission: * no obstruction/anatomical issues with kidneys by CT imaging * CPK okay * urine electrolytes non-prerenal * urine eosinophils negative * proteinuria noted * agree with holding diuretics * started on IVF resuscitation * follow trend of repeat labs and UOP (2) Chronic kidney disease, stage 3: Code(s): N18.30 - Chronic kidney disease, stage 3 unspecified Status: Chronic Assessment and Plan: * baseline creatinine seems to run 1.0 - 1.4mg/dl * this causes her to fluctuate between CKD stage 3A and stage 3B * presumably secondary to hypertension, vascular disease, and age-related change (3) Acute respiratory failure with hypoxia and hypercapnia: Code(s): J96.01 - Acute respiratory failure with hypoxia; J96.02 - Acute respiratory fail ure with hypercapnia Status: Acute Assessment and Plan: * secondary to worsening hypoxia and hypercapnea * intubated and on mechanical ventilation * complicated by known history of COPD * continue steroids and bronchodilators * follow respiratory status (4) Hypernatremia: Code(s): E87.0 - Hyperosmolality and hypernatremia Status: Acute Assessment and Plan: * due to overdiuresis * diuretics on hold * IVF resuscitation in progress * follow trend of repeat sodiums (5) Septic shock: Code(s): A41.9 - Sepsis, unspecified organism; R65.21 - Severe sepsis with septic shock Status: Acute Assessment and Plan: * had resolved * thought to be secondary to colitis and UTI * blood and urine cultures negative * but still having on/off fevers * on IV antibiotics * back on low dose vasopressor therapy (6) Colitis: Code(s): K52.9 - Noninfective gastroenteritis and colitis, unspecified Status: Acute Assessment and Plan: * CT scan on 08/27 with infectious, inflammatory, or ischemic colitis involving the distal transverse colon through the sigmoid. Slightly decreased, somewhat heterogeneous associated mucosal enhancement may increase the likelihood of an ischemic process * Surgery following * s/p exploratory laparotomy -- no evidence of ischemic or necrosis * diarrhea appears to have resolved * to likely restart tube feeds * continue supportive therapy (7) Diastolic heart failure: Qualifiers: Heart failure chronicity: acute on chronic Qualified Code(s): I50.33 - Acute on chronic diastolic (congestive) heart failure Code(s): I50.30 - Unspecified diastolic (congestive) heart failure Status: Chronic Assessment and Plan: * appears compensated at this time * Echo shows 64% ejection fraction and grade 2 diastolic dysfunction with moderate pulmonary hypertension. * was on IV diuretics -- currently on hold * follow volume status Discussed case with Dr. Sanchez earlier today. Will continue to follow. Subjective Date/time seen: 09/09/23 16:29 Interval history: Follow-up for acute kidney injury/acute renal failure on chronic kidney disease. Transferred
--- NOTE | 2023-09-09 16:29 | PM.PNNEP ---
Progress Note: A&P Assessment and Plan (1) ADRIEL (acute kidney injury): Code(s): N17.9 - Acute kidney failure, unspecified Status: Acute Assessment and Plan: creatinine up a bit today initial insult secondary to sepsis and shock/hemodynamic instability however, contrast exposure with CT scan on 08/27 could have playing a role as well however, recent rise in creatinine felt to be due to diuretics/volume depletion previous evaluation to date on this admission: no obstruction/anatomical issues with kidneys by CT imaging CPK okay urine electrolytes non-prerenal urine eosinophils negative proteinuria noted agree with holding diuretics started on IVF resuscitation follow trend of repeat labs and UOP (2) Chronic kidney disease, stage 3: Code(s): N18.30 - Chronic kidney disease, stage 3 unspecified Status: Chronic Assessment and Plan: baseline creatinine seems to run 1.0 - 1.4mg/dl this causes her to fluctuate between CKD stage 3A and stage 3B presumably secondary to hypertension, vascular disease, and age-related change (3) Acute respiratory failure with hypoxia and hypercapnia: Code(s): J96.01 - Acute respiratory failure with hypoxia; J96.02 - Acute respiratory failure with hypercapnia Status: Acute Assessment and Plan: secondary to worsening hypoxia and hypercapnea intubated and on mechanical ventilation complicated by known history of COPD continue steroids and bronchodilators follow respiratory status (4) Hypernatremia: Code(s): E87.0 - Hyperosmolality and hypernatremia Status: Acute Assessment and Plan: due to overdiuresis diuretics on hold IVF resuscitation in progress follow trend of repeat sodiums (5) Septic shock: Code(s): A41.9 - Sepsis, unspecified organism; R65.21 - Severe sepsis with septic shock Status: Acute Assessment and Plan: had resolved thought to be secondary to colitis and UTI blood and urine cultures negative but still having on/off fevers on IV antibiotics back on low dose vasopressor therapy (6) Colitis: Code(s): K52.9 - Noninfective gastroenteritis and colitis, unspecified Status: Acute Assessment and Plan: CT scan on 08/27 with infectious, inflammatory, or ischemic colitis involving the distal transverse colon through the sigmoid. Slightly decreased, somewhat heterogeneous associated mucosal enhancement may increase the likelihood of an ischemic process Surgery following s/p exploratory laparotomy -- no evidence of ischemic or necrosis diarrhea appears to have resolved to likely restart tube feeds continue supportive therapy (7) Diastolic heart failure: Qualifiers: Heart failure chronicity: acute on chronic Qualified Code(s): I50.33 - Acute on chronic diastolic (congestive) heart failure Code(s): I50.30 - Unspecified diastolic (congestive) heart failure Status: Chronic Assessment and Plan: appears compensated at this time Echo shows 64% ejection fraction and grade 2 diastolic dysfunction with moderate pulmonary hypertension. was on IV diuretics -- currently on hold follow volume status Discussed case with Dr. Sanchez earlier today. Will continue to follow. Subjective Date/time seen: 09/09/23 16:29 Interval history: Follow-up for acute kidney injury/acute renal failure on chronic kidney disease. Transferred back to ICU after patient noted to be hypoxic with worsening mental status in association with fever; labs noted for worsening hypernatremia and CO2 > 40; subsequently intubated and placed on mechanical ventilation; IVFs being given due to suspcicion for overdiuresis/volume depletion; remains hemodynamically stable. Exam Narrative: General: somewhat ill appearing elderly/frail female intubated and on mechanical ventilation Heart: normal S1 and S2; no rub Lungs:
[2023-09-09 18:04] LABS: Glucose Point of Care 175 mg/dl (65-105)
[2023-09-09] MEDS: MINERAL OIL/WHITE PETROLATUM OINTMENT 1 APPLIC EACH EYE (20:27)
[2023-09-09 20:34] LABS: Alveolar/Arterial O2 Gradient 264.5 mmHg; Fractional Inspired Oxygen 55 %; HCO3 ABG 38.3 mEq/l (22.0-26.0); Oxygen Content ABG 13.5 %vol (16.0-22.0); Oxygen Saturation ABG 94.4 % (95.0-100.0); Oxyhemoglobin 92.7 % THb (90.0-100.0); PCO2 ABG 53.4 mmHg (35.0-45.0); PO2 ABG 68.2 mmHg (80.0-100.0); PO2 FiO2 Ratio Arterial Blood 1.24 %; Total Hemoglobin 10.3 g/dL (12.0-18.0); pH ABG 7.474 (7.350-7.450)
[2023-09-09 20:35] LABS: Device VENTILATOR; Modified Allen's Test Pass; Site Drawn LEFT RADIAL
[2023-09-09 20:36] LABS: Arterial Blood Gas PEEP 5 cmH2O; Arterial Blood Gas Tidal Volume 300 ml; Arterial Blood Gas Vent Mode CMV; Arterial Blood Gas Ventilator rate 24 /MIN
[2023-09-09 21:00] LABS: Blood Urea Nitrogen 86 mg/dL (7-17); Calcium 7.1 mg/dL (8.4-10.2); Carbon Dioxide > 40 mmol/L (22-30); Chloride 108 mmol/L (98-107); Estimated CRCL calculation 18 ml/min; Estimated Glomerular Filt Rate 32; Glucose 184 mg/dL (65-110); Sodium 152 mmol/L (137-145)
--- NOTE | 2023-09-09 21:16 | PC.NURSE ---
Notified Dr. Sanchez of current ABG and BMP results. No new orders at this time as values have improved.
[2023-09-09 23:31] LABS: IFOB Positive Control Positive; Immunochemical Fecal Occult Bl Positive (N)
[2023-09-09 23:35] LABS: Glucose Point of Care 168 mg/dl (65-105)
[2023-09-10] VITALS (55 sets, daily range): BP systolic 81–114; BP diastolic 50–74; PULSE 80–96; RESP 20–24; TEMP 37.1–37.7; O2SAT 96–100
[2023-09-10] MEDS: LEVALBUTEROL NEB 1.25 MG/3 ML INHALATION ×4 (01:53→20:56)
[2023-09-10] MEDS: IPRATROPIUM BR 0.02% INH SOLN 0.5 MG/2.5 ML VIAL INHALATION ×4 (01:53→20:56)
[2023-09-10] MEDS: VANCOMYCIN 1,000 MG/NS 250 ML 1,000 MG/250 ML BAG 250 MG IVPB (02:35)
--- NOTE | 2023-09-10 04:56 | PC.NURSE ---
At 0400 assessment, pt's pupils were noted to be unequal. Right pupil remains fixed and dilated. Left pupil is smaller than the right and sluggish but reactive to light. Pt's neuro status has remained otherwise unchanged. Pt does not follow commands or open her eyes. Dr. Sanchez notified. Order for STAT brain CT without contrast. Currently awaiting CT results.
[2023-09-10] MEDS: CENTRAL LINE FLUSH 10 ML IV PUSH ×3 (05:22→20:27)
[2023-09-10 05:31] LABS: Alveolar/Arterial O2 Gradient 271.4 mmHg; Base Excess ABG 12.8 mEq/l (+/-2.0); Carboxyhemoglobin 0.3 % THb (0-2.0); Fractional Inspired Oxygen 55 %; HCO3 ABG 37.8 mEq/l (22.0-26.0); Methemoglobin ABG 0.2 %THb (0-1.5); Oxygen Content ABG 13.1 %vol (16.0-22.0); Oxygen Saturation ABG 93.5 % (95.0-100.0); PCO2 ABG 51.2 mmHg (35.0-45.0); PO2 ABG 63.8 mmHg (80.0-100.0); PO2 FiO2 Ratio Arterial Blood 1.16 %; Reduced Hemoglobin 8.5 %THb (0-5.0); Total Hemoglobin 10.2 g/dL (12.0-18.0); pH ABG 7.486 (7.350-7.450)
[2023-09-10 05:32] LABS: Arterial Blood Gas PEEP 5 cmH2O; Arterial Blood Gas Tidal Volume 300 ml; Arterial Blood Gas Vent Mode CMV; Arterial Blood Gas Ventilator rate 24 /MIN; Device VENTILATOR; Modified Allen's Test Pass; Site Drawn LEFT RADIAL
[2023-09-10 05:36] LABS: Basophils Percent Auto 0.2 % (0.2-1.2); Immature Granulocyte Absolute 0.37 K/mm3 (0.00-0.031); Immature Granulocyte Percent A 2.1 % (0-0.5); Lymphocytes Absolute Auto 0.13 K/mm3 (0.9-3.2); Lymphocytes Percent Auto 0.7 % (18.3-44.2); Mean Corpuscular HGB Conc 28.1 g/dl (32-36); Mean Corpuscular Hemoglobin 24.9 pg (26-34); Mean Corpuscular Volume 88.6 fl (80-100); Mean Platelet Volume 11.9 fl (7.4-10.4); Monocytes Percent Auto 5.4 % (2.6-8.5); Neutrophils Absolute Auto 16.5 K/mm3 (1.3-6.7); Neutrophils Percent Auto 91.6 % (45.5-73.1); Nucleated Red Blood Cells Absolute Auto 0.7 K/mm3 (0.0-0.012); Nucleated Red Blood Cells Perc 3.7 % (0.0-0.2); Platelet Count Result 200 k/mm3 (150-375); Red Blood Count 3.61 M/mm3 (4.2-5.4); Red Cell Distribution Width 24.4 % (11.5-14.5)
[2023-09-10 05:46] LABS: Lactic Acid Reflex 1.6 mmol/L (0.7-2.0)
[2023-09-10 05:47] LABS: INR 1.5; Prothrombin Time 18.9 Seconds (11.1-14.7)
[2023-09-10 05:48] LABS: Partial Thromboplastin Time 31.6 SECONDS (22.3-36.8)
[2023-09-10 05:49] LABS: Alanine Aminotransferase 41 U/L (6-35); Albumin Level 2.8 g/dL (3.5-5.1); Alkaline Phosphatase 124 U/L (38-126); Aspartate Amino Transferase 38 U/L (14-36); Blood Urea Nitrogen 78 mg/dL (7-17); Calcium 7.1 mg/dL (8.4-10.2); Carbon Dioxide > 40 mmol/L (22-30); Chloride 110 mmol/L (98-107); Estimated CRCL calculation 20 ml/min; Estimated Glomerular Filt Rate 37; Glucose 182 mg/dL (65-110); Lipase 1407 U/L (23-300); Magnesium 2.4 mg/dL (1.6-2.3); Phosphorus 4.2 mg/dL (2.5-4.5); Potassium 3.7 mmol/L (3.4-5.0); Sodium 153 mmol/L (137-145)
--- NOTE | 2023-09-10 07:58 | PM.PNCARD ---
Progress Note: A&P Assessment and Plan (1) Atrial fibrillation: Qualifiers: Atrial fibrillation type: unspecified Qualified Code(s): I48.91 - Unspecified atrial fibrillation Code(s): I48.91 - Unspecified atrial fibrillation Status: Acute Assessment and Plan: Stable. Likely worse when on Levophed. On Eliquis for anticoagulation. Off Levophed drip now. On Amiodarone 200 mg PO BID. Metoprolol on hold as she is on Levophed drip. On Digoxin 125 mcg IV daily for HR control. (2) Septic shock: Code(s): A41.9 - Sepsis, unspecified organism; R65.21 - Severe sepsis with septic shock Status: Acute Assessment and Plan: Resolved. On antibiotics. She has fever and elevated WBC. Poor prognosis. (3) Diastolic heart failure: Qualifiers: Heart failure chronicity: acute on chronic Qualified Code(s): I50.33 - Acute on chronic diastolic (congestive) heart failure Code(s): I50.30 - Unspecified diastolic (congestive) heart failure Status: Chronic Assessment and Plan: Acute on chronic diastolic heart failure likely from IVF to treat septic shock. 08/28/23 Echo: EF 64%, mild LVE, grade II diastolic dysfunction, mod LAE, mild MR/TR, RVSP 50 mmHg. CXR shows significant improvement in pulm edema. Subjective Date/time seen: 09/10/23 07:58 Interval history: She got intubated due to respiratory failure yesterday, on mechanical ventilation. On Levophed drip. Exam Const: Other: Intubated on mechanical ventilation. Resp: Auscultation: clear to auscultation bilaterally, no crackles, no rales, no rhonchi, wheezes and diminished lung sounds Cardio: Rate: regular rate Rhythm: abnormal rhythm Heart sounds: no murmurs Peripheral pulses: dorsalis pedis present Extrem: Right lower extremity: no edema Left lower extremity: no edema Objective Data Vital Signs Vital Signs: Vital Signs - 24 hr 09/09/23 08:00 09/09/23 09:43 09/09/23 09:43 Temperature 99.6 F Pulse Rate 101 H 88 103 H Respiratory Rate 22 H Blood Pressure 123/62 Pulse Oximetry 94 Oxygen Delivery Oxygen Flow Rate Fraction of Inspired Oxygen 09/09/23 09:24 09/09/23 09:24 09/09/23 09:43 Temperature Pulse Rate 96 96 97 Respiratory Rate 25 H 30 H 36 H Blood Pressure Pulse Oximetry 93 Oxygen Delivery High Flow Therapy with Na Oxygen Flow Rate 40 Fraction of Inspired Oxygen 45 09/09/23 11:18 09/09/23 11:30 09/09/23 12:30 Temperature Pulse Rate 90 94 99 Respiratory Rate 30 H 32 H Blood Pressure Pulse Oximetry 97 Oxygen Delivery Mechanical Ventilation Oxygen Flow Rate Fraction of Inspired Oxygen 100 09/09/23 12:40 09/09/23 13:03 09/09/23 08:00 Temperature Pulse Rate Respiratory Rate Blood Pressure 55/42 L 116/72 Pulse Oximetry 93 Oxygen Delivery High Flow Therapy with Na Oxygen Flow Rate 40 Fraction of Inspired Oxygen 45 09/09/23 12:00 09/09/23 08:00 09/09/23 13:30 Temperature Pulse Rate 98 Respiratory Rate Blood Pressure 115/78 Pulse Oximetry 92 Oxygen Delivery High Flow Therapy with Na Oxygen Flow Rate 40 Fraction of Inspired Oxygen 45 09/09/23 13:41 09/09/23 13:50 09/09/23 13:51 Temperature Pulse Rate 84 84 Respiratory Rate 24 H 24 H Blood Pressure 118/74 Pulse Oximetry Oxygen Delivery Oxygen Flow Rate Fraction of Inspired Oxygen 09/09/23 13:15 09/09/23 13:45 09/09/23 10:00 Temperature Pulse Rate 82 99 Respiratory Rate Blood Pressure Pulse Oximetry 100 Oxygen Delivery Mechanical Ventilation Mechanical Ventilation Oxygen Flow Rate Fraction of Inspired Oxygen 100 55 09/09/23 12:00 09/09/23 12:30 09/09/23 12:30 Temperature Pulse Rate 98 Respiratory Rate Blood Pressure Pulse Oximetry 100 Oxygen Delivery Mechanical Ventilation Oxygen Flow Rate Fraction of Inspired Oxygen 100 100 09/09/23
[2023-09-10 08:00] LABS: Platelet Estimate Adequate (Adequate)
[2023-09-10 08:01] LABS: Anisocytosis 1+ (NORMAL); Schistocytes None Seen (NORMAL); Target Cells 2+ (NORMAL)
--- NOTE | 2023-09-10 08:15 | PC.NURSE ---
Dr. Sanchez at bedside as RN is assessing pt. RN unable to doppler pedal pulse on right foot or right tibia. Dr. Sanchez also unable to doppler pedal and tibia pulse. MD & RN able to palpate popiteal pulse on R leg. New order for Ankle Brachial Index.
[2023-09-10] MEDS: AMIODARONE HCL 200 MG TABLET PO ×2 (08:25→16:33)
[2023-09-10] MEDS: APIXABAN 2.5 MG TABLET PO ×2 (08:25→20:27)
[2023-09-10] MEDS: PANTOPRAZOLE SODIUM IV 40 MG VIAL IV PUSH ×2 (08:26→20:27)
[2023-09-10] MEDS: MINERAL OIL/WHITE PETROLATUM OINTMENT 1 APPLIC EACH EYE ×2 (08:26→20:27)
[2023-09-10] MEDS: polyethylene glycoL 3350 17 GM POWD.PACK PO (08:26)
[2023-09-10] MEDS: DIGOXIN INJ 250 MCG/ML 2 ML AMP (*BKC) 125 MCG IV PUSH (08:26)
[2023-09-10] MEDS: SODIUM CHLORIDE 0.45% 1,000 ML 75 ML IV CONT ×2 (08:40→21:48)
[2023-09-10] MEDS: BUDESONIDE RESPULE NEB 0.5 MG/2 ML AMP INHALATION ×2 (08:46→20:57)
--- NOTE | 2023-09-10 09:11 | WPDINTPN ---
Progress Note: A&P Assessment and Plan (1) Respiratory failure: Code(s): J96.90 - Respiratory failure, unspecified, unspecified whether with hypoxia or hypercapnia Status: Acute Assessment and Plan: 09/09: acute respiratory failure likely related to hypoxia and hypercapnia. patient was also unresponsive and obtunded. decision was made to intubate the patient and place on mechanical ventilation for airway protection -09/09: uneventful intubation - continue CMV mode of ventilation, peep of 5, 55% FiO2 -ABGs reviewed, ventilator adjusted - low tidal volume strategy - continue bronchodilators -continue Pulmozyme as patient had thick secretions during intubation, covering for vocal cords - sedated with fentanyl and Versed infusion, maintain RASS of 0 to -2, daily sedation vacation (2) Septic shock: Code(s): A41.9 - Sepsis, unspecified organism; R65.21 - Severe sepsis with septic shock Status: Acute Assessment and Plan: 08/28: initial admission septic shock secondary to colitis and UTI - patient was on vasopressin and Levophed which were turned off, patient was also on stress dose steroids -08/27: Urine cultures growing E coli -08/27: Blood cultures negative till now -08/27; Stool C diff was negative - completed a 10 day course of cefepime and Flagyl for total of 10 days 09/02: WBC count has increased significantly, afebrile, will check blood and urine culture. This could be related to the Solu-Medrol. Will continue to monitor 09/02: Blood culture negative x2 09/02: Urine culture negative 09/09: patient has been spiking fevers with a T-max of 101.9? since 09/08/202309/08: 09/08: CT scan of the chest, abdomen, pelvis: Showed small bilateral pleural effusions with dependent compressive atelectasis in bilateral lower lobes, mild emphysema, borderline heart size with biatrial enlargement, small amount of ascites in the abdomen and pelvis 09/08: CT brain with no acute intracranial abnormality - 09/08: blood cultures -pneumonia results in negative -09/09: Sputum cultures are pending -09/09: UA is negative -09/09: Started on meropenem and vancomycin 09/09: Discontinue cefepime and Flagyl (3) Delirium: Code(s): R41.0 - Disorientation, unspecified Status: Acute Assessment and Plan: Since surgery patient has had significant delirium, agitation, encephalopathy which has been very difficult to manage. -on Precedex infusion. -continue Tylenol for pain. -08/31: replace Ra -09/02: discussed with patient's daughter, she stated that patient has had delirium when she is admitted to the hospital for up to a week. -Dr. Salazar had long discussion with patient's daughter and explained her the situation reasoning behind using physical restraints and medications like Precedex morphine and Ativan in the situation. She did admitted that patient had similar delirium for many days when she was admitted at [facility] and receive sedatives for cardioversion. 09/02: CT scan of the brain: For unequal pupils IMPRESSION: 1. 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 No acute intracranial process. 2. Age-related changes including mild diffuse volume loss and mild scattered white matter hypoattenuation consistent with chronic small vessel ischemic disease 09/09: CT scan of the brain for unequal pupils IMPRESSION No intracranial hemorrhage, mass, or acute infarct. Chronic right basal ganglia lacunar infarct. Atrophy and chronic white matter changes, as above. (4) Colitis: Code(s): K52.9 - Noninfective gastroenteritis and colitis, unspecified Status: Acute Assessment and Plan: 08/27 CT scan in the ER showed Questionable mild wall thickening of large bowel, as above. Correlate for infectious/inflammatory colitis. Ischemic bowel less likely, but not definitively excluded -Patient was admitted with diagnosis of coli
--- NOTE | 2023-09-10 09:45 | P.PNNP_ITS ---
Progress Note: A&P Assessment and Plan (1) ADRIEL (acute kidney injury): Code(s): N17.9 - Acute kidney failure, unspecified Status: Acute Assessment and Plan: * creatinine improving * initial insult secondary to sepsis and shock/hemodynamic instability * however, contrast exposure with CT scan on 08/27 could have playing a role as well * however, more recent rise in creatinine (as noted on 09/09/23) felt to be due to diuretics/volume depletion * previous evaluation to date on this admission: * no obstruction/anatomical issues with kidneys by CT imaging * CPK okay * urine electrolytes non-prerenal * urine eosinophils negative * proteinuria noted * agree with holding diuretics * on IVF resuscitation * follow trend of repeat labs and UOP (2) Chronic kidney disease, stage 3: Code(s): N18.30 - Chronic kidney disease, stage 3 unspecified Status: Chronic Assessment and Plan: * baseline creatinine seems to run 1.0 - 1.4mg/dl * this causes her to fluctuate between CKD stage 3A and stage 3B * presumably secondary to hypertension, vascular disease, and age-related change (3) Acute respiratory failure with hypoxia and hypercapnia: Code(s): J96.01 - Acute respiratory failure with hypoxia; J96.02 - Acute respiratory failure with hypercapnia Status: Acute Assessment and Plan: * secondary to worsening hypoxia and hypercapnia along with failure to protect airway * intubated and on mechanical ventilation * complicated by known history of COPD * continue steroids and bronchodilators * follow respiratory status * wean as tolerated (4) Hypernatremia: Code(s): E87.0 - Hyperosmolality and hypernatremia Status: Acute Assessment and Plan: * due to overdiuresis * diuretics on hold * IVF resuscitation as noted * once tube feeds intiated, start free water flushes * follow trend of repeat sodiums (5) Septic shock: Code(s): A41.9 - Sepsis, unspecified organism; R65.21 - Severe sepsis with septic shock Status: Acute Assessment and Plan: * had resolved * thought to be secondary to colitis and UTI * blood and urine cultures negative - repeat cultures in progress * but still having on/off fevers * on IV antibiotics * on low dose vasopressor therapy (6) Colitis: Code(s): K52.9 - Noninfective gastroenteritis and colitis, unspecified Status: Acute Assessment and Plan: * CT scan on 08/27 with infectious, inflammatory, or ischemic colitis involving the distal transverse colon through the sigmoid. Slightly decreased, somewhat heterogeneous associated mucosal enhancement may increase the likelihood of an ischemic process * Surgery following * s/p exploratory laparotomy -- no evidence of ischemic or necrosis * diarrhea appears to have resolved * to likely restart tube feeds * continue supportive therapy (7) Diastolic heart failure: Qualifiers: Heart failure chronicity: acute on chronic Qualified Code(s): I50.33 - Acute on chronic diastolic (congestive) heart failure Code(s): I50.30 - Unspecified diastolic (congestive) heart failure Status: Chronic Assessment and Plan: * appears compensated at this time * Echo shows 64% ejection fraction and grade 2 diastolic dysfunction with moderate pulmonary hypertension. * was on IV diuretics -- currently on hold * follow volume status Will continue to follow. Subjective Date/time seen: 09/10/23 09:45 Interval history:
--- NOTE | 2023-09-10 09:45 | PM.PNNEP ---
Progress Note: A&P Assessment and Plan (1) ADRIEL (acute kidney injury): Code(s): N17.9 - Acute kidney failure, unspecified Status: Acute Assessment and Plan: creatinine improving initial insult secondary to sepsis and shock/hemodynamic instability however, contrast exposure with CT scan on 08/27 could have playing a role as well however, more recent rise in creatinine (as noted on 09/09/23) felt to be due to diuretics/volume depletion previous evaluation to date on this admission: no obstruction/anatomical issues with kidneys by CT imaging CPK okay urine electrolytes non-prerenal urine eosinophils negative proteinuria noted agree with holding diuretics on IVF resuscitation follow trend of repeat labs and UOP (2) Chronic kidney disease, stage 3: Code(s): N18.30 - Chronic kidney disease, stage 3 unspecified Status: Chronic Assessment and Plan: baseline creatinine seems to run 1.0 - 1.4mg/dl this causes her to fluctuate between CKD stage 3A and stage 3B presumably secondary to hypertension, vascular disease, and age-related change (3) Acute respiratory failure with hypoxia and hypercapnia: Code(s): J96.01 - Acute respiratory failure with hypoxia; J96.02 - Acute respiratory failure with hypercapnia Status: Acute Assessment and Plan: secondary to worsening hypoxia and hypercapnia along with failure to protect airway intubated and on mechanical ventilation complicated by known history of COPD continue steroids and bronchodilators follow respiratory status wean as tolerated (4) Hypernatremia: Code(s): E87.0 - Hyperosmolality and hypernatremia Status: Acute Assessment and Plan: due to overdiuresis diuretics on hold IVF resuscitation as noted once tube feeds intiated, start free water flushes follow trend of repeat sodiums (5) Septic shock: Code(s): A41.9 - Sepsis, unspecified organism; R65.21 - Severe sepsis with septic shock Status: Acute Assessment and Plan: had resolved thought to be secondary to colitis and UTI blood and urine cultures negative - repeat cultures in progress but still having on/off fevers on IV antibiotics on low dose vasopressor therapy (6) Colitis: Code(s): K52.9 - Noninfective gastroenteritis and colitis, unspecified Status: Acute Assessment and Plan: CT scan on 08/27 with infectious, inflammatory, or ischemic colitis involving the distal transverse colon through the sigmoid. Slightly decreased, somewhat heterogeneous associated mucosal enhancement may increase the likelihood of an ischemic process Surgery following s/p exploratory laparotomy -- no evidence of ischemic or necrosis diarrhea appears to have resolved to likely restart tube feeds continue supportive therapy (7) Diastolic heart failure: Qualifiers: Heart failure chronicity: acute on chronic Qualified Code(s): I50.33 - Acute on chronic diastolic (congestive) heart failure Code(s): I50.30 - Unspecified diastolic (congestive) heart failure Status: Chronic Assessment and Plan: appears compensated at this time Echo shows 64% ejection fraction and grade 2 diastolic dysfunction with moderate pulmonary hypertension. was on IV diuretics -- currently on hold follow volume status Will continue to follow. Subjective Date/time seen: 09/10/23 09:45 Interval history: Follow-up for acute kidney injury/acute renal failure on chronic kidney disease and hypernatremia Remains intubated/sedated and on mechanical ventilation; remains on low dose levophed for blood pressure support; renal function improving with good urine output; no further fevers overnight or this morning; no apparent distress noted; sodium better following IVF resuscitation. Exam Narrative: General: somewhat ill appearing elderly/frail female intubated/sedated and
[2023-09-10] MEDS: DORNASE ALFA INH SOLN 1 MG/ML 2.5 ML AMP 2.5 MG INHALATION ×2 (10:46→20:57)
--- NOTE | 2023-09-10 11:37 | PM.PNGS ---
Progress Note: A&P Assessment and Plan (1) History of exploratory laparotomy: Code(s): Z98.890 - Other specified postprocedural states Status: Acute Assessment and Plan: Laparotomy was negative for ischemic bowel. Has some mild colitis. Incision seems to be healing well. Her problems now are more related to a pulmonary condition and acute renal failure. Surgery will follow peripherally. Subjective Subjective Date/Time Seen: 09/10/23 11:37 Interval history: Patient transferred back to intensive care unit then reintubated. She was having further issues with decreased mental status. Her sodium was markedly elevated to 155 and was hypernatremic. Given IV fluids and kidney function has improved. She has been tolerating tube feeds. No bowel movement however in several days. Exam GI: Other: Abdomen is soft and nondistended. Midline incision is healing well without redness or drainage. Objective Data Vital Signs Vital Signs: Vital Signs - 24 hr 09/09/23 12:30 09/09/23 12:40 09/09/23 13:03 Temperature Pulse Rate 99 Respiratory Rate Blood Pressure 55/42 L 116/72 Pulse Oximetry 97 Oxygen Delivery Mechanical Ventilation Oxygen Flow Rate Fraction of Inspired Oxygen 100 09/09/23 12:00 09/09/23 13:30 09/09/23 13:41 Temperature Pulse Rate Respiratory Rate Blood Pressure 115/78 118/74 Pulse Oximetry 92 Oxygen Delivery High Flow Therapy with Na Oxygen Flow Rate 40 Fraction of Inspired Oxygen 45 09/09/23 13:50 09/09/23 13:51 09/09/23 13:15 Temperature Pulse Rate 84 84 82 Respiratory Rate 24 H 24 H Blood Pressure Pulse Oximetry 100 Oxygen Delivery Mechanical Ventilation Oxygen Flow Rate Fraction of Inspired Oxygen 100 09/09/23 13:45 09/09/23 12:00 09/09/23 12:30 Temperature Pulse Rate 98 Respiratory Rate Blood Pressure Pulse Oximetry 100 Oxygen Delivery Mechanical Ventilation Mechanical Ventilation Oxygen Flow Rate Fraction of Inspired Oxygen 55 100 09/09/23 12:30 09/09/23 13:45 09/09/23 12:00 Temperature Pulse Rate 93 Respiratory Rate 24 H Blood Pressure 132/73 Pulse Oximetry 92 Oxygen Delivery Oxygen Flow Rate Fraction of Inspired Oxygen 100 55 09/09/23 14:00 09/09/23 14:00 09/09/23 14:00 Temperature 37.9 C H Pulse Rate 85 82 84 Respiratory Rate 24 H 24 H Blood Pressure 115/76 Pulse Oximetry 96 Oxygen Delivery Oxygen Flow Rate Fraction of Inspired Oxygen 09/09/23 14:00 09/09/23 14:00 09/09/23 14:48 Temperature 38.2 C H Pulse Rate 84 Respiratory Rate 24 H Blood Pressure 115/76 Pulse Oximetry Oxygen Delivery Oxygen Flow Rate Fraction of Inspired Oxygen 09/09/23 14:49 09/09/23 14:30 09/09/23 14:57 Temperature Pulse Rate 79 82 Respiratory Rate 24 H 24 H Blood Pressure 89/61 L Pulse Oximetry Oxygen Delivery Oxygen Flow Rate Fraction of Inspired Oxygen 09/09/23 16:00 09/09/23 16:00 09/09/23 16:00 Temperature Pulse Rate 90 90 Respiratory Rate 24 H Blood Pressure Pulse Oximetry 96 Oxygen Delivery Mechanical Ventilation Oxygen Flow Rate Fraction of Inspired Oxygen 55 55 09/09/23 16:00 09/09/23 15:48 09/09/23 16:30 Temperature 38.0 C H 38.0 C H Pulse Rate 90 80 Respiratory Rate 24 H Blood Pressure 86/56 L Pulse Oximetry 97 97 Oxygen Delivery Mechanical Ventilation Oxygen Flow Rate Fraction of Inspired Oxygen 55 09/09/23 16:51 09/09/23 18:00 09/09/23 18:00 Temperature 37.7 C H Pulse Rate 78 80 80 Respiratory Rate 24 H Blood Pressure 82/59 L Pulse Oximetry 98 Oxygen Delivery Oxygen Flow Rate Fraction of Inspired Oxygen 09/09/23 17:00 09/09/23 17:30 09/09/23 18:28 Temperature Pulse Rate 80 78 81 Respiratory Rate Blood Pressure 82/59 L 89/62 L 82/59 L Pulse Oximetry Oxygen Delivery Oxygen Flow Rate
--- NOTE | 2023-09-10 11:45 | PCFNICU ---
ICU Rounding Note: Pt current nutrition is Jevity 1.2. Nutrition recommendation: 20 ml/hr advance by 10 ml q 4 hours to goal rate 55 ml/hr. Last recorded weight is 39.8 kg. Bowel Motility: +BM reported 09/09 Labs Reviewed: Lipase 1407,Glu 182, GFR 37, BUN 78, Cr 1.4,Na 153 Meds Noted:Miralax, Lasix, Flagyl, Eliquis Versed, Fentanyl, Levophed Skin: Surgical wound. Additional Notes: Patient current with mechanical vent, intubated on 09/09. Tube feedings being restarted on Jevity 1.2. Goal rate at 55 ml/hr. Tube feedings at goal rate providing 1450 kcals/67 gms protein/976 ml water. Flush increased to 70 ml q 4 hours 12/05 to Na 153. Agree with diet orders. Following daily in ICU rounds. Monitor tolerance, plan of care, weights, labs, PO intake and reassess Friday and Friday per policy.
[2023-09-10 11:55] LABS: Glucose Point of Care 197 mg/dl (65-105)
[2023-09-10] MEDS: methylPREDNISolone SOD SUCC 40 MG VIAL 20 MG IV PUSH (12:23)
[2023-09-10] MEDS: MEROPENEM 500 MG in SODIUM CHLORIDE 0.9% IV 100 ML 200 ML IVPB (12:23)
[2023-09-10] MEDS: BISACODYL 10 MG SUPPOSITORY RECTAL (14:52)
[2023-09-10] MEDS: NOREPINEPHRINE 8 MG/D5W 250 ML 8 MG/250 ML BAG 11.25 MG IV CONT (15:48)
[2023-09-10 18:07] LABS: Glucose Point of Care 237 mg/dl (65-105)
[2023-09-10] MEDS: INSULIN ASPART (*BKC) 100 UNITS/ML SUB-Q (18:14)
[2023-09-11] VITALS (51 sets, daily range): BP systolic 78–128; BP diastolic 44–103; PULSE 79–135; RESP 20–38; TEMP 36.8–38.1; O2SAT 94–100
[2023-09-11] MEDS: MEROPENEM 500 MG in SODIUM CHLORIDE 0.9% IV 100 ML 200 ML IVPB (00:46)
[2023-09-11] MEDS: INSULIN ASPART (*BKC) 100 UNITS/ML SUB-Q ×2 (00:49→18:09)
[2023-09-11 00:50] LABS: Glucose Point of Care 223 mg/dl (65-105)
[2023-09-11] MEDS: IPRATROPIUM BR 0.02% INH SOLN 0.5 MG/2.5 ML VIAL INHALATION ×4 (02:17→20:06)
[2023-09-11] MEDS: LEVALBUTEROL NEB 1.25 MG/3 ML INHALATION ×4 (02:17→20:05)
[2023-09-11 04:33] LABS: Alveolar/Arterial O2 Gradient 142.8 mmHg; Base Excess ABG 9.6 mEq/l (+/-2.0); Carboxyhemoglobin 0.3 % THb (0-2.0); Fractional Inspired Oxygen 35 %; HCO3 ABG 35.1 mEq/l (22.0-26.0); Methemoglobin ABG 0.4 %THb (0-1.5); Oxygen Content ABG 11.7 %vol (16.0-22.0); PCO2 ABG 52.4 mmHg (35.0-45.0); PO2 FiO2 Ratio Arterial Blood 1.31 %; Reduced Hemoglobin 20.6 %THb (0-5.0); Total Hemoglobin 10.6 g/dL (12.0-18.0); pH ABG 7.444 (7.350-7.450)
[2023-09-11 04:45] LABS: Oxygen Saturation ABG 95.2 % (95.0-100.0); Oxyhemoglobin 93.4 % THb (90.0-100.0); PO2 ABG 76.9 mmHg (80.0-100.0)
[2023-09-11 04:49] LABS: Device VENTILATOR; Modified Allen's Test Pass; Site Drawn LEFT RADIAL
[2023-09-11 04:50] LABS: Arterial Blood Gas Ventilator rate 20 /MIN
[2023-09-11 04:51] LABS: Arterial Blood Gas PEEP 5 cmH2O; Arterial Blood Gas Tidal Volume 300 ml; Arterial Blood Gas Vent Mode CMV
[2023-09-11] MEDS: CENTRAL LINE FLUSH 10 ML IV PUSH ×3 (05:14→21:19)
[2023-09-11 05:20] LABS: Basophils Percent Auto 0.2 % (0.2-1.2); Hematocrit 32.9 % (37.0-47.0); Hemoglobin 9.3 g/dL (12.0-15.0); Immature Granulocyte Absolute 0.38 K/mm3 (0.00-0.031); Lymphocytes Absolute Auto 0.02 K/mm3 (0.9-3.2); Lymphocytes Percent Auto 0.1 % (18.3-44.2); Mean Corpuscular HGB Conc 28.3 g/dl (32-36); Mean Corpuscular Hemoglobin 24.6 pg (26-34); Mean Platelet Volume 12.4 fl (7.4-10.4); Monocytes Absolute Auto 1.4 K/mm3 (0.1-0.6); Monocytes Percent Auto 7.3 % (2.6-8.5); Neutrophils Percent Auto 90.4 % (45.5-73.1); Nucleated Red Blood Cells Absolute Auto 0.6 K/mm3 (0.0-0.012); Nucleated Red Blood Cells Perc 3.3 % (0.0-0.2); Platelet Count Result 190 k/mm3 (150-375); Red Blood Count 3.78 M/mm3 (4.2-5.4); Red Cell Distribution Width 24.6 % (11.5-14.5); White Blood Count 18.8 K/mm3 (4.5-10.0)
[2023-09-11 05:23] LABS: Alanine Aminotransferase 38 U/L (6-35); Alkaline Phosphatase 113 U/L (38-126); Aspartate Amino Transferase 34 U/L (14-36); Bilirubin,Total 0.9 mg/dL (0.2-1.3); Blood Urea Nitrogen 66 mg/dL (7-17); Calcium 8.1 mg/dL (8.4-10.2); Carbon Dioxide > 40 mmol/L (22-30); Chloride 106 mmol/L (98-107); Estimated CRCL calculation 26 ml/min; Estimated Glomerular Filt Rate 44; Glucose 149 mg/dL (65-110); Magnesium 2.3 mg/dL (1.6-2.3); Phosphorus 3.8 mg/dL (2.5-4.5); Potassium 3.9 mmol/L (3.4-5.0); Sodium 148 mmol/L (137-145)
[2023-09-11 06:31] LABS: Anisocytosis 3+ (NORMAL); Hypochromasia 2+ (NORMAL); Platelet Estimate Adequate (Adequate); Schistocytes None Seen (NORMAL); Stomatocytes 2+ (NORMAL)
[2023-09-11] MEDS: BUDESONIDE RESPULE NEB 0.5 MG/2 ML AMP INHALATION ×2 (07:28→20:05)
[2023-09-11] MEDS: DORNASE ALFA INH SOLN 1 MG/ML 2.5 ML AMP 2.5 MG INHALATION ×2 (07:28→20:21)
--- NOTE | 2023-09-11 08:06 | PM.PNCARD ---
Progress Note: A&P Assessment and Plan (1) Atrial fibrillation: Qualifiers: Atrial fibrillation type: unspecified Qualified Code(s): I48.91 - Unspecified atrial fibrillation Code(s): I48.91 - Unspecified atrial fibrillation Status: Acute Assessment and Plan: Stable. Likely worse when on Levophed. On Eliquis for anticoagulation. Off Levophed drip now. On Amiodarone 200 mg PO BID. Metoprolol on hold as she is on Levophed drip. On Digoxin 125 mcg IV daily for HR control. (2) Septic shock: Code(s): A41.9 - Sepsis, unspecified organism; R65.21 - Severe sepsis with septic shock Status: Acute Assessment and Plan: Resolved. On antibiotics. Has pneumonia. She has fever and elevated WBC. Poor prognosis. Management as per ambulatory services representative. (3) Diastolic heart failure: Qualifiers: Heart failure chronicity: acute on chronic Qualified Code(s): I50.33 - Acute on chronic diastolic (congestive) heart failure Code(s): I50.30 - Unspecified diastolic (congestive) heart failure Status: Chronic Assessment and Plan: Acute on chronic diastolic heart failure likely from IVF to treat septic shock. 08/28/23 Echo: EF 64%, mild LVE, grade II diastolic dysfunction, mod LAE, mild MR/TR, RVSP 50 mmHg. Appears euvolemic. (4) PAD (peripheral artery disease): Code(s): I73.9 - Peripheral vascular disease, unspecified Status: Acute Assessment and Plan: 09/10/23 JIMMIE: Right 0.41, left 0.85 suggestive of mod-severe right and mild left PAD. Subjective Date/time seen: 09/11/23 08:06 Interval history: Sedated on mechanical ventilation. On Levophed drip. Exam Const: General: cooperative Other: Intubated on mechanical ventilation. Resp: Auscultation: clear to auscultation bilaterally, no crackles, no rales, no rhonchi, wheezes and diminished lung sounds Cardio: Rate: regular rate Rhythm: abnormal rhythm Heart sounds: no murmurs Extrem: Right lower extremity: no edema Left lower extremity: no edema Objective Data Vital Signs Vital Signs: Vital Signs - 24 hr 09/10/23 08:25 09/10/23 08:26 09/10/23 08:28 Temperature Pulse Rate 89 86 Respiratory Rate Blood Pressure 97/68 L Pulse Oximetry Oxygen Delivery Fraction of Inspired Oxygen 09/10/23 08:29 09/10/23 08:29 09/10/23 08:46 Temperature Pulse Rate 91 86 Respiratory Rate 24 H 24 H Blood Pressure 81/56 L Pulse Oximetry Oxygen Delivery Fraction of Inspired Oxygen 09/10/23 08:47 09/10/23 08:48 09/10/23 08:57 Temperature Pulse Rate 85 89 Respiratory Rate 24 H Blood Pressure Pulse Oximetry 100 Oxygen Delivery Mechanical Ventilation Fraction of Inspired Oxygen 50 50 09/10/23 08:59 09/10/23 10:12 09/10/23 10:13 Temperature Pulse Rate 85 85 82 Respiratory Rate 20 20 20 Blood Pressure Pulse Oximetry Oxygen Delivery Fraction of Inspired Oxygen 09/10/23 10:13 09/10/23 10:00 09/10/23 10:00 Temperature 99.1 F Pulse Rate 87 90 Respiratory Rate 20 Blood Pressure 105/74 105/74 Pulse Oximetry 98 Oxygen Delivery Fraction of Inspired Oxygen 09/10/23 10:47 09/10/23 10:49 09/10/23 10:58 Temperature Pulse Rate 88 92 88 Respiratory Rate 20 20 Blood Pressure Pulse Oximetry 97 Oxygen Delivery Mechanical Ventilation Fraction of Inspired Oxygen 50 09/10/23 12:00 09/10/23 12:00 09/10/23 12:24 Temperature Pulse Rate 85 Respiratory Rate 24 H Blood Pressure 99/73 L Pulse Oximetry 97 Oxygen Delivery Mechanical Ventilation Fraction of Inspired Oxygen 50 50 09/10/23 12:24 09/10/23 12:24 09/10/23 12:00 Temperature Pulse Rate 88 88 89 Respiratory Rate 20 20 Blood Pressure Pulse Oximetry Oxygen Delivery Fraction of Inspired Oxygen 09/10/23 12:00 09/10/23 14:00 09/10/23 14:00 Temperature 99.0 F 99.2 F Pulse Rate 81 86 86 Respiratory Rat
--- NOTE | 2023-09-11 08:10 | ECG_ITS ---
Measurements Intervals [place] Rate: 98 P: LA: 0 QRS: 71 QRSD: 86 T: 267 QT: 335 QTc: 428 Interpretive Statements ATRIAL FIBRILLATION ST-T WAVE ABNORMALITY IN ANTEROLAT/INF LEADS- CONSIDER ISCHEMIA ABNORMAL ECG COMPARED TO ECG 09/05/2023 09:36:04 NO SIGNIFICANT CHANGES Electronically Signed On 09-11-2023 9:35:31 [employer] by Darien Singleton D.O.
[2023-09-11] MEDS: polyethylene glycoL 3350 17 GM POWD.PACK PO (08:59)
[2023-09-11] MEDS: PANTOPRAZOLE SODIUM IV 40 MG VIAL IV PUSH ×2 (09:00→20:14)
[2023-09-11] MEDS: AMIODARONE HCL 200 MG TABLET PO ×2 (09:01→16:10)
[2023-09-11] MEDS: APIXABAN 2.5 MG TABLET PO ×2 (09:01→20:13)
[2023-09-11] MEDS: MINERAL OIL/WHITE PETROLATUM OINTMENT 1 APPLIC EACH EYE ×2 (09:02→20:14)
[2023-09-11] MEDS: DIGOXIN INJ 250 MCG/ML 2 ML AMP (*BKC) 125 MCG IV PUSH (09:02)
--- NOTE | 2023-09-11 09:48 | PM.PNNEP ---
Progress Note: A&P Assessment and Plan (1) ADRIEL (acute kidney injury): Code(s): N17.9 - Acute kidney failure, unspecified Status: Acute Assessment and Plan: creatinine improving initial insult secondary to sepsis and shock/hemodynamic instability however, contrast exposure with CT scan on 08/27 could have playing a role as well however, more recent rise in creatinine (as noted on 09/09/23) felt to be due to diuretics/volume depletion previous evaluation to date on this admission: no obstruction/anatomical issues with kidneys by CT imaging CPK okay urine electrolytes non-prerenal urine eosinophils negative proteinuria noted agree with holding diuretics on IVF resuscitation follow trend of repeat labs and UOP (2) Chronic kidney disease, stage 3: Code(s): N18.30 - Chronic kidney disease, stage 3 unspecified Status: Chronic Assessment and Plan: baseline creatinine seems to run 1.0 - 1.4mg/dl this causes her to fluctuate between CKD stage 3A and stage 3B presumably secondary to hypertension, vascular disease, and age-related change (3) Acute respiratory failure with hypoxia and hypercapnia: Code(s): J96.01 - Acute respiratory failure with hypoxia; J96.02 - Acute respiratory failure with hypercapnia Status: Acute Assessment and Plan: secondary to worsening hypoxia and hypercapnia along with failure to protect airway intubated and on mechanical ventilation complicated by known history of COPD continue steroids and bronchodilators follow respiratory status wean as tolerated (4) Hypernatremia: Code(s): E87.0 - Hyperosmolality and hypernatremia Status: Acute Assessment and Plan: due to overdiuresis diuretics on hold IVF resuscitation as noted once tube feeds intiated, start free water flushes follow trend of repeat sodiums (5) Septic shock: Code(s): A41.9 - Sepsis, unspecified organism; R65.21 - Severe sepsis with septic shock Status: Acute Assessment and Plan: had resolved thought to be secondary to colitis and UTI blood and urine cultures negative - repeat cultures in progress but still having on/off fevers on IV antibiotics on low dose vasopressor therapy (6) Colitis: Code(s): K52.9 - Noninfective gastroenteritis and colitis, unspecified Status: Acute Assessment and Plan: CT scan on 08/27 with infectious, inflammatory, or ischemic colitis involving the distal transverse colon through the sigmoid. Slightly decreased, somewhat heterogeneous associated mucosal enhancement may increase the likelihood of an ischemic process Surgery following s/p exploratory laparotomy -- no evidence of ischemic or necrosis diarrhea appears to have resolved to likely restart tube feeds continue supportive therapy (7) Diastolic heart failure: Qualifiers: Heart failure chronicity: acute on chronic Qualified Code(s): I50.33 - Acute on chronic diastolic (congestive) heart failure Code(s): I50.30 - Unspecified diastolic (congestive) heart failure Status: Chronic Assessment and Plan: appears compensated at this time Echo shows 64% ejection fraction and grade 2 diastolic dysfunction with moderate pulmonary hypertension. was on IV diuretics -- currently on hold follow volume status Will continue to follow. Subjective Date/time seen: 09/11/23 09:48 Interval history: Follow-up for acute kidney injury/acute renal failure on chronic kidney disease and hypernatremia Remains intubated/sedated and on mechanical ventilation; renal function stable if not improving with reasonable urine output; sodium continues to slowly improve as well with current therapy/interventions; remains on low dose levophed as well to maintain MAP. Exam Narrative: General: ill appearing elderly/frail female intubated/sedated and on mechanical ventilation H
[2023-09-11] MEDS: MEROPENEM 1 GM/NS 100 ML 1 GM/100 ML BAG IVPB ×2 (10:53→20:21)
--- NOTE | 2023-09-11 11:53 | PCFNICU ---
ICU Rounding Note: Pt current nutrition is Jevity 1.2. Last recorded weight is 54.3 kg, up from 52.3 kg on admit. Bowel Motility:+BM reported 09/09 Labs Reviewed:Glu 149, GFR 44, Na 148 Meds Noted:Flagyl, Cefepime, Lasix, Atrovent Skin: Surgical incision Additional Notes: Patient remains on a mechanical vent. No Sedation. Tube feedings remain of Jevity 1.2 currently at 40 ml/hr. Goal rate at 55 ml/hr. Flush 70 ml q 4 hours. Agree with diet orders at this time. Following daily in ICU rounds. Monitor tolerance, plan of care, weights, labs, PO intake Follow daily in ICU rounds, reassess Friday and Friday per policy.
[2023-09-11 11:55] LABS: Glucose Point of Care 188 mg/dl (65-105)
[2023-09-11] MEDS: dexmedeTOMIDine 400 MCG/100 ML 400 MCG/100 ML BAG IV CONT (12:00)
--- NOTE | 2023-09-11 13:08 | WPDINTPN ---
Progress Note: A&P Assessment and Plan (1) Respiratory failure: Code(s): J96.90 - Respiratory failure, unspecified, unspecified whether with hypoxia or hypercapnia Status: Acute Assessment and Plan: 09/09: acute respiratory failure likely related to hypoxia and hypercapnia. patient was also unresponsive and obtunded. decision was made to intubate the patient and place on mechanical ventilation for airway protection -09/09: uneventful intubation - continue CMV mode of ventilation, peep of 5, 35% FiO2 -ABGs reviewed, ventilator adjusted - low tidal volume strategy - continue bronchodilators -continue Pulmozyme as patient had thick secretions during intubation, covering for vocal cords -hours bedside RN to decrease his fentanyl and Versed infusion to off, evaluate patient's neurological status. If she stands get into guarding, tachypneic restless will start low-dose Precedex (2) Septic shock: Code(s): A41.9 - Sepsis, unspecified organism; R65.21 - Severe sepsis with septic shock Status: Acute Assessment and Plan: 08/28: initial admission septic shock secondary to colitis and UTI - patient was on vasopressin and Levophed which were turned off, patient was also on stress dose steroids -08/27: Urine cultures growing E coli -08/27: Blood cultures negative till now -08/27; Stool C diff was negative - completed a 10 day course of cefepime and Flagyl for total of 10 days 09/02: WBC count has increased significantly, afebrile, will check blood and urine culture. This could be related to the Solu-Medrol. Will continue to monitor 09/02: Blood culture negative x2 09/02: Urine culture negative 09/09: patient has been spiking fevers with a T-max of 101.9? since 09/08/202309/08: 09/08: CT scan of the chest, abdomen, pelvis: Showed small bilateral pleural effusions with dependent compressive atelectasis in bilateral lower lobes, mild emphysema, borderline heart size with biatrial enlargement, small amount of ascites in the abdomen and pelvis 09/08: CT brain with no acute intracranial abnormality - 09/08: blood cultures -preliminary results are negative x2 -09/09: Sputum cultures -primary a is a shows few Gram-positive cocci -09/09: UA is negative -09/11: WBC count, fever curves, sodium level and creatinine improving -09/09: Started on meropenem and vancomycin 09/09: Discontinue cefepime and Flagyl (3) Delirium: Code(s): R41.0 - Disorientation, unspecified Status: Acute Assessment and Plan: Since surgery patient has had significant delirium, agitation, encephalopathy which has been very difficult to manage. -on Precedex infusion. -continue Tylenol for pain. -08/31: replace NG and Bond -09/02: discussed with patient's daughter, she stated that patient has had delirium when she is admitted to the hospital for up to a week. -Dr. Salazar had long discussion with patient's daughter and explained her the situation reasoning behind using physical restraints and medications like Precedex morphine and Ativan in the situation. She did admitted that patient had similar delirium for many days when she was admitted at [facility] and receive sedatives for cardioversion. 09/02: CT scan of the brain: For unequal pupils IMPRESSION: 1. 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 No acute intracranial process. 2. Age-related changes including mild diffuse volume loss and mild scattered white matter hypoattenuation consistent with chronic small vessel ischemic disease 09/09: CT scan of the brain for unequal pupils IMPRESSION No intracranial hemorrhage, mass, or acute infarct. Chronic right basal ganglia lacunar infarct. Atrophy and chronic white matter changes, as above. (4) Colitis: Code(s): K52.9 - Noninfective gastroenteritis and colitis, unspecified Status: Acute Assessment and Plan: 08/27 CT scan in the ER showe
[2023-09-11] MEDS: fentaNYL CITRATE INJ (*CRX) 100 MCG/2 ML VIAL 25 MCG IV PUSH ×5 (13:50→23:02)
[2023-09-11 14:54] LABS: Vancomycin Trough 8.8 ug/mL (10.0-20.0)
[2023-09-11] MEDS: VANCOMYCIN 1,250 MG/NS 250 ML 1,250 MG/250 ML BAG 166.67 MG IVPB (16:02)
[2023-09-11] MEDS: NOREPINEPHRINE 8 MG/D5W 250 ML 8 MG/250 ML BAG 13.13 MG IV CONT (17:53)
[2023-09-11 17:59] LABS: Glucose Point of Care 242 mg/dl (65-105)
[2023-09-11] MEDS: MIDAZOLAM 100MG/NS 100ML(*CRX) 100 MG/100 ML BAG IV CONT (21:18)
--- NOTE | 2023-09-11 21:30 | PC.NURSE ---
While performing 2000 assessment, pt became very restless, kicking legs and constantly shifting in bed. Change in VS noted: HR 130s, RR 30s, O2 sat 89-91%. Fentanyl administered per order and Precedex gtt titrated up with no improvement in symptoms or VS. Dr. Sanchez notified. New order for Versed obtained.
[2023-09-11] MEDS: dexmedeTOMIDine 400 MCG/100 ML 400 MCG/100 ML BAG 14.93 MCG IV CONT (23:03)
[2023-09-11 23:20] LABS: Glucose Point of Care 190 mg/dl (65-105)
[2023-09-12] VITALS (23 sets, daily range): BP systolic 64–115; BP diastolic 45–78; PULSE 64–118; RESP 20–36; TEMP 38.1–38.8; O2SAT 80–98
[2023-09-12] MEDS: fentaNYL CITRATE INJ (*CRX) 100 MCG/2 ML VIAL 25 MCG IV PUSH ×2 (02:02→05:48)
[2023-09-12] MEDS: LEVALBUTEROL NEB 1.25 MG/3 ML INHALATION ×2 (02:23→08:36)
[2023-09-12] MEDS: IPRATROPIUM BR 0.02% INH SOLN 0.5 MG/2.5 ML VIAL INHALATION ×2 (02:23→08:36)
[2023-09-12 05:25] LABS: Alveolar/Arterial O2 Gradient 111.3 mmHg; Base Excess ABG 9.5 mEq/l (+/-2.0); Carboxyhemoglobin 0.3 % THb (0-2.0); Fractional Inspired Oxygen 30 %; HCO3 ABG 32.7 mEq/l (22.0-26.0); Methemoglobin ABG 0.1 %THb (0-1.5); Oxygen Content ABG 12.5 %vol (16.0-22.0); Oxygen Saturation ABG 92.8 % (95.0-100.0); Oxyhemoglobin 89.6 % THb (90.0-100.0); PCO2 ABG 38.8 mmHg (35.0-45.0); Total Hemoglobin 9.9 g/dL (12.0-18.0)
[2023-09-12] MEDS: dexmedeTOMIDine 400 MCG/100 ML 400 MCG/100 ML BAG 16.29 MCG IV CONT (05:33)
[2023-09-12 05:53] LABS: Basophils Percent Auto 0.3 % (0.2-1.2); Hematocrit 30.6 % (37.0-47.0); Hemoglobin 8.9 g/dL (12.0-15.0); Immature Granulocyte Absolute 0.31 K/mm3 (0.00-0.031); Lymphocytes Absolute Auto 0.37 K/mm3 (0.9-3.2); Lymphocytes Percent Auto 2.4 % (18.3-44.2); Mean Corpuscular HGB Conc 29.1 g/dl (32-36); Mean Corpuscular Hemoglobin 25.1 pg (26-34); Mean Corpuscular Volume 86.2 fl (80-100); Mean Platelet Volume 11.9 fl (7.4-10.4); Monocytes Percent Auto 6.3 % (2.6-8.5); Nucleated Red Blood Cells Absolute Auto 0.2 K/mm3 (0.0-0.012); Nucleated Red Blood Cells Perc 1.1 % (0.0-0.2); Platelet Count Result 139 k/mm3 (150-375); Red Blood Count 3.55 M/mm3 (4.2-5.4); Red Cell Distribution Width 24.5 % (11.5-14.5); White Blood Count 15.7 K/mm3 (4.5-10.0)
[2023-09-12] MEDS: ACETAMINOPHEN 500 MG TABLET 1000 MG PO (05:58)
[2023-09-12] MEDS: CENTRAL LINE FLUSH 10 ML IV PUSH (05:59)
[2023-09-12 06:04] LABS: Alanine Aminotransferase 35 U/L (6-35); Albumin Level 2.9 g/dL (3.5-5.1); Alkaline Phosphatase 103 U/L (38-126); Anion Gap 0 mmol/L (8-16); Aspartate Amino Transferase 34 U/L (14-36); Bilirubin,Total 0.8 mg/dL (0.2-1.3); Blood Urea Nitrogen 51 mg/dL (7-17); Calcium 8.8 mg/dL (8.4-10.2); Carbon Dioxide 39 mmol/L (22-30); Chloride 110 mmol/L (98-107); Estimated CRCL calculation 31 ml/min; Estimated Glomerular Filt Rate 54; Glucose 171 mg/dL (65-110); Magnesium 2.2 mg/dL (1.6-2.3); Phosphorus 2.4 mg/dL (2.5-4.5); Potassium 4.1 mmol/L (3.4-5.0); Sodium 149 mmol/L (137-145)
[2023-09-12 06:24] LABS: Device VENTILATOR; Modified Allen's Test Pass; Site Drawn LEFT RADIAL
[2023-09-12 06:25] LABS: Arterial Blood Gas PEEP 5 cmH2O; Arterial Blood Gas Tidal Volume 300 ml; Arterial Blood Gas Vent Mode CMV; Arterial Blood Gas Ventilator rate 20 /MIN
[2023-09-12 06:57] LABS: Anisocytosis 1+ (NORMAL); Hypochromasia 1+ (NORMAL); Platelet Estimate Adequate (Adequate)
[2023-09-12 06:58] LABS: Schistocytes None Seen (NORMAL); Target Cells 2+ (NORMAL)
--- NOTE | 2023-09-12 07:35 | PM.PNCARD ---
Progress Note: A&P Assessment and Plan (1) Atrial fibrillation: Qualifiers: Atrial fibrillation type: unspecified Qualified Code(s): I48.91 - Unspecified atrial fibrillation Code(s): I48.91 - Unspecified atrial fibrillation Status: Acute Assessment and Plan: Stable. Likely worse when on Levophed. On Eliquis for anticoagulation. Off Levophed drip now. On Amiodarone 200 mg PO BID. Metoprolol on hold as she is on Levophed drip. On Digoxin 125 mcg IV daily for HR control. (2) Septic shock: Code(s): A41.9 - Sepsis, unspecified organism; R65.21 - Severe sepsis with septic shock Status: Acute Assessment and Plan: Resolved. On antibiotics. Has pneumonia. She has fever and elevated WBC. Poor prognosis. 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 (3) Diastolic heart failure: Qualifiers: Heart failure chronicity: acute on chronic Qualified Code(s): I50.33 - Acute on chronic diastolic (congestive) heart failure Code(s): I50.30 - Unspecified diastolic (congestive) heart failure Status: Chronic Assessment and Plan: Acute on chronic diastolic heart failure likely from IVF to treat septic shock. 08/28/23 Echo: EF 64%, mild LVE, grade II diastolic dysfunction, mod LAE, mild MR/TR, RVSP 50 mmHg. Appears euvolemic. (4) PAD (peripheral artery disease): Code(s): I73.9 - Peripheral vascular disease, unspecified Status: Acute Assessment and Plan: 09/10/23 JIMMIE: Right 0.41, left 0.85 suggestive of mod-severe right and mild left PAD. Subjective Date/time seen: 09/12/23 07:35 Interval history: Sedated on mechanical ventilation. On Levophed drip. Exam Const: Other: Intubated on mechanical ventilation. Resp: Auscultation: clear to auscultation bilaterally, no crackles, no rales, no rhonchi and wheezes Cardio: Rate: regular rate Rhythm: abnormal rhythm Heart sounds: no murmurs Peripheral pulses: dorsalis pedis present Extrem: Right lower extremity: no edema Left lower extremity: no edema Objective Data Vital Signs Vital Signs: Vital Signs - 24 hr 09/11/23 08:03 09/11/23 08:00 09/11/23 08:56 Temperature Pulse Rate 91 91 113 H Respiratory Rate 20 Blood Pressure 105/69 126/68 Pulse Oximetry Oxygen Delivery Fraction of Inspired Oxygen 09/11/23 08:00 09/11/23 08:45 09/11/23 08:00 Temperature Pulse Rate 91 101 H 91 Respiratory Rate 20 21 H 20 Blood Pressure Pulse Oximetry Oxygen Delivery Fraction of Inspired Oxygen 09/11/23 08:45 09/11/23 09:01 09/11/23 09:02 Temperature Pulse Rate 101 H 93 102 H Respiratory Rate 21 H Blood Pressure Pulse Oximetry Oxygen Delivery Fraction of Inspired Oxygen 09/11/23 09:16 09/11/23 08:00 09/11/23 08:00 Temperature 98.5 F Pulse Rate 107 H 91 93 Respiratory Rate 20 Blood Pressure 121/72 105/69 Pulse Oximetry 100 Oxygen Delivery Fraction of Inspired Oxygen 09/11/23 08:00 09/11/23 08:00 09/11/23 10:00 Temperature Pulse Rate 94 Respiratory Rate Blood Pressure Pulse Oximetry 100 Oxygen Delivery Mechanical Ventilation Fraction of Inspired Oxygen 35 35 09/11/23 10:00 09/11/23 10:48 09/11/23 12:00 Temperature 98.6 F 98.9 F Pulse Rate 85 116 H 101 H Respiratory Rate 22 H 20 Blood Pressure 101/51 L 113/61 Pulse Oximetry 96 98 100 Oxygen Delivery Mechanical Ventilation Fraction of Inspired Oxygen 35 09/11/23 12:00 09/11/23 13:12 09/11/23 12:00 Temperature Pulse Rate 101 H 95 101 H Respiratory Rate 20 25 H Blood Pressure 113/61 Pulse Oximetry Oxygen Delivery Fraction of Inspired Oxygen 09/11/23 12:00 09/11/23 12:00 09/11/23 12:00 Temperature Pulse Rate 104 H Respiratory Rate Blood Pressure Pulse Oximetry 100 Oxygen Delivery Mechanical Ventilation Fraction of Inspired Oxygen 35 35 09/11/23 13:26 09/11/23 13:29 09/11/23 13:40 Tempera
[2023-09-12] MEDS: MEROPENEM 1 GM/NS 100 ML 1 GM/100 ML BAG IVPB (08:16)
[2023-09-12] MEDS: APIXABAN 2.5 MG TABLET PO (08:16)
[2023-09-12] MEDS: PANTOPRAZOLE SODIUM IV 40 MG VIAL IV PUSH (08:17)
[2023-09-12] MEDS: AMIODARONE HCL 200 MG TABLET PO (08:17)
[2023-09-12] MEDS: DIGOXIN INJ 250 MCG/ML 2 ML AMP (*BKC) 125 MCG IV PUSH (08:17)
--- NOTE | 2023-09-12 08:18 | PC.NURSE ---
Dr. Sanchez to bedside discussing plan of care with patient's daughter. Family decided to change patient status to DNR and plan to withdraw care once patient's grandchildren are at bedside.
[2023-09-12] MEDS: BUDESONIDE RESPULE NEB 0.5 MG/2 ML AMP INHALATION (08:35)
--- NOTE | 2023-09-12 09:02 | WPDINTPN ---
Progress Note: A&P Assessment and Plan (1) Respiratory failure: Code(s): J96.90 - Respiratory failure, unspecified, unspecified whether with hypoxia or hypercapnia Status: Acute Assessment and Plan: 09/09: acute respiratory failure likely related to hypoxia and hypercapnia. patient was also unresponsive and obtunded. decision was made to intubate the patient and place on mechanical ventilation for airway protection -09/09: uneventful intubation - continue CMV mode of ventilation, peep of 5, 35% FiO2 -ABGs reviewed, ventilator adjusted - low tidal volume strategy - continue bronchodilators -continue Pulmozyme as patient had thick secretions during intubation, covering for vocal cords -currently on Precedex and Versed infusion with p.r.n. fentanyl. Patient still is agitated and breathes over the ventilator Daughter at bedside, discussed with her at length, she decided to make the patient comfort measures and withdraw support. (2) Septic shock: Code(s): A41.9 - Sepsis, unspecified organism; R65.21 - Severe sepsis with septic shock Status: Acute Assessment and Plan: 08/28: initial admission septic shock secondary to colitis and UTI - patient was on vasopressin and Levophed which were turned off, patient was also on stress dose steroids -08/27: Urine cultures growing E coli -08/27: Blood cultures negative till now -08/27; Stool C diff was negative - completed a 10 day course of cefepime and Flagyl for total of 10 days 09/02: WBC count has increased significantly, afebrile, will check blood and urine culture. This could be related to the Solu-Medrol. Will continue to monitor 09/02: Blood culture negative x2 09/02: Urine culture negative 09/09: patient has been spiking fevers with a T-max of 101.9? since 09/08/202309/08: 09/08: CT scan of the chest, abdomen, pelvis: Showed small bilateral pleural effusions with dependent compressive atelectasis in bilateral lower lobes, mild emphysema, borderline heart size with biatrial enlargement, small amount of ascites in the abdomen and pelvis 09/08: CT brain with no acute intracranial abnormality - 09/08: blood cultures -preliminary results are negative x2 -09/09: Sputum cultures -primary a is a shows few Gram-positive cocci -09/09: UA is negative -09/11: WBC count, fever curves improving, sodium level and creatinine improving -09/09: Started on meropenem and vancomycin 09/09: Discontinue cefepime and Flagyl 09/12: Patient had fevers with a T-max of 101.8, remains hypernatremic with sodium of 149 (3) Delirium: Code(s): R41.0 - Disorientation, unspecified Status: Acute Assessment and Plan: Since surgery patient has had significant delirium, agitation, encephalopathy which has been very difficult to manage. -on Precedex infusion. -continue Tylenol for pain. -08/31: replace NG and Bond -09/02: discussed with patient's daughter, she stated that patient has had delirium when she is admitted to the hospital for up to a week. -Dr. Salazar had long discussion with patient's daughter and explained her the situation reasoning behind using physical restraints and medications like Precedex morphine and Ativan in the situation. She did admitted that patient had similar delirium for many days when she was admitted at [facility] and receive sedatives for cardioversion. 09/02: CT scan of the brain: For unequal pupils IMPRESSION: 1. 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 No acute intracranial process. 2. Age-related changes including mild diffuse volume loss and mild scattered white matter hypoattenuation consistent with chronic small vessel ischemic disease 09/09: CT scan of the brain for unequal pupils IMPRESSION No intracranial hemorrhage, mass, or acute infarct. Chronic right basal ganglia lacunar infarct. Atrophy and chronic white matter changes, as above. (4) Colitis:
[2023-09-12] MEDS: MORPHINE SULFATE INJ (*CRX) 10 MG/ML AMP 5 MG IV PUSH (09:12)
[2023-09-12] MEDS: LORazepam INJ (*CRX) 2 MG/ML VIAL IV PUSH ×4 (09:14→11:58)
[2023-09-12] MEDS: MINERAL OIL/WHITE PETROLATUM OINTMENT 1 APPLIC EACH EYE (09:14)
[2023-09-12] MEDS: MORPHINE SULFATE (*CRX) 2 MG/ML INJ 5 MG IV PUSH ×2 (09:30→11:58)
--- NOTE | 2023-09-12 10:26 | PCFNICU ---
ICU Rounding Note: Pt current nutrition is Jevity 1.5 @ 55 ml/h, provides 1450 kcal, 67 g protein, 976 ml free water. Flush 30 ml q 4 hours. Nutrition recommendation: No nutrition recommendations Last recorded weight is 54.7 kg. Bowel Motility: Last BM 09/09/23 Labs Reviewed: Hgb 8.9, Hct 3-.6, Alb 2.9, Na 149, BUN 51 Meds Noted: Comfort measures to start Skin: wnl Additional Notes: Support to be withdrawn, terminal wean and comfort measures started today. RDs to sign off when comfort measures start.
[2023-09-12] MEDS: MORPHINE SULFATE (*CRX) 2 MG/ML INJ IV PUSH ×2 (10:43→12:50)
[2023-09-12] MEDS: MORPHINE 50 MG/NS 100ML (*CRX) 50 MG/100 ML BAG IV CONT (12:51)
--- NOTE | 2023-09-12 14:00 | PC.NURSE ---
No change in assessment. Family states she is comfortable.
--- NOTE | 2023-09-12 15:00 | PC.NURSE ---
Patient shows no s/s of distress. Family member asleep at bedside.
--- NOTE | 2023-09-12 16:00 | PC.NURSE ---
No change in patient assessment. Family states 'she is comfortable .
--- NOTE | 2023-09-12 16:53 | PC.NURSE ---
MTS notified of extubation to comfort measures.
--- NOTE | 2023-09-12 17:25 | PC.NURSE ---
No s/s of distress noted.
[2023-09-15 09:07] LABS: pH ABG 7.544 (7.350-7.450)
--- NOTE | 2023-10-03 11:35 | PM.DDS ---
Discharge Summary Date and Time Date of : 09/12/23 Time of : 20:11 Provider Pronounced By: Ifrah Flor RN/ Siomara Madsen RN Probable Cause of Probable Cause of : Cardiopulmonary arrest after patient's family decided to make him comfort measures with withdrawal of support Summary Hospital Course: (1) Respiratory failure: ?Code(s): J96.90 - Respiratory failure, unspecified, unspecified whether with hypoxia or hypercapnia ?Status:?Acute ?Assessment and Plan: 09/09: acute respiratory failure likely related to hypoxia and? hypercapnia. patient was also unresponsive and obtunded. ? decision was made to intubate the patient and place on mechanical ventilation for airway protection -09/09:? uneventful intubation - continue CMV mode of ventilation, peep of 5, 35% FiO2 -ABGs reviewed, ventilator adjusted - low tidal volume strategy - continue bronchodilators -continue Pulmozyme as patient had thick secretions during intubation, covering for vocal cords -currently on Precedex and Versed infusion with p.r.n. fentanyl.? Patient still is agitated and breathes over the ventilator Daughter at bedside, discussed with her at length, she decided to make the patient comfort measures and withdraw support. (2) Septic shock: ?Code(s): A41.9 - Sepsis, unspecified organism; R65.21 - Severe sepsis with septic shock ?Status:?Acute ?Assessment and Plan: 08/28:? initial admission septic shock secondary to colitis and UTI - patient was on vasopressin and Levophed which were turned off, patient was also on stress dose steroids -08/27: Urine cultures growing E coli -08/27: Blood cultures negative till now -08/27; Stool C diff was negative - completed a? 10 day course of cefepime and Flagyl for total of 10 days 09/02:? WBC count has increased significantly, afebrile, will check blood and urine culture.? This could be related to the Solu-Medrol.? Will continue to monitor 09/02:? Blood culture negative x2 09/02:? Urine culture negative 09/09:? patient has been spiking fevers with a T-max of 101.9? since 09/08/202309/08: 09/08:? CT scan of the chest, abdomen, pelvis:? Showed small bilateral pleural effusions with dependent compressive atelectasis in bilateral lower lobes, mild emphysema, borderline heart size with biatrial enlargement, small amount of ascites in the abdomen and pelvis 09/08:? CT brain with no acute intracranial abnormality - 09/08:? blood cultures -preliminary results are negative x2 -09/09:? Sputum cultures -primary a is a shows few Gram-positive cocci -09/09:? UA is negative -09/11: WBC count, fever curves improving, sodium level and creatinine improving -09/09:? Started on meropenem and vancomycin 09/09:? Discontinue? cefepime and Flagyl 09/12:? Patient had fevers with a T-max of 101.8, remains hypernatremic with sodium of 149 (3) Delirium: ?Code(s): R41.0 - Disorientation, unspecified ?Status:?Acute ?Assessment and Plan: Since surgery patient has had significant delirium, agitation, encephalopathy which has been very difficult to manage. -on Precedex infusion. -continue Tylenol for pain.? -08/31: replace Ra -09/02: discussed with patient's daughter, she stated that patient has had delirium when she is admitted to the hospital for up to a week. -Dr. Salazar had long discussion with patient's daughter and explained her the situation reasoning behind using physical restraints and medications like Precedex morphine and Ativan in the situation.? She did admitted that patient had similar delirium for many days when she was admitted at [facility] and receive sedatives for cardioversion. 09/02: CT scan of the brain:? For unequal pupils IMPRESSION: 1. 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 No acute intracranial process. 2. Age-related changes including mild diffuse volume loss and mild scattered white matter hypoat
--- NOTE | 2023-10-22 10:40 | P.PCNBED_ITS ---
Procedures Central Line Placement Right IJ: Central Line Date: 09/09/23 Central Line Time: 12:15 Discussed w/ the patient/family/POA,the placement of a central venous catheter, including its clinical necessity/indication & associated potential risks, benifits and alternatives.: Yes Consent: I have discussed with the patient and/or surrogate, the non-emergent placement of a central venous catheter, including its clinical necessity/indication and associated potential risks and complications. The patient and/or surrogate understand(s) and acknowledge(s) the need to proceed with central venous catheter insertion as an important element of the patient's clinical management. Time Out Performed: Yes Patient Position: supine Patient placed on monitor/pulse ox: Yes Provider Prep: mask, sterile gown, sterile gloves, Max. sterile barrier precautions, cap and hand hygiene with conventional soap/water or alcohol based hand rub Central line prep: 2% Chlorhexidine scrub Local anesthesia used: lidocaine 1% Amount of anesthesia used (ml): 3 Central line lumen inserted: triple [place]an: 12 Length (cm): 16 Depth of Insertion (cm): 16 Post Procedure: sutured in place, good blood return, all ports aspirated, flushed, capped, transparent dressing, hemostatic product, antimicrobial product, securement product and aseptic technique maintained throughout procedure Post procedure x-ray: tip of catheter in good position and no pneumothorax seen Patient tolerated procedure: well Complications: none
== END 2023-09-12 20:11 | disposition expired | DRG 853 ==
LOC: ANHICU 09-15 11:06 → ANHIMU 09-15 11:06
PROVIDERS: General Practice; Internal Medicine; Internal Medicine Nephrology; Nurse Practitioner Family; Obstetrics & Gynecology Gynecology; Student in an Organized Health Care Education/Training Program; Surgery; Admitting Provider Hospitalist; PCP Physician Assistant; Visit Provider Hospitalist
PROC: 0WJP0ZZ Inspection of Gastrointestinal Tract, Open Approach (ICD-10-PCS; CPT 49000; principal; 2023-08-28 13:00)
DX: A41.9 Sepsis, unspecified organism (principal); I50.33 Acute on chronic diastolic (congestive) heart failure; R65.21 Severe sepsis with septic shock; J96.21 Acute and chronic respiratory failure with hypoxia; J96.22 Acute and chronic respiratory failure with hypercapnia; J18.9 Pneumonia, unspecified organism; N39.0 Urinary tract infection, site not specified; J96.11 Chronic respiratory failure with hypoxia; N17.9 Acute kidney failure, unspecified; G93.49 Other encephalopathy; E87.0 Hyperosmolality and hypernatremia; E87.70 Fluid overload, unspecified; K52.9 Noninfective gastroenteritis and colitis, unspecified; I48.0 Paroxysmal atrial fibrillation; K20.90 Esophagitis, unspecified without bleeding; J44.9 Chronic obstructive pulmonary disease, unspecified; I25.10 Atherosclerotic heart disease of native coronary artery without angina pectoris; N18.30 Chronic kidney disease, stage 3 unspecified; I73.9 Peripheral vascular disease, unspecified; D50.9 Iron deficiency anemia, unspecified; B96.20 Unspecified Escherichia coli [E. coli] as the cause of diseases classified elsewhere; Z20.822 Contact with and (suspected) exposure to COVID-19; Z79.01 Long term (current) use of anticoagulants; Z99.81 Dependence on supplemental oxygen; Z86.718 Personal history of other venous thrombosis and embolism
CPT/HCPCS: 31500; 36415; 36430; 36600; 70450; 71045; 71250; 74176; 74177; 80048; 80053; 80202; 80307; 81001; 81050; 82274; 82375; 82550; 82570; 82607; 82746; 82805; 82948; 83050; 83540; 83550; 83605; 83690; 83735; 83880; 84100; 84145; 84156; 84300; 84540; 85014; 85018; 85025; 85027; 85610; 85730; 85999; 86704; 86706; 86850; 86900; 86901; 86923; 87040; 87070; 87086; 87088; 87205; 87340; 87493; 87636; 87641; 93005; 93922; 94002; 94003; 94640; A9270; C1751; C8929; C9113; J0282; J0330; J0360; J0692; J1100; J1160; J1170; J1650; J1720; J1741; J1756; J1815; J1836; J1940; J2060; J2185; J2250; J2270; J2371; J2405; J2704; J2920; J2930; J2997; J3010; J3370; J3480; J7030; J7040; J7120; P9016; P9045; P9047; Q9957; Q9967